=== PATIENT | female | born 1955 | race Caucasian/White ===

== ENCOUNTER → 2018-01-09 09:14 | Outpatient (CLI) | payer MEDICARE, MEDICAID, SELFPAY ==
[2018-01-09 11:30] LABS: Absolute Lymphocyte Count 2.36 X10^3/ul (0.83-4.51); Absolute Neutrophil Count 3.5 X10^3/uL (2.0-7.7); Hematocrit 40.5 % (37-47); Hemoglobin 13.3 g/dl (12.0-15.0); Lymphocyte # 2.36 X10^3/ul (4.0); Lymphocyte % 35.7 % (19-41); Mean Corp Hgb Conc 32.8 g/gl (32-36); Mean Corpuscular Hgb 27.5 pg (27.0-32.0); Mean Corpuscular Volume 83.9 fL (81-99); Mean Platelet Vol. 10.9 fl (6.2-12.0); Monocyte# 0.71 X10^3/uL; Monocyte% 10.7 % (0-10); Neutrophil # 3.53 X10^3/uL (2.7-7.7); Neutrophil % 53.4 % (47-70); Platelet Count 217 K/mm3 (150-450); RBC Distribution Width CV 12.9 % (11.6-14.6); RBC Distribution Width SD 39.5 fl (35.1-43.9); Red Blood Count 4.83 M/mm3 (4.2-5.4); White Blood Count 6.6 K/mm3 (4.4-11.0)
[2018-01-09 11:34] LABS: POSITIVE COUNT NO; POSITIVE DIFFERENTIAL NO; POSITIVE MORPHOLOGY NO
[2018-01-09 11:57] LABS: ALB/GLOB Ratio 1.3 RATIO (0.9-2.4); AST(SGOT) 23 U/L (15-37); Alanine Aminotransfer ALT/SGPT 24 U/L (13-56); Albumin, Serum 3.8 g/dL (3.2-5.0); Alkaline Phosphatase 89 U/L (45-117); Anion Gap 7 (5-15); BUN 13 mg/dL (7-18); BUN/Creat Ratio 14.9 RATIO (10-20); Calcium,Total 8.8 mg/dL (8.5-10.1); Chloride 105 mmol/L (98-107); Creatinine, Serum 0.87 mg/dL (0.55-1.02); EST Glomerular Filtration Rate 70 mL/min (>60); Est Glom Filt Rate - Afr Amer 85 mL/min (>60); Glucose 65 mg/dL (74-106); Potassium 3.8 mmol/L (3.5-5.1); Protein, Total 6.8 g/dL (6.4-8.2); Sodium Level 142 mmol/L (136-145); Thyroid Stim Hormone (TSH) 2.66 uIU/mL (0.358-3.74)
[2018-01-10 09:21] LABS: Hep C Antibodies <0.1 s/co ratio (0.0-0.9)
== END ==
PROVIDERS: Family Provider Family Medicine Geriatric Medicine; PCP Family Medicine Geriatric Medicine; Visit Provider Family Medicine Geriatric Medicine
DX: I10 Essential (primary) hypertension (principal); Z13.89 Encounter for screening for other disorder
CPT/HCPCS: 36415; 80053; 84443; 85025; 86803

== ENCOUNTER → 2018-02-09 12:26 | Outpatient (CLI) | payer MEDICARE, MEDICAID, SELFPAY ==
--- NOTE | 2018-02-09 12:29 | BI_ITS ---
MAMMOGRAPHY - BILATERAL SCREENING REASON FOR EXAM: Female, 63 years old. Routine annual screening examination. PERTINENT HISTORY: Non-contributory. TECHNIQUE: Digital bilateral breast katrina (3D mammographic acquisition) in the CC and MLO projections. 2-D mediolateral oblique (MLO) and craniocaudad (CC) views of both breasts were obtained. CAD: Full Field Digital Mammography with Computer Added Detection was performed. COMPARISON: Comparison is made with prior study dated January 10, 2017 and October 31, 2015. FINDINGS: Breast Composition: There are scattered areas of fibroglandular density. There are no dominant masses or suspicious calcifications. No other significant abnormalities are identified. There has been no significant change since the prior study. BI/SCREENING MAMM (CAD), BILAT IMPRESSION: Stable bilateral screening mammogram. Yearly follow-up mammogram recommended. (A) ASSESSMENT CATEGORY: BIRADS Category 1: Negative. A letter regarding these results will be sent to the patient by the facility within 30 days. Approximately 10% of breast cancers are not detected by mammography. A normal mammogram should not delay biopsy of a clinically suspicious abnormality. [id number] Electronically Signed: Roosevelt Sequeira MD at 13:07 EDT Tel [phone], Service support ,
== END ==
PROVIDERS: Family Provider Family Medicine Geriatric Medicine; PCP Family Medicine Geriatric Medicine; Visit Provider Family Medicine Geriatric Medicine
DX: Z12.31 Encounter for screening mammogram for malignant neoplasm of breast (principal)
CPT/HCPCS: 77063; 77067

== ENCOUNTER 2018-04-01 12:30 | Outpatient (RCR) | payer MEDICARE, MEDICAID, SELFPAY ==
--- NOTE | 2017-12-12 09:05 | HP.PTEVAL_ITS ---
Patient's Visit Information CRIS RUBIO is a 62 year old F referred to Physical Therapy by Rell ABEL with a diagnosis of S/P L total ankle replacement. Date of Evaluation: 12/12/17 Physical Therapist: Maykel Marshall, PT, - Visit Plan Frequency: 2-3x /Week Duration: 6 Weeks Plan: L ankle stretching and strengthening, balance and proprio, gait training, nustep, and HEP. Cont to press WBing and ween from crutches. No WBing without CAM boot. Try to transition out of boot 4-6 weeks - Subjective Subjective: DOS: 10/17/17. Pt reports she had extensive ankle pain for the past 2 years. Pt reports finally it became bad enough to need a L total ankle replacement. Pt reports her pain was severe right after surgery, but has gradually gotten better over time. Pt reports she is glad she had the surgery at this time. Pt reports she is able to perform sit to stand and walk transfers much better at this time. Pt reports she has T and N in her toes at this time. Pt reports sleep diff secondary to pain and being able to get comfortable at this time. Pt is not currently employed at this time. 2/10 at rest, 8/10 at worst - Pain L ankle Pain Intensity (Out of 10): 2 Pain Intensity Range: 8 - Objective Neuro: B LE sensation is WNL to light touch. Observation: Incisions healed. No obvious signs of infection. Moderate swelling in foot. Girth at malleolus: B ankles 24 cm. ROM: R ankle DF= 7, PF= 65 degrees; L ankle DF= -7, PF= 30. MMT : R ankle 5/5 throughout. L ankle 2-/5 - Goals Goal 1:: Decrease L ankle pain x 50% to aid with sleep Goal Time Frame: 4-6 Weeks Goal 2:: Increase L ankle DF ROM x 10 degrees to aid with restoring a more normalized gait pattern Goal Time Frame: 4-6 Weeks Goal 3:: Increase L ankle strength x 1 grade to aid with IADL's Goal Time Frame: 4-6 Weeks Goal 4:: I with HEP Goal Time Frame: 4-6 Weeks - Rehabilitation Potential Physical Therapy Diagnosis: L ankle pain, weakness, and limited ROM secondary to L total ankle replacement Rehabilitation Potential: Good - Anticipated Interventions Patient/Client Instruction: Educate patient on: Condition, Plan of Care For the Purpose of:: To improve self management Therapeutic Exercise to Include: Strength training, Endurance training, Balance training, Body mechanics, Flexibilty training, Gait and locomotor training, Passive ROM, Active ROM For the Purpose of:: To decrease pain, To increase ROM, To improve muscle performance and motor function Cryotherapy (ice pack, ice massage): Yes For the Purpose of:: To decrease pain Thank you for the opportunity to evaluate your patient. For Medicare and Medicare HMO plans, please review the plan of care and approve it. It will need to be FAXED BACK to us at [phone] for Medicare purposes. Please let me know if there are questions or concerns regarding this plan of care. Physician Signature: Date:
--- NOTE | 2018-03-06 09:07 | HP.PTREVAL_ITS ---
Rell Coffey, It has been my pleasure to treat CRIS RUBIO over the last 34 visits for S/P L total ankle replacement. Please see the progress note below for an update on the physical therapy plan of care! Subjective: Pt reports she is really stiff this date Objective/Function: L ankle DF ROM= 2 degrees. L ankle pain 4/10 and pt still has sleep diff secondary to pain. L ankle MMT: PF= 5/5, all other L ankle 4/5 throughout. Stairs: Pt is unable to negotiate stairs without handrails. Pt must go one stair at a time on the way down. Ambulation: Pt is able to ambulate greater than 1000 feet with no difficulty. Pt still lack HS Plan Plan: Cont to progress strength and ROM. Also focus on stair negotiation Goals Goal 1:: Decrease L ankle pain x 50% to aid with sleep Goal Time Frame: 4-6 Weeks Goal Progress: Progressing Goal 2:: Increase L ankle DF ROM x 10 degrees to aid with restoring a more normalized gait pattern Goal Time Frame: 4-6 Weeks Goal Progress: Goal Met Goal 3:: Increase L ankle strength x 1 grade to aid with IADL's Goal Time Frame: 4-6 Weeks Goal Progress: Progressing Goal 4:: I with HEP Goal Time Frame: 4-6 Weeks Goal Progress: Progressing Goal 5:: Increase DF ROM to 10 degrees to aid with restoring a more functional gait pattern Goal Time Frame: 2-4 Weeks Goal 6:: Pt will be able to descend stairs reciprocally and using only one handrail Goal Time Frame: 2-4 Weeks Anticipated Interventions Patient/Client Instruction: Educate patient on: Condition, Plan of Care For the Purpose of:: To improve self management Therapeutic Exercise to Include: Strength training, Endurance training, Balance training, Body mechanics, Flexibilty training, Gait and locomotor training, Passive ROM, Active ROM For the Purpose of:: To decrease pain, To increase ROM, To improve muscle performance and motor function Cryotherapy (ice pack, ice massage): Yes For the Purpose of:: To decrease pain Please do not hesitate to contact me at [phone] by phone or Fax: if you have questions or concerns regarding this new plan of care! Sincerely, Maykel Marshall, PT,
--- NOTE | 2018-04-01 13:02 | HP.PTDCSUM ---
HP - PT D/C Summary It has been my pleasure to treat CRIS RUBIO under orders from Rell Coffey, for the diagnosis of S/P L total ankle replacement for a total of 42 visit(s). Discharge Date: Please see the following information for a summary of their discharge status. 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 - Pain L ankle Pain Intensity (Out of 10): 4 - Overall Improvement % Improvement: 85 - Objective Objective/Function: L ankle pain currently 10 - Goals Goal 1:: Decrease L ankle pain x 50% to aid with sleep Goal Progress: Goal Met Goal 2:: Increase L ankle DF ROM x 10 degrees to aid with restoring a more normalized gait pattern Goal Progress: Goal Met Goal 3:: Increase L ankle strength x 1 grade to aid with IADL's Goal Progress: Goal Met Goal 4:: I with HEP Goal Progress: Goal Met Goal 5:: Increase DF ROM to 10 degrees to aid with restoring a more functional gait pattern Goal Progress: Goal Met Goal 6:: Pt will be able to descend stairs reciprocally and using only one handrail Goal Progress: Goal Met - Plan Plan: Cont as aureliano - D/C Information If there are questions or concerns regarding this patient's physical therapy, please feel free to call me at [phone]. Thank you for the referral of this patient. Sincerely, Maykel Marshall, PT,
== END 2018-04-01 13:40 | disposition home or self-care (01) ==
LOC: PT 12:30
PROVIDERS: Family Provider Family Medicine Geriatric Medicine; PCP Family Medicine Geriatric Medicine; Visit Provider Podiatrist
DX: Z96.662 Presence of left artificial ankle joint (principal); Z98.1 Arthrodesis status
CPT/HCPCS: 97110; 97140; 97161; 97530

== ENCOUNTER → 2018-05-27 10:01 | Outpatient (CLI) | payer MEDICARE, MEDICAID, SELFPAY ==
[2018-05-27 11:12] LABS: Amphetamine Urine VISTA NEGATIVE (<1000 ng/mL); Barbiturate Urine VISTA NEGATIVE (< 200 ng/mL); Benzodiazepine Urine VISTA NEGATIVE (< 200 ng/mL); Cocaine Urine VISTA NEGATIVE (< 300 ng/mL); Ecstacy Urine VISTA NEGATIVE (< 500 ng/mL); Methadone Urine VISTA NEGATIVE (< 300 ng/mL); PCP Urine VISTA NEGATIVE (< 25 ng/mL); THC Urine VISTA NEGATIVE (< 50 ng/mL); Vista UDS pH Range 6
== END ==
PROVIDERS: Family Provider Family Medicine Geriatric Medicine; PCP Family Medicine Geriatric Medicine; Visit Provider Anesthesiology Pain Medicine
DX: F11.20 Opioid dependence, uncomplicated (principal)
CPT/HCPCS: 80307

== ENCOUNTER → 2018-07-14 11:30 | Outpatient (CLI) | payer MEDICARE, MEDICAID, SELFPAY ==
[2018-07-14 12:39] LABS: Absolute Lymphocyte Count 1.53 X10^3/ul (0.83-4.51); Absolute Neutrophil Count 2.2 X10^3/uL (2.0-7.7); Eosinophil# 0.01 X10^3/uL; Eosinophils% 0.2 % (0-5); Hematocrit 38.4 % (37-47); Hemoglobin 12.8 g/dl (12.0-15.0); Lymphocyte # 1.53 X10^3/ul (4.0); Lymphocyte % 36.3 % (19-41); Mean Corp Hgb Conc 33.3 g/gl (32-36); Mean Corpuscular Hgb 28.1 pg (27.0-32.0); Mean Corpuscular Volume 84.2 fL (81-99); Mean Platelet Vol. 10.9 fl (6.2-12.0); Monocyte# 0.42 X10^3/uL; Neutrophil # 2.24 X10^3/uL (2.7-7.7); Neutrophil % 53.3 % (47-70); Platelet Count 157 K/mm3 (150-450); RBC Distribution Width CV 13.8 % (11.6-14.6); RBC Distribution Width SD 41.9 fl (35.1-43.9); Red Blood Count 4.56 M/mm3 (4.2-5.4); White Blood Count 4.2 K/mm3 (4.4-11.0)
[2018-07-14 12:43] LABS: POSITIVE COUNT NO; POSITIVE DIFFERENTIAL NO; POSITIVE MORPHOLOGY NO
[2018-07-14 13:06] LABS: ALB/GLOB Ratio 1.2 RATIO (0.9-2.4); AST(SGOT) 23 U/L (15-37); Alanine Aminotransfer ALT/SGPT 25 U/L (13-56); Albumin, Serum 3.7 g/dL (3.2-5.0); Alkaline Phosphatase 83 U/L (45-117); Anion Gap 6 (5-15); BUN 9 mg/dL (7-18); BUN/Creat Ratio 10.2 RATIO (10-20); Calcium,Total 9.1 mg/dL (8.5-10.1); Chloride 107 mmol/L (98-107); Creatinine, Serum 0.88 mg/dL (0.55-1.02); EST Glomerular Filtration Rate 69 mL/min (>60); Est Glom Filt Rate - Afr Amer 83 mL/min (>60); Glucose 81 mg/dL (74-106); Potassium 4.3 mmol/L (3.5-5.1); Protein, Total 6.7 g/dL (6.4-8.2); Sodium Level 144 mmol/L (136-145); Thyroid Stim Hormone (TSH) 0.94 uIU/mL (0.358-3.74)
== END ==
PROVIDERS: Family Provider Family Medicine Geriatric Medicine; PCP Family Medicine Geriatric Medicine; Visit Provider Family Medicine Geriatric Medicine
DX: I10 Essential (primary) hypertension (principal)
CPT/HCPCS: 36415; 80053; 84443; 85025

== ENCOUNTER → 2018-09-15 11:46 | Outpatient (CLI) | payer MEDICARE, SELFPAY ==
[2018-09-15 14:02] LABS: Absolute Lymphocyte Count 1.59 X10^3/ul (0.83-4.51); Absolute Neutrophil Count 3.2 X10^3/uL (2.0-7.7); Hematocrit 39.5 % (37-47); Hemoglobin 12.9 g/dl (12.0-15.0); Lymphocyte # 1.59 X10^3/ul (4.0); Lymphocyte % 30.5 % (19-41); Mean Corp Hgb Conc 32.7 g/gl (32-36); Mean Corpuscular Hgb 27.7 pg (27.0-32.0); Mean Corpuscular Volume 84.9 fL (81-99); Mean Platelet Vol. 10.7 fl (6.2-12.0); Monocyte# 0.38 X10^3/uL; Monocyte% 7.3 % (0-10); Neutrophil # 3.24 X10^3/uL (2.7-7.7); Neutrophil % 62.2 % (47-70); POSITIVE COUNT NO; POSITIVE DIFFERENTIAL NO; Platelet Count 176 K/mm3 (150-450); RBC Distribution Width CV 13.5 % (11.6-14.6); RBC Distribution Width SD 41.2 fl (35.1-43.9); Red Blood Count 4.65 M/mm3 (4.2-5.4); White Blood Count 5.2 K/mm3 (4.4-11.0)
[2018-09-15 14:03] LABS: POSITIVE MORPHOLOGY NO
[2018-09-15 14:26] LABS: ALB/GLOB Ratio 1.2 RATIO (0.9-2.4); AST(SGOT) 23 U/L (15-37); Alanine Aminotransfer ALT/SGPT 22 U/L (13-56); Albumin, Serum 3.8 g/dL (3.2-5.0); Alkaline Phosphatase 80 U/L (45-117); Anion Gap 9 (5-15); BUN 9 mg/dL (7-18); BUN/Creat Ratio 10.4 RATIO (10-20); Chloride 104 mmol/L (98-107); Creatinine, Serum 0.87 mg/dL (0.55-1.02); EST Glomerular Filtration Rate 70 mL/min (>60); Est Glom Filt Rate - Afr Amer 85 mL/min (>60); Globulin 3.1 g/dL (2.2-4.2); Glucose 70 mg/dL (74-106); Potassium 3.7 mmol/L (3.5-5.1); Protein, Total 6.9 g/dL (6.4-8.2); Sodium Level 144 mmol/L (136-145)
--- OUTSIDE RECORDS SUMMARY | 2018-11-01 13:13 | XMS RPT_ITS ---
:1955 Author Organization [facility] Care Team Providers Name Role Phone Rocky, Wesly Chi Attending Unavailable Rocky, Wesly Chi Primary Care Unavailable Rell Coffey Attending Unavailable Rocky, Wesly Chi Primary Care Unavailable Rell Coffey Referring Unavailable Rocky, Wesly Chi Attending Unavailable Rocky, Wesly Chi Primary Care Unavailable Rocky, Wesly Chi Attending Unavailable Rocky, Wesly Chi Primary Care Unavailable Basali, Ayman Attending Unavailable Basali, Ayman Referring Unavailable Rocky, Wesly Chi Primary Care Unavailable Rocky, Wesly Chi Attending Unavailable Rocky, Wesly Chi Primary Care Unavailable PROBLEMS PROBLEMS DATE TYPE CONDITION / CODE ATTENDING STATUS SOURCE 05/27/2018 Unknown F11.20 - Opioid Basaljose ramon, Ayman Active [place] dependence, Community uncomplicated / Hospital F11.20(ICD-10) Repository 04/01/2018 Unknown Z96.662 - Presence [place]unning, Active [facility] Z96.662(ICD-10) Repository 01/09/2018 Unknown I11.0 - Rocky, Wesly Chi Active [facility] Hypertensive heart Community disease with heart Hospital failure / Repository I11.0(ICD-10) 01/09/2018 Unknown Z13.89 - Encounter Wesly Hidalgo Chi Active [place] for screening for Community other disorder / Hospital Z13.89(ICD-10) Repository PROCEDURES PROCEDURES No Procedure Records FoundRESULTS RESULTS CBC W/DIFF, AUTOMATED Collected: 09/15/2018 Status: F Source: [facility] 11[facility] TYPE CODE TESTS RESULT OUT OF RANGE REFERENCE UNITS LAB L100.1000 4.4-11.0 K/mm3 Normal WBC 5.2 LAB L100.1200 4.2-5.4 M/mm3 Normal RBC 4.65 LAB L100.1300 12.0-15.0 g/dl Normal HGB 12.9 LAB L100.1400 37-47 % Normal HCT 39.5 LAB L100.1500 81-99 fL Normal MCV 84.9 LAB L100.1600 27.0-32.0 pg Normal MCH 27.7 LAB L100.1700 32-36 g/gl Normal MCHC 32.7 LAB L100.1810 11.6-14.6 % Normal RDW CV 13.5 LAB L100.1820 35.1-43.9 fl Normal RDW SD 41.2 LAB L100.1900 150-450 K/mm3 Normal PLT 176 LAB L100.2000 6.2-12.0 fl Normal MPV 10.7 LAB L100.2100 47-70 % Normal NEUT% 62.2 LAB L100.2200 19-41 % Normal LY% 30.5 LAB L100.2300 0-10 % Normal MONO% 7.3 LAB L100.2400 0-5 % Normal EO% 0.0 LAB L100.2500 0-1 % Normal BASO% 0.0 LAB L100.2550 0.0-0.9 % Normal IM GRAN % 0.000 Result Comment: IG% - Immature Granulocytes (promyelocytes, myelocytes and metamyelocytes) > 1% indicates that a LEFT SHIFT is Present. LAB L100.2620 2.0-7.7 X10 3/uL Normal Absolute Neut 3.2 LAB L100.2720 0.83-4.51 X10 3/ul Normal Absolute Lymph 1.59 Performed By: #### L100.0100 #### [facility] [address] [place], [address] COMPREHENSIVE METABOLIC Collected: 09/15/2018 Status: F Source: R[facility]IN TORRES 11:57 AM [facility] REPOSITORY TYPE CODE TESTS RESULT OUT OF RANGE REFERENCE UNITS LAB L501.0100 74-106 mg/dL Low GLU 70 Result Comment: Please note revised GLUCOSE reference range effective 2017. LAB L501.1000 7-18 mg/dL Normal BUN 9 LAB L501.1100 0.55-1.02 mg/dL Normal CREAT,SERUM 0.87 Result Comment: The validity of the calculated GFR AND GFRAA in patients over 70 years has not been determined. Clinical correlation is essential. LAB L501.1110 >60 mL/min Normal EST GFR 70 Result Comment: Non- GFR Calc LAB L501.1115 >60 mL/min Normal EST GFR - AA 85 Result Comment: GFR Calc LAB L501.1300 10-20 RATIO Normal BUN/CRE 10.4 LAB L501.1500 6.4-8.2 g/dL T Normal PROT 6.9 LAB L501.1800 3.2-5.0 g/dL Normal ALB 3.8 LAB L501.1950 2.2-4.2 g/dL Normal GLOB 3.1 LAB L501.2000 0.9-2.4 RATIO Normal A/G 1.2 LAB L501.2200 8.5-10.1 mg/dL CA Normal 9.0 LAB L501.4100 15-37 U/L Normal AST 23 LAB L501.4305 45-117 U/L Normal ALK P 80 LAB L501.4405 13-56 U/L Normal ALT 22 LAB L501.4600 0.20-1.00 mg/dL T Normal BILI 0.60 LAB L501.5300 136-145 mmol/L NA Normal 144 LAB L501.5600 3.5-5.1 mmol/L K Normal 3.7 LAB L501.5900 98-107 mmol/L CL Normal 104 LAB L501.6100 21.0-32.0 mmol/L Normal CO2 31.0 LAB L501.6200 5-15 Normal GAP 9 Performed By: #### L500.4050 #### [facility] [address] [place], [address] CBC W/DIFF, AUTOMATED Collected: 07/14/2018 Status: F Source: [place] 11:33 AM [facility] REPOSITORY TYPE CODE TESTS RESULT OUT OF RANGE REFERENCE UNITS LAB L100.1000 4.4-11.0 K/mm3 Low WBC 4.2 LAB L100.1200 4.2-5.4 M/mm3 Normal RBC 4.56 LAB L100.1300 12.0-15.0 g/dl Normal HGB 12.8 LAB L100.1400 37-47 % Normal HCT 38.4 LAB L100.1500 81-99 fL Normal MCV 84.2 LAB L100.1600 27.0-32.0 pg Normal MCH 28.1 LAB L100.1700 32-36 g/gl Normal MCHC 33.3 LAB L100.1810 11.6-14.6 % Normal RDW CV 13.8 LAB L100.1820 35.1-43.9 fl Normal RDW SD 41.9 LAB L100.1900 150-450 K/mm3 Normal PLT 157 LAB L100.2000 6.2-12.0 fl Normal MPV 10.9 LAB L100.2100 47-70 % Normal NEUT% 53.3 LAB L100.2200 19-41 % Normal LY% 36.3 LAB L100.2300 0-10 % Normal MONO% 10.0 LAB L100.2400 0-5 % Normal EO% 0.2 LAB L100.2500 0-1 % Normal BASO% 0.0 LAB L100.2550 0.0-0.9 % Normal IM GRAN % 0.200 Result Comment: IG% - Immature Granulocytes (promyelocytes, myelocytes and metamyelocytes) > 1% indicates that a LEFT SHIFT is Present. LAB L100.2620 2.0-7.7 X10 3/uL Normal Absolute Neut 2.2 LAB L100.2720 0.83-4.51 X10 3/ul Normal Absolute Lymph 1.53 Performed By: #### L100.0100 #### [facility] [address] [place], [place], [address] COMPREHENSIVE METABOLIC Collected: 07/14/2018 Status: F Source: RUBIN PROFIL 11:33 AM [facility] REPOSITORY TYPE CODE TESTS RESULT OUT OF RANGE REFERENCE UNITS LAB L501.0100 74-106 mg/dL Normal GLU 81 Result Comment: Please note revised GLUCOSE reference range effective 2017. LAB L501.1000 7-18 mg/dL Normal BUN 9 LAB L501.1100 0.55-1.02 mg/dL Normal CREAT,SERUM 0.88 Result Comment: The validity of the calculated GFR AND GFRAA in patients over 70 years has not been determined. Clinical correlation is essential. LAB L501.1110 >60 mL/min Normal EST GFR 69 Result Comment: Non- GFR Calc LAB L501.1115 >60 mL/min Normal EST GFR - AA 83 Result Comment: GFR Calc LAB L501.1300 10-20 RATIO Normal BUN/CRE 10.2 LAB L501.1500 6.4-8.2 g/dL T Normal PROT 6.7 LAB L501.1800 3.2-5.0 g/dL Normal ALB 3.7 LAB L501.1950 2.2-4.2 g/dL Normal GLOB 3.0 LAB L501.2000 0.9-2.4 RATIO Normal A/G 1.2 LAB L501.2200 8.5-10.1 mg/dL CA Normal 9.1 LAB L501.4100 15-37 U/L Normal AST 23 LAB L501.4305 45-117 U/L Normal ALK P 83 LAB L501.4405 13-56 U/L Normal ALT 25 LAB L501.4600 0.20-1.00 mg/dL T Normal BILI 0.50 LAB L501.5300 136-145 mmol/L NA Normal 144 LAB L501.5600 3.5-5.1 mmol/L K Normal 4.3 LAB L501.5900 98-107 mmol/L CL Normal 107 LAB L501.6100 21.0-32.0 mmol/L Normal CO2 31.0 LAB L501.6200 5-15 Normal GAP 6 Performed By: #### L500.4050, L501.9520 #### [facility] [address] [place], [address] THYROID STIM HORMONE Collected: 07/14/2018 Status: F Source: RUBIN (TSH) 11:33 AM [facility] REPOSITORY TYPE CODE TESTS RESULT OUT OF RANGE REFERENCE UNITS LAB L501.9520 0.358-3.74 uIU/mL Normal TSH 0.94 Performed By: #### L500.4050, L501.9520 #### [facility] [address] [place], [place], [id number] URINE DRUG SCREEN Collected: 05/27/2018 Status: F Source: RUBIN (VISTA) 10:08 AM [facility] REPOSITORY Order Comment: List of Drugs Taken or Suspected? UNK TYPE CODE TESTS RESULT OUT OF RANGE REFERENCE UNITS LAB L505.0075 TO BE Normal CONFIRMED Result Comment: CONFIRMATORY TESTING FOR ALL POSITIVE URINE DRUG SCREEN RESULTS WILL ONLY BE SENT OUT UPON PHYSICIAN ORDER. VISTA Urine Drug Screen methods provide only preliminary analytical test results. A more specific alternate chemical method must be used in order to obtain a confirmed analytical result. Gas chromatography/mass spectrometery (GC/MS) is the preferred confirmatory method. Clinical consideration and professional judgement should be applied to any drug of abuse test result, particularly when preliminary positive results are used. URINE TCA TESTING MUST BE ORDERED SEPARATELY. USE TEST MNEMONIC: [facility] LAB L505.5005 VISTA UDS PH 6 Normal LAB L505.5015 <1000 ng/mL AMPHETAMINES Normal NEGATIVE LAB L505.5025 < 200 ng/mL BARBITIURATES Normal NEGATIVE LAB L505.5035 < 200 ng/mL BENZODIAZIPINE Normal NEGATIVE LAB L505.5045 < 300 ng/mL COCAINE Normal NEGATIVE LAB L505.5055 < 500 ng/mL ECSTACY Normal NEGATIVE LAB L505.5065 < 300 ng/mL METHADONE Normal NEGATIVE LAB L505.5075 < 300 ng/mL OPIATES Normal NEGATIVE LAB L505.5085 < 25 ng/mL PCP Normal NEGATIVE LAB L505.5095 < 50 ng/mL THC Normal NEGATIVE Performed By: #### L505.5000 #### [facility] [address] [place], [place], [address] MISCELLANEOUS LAB Collected: 05/27/2018 Status: F Source: RUBIN PROCEDURE 10:08 AM [facility] REPOSITORY Order Comment: Test(s) Ordered: [id number] URINE RUN LOWEST TEST TYPE CODE TESTS RESULT OUT OF RANGE REFERENCE UNITS LAB L801.1541 Normal [facility] TEST Result Comment: [id number] 6+OXYCODONE-BUND (ng/mL) DRUG RESULT SCREEN CUTOFF ____ Amphetamines,Urine Negative ng/mL 1000 Amphetamine test includes Amphetamine and Methamphetamine. Barbiturates Negative ng/mL 200 Benzodiazepines Negative ng/mL 200 Cannabinoid Negative ng/mL 20 Cocaine (Metab) Negative ng/mL 300 Opiates Negative ng/mL 300 Opiates test includes Codeine, Morphine, Hydromorphone, Hydrocodone. Oxycodone/Oxymorphone,Urine Negative ng/mL 300 Test includes Oxydodone and Oxymorphone. TESTING PERFORMED AT [facility]. ORIGINAL REPORT ON FILE IN LAB CONTAINS ADDITIONAL TEST SITE INFORMATION. Performed By: #### L801.1541 #### [facility] [address] [place], [address] PT D/C SUMMARY (1) Observed: 04/01/2018 Status: F Source: [place] 1:02 PM [facility] REPOSITORY [facility] Physical Therapy [address] [place] [address] Fax REHABILITATION SERVICES DISCHARGE SUMMARY MR#: [id number] Acct: [id number] Name: CRIS RUBIO Rep #: [id number] : 1955 63 From: Maykel Marshall PT, ATC Referring DrKatt: Rell Coffey DPM Status: REG RCR Insurance: MEDICARE PART A B MEDICAID HP - PT D/C Summary It has been my pleasure to treat CRIS ARREDONDO under orders from Rell Coffey, for the diagnosis of S/P L total ankle replacement for a total of 42 visit(s). Discharge Date: Please see the following information for a summary of their discharge status. - Subjective Subjective: Pt reports her L ankle is more sore today from yumiko kaye all day - Pain L ankle Pain Intensity (Out of 10): 4 - Overall Improvement % Improvement: 85 - Objective Objective/Function: L ankle pain currently 01/13 - Goals Goal 1:: Decrease L ankle pain x 50% to aid with sleep Goal Progress: Goal Met Goal 2:: Increase L ankle DF ROM x 10 degrees to aid with restoring a more normalized gait pattern Goal Progress: Goal Met Goal 3:: Increase L ankle strength x 1 grade to aid with IADL's Goal Progress: Goal Met Goal 4:: I with HEP Goal Progress: Goal Met Goal 5:: Increase DF ROM to 10 degrees to aid with restoring a more functional gait pattern Goal Progress: Goal Met Goal 6:: Pt will be able to descend stairs reciprocally and using only one handrail Goal Progress: Goal Met - Plan Plan: Cont as aureliano - D/C Information If there are questions or concerns regarding this patient's physical therapy, please feel free to call me at [phone]. Thank you for the referral of this patient. Sincerely, Maykel Marshall PT, <Electronically signed by Maykel Marshall PT, ATC> 04/01/18 1302 CC: Rell Coffey DPM; Wesly Hidalgo MD [facility] Signed RE-EVALUATION - PT (1) Observed: 03/06/2018 Status: F Source: RUBIN 9:07 AM [facility] REPOSITORY [facility] [address] [place], [place] [address] Fax REEVALUATION / MEDICARE RECERTIFICATION PHYSICAL THERAPY MR#: [id number] Acct: [id number] Name: CRIS RUBIO Rep #: [id number] : 1955 63 From: Maykel Marshall PT, ATC Referring Dr.: Rell Coffey DPM Status: REG RCR Insurance: MEDICARE PART A B MEDICAID Rell Coffey, It has been my pleasure to treat CRIS RUBIO over the last 34 visits for S/P L total ankle replacement. Please see the progress note below for an update on the physical therapy plan of care! Subjective: Pt reports she is really stiff this date Objective/Function: L ankle DF ROM= 2 degrees. L ankle pain 4/10 and pt still has sleep diff secondary to pain. L ankle MMT: PF= 5/5, all other L ankle 4/5 throughout. Stairs: Pt is unable to negotiate stairs without handrails. Pt must go one stair at a time on the way down. Ambulation: Pt is able to ambulate greater than 1000 feet with no difficulty. Pt still lack HS Plan Plan: Cont to progress strength and ROM. Also focus on stair negotiation Goals Goal 1:: Decrease L ankle pain x 50% to aid with sleep Goal Time Frame: 4-6 Weeks Goal Progress: Progressing Goal 2:: Increase L ankle DF ROM x 10 degrees to aid with restoring a more normalized gait pattern Goal Time Frame: 4-6 Weeks Goal Progress: Goal Met Goal 3:: Increase L ankle strength x 1 grade to aid with IADL's Goal Time Frame: 4-6 Weeks Goal Progress: Progressing Goal 4:: I with HEP Goal Time Frame: 4-6 Weeks Goal Progress: Progressing Goal 5:: Increase DF ROM to 10 degrees to aid with restoring a more functional gait pattern Goal Time Frame: 2-4 Weeks Goal 6:: Pt will be able to descend stairs reciprocally and using only one handrail Goal Time Frame: 2-4 Weeks Anticipated Interventions Patient/Client Instruction: Educate patient on: Condition, Plan of Care For the Purpose of:: To improve self management Therapeutic Exercise to Include: Strength training, Endurance training, Balance training, Body mechanics, Flexibilty training, Gait and locomotor training, Passive ROM, Active ROM For the Purpose of:: To decrease pain, To increase ROM, To improve muscle performance and motor function Cryotherapy (ice pack, ice massage): Yes For the Purpose of:: To decrease pain Please do not hesitate to contact me at [phone] by phone or if you have questions or concerns regarding this new plan of care! Sincerely, Maykel Marshall, PT, <Electronically signed by Maykel Marshall PT, ATC> 03/06/18 0907 CC: Rell Coffey DPM; Wesly Hidalgo MD [facility] Signed For Medicare only, by signing this I certify the plan of care. Physicians Signature Date SCREENING MAMM (CAD), Observed: 02/09/2018 Status: F Source: RUBIN BILAT 12:29 PM [facility] REPOSITORY [facility] Imaging Services [address] [place] [address] SCREENING MAMM (CAD), BILAT MR#: [id number] Acct: [id number] Name: CRIS RUBIO Rep #: [id number] : 1955 F 63 From: Roosevelt Sequeira MD PCP: Wesly Hidalgo MD, Chi Status: REG CLI Study: SCREENING MAMM (CAD), BILAT Date of Exam: 02/09/18 Exam# [id number] Ordering Dr: Wesly Hidalgo MD MAMMOGRAPHY - BILATERAL SCREENING REASON FOR EXAM: Female, 63 years old. Routine annual screening examination. PERTINENT HISTORY: Non-contributory. TECHNIQUE: Digital bilateral breast katrina (3D mammographic acquisition) in the CC and MLO projections. 2-D mediolateral oblique (MLO) and craniocaudad (CC) views of both breasts were obtained. CAD: Full Field Digital Mammography with Computer Added Detection was performed. COMPARISON: Comparison is made with prior study dated January 10, 2017 and October 31, 2015. FINDINGS: Breast Composition: There are scattered areas of fibroglandular density. There are no dominant masses or suspicious calcifications. No other significant abnormalities are identified. There has been no significant change since the prior study. BI/SCREENING MAMM (CAD), BILAT IMPRESSION: Stable bilateral screening mammogram. Yearly follow-up mammogram recommended. (A) ASSESSMENT CATEGORY: BIRADS Category 1: Negative. A letter regarding these results will be sent to the patient by the facility within 30 days. Approximately 10% of breast cancers are not detected by mammography. A normal mammogram should not delay biopsy of a clinically suspicious abnormality. [id number] Electronically Signed: Roosevelt Sequeira MD at 13:07 EDT Tel [phone], Service support , CC: Wesly Hidalgo MD [facility] [place]: Signed CBC W/DIFF, AUTOMATED Collected: 01/09/2018 Status: F Source: [place] 10:26 AM [facility] REPOSITORY TYPE CODE TESTS RESULT OUT OF RANGE REFERENCE UNITS LAB L100.1000 4.4-11.0 K/mm3 Normal WBC 6.6 LAB L100.1200 4.2-5.4 M/mm3 Normal RBC 4.83 LAB L100.1300 12.0-15.0 g/dl Normal HGB 13.3 LAB L100.1400 37-47 % Normal HCT 40.5 LAB L100.1500 81-99 fL Normal MCV 83.9 LAB L100.1600 27.0-32.0 pg Normal MCH 27.5 LAB L100.1700 32-36 g/gl Normal MCHC 32.8 LAB L100.1810 11.6-14.6 % Normal RDW CV 12.9 LAB L100.1820 35.1-43.9 fl Normal RDW SD 39.5 LAB L100.1900 150-450 K/mm3 Normal PLT 217 LAB L100.2000 6.2-12.0 fl Normal MPV 10.9 LAB L100.2100 47-70 % Normal NEUT% 53.4 LAB L100.2200 19-41 % Normal LY% 35.7 LAB L100.2300 0-10 % High MONO% 10.7 LAB L100.2400 0-5 % Normal EO% 0.0 LAB L100.2500 0-1 % Normal BASO% 0.0 LAB L100.2550 0.0-0.9 % Normal IM GRAN % 0.200 Result Comment: IG% - Immature Granulocytes (promyelocytes, myelocytes and metamyelocytes) > 1% indicates that a LEFT SHIFT is Present. LAB L100.2620 2.0-7.7 X10 3/uL Normal Absolute Neut 3.5 LAB L100.2720 0.83-4.51 X10 3/ul Normal Absolute Lymph 2.36 Performed By: #### L100.0100 #### [facility] [address] [place], [address] COMPREHENSIVE METABOLIC Collected: 01/09/2018 Status: F Source: [facility] 10:26 AM [facility] REPOSITORY TYPE CODE TESTS RESULT OUT OF RANGE REFERENCE UNITS LAB L501.0100 74-106 mg/dL Low GLU 65 Result Comment: Please note revised GLUCOSE reference range effective 2017. LAB L501.1000 7-18 mg/dL Normal BUN 13 LAB L501.1100 0.55-1.02 mg/dL Normal CREAT,SERUM 0.87 Result Comment: The validity of the calculated GFR AND GFRAA in patients over 70 years has not been determined. Clinical correlation is essential. LAB L501.1110 >60 mL/min Normal EST GFR 70 Result Comment: Non- GFR Calc LAB L501.1115 >60 mL/min Normal EST GFR - AA 85 Result Comment: GFR Calc LAB L501.1300 10-20 RATIO Normal BUN/CRE 14.9 LAB L501.1500 6.4-8.2 g/dL T Normal PROT 6.8 LAB L501.1800 3.2-5.0 g/dL Normal ALB 3.8 LAB L501.1950 2.2-4.2 g/dL Normal GLOB 3.0 LAB L501.2000 0.9-2.4 RATIO Normal A/G 1.3 LAB L501.2200 8.5-10.1 mg/dL CA Normal 8.8 LAB L501.4100 15-37 U/L Normal AST 23 LAB L501.4305 45-117 U/L Normal ALK P 89 LAB L501.4405 13-56 U/L Normal ALT 24 Result Comment: Please note revised ALT reference range effective 2017. LAB L501.4600 0.20-1.00 mg/dL Normal T BILI 0.30 LAB L501.5300 136-145 mmol/L Normal NA 142 LAB L501.5600 3.5-5.1 mmol/L Normal K 3.8 LAB L501.5900 98-107 mmol/L Normal CL 105 LAB L501.6100 21.0-32.0 mmol/L Normal CO2 30.0 LAB L501.6200 5-15 Normal GAP 7 Performed By: #### L500.4050, L501.9520 #### [facility] [address] [facility] [place], [place], [address] THYROID STIM HORMONE Collected: 01/09/2018 Status: F Source: RUBIN (TSH) 10:26 AM [facility] REPOSITORY TYPE CODE TESTS RESULT OUT OF RANGE REFERENCE UNITS LAB L501.9520 0.358-3.74 uIU/mL Normal TSH 2.66 Performed By: #### L500.4050, L501.9520 #### [facility] [address] [facility] [facility] [place], [place], [address] HEPATITIS C ANTIBODIES Collected: 01/09/2018 Status: F Source: [place] 10:26 AM [facility] REPOSITORY TYPE CODE TESTS RESULT OUT OF RANGE REFERENCE UNITS LAB L3100.0650 0.0-0.9 s/co ratio Normal HEP C AB <0.1 Result Comment: Negative: < 0.8 Indeterminate: 0.8 - 0.9 Positive: > 0.9 The CDC recommends that a positive HCV antibody result be followed up with a HCV Nucleic Acid Amplification test ([id number]). Performed at: - [facility] [id number] Loft Rigger: Campos Winkler PhD, Phone: [phone] Performed By: #### L3100.0625 #### [facility] (refer to report for specific site) refer to report for address and phone number INITAL EVALUATION (1) Observed: 12/12/2017 Status: F Source: RUBIN - PT 9:05 AM [facility] REPOSITORY [facility] Physical Therapy [address] [place] [address] Fax REHABILITATION SERVICES INITIAL EVALUATION MR#: [id number] Acct: [id number] Name: CRIS RUBIO Rep #: [id number] : 1955 62 From: Maykel Marshall PT, ATC Referring Dr.: Rell Coffey DPM Status: REG RCR Insurance: MEDICARE PART A B MEDICAID Patient's Visit Information CRIS RUBIO is a 62 year old F referred to Physical Therapy by Rell Coffey DR.JWUNNI with a diagnosis of S/P L total ankle replacement. Date of Evaluation: 12/12/17 Physical Therapist: Mayekl Marshall, PT, - Visit Plan Frequency: 2-3x /Week Duration: 6 Weeks Plan: L ankle stretching and strengthening, balance and proprio, gait training, nustep, and HEP. Cont to press WBing and ween from crutches. No WBing without CAM boot. Try to transition out of boot 4-6 weeks - Subjective Subjective: DOS: 10/17/17. Pt reports she had extensive ankle pain for the past 2 years. Pt reports finally it became bad enough to need a L total ankle replacement. Pt reports her pain was severe right after surgery, but has gradually gotten better over time. Pt reports she is glad she had the surgery at this time. Pt reports she is able to perform sit to stand and walk transfers much better at this time. Pt reports she has T and N in her toes at this time. Pt reports sleep diff secondary to pain and being able to get comfortable at this time. Pt is not currently employed at this time. 2/10 at rest, 8/10 at worst - Pain L ankle Pain Intensity (Out of 10): 2 Pain Intensity Range: 8 - Objective Neuro: B LE sensation is WNL to light touch. Observation: Incisions healed. No obvious signs of infection. Moderate swelling in foot. Girth at malleolus: B ankles 24 cm. ROM: R ankle DF= 7, PF= 65 degrees; L ankle DF= -7, PF= 30. MMT: R ankle 5/5 throughout. L ankle 2-/5 - Goals Goal 1:: Decrease L ankle pain x 50% to aid with sleep Goal Time Frame: 4-6 Weeks Goal 2:: Increase L ankle DF ROM x 10 degrees to aid with restoring a more normalized gait pattern Goal Time Frame: 4-6 Weeks Goal 3:: Increase L ankle strength x 1 grade to aid with IADL's Goal Time Frame: 4-6 Weeks Goal 4:: I with HEP Goal Time Frame: 4-6 Weeks - Rehabilitation Potential Physical Therapy Diagnosis: L ankle pain, weakness, and limited ROM secondary to L total ankle replacement Rehabilitation Potential: Good - Anticipated Interventions Patient/Client Instruction: Educate patient on: Condition, Plan of Care For the Purpose of:: To improve self management Therapeutic Exercise to Include: Strength training, Endurance training, Balance training, Body mechanics, Flexibilty training, Gait and locomotor training, Passive ROM, Active ROM For the Purpose of:: To decrease pain, To increase ROM, To improve muscle performance and motor function Cryotherapy (ice pack, ice massage): Yes For the Purpose of:: To decrease pain Thank you for the opportunity to evaluate your patient. For Medicare and Medicare HMO plans, please review the plan of care and approve it. It will need to be FAXED BACK to us at [phone] for Medicare purposes. Please let me know if there are questions or concerns regarding this plan of care. Physician Signature: Date: <Electronically signed by Maykel Marshall PT, ATC> 12/12/17 0905 CC: Rell Coffey DPM; Wesly Hidalgo MD [facility] Signed For Medicare only, by signing this I certify the plan of care. Physicians Signature Date ALLERGIES ALLERGIES DATE TYPE / CODE NAME / CODE REACTION SEVERITY SOURCE 10/02/2017 Drug niacin/F0060 REDDNESS/ PASSED [place] [facility] Allergy/4160 64339(RXNORM [facility] 57841(SNOMED ) Repository CT) 10/02/2017 Drug ampicillin/F Rash [place] [facility]/4160 [id number](RX Hospital 05788(SNOMED NORM) Repository CT) 10/02/2017 Drug sulfamethoxa BLOTCHES/ HIVES [place] [facility]/4160 zole/[id number] Hospital 15717(SNOMED 827(RXNORM) Repository CT) 10/02/2017 Drug trimethoprim BLOTCHES/ HIVES [place] [facility]/4160 /[id number]( Hospital 60133(SNOMED RXNORM) Repository CT) 10/02/2017 Drug clarithromyc Upset Stomach [place] [facility]/4160 in/[id number] Hospital [facility](SNOMED 8(RXNORM) Repository CT) 10/02/2017 Drug amitriptylin EARS RING [place] [facility]/4160 e/[id number] Hospital [facility](SNOMED (RXNORM) Repository CT) ENCOUNTERS ENCOUNTERS ADMIT/DISCHARGE ACCOUNT ADMITTING ENCOUNTER LOCATION SOURCE NUMBER CLASS 09/15/2018 [id number] Ambulatory [place] 8 [facility] ing:POLAB3 Repository 07/14/2018 [id number] Ambulatory [place] 2 [facility] ing:POLAB3 Repository 05/27/2018 [id number] Ambulatory [place] 5 [facility] ing:LAB Repository 04/01/2018/ [id number] [place] [address] [place] [address] ing:PT Repository 02/09/2018 [id number] Ambulatory [place] 5 [facility] ing:OPBI Repository 01/09/2018 [id number] Ambulatory [place] 8 [facility] ing:POLAB3 Repository PAYERS PAYERS ENCOUNTER GUARANTOR PAYER SUBSCRIBER SOURCE 09/15/2018 CRIS [id number] Primary CRIS WILSON: [place] Insurance[id number] PART A [facility] [address]Hbj: [phone]) Number: Repository [phone] (HP) [id number] Date:2018-09-15 09/15/2018 Secondary NOT GIVENUNK [place] Insurance:SELF PAY [facility] Number: Effective Repository Date:2018-09-15 07/14/2018 CRIS E [id number] Primary CRIS E NEHERDOB: [place] Insurance:MEDICARE [id number] [place] [address]Goq: [phone]) Number: Repository [phone] () [id number] Date:2018-07-14 07/14/2018 Secondary CRIS E NEHERDOB: [place] Insurance:[place]ICAIDPol [id number]: Hospital [id number] Repository Date:2018-07-14 07/14/2018 Tertiary NOT GIVENUNK [place] Insurance:SELF PAY [facility] Number: Effective Repository Date:2018-07-14 05/27/2018 CRIS E [id number] Primary CRIS E NEHERDOB: [place] Insurance:MEDICARE [id number] [facility] [place] [address]Ify: [phone]) Number: Repository [phone] () [id number] Date:2018-05-27 05/27/2018 Secondary CRIS E NEHERDOB: [place] Insurance[place]Pol [id number] Hospital [id number] Repository Date:2018-05-27 05/27/2018 Tertiary NOT GIVENUNK [place] Insurance:SELF PAY [facility] Number: Effective Repository Date:2018-05-27 04/01/2018 CRIS E [id number] Primary CRIS E NEHERDOB: [place] Insurance:MEDICARE [id number] [facility] [place] [address]Kgy: ([phone]) Number: Repository [phone] () [id number] Date:2002-06-06 04/01/2018 Secondary CRIS E NEHERDOB: [place] Insurance:[place]ICA[place] [id number] Dix Hospitaly Number: Hospital [id number] Repository Date:2017-12-04 04/01/2018 Tertiary NOT GIVENUNK [place] Insurance:SELF PAY [facility] Number: Effective Repository Date:2017-12-11 02/09/2018 CRIS E [id number] Primary CRIS E NEHERDOB: [place] Insurance:MEDICARE [id number] [facility] [place] [address]Cle: [phone]) Number: Repository [phone] () [id number] Date:2018-01-15 02/09/2018 Secondary CRIS E NEHERDOB: [place] Insurance:[place] [id number] [facility] icy Number: Hospital [id number] Repository Date:2018-01-15 02/09/2018 Tertiary NOT GIVENUNK [place] Insurance:SELF PAY [facility] Number: Effective Repository Date:2018-01-15 01/09/2018 CRIS E [id number] Primary CRIS E NEHERDOB: [place] Insurance:MEDICARE [id number] [facility] [place] [address]Ypc: ([phone]) Number: Repository [phone] () [id number] Date:2018-01-09 01/09/2018 Secondary CRIS E NEHERDOB: [place] Insurance:MEDICAIDPol [id number] Community icy Number: Hospital [id number] Repository Date:2018-01-09 01/09/2018 Tertiary NOT GIVENUNK [place] Insurance:SELF PAY [facility] Number: Effective Repository Date:2018-01-09
== END ==
PROVIDERS: Family Provider Family Medicine Geriatric Medicine; PCP Family Medicine Geriatric Medicine; Visit Provider Family Medicine Geriatric Medicine
DX: Z01.818 Encounter for other preprocedural examination (principal)
CPT/HCPCS: 36415; 80053; 85025

== ENCOUNTER → 2018-11-27 12:55 | Outpatient (CLI) | payer MEDICARE, SELFPAY | PROVIDERS: Family Provider Family Medicine Geriatric Medicine; PCP Family Medicine Geriatric Medicine; Referring Provider Family Medicine Geriatric Medicine; Visit Provider Family Medicine Geriatric Medicine | DX: R68.83 Chills (without fever) (principal) | CPT/HCPCS: 87633 ==

== ENCOUNTER → 2019-03-03 09:30 | Outpatient (CLI) | payer MEDICARE, SELFPAY ==
[2019-03-03 10:47] LABS: Absolute Lymphocyte Count 1.31 X10^3/ul (0.83-4.51); Absolute Neutrophil Count 2.6 X10^3/uL (2.0-7.7); Eosinophil# 0.01 X10^3/uL; Eosinophils% 0.2 % (0-5); Hematocrit 39.5 % (37-47); Hemoglobin 13.3 g/dl (12.0-15.0); Lymphocyte # 1.31 X10^3/ul (4.0); Lymphocyte % 30.5 % (19-41); Mean Corp Hgb Conc 33.7 g/gl (32-36); Mean Corpuscular Hgb 29.2 pg (27.0-32.0); Mean Corpuscular Volume 86.6 fL (81-99); Monocyte# 0.34 X10^3/uL; Monocyte% 7.9 % (0-10); Neutrophil # 2.62 X10^3/uL (2.7-7.7); Neutrophil % 61.2 % (47-70); Platelet Count 147 K/mm3 (150-450); RBC Distribution Width CV 13.6 % (11.6-14.6); RBC Distribution Width SD 42.4 fl (35.1-43.9); Red Blood Count 4.56 M/mm3 (4.2-5.4); White Blood Count 4.3 K/mm3 (4.4-11.0)
[2019-03-03 10:48] LABS: POSITIVE COUNT NO; POSITIVE DIFFERENTIAL NO; POSITIVE MORPHOLOGY NO
[2019-03-03 11:05] LABS: ALB/GLOB Ratio 1.3 RATIO (0.9-2.4); AST(SGOT) 27 U/L (15-37); Alanine Aminotransfer ALT/SGPT 25 U/L (13-56); Albumin, Serum 3.9 g/dL (3.2-5.0); Alkaline Phosphatase 82 U/L (45-117); Anion Gap 4 (5-15); BUN 11 mg/dL (7-18); BUN/Creat Ratio 11.2 RATIO (10-20); Calcium,Total 9.1 mg/dL (8.5-10.1); Chloride 104 mmol/L (98-107); Creatinine, Serum 0.98 mg/dL (0.55-1.02); EST Glomerular Filtration Rate 61 mL/min (>60); Est Glom Filt Rate - Afr Amer 74 mL/min (>60); Globulin 3.1 g/dL (2.2-4.2); Glucose 79 mg/dL (74-106); Potassium 3.9 mmol/L (3.5-5.1); Sodium Level 141 mmol/L (136-145)
[2019-03-03 11:14] LABS: Vitamin D,25 Hydroxy 44.5 ng/mL (29.95-100.01)
== END ==
PROVIDERS: Family Provider Family Medicine Geriatric Medicine; PCP Family Medicine Geriatric Medicine; Visit Provider Family Medicine Geriatric Medicine
DX: I10 Essential (primary) hypertension (principal); E55.9 Vitamin D deficiency, unspecified
CPT/HCPCS: 36415; 80053; 82306; 84443; 85025

== ENCOUNTER → 2019-09-08 11:20 | Outpatient (CLI) | payer MEDICARE, SELFPAY ==
[2019-09-08 12:30] LABS: Absolute Lymphocyte Count 1.57 X10^3/uL (0.83-4.51); Absolute Neutrophil Count 3.3 X10^3/uL (2.0-7.7); Hematocrit 41.5 % (37-47); Hemoglobin 13.9 g/dL (12.0-15.0); Lymphocyte # 1.57 X10^3/ul (4.0); Mean Corp Hgb Conc 33.5 g/dL (32-36); Mean Corpuscular Hgb 29.6 pg (27.0-32.0); Mean Corpuscular Volume 88.5 fL (81-99); Mean Platelet Vol. 10.7 fl (6.2-12.0); Monocyte% 9.2 % (0-10); NRBC Flagged by Analyzer 0 % (0-5); Neutrophil # 3.34 X10^3/uL (2.7-7.7); Neutrophil % 61.6 % (47-70); Platelet Count 163 K/mm3 (150-450); RBC Distribution Width SD 41.7 fl (35.1-43.9); Red Blood Count 4.69 M/mm3 (4.2-5.4); White Blood Count 5.4 K/mm3 (4.4-11.0)
[2019-09-08 12:54] LABS: ALB/GLOB Ratio 1.4 RATIO (0.9-2.4); AST(SGOT) 19 U/L (15-37); Alanine Aminotransfer ALT/SGPT 19 U/L (13-56); Albumin, Serum 3.9 g/dL (3.2-5.0); Alkaline Phosphatase 75 U/L (45-117); Anion Gap 6 (5-15); BUN 11 mg/dL (7-18); Calcium,Total 8.8 mg/dL (8.5-10.1); Chloride 107 mmol/L (98-107); Creatinine, Serum 0.91 mg/dL (0.55-1.02); EST Glomerular Filtration Rate 66 mL/min (>60); Est Glom Filt Rate - Afr Amer 80 mL/min (>60); Globulin 2.8 g/dL (2.2-4.2); Glucose 66 mg/dL (74-106); Potassium 3.7 mmol/L (3.5-5.1); Protein, Total 6.7 g/dL (6.4-8.2); Sodium Level 141 mmol/L (136-145); Thyroid Stim Hormone (TSH) 1.65 uIU/mL (0.358-3.74)
[2019-09-08 13:08] LABS: Vitamin D,25 Hydroxy 45.2 ng/mL (29.95-100.01)
== END ==
PROVIDERS: Family Provider Family Medicine Geriatric Medicine; PCP Family Medicine Geriatric Medicine; Visit Provider Family Medicine Geriatric Medicine
DX: E55.9 Vitamin D deficiency, unspecified (principal); I10 Essential (primary) hypertension
CPT/HCPCS: 36415; 80053; 82306; 84443; 85025

== ENCOUNTER 2019-10-25 06:49 | Day surgery (SDC) | payer MEDICARE, MEDICAID, SELFPAY ==
[2019-10-11 10:17] VITALS: BMI 27.5
--- NOTE | 2019-10-13 02:02 | HP_ITS ---
Intake Vital Signs 10/11/19 BMI 27.5 10/11/19 Height 5 ft 1 in 10/11/19 Weight: 154 lb 10/11/19 BMI 29.0 10/11/19 BP 185/100 H 10/11/19 Blood Pressure Location Rt brachial 10/11/19 Position Sitting 10/11/19 Respiration 20 H 10/11/19 Pulse 68 10/11/19 Pulse Oximetry (%) 96 Intake Visit Reasons: C-Scope Fecal Impaction of colon Chief Complaint: constipation/ change in bowel habits Study Abroad Advisor Required: No Is patient in pain?: No Allergies ampicillin Allergy (Intermediate, Verified 10/02/17 13:53) Rash sulfamethoxazole [From Bactrim] Allergy (Intermediate, Verified 10/02/17 13:53) BLOTCHES/ HIVES trimethoprim [From Bactrim] Allergy (Intermediate, Verified 10/02/17 13:53) BLOTCHES/ HIVES niacin [From Niaspan Extended-Release] Adverse Reaction (Intermediate, Verified 10/02/17 13:53) REDDNESS/ PASSED OUT amitriptyline Adverse Reaction (Mild, Verified 10/02/17 13:53) EARS RING clarithromycin [From Biaxin] Adverse Reaction (Mild, Verified 10/02/17 13:53) Upset Stomach Medications Furosemide [Lasix] 20 mg PO DAILY PRN 11/02/13 [History Confirmed 10/11/19] Potassium Chloride [Klor-Con 10] 10 meq PO DAILY PRN PRN 11/02/13 [History Confirmed 10/11/19] Atenolol [Tenormin (beta wendy)] 50 mg PO DAILY 06/30/14 [History Confirmed 10/11/19] Emollient Combination No.77 [Dermend] 127 gm TP DAILY 10/02/17 [History Confirmed 10/11/19] Famotidine [Pepcid] 40 mg PO DAILY 10/02/17 [History Confirmed 10/11/19] Flaxseed Oil 1,000 mg PO DAILY 10/02/17 [History Confirmed 10/11/19] Loratadine 10 mg PO DAILY 10/02/17 [History Confirmed 10/11/19] Multivit-Min/Iron/Folic/Lutein [Centrum Silver Women Tablet] 1 ea PO DAILY 10/02/17 [History Confirmed 10/11/19] Tizanidine HCl [Zanaflex] 4 mg PO QHS PRN 10/02/17 [History Confirmed 10/11/19] Calcium Carbonate [Calcium] 600 mg PO BID #60 tab 10/21/17 [Rx Confirmed 10/11/19] Ergocalciferol [Vitamin D] 50,000 unit PO Q7D #12 cap 10/21/17 [Rx Confirmed 10/11/19] Is last menstrual period known: No Post menopausal: Yes Patient : No PFSH Medical History (Updated 10/11/19 @ 10:12 by Candi Shaw) Osteopenia (Chronic) Normochromic normocytic anemia (Acute) Thrombocytopenia (Acute) Postoperative pain of extremity (Acute) HTN (hypertension) (Chronic) Asthma (Acute) GERD (gastroesophageal reflux disease) (Acute) Hemorrhoid (Acute) Osteoarthritis (Acute) Rosacea (Acute) history of superficial venous thrombosis (Acute) Surgical History (Updated 10/11/19 @ 10:12 by Candi Shaw) History of total replacement of left ankle (Acute) History of colonoscopy (Acute ~2006) History of fasciotomy (Acute) History of right knee joint replacement (Acute) Status post laser ablation of incompetent vein (Acute) Family History (Updated 10/11/19 @ 10:14 by Candi Shaw) Brother Malignant hyperthermia due to anesthesia Brother Malignant hyperthermia due to anesthesia Brother Malignant hyperthermia due to anesthesia Diabetes Hypertension Cancer lung Asthma Mother Diabetes Hypertension Father Cancer lung Aunt Colon cancer Social History (Updated 10/13/19 @ 14:02 by Linda Chilel MD) Smoking Status: Former smoker HPI HPI HPI: CRIS RUBIO, is a 64 F who presents to the office today for HPI HPI Surgical H&P: Yes HPI: CRIS RUBIO, is a 64 F who presents to the office today for change of stool caliber, occasional constipation. Patient states that she is noticed more recently her stool has been almost flat on one side, and states her stools are soft denies any blood. Patient states that during a week she will have a bowel movement 4 to 5 days out of the week, patient states that if she does feel like she is constipated she will take 1 laxative and that will resolve her constipation. Patient previously been diagnosed with reflux because she lost her voice and did have a scope she thinks in 2005 since that time she has been on famotidine and not had any issues with recurrent voice loss or epigastric discomfort. Patient's mom sister was diagnosed with colon cancer in her 60s. ROS General General: Yes weight change and fatigue; no colon cancer, breast cancer or weakness HEENT HEENT: No difficulty swallowing, eye injury, eye surgery, swollen glands or hoarseness Endo Endocrine: No thyroid disease, diabetes mellitus, thyroid cancer, Hair loss, heat intolerance or cold intolerance Skin Skin: No rash or changing moles Musc Musculoskeletal: Yes back problems and arthritis; no rheumatoid arthritis, gout or joint pain Cardio Cardiovascular: Yes high blood pressure; no murmur, pacemaker, heart disease, atrial fibrillation, heart attack, heart stent, palpitations, shortness of breat with exertion or chest pain Psych Psychiatric: Yes depression; no anxiety or hearing voices Resp Respiratory: No shortness of breath, No sleep apnea, No cough, No COPD, Yes asthma, No emphysema, No wheezing Gastro Gastrointestinal: No abdominal pain, No nausea or vomiting, No diarrhea, No constipation, No blood in stool, Yes acid reflux, Yes hemorrhoids, No ulcers, No gallbladder problem, No black,tarry stools Naga Hematologic: No blood thinners, No blood disorders, No bleeding, No anemia, Yes blood clots Additional Details: superficial Neuro Neurologic: No weakness Exam Const General: cooperative, comfortable, no acute distress Resp Effort & Inspection: normal respiratory effort Cardio Rate: regular rate Heart Sounds: no murmurs GI Inspection: non-distended Palpation: soft, no guarding, nontender Neuro Cranial Nerves: CN's II-XI intact bilaterally Extrem General: no clubbing, cyanosis or edema Psych Affect: normal affect Assessment & Plan Problems 1. Change in stool caliber R19.5 2. Change in stool habits R19.4 Plan I have discussed the above with the patient. I have offered the patient colonoscopy for evaluation. I have explained the risks/benefits of the procedure and described the procedure. I have discussed the risks with the patient, including but not limited to: infection, bleeding, perforation of the GI tract requiring emergency surgery, inability to complete the procedure, injury to any internal organs, complications of anesthesia, etc. - the patient understands and agrees to proceed. I have answered all the patient's questions to the patient's satisfaction and the patient has no further questions. The patient has been given instructions for the colon cleansing preparation. One day of clears MiraLAX Dulcolax split prep. Linda Chilel M.D. Pager: [phone] [facility] [address] [place] [address], [facility], [address] [place] [address] Office: [phone] Orders Orders: Colonoscopy 10/11/19 Plan Detail Follow Up We will schedule colonoscopy Coding Level of Care Code Off vis,new,level 3 Diagnoses Change in stool caliber R19.5 Change in stool habits R19.4 10/13/19 1402 <Electronically signed by Linda Jacinto am, MD> Date _ Linda Chilel MD I have re-examined the patient. There are no clinical changes since date of exam.
[2019-10-25 07:04] VITALS: BP 168/78; PULSE 70; RESP 16; TEMP 36.6; O2SAT 100; BMI 28.6
[2019-10-25] MEDS: Lactated Ringers 1,000 ML 100 ML IV (07:13)
[2019-10-25 08:50] VITALS: BP 113/55; BP 168/78; PULSE 62; RESP 16; TEMP 36.2; O2SAT 95
[2019-10-25 08:55] VITALS: BP 109/62; BP 168/78; PULSE 63; RESP 16; O2SAT 98
[2019-10-25 09:00] VITALS: BP 106/64; BP 168/78; PULSE 59; RESP 16; TEMP 36; O2SAT 98
[2019-10-25 09:05] VITALS: BP 120/57; BP 168/78; PULSE 59; RESP 16; TEMP 36.2; O2SAT 100
[2019-10-25 09:32] VITALS: BP 168/78
--- NOTE | 2019-10-25 14:18 | OP.CCLET_ITS ---
10/25/2019 Wesly Hidalgo MD [address] [place] [address] Re : Colonoscopy procedure for Shannon Moses Dear Dr. Hidalgo This procedure was performed on Friday, October 25, 2019. My impressions and recommendations are as follows: Impressions : - The entire examined colon is normal on direct and retroflexion views. - No specimens collected. Recommendations : - Discharge patient to home. - Resume previous diet. - Continue present medications. - Repeat colonoscopy in 10 years for screening purposes. My findings are described in the full procedure note, which is enclosed. If I can be of further assistance, please feel free to contact me at Doctor phone number(s): , Work: . Sincerely, MD Linda Groves MD 10/25/2019 8:51:21 AM This report has been signed electronically.
--- NOTE | 2019-10-25 14:18 | OP.COLON_ITS ---
Patient Name: Shannon Moses Procedure Date: 10/25/2019 8:25 AM Date of : 1955 Age: 64 Procedure: Colonoscopy Indications: Change in stool caliber Providers: Linda Chilel MD Referring MD: Wesly Hidalgo MD Medicines: Monitored Anesthesia Care Patient Profile: This is a 64 year old female. Last Colonoscopy: more than 10 years ago. Complications: No immediate complications. Procedure: Pre-Anesthesia Assessment: - Prior to the procedure, a History and Physical was performed, and patient medications and allergies were reviewed. The patient's tolerance of previous anesthesia was also reviewed. The risks and benefits of the procedure and the sedation options and risks were discussed with the patient. All questions were answered, and informed consent was obtained. Prior Anticoagulants: The patient has taken no previous anticoagulant or antiplatelet agents. ASA Grade Assessment: II - A patient with mild systemic disease. After reviewing the risks and benefits, the patient was deemed in satisfactory condition to undergo the procedure. After I obtained informed consent, the scope was passed under direct vision. Throughout the procedure, the patient's blood pressure, pulse, and oxygen saturations were monitored continuously. The pediatric colonoscope was introduced through the anus and advanced to the cecum, identified by the appendiceal orifice, ileocecal valve and palpation. The colonoscopy was performed without difficulty. The patient tolerated the procedure well. The quality of the bowel preparation was good. Scope In: 8:33:15 AM Scope Withdrawal Time 0 hours 9 minutes 39 seconds Scope Out: 8:46:36 AM Total Procedure Duration Time 0 hours 13 minutes 21 seconds Findings: The perianal and digital rectal examinations were normal. The entire examined colon appeared normal on direct and retroflexion views. Impression: - The entire examined colon is normal on direct and retroflexion views. - No specimens collected. Recommendation: - Discharge patient to home. - Resume previous diet. - Continue present medications. - Repeat colonoscopy in 10 years for screening purposes. Procedure Code(s): --- Professional --- 00341, Colonoscopy, flexible; diagnostic, including collection of specimen(s) by brushing or washing, when performed (separate procedure) Diagnosis Code(s): --- Professional --- R19.5, Other fecal abnormalities CPT copyright 2017 [employer]. All rights reserved. The codes documented in this report are preliminary and upon sales contract administrator review may be revised to meet current compliance requirements. MD Linda Groves MD 10/25/2019 8:51:21 AM This report has been signed electronically. Number of Addenda: 0 Note Initiated On: 10/25/2019 8:25 AM
== END 2019-10-25 09:33 | disposition home or self-care (01) ==
LOC: EN 06:50 → AC 06:51
PROVIDERS: Family Provider Family Medicine Geriatric Medicine; PCP Family Medicine Geriatric Medicine; Referring Provider Family Medicine Geriatric Medicine; Visit Provider Surgery
PROC: 0DJD8ZZ Inspection of Lower Intestinal Tract, Via Natural or Artificial Opening Endoscopic (ICD-10-PCS; CPT 45378; principal; 2019-10-25 07:55)
DX: R19.5 Other fecal abnormalities (principal); R19.4 Change in bowel habit; I10 Essential (primary) hypertension; I44.0 Atrioventricular block, first degree; K21.9 Gastro-esophageal reflux disease without esophagitis; Z79.899 Other long term (current) drug therapy; Z87.891 Personal history of nicotine dependence; Z80.0 Family history of malignant neoplasm of digestive organs
CPT/HCPCS: 45378; J7120; J2405

== ENCOUNTER → 2019-12-29 11:32 | Outpatient (CLI) | payer MEDICARE, MEDICAID, SELFPAY ==
--- NOTE | 2019-12-29 11:39 | RAD_ITS ---
STUDY: X-RAY - THORACIC SPINE REASON FOR EXAM: Female, 64 years old. PATIENT FELL THIS PAST FRIDAY. EXTREME PAIN IN LOWER BACK AND INTO BUTTOCKS ON BOTH SIDES. HX OF FALLS AND INJURIES BEFORE. PAIN RADIATES INTO THORACIC WELL. TECHNIQUE: 3 view(s) of the thoracic spine were obtained. COMPARISON: None. FINDINGS: There is an increase in the normal thoracic kyphosis. There is no substantial scoliosis. There is demineralization of the thoracic spine with endplate spondylosis. There is multilevel disc space narrowing of the thoracic spine. The soft tissue structures are unremarkable. RAD/Thoracic Spine 3 Views IMPRESSION: Multilevel disc space narrowing and spondylosis. Increased kyphosis. Electronically Signed: Roosevelt Sequeira, at 13:15 EDT , Service support ,
--- NOTE | 2019-12-29 11:39 | RAD_ITS ---
STUDY: X-RAY - LUMBAR SPINE REASON FOR EXAM: Female, 64 years old. PATIENT FELL THIS PAST FRIDAY. EXTREME PAIN IN LOWER BACK AND INTO BUTTOCKS ON BOTH SIDES. HX OF FALLS AND INJURIES BEFORE. PAIN RADIATES INTO THORACIC WELL. TECHNIQUE: 3 view(s) of the lumbar spine were obtained. COMPARISON: None FINDINGS: Normal lumbar lordosis. There is no substantial scoliosis. Minimal anterior listhesis of L4 on L5. Normal vertebral bodies and endplates. There is multi-level degenerative disc disease with multi-level disc space narrowing. Facet joint arthritis. There is atherosclerotic calcification of the abdominal aorta without a demonstrated aneurysm. RAD/Lumbar Spine 2 or 3 Views IMPRESSION: Degenerative changes of the spine, as detailed above. Electronically Signed: Roosevelt Sequeira, at 13:28 EDT , Service support ,
== END ==
PROVIDERS: PCP Family Medicine Geriatric Medicine; Referring Provider Family Medicine Geriatric Medicine; Visit Provider Family Medicine Geriatric Medicine
DX: M54.5 Low back pain (principal)
CPT/HCPCS: 72072; 72100

== ENCOUNTER 2020-01-05 14:29 | Emergency (ER) | payer MEDICARE, SELFPAY ==
[2020-01-05 14:30] VITALS: BP 124/66; PULSE 72; RESP 17; TEMP 36.2; O2SAT 100; BMI 30.2
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
[2020-01-05] MEDS: Orphenadrine 60 MG/2 ML Ampul IM (15:57)
[2020-01-05] MEDS: Ketorolac 30 MG/ML Syringe IM (15:57)
--- NOTE | 2020-01-05 16:05 | RAD_ITS ---
STUDY: X-RAY - LUMBAR SPINE REASON FOR EXAM: Female, 65 years old. Fall. Pain. TECHNIQUE: 3 view(s) of the lumbar spine were obtained. COMPARISON: 12/29/2019 FINDINGS: There is a moderate compression deformity of the superior endplate of the T12 vertebral body which is stable when compared with 12/29/2019, but is new when compared with 02/24/2017. If there is concern for an acute fracture, consider further evaluation with MRI. There is no evidence of fracture or dislocation in the lumbar spine. The vertebral body heights are well-maintained. There are stable degenerative changes. RAD/Lumbar Spine 2 or 3 Views IMPRESSION: Moderate compression deformity of the superior endplate of the T12 vertebral body which is stable when compared with 12/29/2019, but is new when compared with 02/24/2017. If there is concern for an acute fracture, consider further evaluation with MRI. No fracture or dislocation in the lumbar spine. Stable degenerative change. Electronically Signed: Rui Baca, at 16:18 EDT Tel , Service support ,
== END 2020-01-05 17:36 | disposition home or self-care (01) ==
PROVIDERS: Emergency Provider Emergency Medicine; PCP Family Medicine Geriatric Medicine
DX: M54.5 Low back pain (principal); G89.29 Other chronic pain
CPT/HCPCS: 72100; 96372; 99281; 99282; A4216

== ENCOUNTER → 2020-03-16 15:45 | Outpatient (CLI) | payer MEDICARE, MEDICAID, SELFPAY ==
[2020-03-16 17:04] LABS: Amphetamine Urine VISTA NEGATIVE (<1000 ng/mL); Barbiturate Urine VISTA NEGATIVE (< 200 ng/mL); Benzodiazepine Urine VISTA NEGATIVE (< 200 ng/mL); Cocaine Urine VISTA NEGATIVE (< 300 ng/mL); Ecstacy Urine VISTA NEGATIVE (< 500 ng/mL); Methadone Urine VISTA NEGATIVE (< 300 ng/mL); PCP Urine VISTA NEGATIVE (< 25 ng/mL); THC Urine VISTA NEGATIVE (< 50 ng/mL); Vista UDS pH Range 5
== END ==
PROVIDERS: PCP Family Medicine Geriatric Medicine; Referring Provider Anesthesiology Pain Medicine; Visit Provider Anesthesiology Pain Medicine
DX: F11.20 Opioid dependence, uncomplicated (principal)
CPT/HCPCS: 80307

== ENCOUNTER 2020-07-02 09:47 | Emergency (ER) | payer MEDICARE, MEDICAID, SELFPAY ==
[2020-07-02 09:47] VITALS: BP 183/106; PULSE 64; RESP 18; TEMP 36.1; O2SAT 99; BMI 31.2
--- NOTE | 2020-07-02 10:10 | RAD_ITS ---
STUDY: X-RAY - THORACIC SPINE REASON FOR EXAM: Female, 65 years old. Fall. Pain. TECHNIQUE: 2 view(s) of the thoracic spine were obtained. COMPARISON: 12/29/19 FINDINGS: There is a stable chronic moderate compression fracture of the superior endplate of T12. The remainder of the thoracic vertebral bodies are intact. There are stable moderate degenerative changes. The visualized soft tissues are within normal limits. RAD/Thoracic Spine 3 Views IMPRESSION: Stable chronic moderate compression fracture of the superior endplate of T12. No acute fracture or dislocation in the thoracic spine. Signal moderate degenerative change. Electronically Signed: Rui Baca, at 10:46 EDT Tel , Service support ,
--- NOTE | 2020-07-02 10:10 | RAD_ITS ---
STUDY: X-RAY - LEFT ELBOW REASON FOR EXAM: Female, 65 years old. Fall. Pain. TECHNIQUE: 3 view(s) of the elbow. COMPARISON: None. FINDINGS: There is no evidence of fracture or dislocation. There are no significant degenerative changes. There are no radiodense foreign bodies. RAD/Elbow min 3 Views IMPRESSION: No fracture or dislocation. Electronically Signed: Rui Baca, at 10:45 EDT Tel , Service support ,
--- NOTE | 2020-07-02 10:10 | ED.DCSUM_ITS ---
- ER Visit Summary Date of Service: 07/02/20 Chief Complaint: Fall History of Present Illness: The patient is a 65 F who presents after a fall that occurred today. Patient states she slipped in the bathtub and fell backwards. Patient denies any head injury or loss of consciousness. Patient states she hit her upper thoracic area on the faucet or faucet handles. Patient also hit her left elbow. Patient states her pain is worse with movement. Patient describes her pain is aching and constant. Patient states nothing makes it better. Patient denies any paresthesias or weakness. Patient has a history of recent T12 fracture 6 months ago. Patient also admits to a history of degenerative disc disease. Patient does see Dr. Becerra for epidural injections. Physical Examination: Vital signs are stable. Patient is afebrile. Patient is in no acute distress. Oral mucosa is pink and moist. Neck is supple. Trachea is midline. There is no JVD. Heart was regular rate and rhythm. Lungs are clear and equal bilaterally. Musculoskeletal exam reveals tenderness over the upper thoracic spine and paraspinal muscles. There is some mild erythema where she hit the faucet. There is no bony crepitance or step-off. Range of motion was limited in all motion secondary to pain. There is also some mild tenderness over the left elbow. There is some mild ecchymosis over this area. There is no obvious deformity noted. There is good range of motion. Radial pulses are equal bilaterally. Sensation was intact to light touch in the radial, median, and ulnar areas. Strength is 5/5 in the radial, median, and ulnar areas. Test Results: X-rays of the left elbow and thoracic spine were obtained. There is no acute fracture. There is a stable compression fracture of T12. These were interpreted by the radiologist and reviewed by myself. Emergency Department Course and Treatment: Patient was given ice pack here. Patient was instructed to ice and elevate the left elbow. Patient was instructed to use ice to the thoracic spine area. Patient was instructed to continue her pain medications as previously prescribed. Patient understood and was agreeable with the plan. All questions were answered. Disposition: Discharge home Impression: 1. Acute thoracic contusion 2. Left elbow contusion This note was generated with [employer] dictation software. It may contain incorrect words, spelling, and punctuation that were not noted in review of the chart prior to signing ED Disposition - Plan for ED Patient: Disposition: Home or Assisted Living Diagnosis: Contusion of back wall of thorax, Left elbow contusion Instructions: ED ELBOW CONTUSION, ED SOFT TISSUE CONTUSION Referrals: Wesly Hidalgo Chi, MD [Primary Care Provider] - 5-7 Days
[2020-07-02 11:35] VITALS: BP 142/79; PULSE 84; RESP 22; O2SAT 97
--- NOTE | 2020-07-02 11:36 | ED.RN ---
THIS NURSE REVIEWED D/C INSTRUCTIONS WITH PT. PT VERBALIZED UNDERSTANDING OF INSTRUCTIONS. PT DENIES FURTHER NEEDS OR QUESTIONS AT THIS TIME. PT AMBULATES FROM ROOM ON OWN WITHOUT ASSISTANCE FROM STAFF
== END 2020-07-02 11:37 | disposition home or self-care (01) ==
PROVIDERS: Emergency Provider Emergency Medicine; PCP Family Medicine Geriatric Medicine
DX: S20.229A Contusion of unspecified back wall of thorax, initial encounter (principal); S50.02XA Contusion of left elbow, initial encounter; W18.2XXA Fall in (into) shower or empty bathtub, initial encounter; Y93.9 Activity, unspecified; Y92.9 Unspecified place or not applicable; M51.34 Other intervertebral disc degeneration, thoracic region
CPT/HCPCS: 72072; 73080; 99282

== ENCOUNTER → 2020-09-18 | Outpatient (CLI) | payer MEDICARE, SELFPAY | END | disposition home or self-care (01) | PROVIDERS: PCP Family Medicine Geriatric Medicine; Referring Provider Family Medicine Geriatric Medicine; Visit Provider Family Medicine Geriatric Medicine | DX: R06.89 Other abnormalities of breathing (principal) | CPT/HCPCS: 87633; 87635; C9803; U0003 ==

== ENCOUNTER 2020-09-20 19:35 | Emergency (ER) | payer MEDICARE, SELFPAY ==
[2020-09-20 19:36] VITALS: BP 155/102; PULSE 62; RESP 22; TEMP 35.7; O2SAT 98; BMI 30.2
[2020-09-20 19:56] VITALS: O2SAT 95; O2SAT 97
[2020-09-20 20:19] LABS: Absolute Neutrophil Count 3.7 X10^3/uL (2.0-7.7); Hematocrit 41.2 % (37-47); Hemoglobin 13.6 g/dL (12.0-15.0); Lymphocyte % 23.5 % (19-41); Mean Corpuscular Hgb 28.3 pg (27.0-32.0); Mean Corpuscular Volume 85.8 fL (81-99); Mean Platelet Vol. 9.8 fl (6.2-12.0); Monocyte# 0.52 X10^3/uL; Monocyte% 9.4 % (0-10); NRBC Flagged by Analyzer 0 % (0-5); Neutrophil # 3.69 X10^3/uL (2.7-7.7); Neutrophil % 66.7 % (47-70); Platelet Count 143 K/mm3 (150-450); RBC Distribution Width CV 12.8 % (11.6-14.6); RBC Distribution Width SD 39.6 fl (35.1-43.9); White Blood Count 5.5 K/mm3 (4.4-11.0)
[2020-09-20] MEDS: Ipratropium/Albuterol Sulfate 3 ML AMPUL.NEB INHALATION (20:23)
[2020-09-20 20:24] VITALS: PULSE 102; RESP 14
[2020-09-20 20:41] LABS: ALB/GLOB Ratio 1.4 RATIO (0.9-2.4); AST(SGOT) 16 U/L (15-37); Alanine Aminotransfer ALT/SGPT 21 U/L (13-56); Albumin, Serum 3.8 g/dL (3.2-5.0); Alkaline Phosphatase 82 U/L (45-117); Anion Gap 7 (5-15); BUN 9 mg/dL (7-18); BUN/Creat Ratio 9.6 RATIO (10-20); Calcium,Total 8.9 mg/dL (8.5-10.1); Chloride 108 mmol/L (98-107); Creatinine, Serum 0.94 mg/dL (0.55-1.02); EST Glomerular Filtration Rate 64 mL/min (>60); Est Glom Filt Rate - Afr Amer 77 mL/min (>60); Estimated Creatinine Clearance 45.02 ml/min; Globulin 2.8 g/dL (2.2-4.2); Glucose 137 mg/dL (74-106); Lactic Acid 1.7 mmol/L (0.4-1.9); Potassium 3.7 mmol/L (3.5-5.1); Protein, Total 6.6 g/dL (6.4-8.2); Sodium Level 141 mmol/L (136-145)
[2020-09-20] MEDS: dexAMETHasone 10 MG/ML Vial 6 MG IV (20:41)
[2020-09-20 20:43] VITALS: BP 172/93; PULSE 109; RESP 18; TEMP 36.8; O2SAT 94
--- NOTE | 2020-09-20 20:48 | ED.VISSUMM ---
- ER Visit Summary Date of Service: 09/20/20 Chief Complaint: Cough and shortness of breath History of Present Illness: The patient is a [address] Hidalgo. She reports that she has a cough began 4 days ago. Is nonproductive. She reports that she has moderate shortness of breath that is worse with ambulation or coughing. She denies fever, chills, or sore throat. Patient did have contact with a Covid positive patient and was not wearing a mask at that time. She reports that she drove her neighbor to the emergency department and she had Covid. States that she has had similar symptoms with her asthma in the past. She does have a nebulizer at home, but no albuterol. She is not on steroids. Physical Examination: Vitals: Stable. Afebrile. General: Well-nourished and well-developed. Head: Normocephalic atraumatic. Neck: Supple, no lymphadenopathy. No JVD. Nontender. Cardiovascular: Regular rate and rhythm. No murmurs. Respiratory: No respiratory distress. Clear to auscultation bilaterally. Abdominal: Soft, nontender, nondistended, normal bowel sounds. No guarding, rebound, or peritoneal signs. Back: Nontender. Extremities: Nontender, no edema. Skin: Normal color, no rash. Neurologic: Alert and oriented ?3. Cranial nerves II through XII are intact. Normal strength and sensation. Psych: Normal affect. Test Results: Patient had a respiratory panel 2 days ago that was negative. She had a chest x-ray that shows no acute disease. CBC shows platelets 143. Chem-7 shows a chloride of 108 and glucose 137. LFTs are normal. Lactic acid is normal. D-dimer is elevated at 0.82. Clinical Impression(s) from Imaging Studies Chest X-Ray 09/20/20 20:50 IMPRESSION: No acute cardiopulmonary process identified. Prominence of the right hilum may be artifactual. Consider a repeat AP and lateral chest radiograph for further evaluation. Electronically Signed: Alexis Portillo, at 21:13 EST Tel , Service support , Chest CTA 09/20/20 21:01 IMPRESSION: No demonstrated pulmonary embolism or arterial dissection. Electronically Signed: Alexis Portillo, at 22:11 EST Tel , Service support , Emergency Department Course and Treatment: Ambulatory pulse ox is 95%. Patient was given albuterol and Atrovent aerosols. She was given dexamethasone IV. She is resting more comfortably. Treatment Plan: Patient will be discharged with albuterol for her nebulizer. She is given a prescription for dexamethasone for the next week I think this will help with her asthma and on the possibility that she had a false negative COVID-19 test. Instructed to follow-up with her primary care physician 1 to 2 days if not improving. Return to the emergency department for any worsening symptoms. Disposition: To home in improved and stable condition. Impression: 1. URI. 2. History of cough equivalent asthma. This note was generated with [employer] dictation software. It may contain incorrect words, spelling, and punctuation that were not noted in review of the chart prior to signing ED Disposition - Plan for ED Patient: Instructions: ED Bronchitis, No Antibiotic (Adult) Prescriptions: Dexamethasone 6 mg PO DAILY #7 tab Albuterol Aerosols [Ventolin Aerosols] 2.5 mg INHALATION Q4H PRN #25 vial Referrals: Wesly Hidalgo Chi, MD [Primary Care Provider] - 1-2 Days if not improving
--- NOTE | 2020-09-20 20:50 | RAD_ITS ---
STUDY: X-RAY CHEST REASON FOR EXAM: Female, 65 years old. COUGH AND SOB SINCE FRIDAY. TECHNIQUE: Single frontal view of the chest. COMPARISON: 07/02/2020. FINDINGS: Cardiac silhouette unremarkable. Pulmonary vascularity unremarkable. Aorta unremarkable. No focal airspace opacities. No pleural effusions. Prominence of the right hilum may be artifactual. Upper abdomen unremarkable. Osseous structures intact. No pneumothorax. RAD/Chest 1 View (Portable) IMPRESSION: No acute cardiopulmonary process identified. Prominence of the right hilum may be artifactual. Consider a repeat AP and lateral chest radiograph for further evaluation. Electronically Signed: Alexis Portillo, at 21:13 EST Tel , Service support ,
[2020-09-20 20:59] LABS: D-Dimer Quantitative (DVT/PE) 0.82 FEU/ug/m (0.27-0.49)
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
[2020-09-20 21:40] VITALS: BP 138/89; PULSE 94; RESP 18; TEMP 36.2; O2SAT 95
[2020-09-20 22:20] VITALS: PULSE 82; RESP 16; O2SAT 96
== END 2020-09-20 22:29 | disposition home or self-care (01) ==
LOC: ED 20:32
PROVIDERS: Emergency Provider Emergency Medicine; PCP Family Medicine Geriatric Medicine
DX: J06.9 Acute upper respiratory infection, unspecified (principal); J45.998 Other asthma; I10 Essential (primary) hypertension; Z79.899 Other long term (current) drug therapy; Z20.828 Contact with and (suspected) exposure to other viral communicable diseases
CPT/HCPCS: 71045; 71275; 80053; 83605; 85025; 85379; 87426; 94640; 96374; 99284; Q9967; A4216

== ENCOUNTER → 2020-11-01 14:24 | Outpatient (CLI) | payer MEDICARE, MEDICAID, SELFPAY ==
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
== END ==
PROVIDERS: PCP Family Medicine Geriatric Medicine; Referring Provider Anesthesiology Pain Medicine; Visit Provider Anesthesiology Pain Medicine
DX: M54.9 Dorsalgia, unspecified (principal); M79.606 Pain in leg, unspecified
CPT/HCPCS: 72100

== ENCOUNTER → 2020-11-13 11:07 | Outpatient (CLI) | payer MEDICARE, MEDICAID, SELFPAY ==
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
== END ==
PROVIDERS: PCP Family Medicine Geriatric Medicine; Referring Provider Anesthesiology Pain Medicine; Visit Provider Anesthesiology Pain Medicine
DX: M48.061 Spinal stenosis, lumbar region without neurogenic claudication (principal)
CPT/HCPCS: 72148

== ENCOUNTER → 2020-11-15 09:40 | Outpatient (CLI) | payer MEDICARE, MEDICAID, SELFPAY ==
[2020-11-15 12:11] LABS: Absolute Lymphocyte Count 2.17 X10^3/uL (0.83-4.51); Hematocrit 42.4 % (37-47); Hemoglobin 13.6 g/dL (12.0-15.0); Lymphocyte # 2.17 X10^3/ul (4.0); Lymphocyte % 38.1 % (19-41); Mean Corp Hgb Conc 32.1 g/dL (32-36); Mean Corpuscular Hgb 28.4 pg (27.0-32.0); Mean Corpuscular Volume 88.5 fL (81-99); Mean Platelet Vol. 10.7 fl (6.2-12.0); Monocyte# 0.55 X10^3/uL; Monocyte% 9.6 % (0-10); NRBC Flagged by Analyzer 0 % (0-5); Neutrophil # 2.95 X10^3/uL (2.7-7.7); Neutrophil % 51.8 % (47-70); Platelet Count 215 K/mm3 (150-450); RBC Distribution Width CV 13.4 % (11.6-14.6); RBC Distribution Width SD 43.8 fl (35.1-43.9); Red Blood Count 4.79 M/mm3 (4.2-5.4); White Blood Count 5.7 K/mm3 (4.4-11.0)
[2020-11-15 12:30] LABS: Vitamin D,25 Hydroxy 42.5 ng/mL
[2020-11-15 12:38] LABS: ALB/GLOB Ratio 1.2 RATIO (0.9-2.4); AST(SGOT) 25 U/L (15-37); Alanine Aminotransfer ALT/SGPT 23 U/L (13-56); Albumin, Serum 3.7 g/dL (3.2-5.0); Alkaline Phosphatase 92 U/L (45-117); Anion Gap 3 (5-15); BUN 12 mg/dL (7-18); BUN/Creat Ratio 13.5 RATIO (10-20); Calcium,Total 9.2 mg/dL (8.5-10.1); Chloride 103 mmol/L (98-107); Creatinine, Serum 0.89 mg/dL (0.55-1.02); EST Glomerular Filtration Rate 68 mL/min (>60); Est Glom Filt Rate - Afr Amer 82 mL/min (>60); Globulin 3.2 g/dL (2.2-4.2); Glucose 82 mg/dL (74-106); Potassium 3.7 mmol/L (3.5-5.1); Protein, Total 6.9 g/dL (6.4-8.2); Sodium Level 140 mmol/L (136-145)
== END ==
PROVIDERS: PCP Family Medicine Geriatric Medicine; Visit Provider Family Medicine Geriatric Medicine
DX: I10 Essential (primary) hypertension (principal); E55.9 Vitamin D deficiency, unspecified
CPT/HCPCS: 36415; 80053; 82306; 84443; 85025

== ENCOUNTER → 2020-11-30 10:52 | Outpatient (CLI) | payer MEDICARE, SELFPAY ==
[2020-11-22 10:16] VITALS: BMI 32.1
--- NOTE | 2020-11-30 10:55 | BI_ITS ---
MAMMOGRAPHY - BILATERAL SCREENING REASON FOR EXAM: Female, 65 years old. Routine annual screening examination. PERTINENT HISTORY: Non-contributory. TECHNIQUE: Digital bilateral breast lashonda (3D mammographic acquisition) in the CC and MLO projections. 2-D mediolateral oblique (MLO) and craniocaudad (CC) views of both breasts were obtained. CAD: Full Field Digital Mammography with Computer Added Detection was performed. COMPARISON: Comparison is made with prior study dated 02/09/2018 and 01/10/2017. FINDINGS: Breast Composition: There are scattered areas of fibroglandular density. There are no dominant masses or suspicious calcifications. Stable small benign appearing bilateral axillary No other significant abnormalities are identified. There has been no significant change since the prior study. BI/SCRN MAMM (CAD)W/LASHONDA BILAT IMPRESSION: Stable bilateral screening mammogram. Yearly follow-up mammogram recommended. (A) ASSESSMENT CATEGORY: BIRADS Category 2: Benign. A letter regarding these results will be sent to the patient by the facility within 30 days. Approximately 10% of breast cancers are not detected by mammography. A normal mammogram should not delay biopsy of a clinically suspicious abnormality. [id number] Electronically Signed: Roosevelt Sequeira MD at 12:40 EST , Service support ,
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
== END ==
PROVIDERS: PCP Family Medicine Geriatric Medicine; Referring Provider Family Medicine Geriatric Medicine; Visit Provider Family Medicine Geriatric Medicine
DX: Z78.0 Asymptomatic menopausal state (principal); Z12.31 Encounter for screening mammogram for malignant neoplasm of breast
CPT/HCPCS: 77063; 77067; 77080

== ENCOUNTER 2021-01-04 11:50 | Observation (INO) | payer MEDICARE, MEDICAID, SELFPAY ==
[2020-11-22 10:16] VITALS: BMI 32.1
--- NOTE | 2020-12-20 10:33 | EKG12_ITS ---
Test Reason : PRE OP Blood Pressure : / mmHG Vent. Rate : 067 BPM Atrial Rate : 067 BPM P-R Int : 118 ms QRS Dur : 088 ms QT Int : 396 ms P-R-T Axes : 000 020 041 degrees QTc Int : 418 ms Normal sinus rhythm Normal ECG Confirmed by GABRIELA AMEZCUA, ROSI ([id number]), technical editor PHOEBE VILLARREAL ([id number]) on 12/21/2020 12:41:40 PM Referred By: Efraín Christianson Confirmed By:ROSI OCHOA MD
[2020-12-20 12:31] LABS: Prothrombin Time (Protime)PT. 12.9 SECONDS (11.7-14.9)
[2020-12-20 12:32] LABS: Partial Thromboplast Time 31.7 Seconds (24.1-36.2)
[2020-12-20 13:08] LABS: Anion Gap 4 (5-15); BUN 17 mg/dL (7-18); BUN/Creat Ratio 19.6 RATIO (10-20); Calcium,Total 9.2 mg/dL (8.5-10.1); Chloride 107 mmol/L (98-107); Creatinine, Serum 0.87 mg/dL (0.55-1.02); EST Glomerular Filtration Rate 69 mL/min (>60); Est Glom Filt Rate - Afr Amer 84 mL/min (>60); Glucose 89 mg/dL (74-106); Potassium 4.2 mmol/L (3.5-5.1); Sodium Level 142 mmol/L (136-145)
[2020-12-20 13:15] LABS: AST(SGOT) 24 U/L (15-37); Alanine Aminotransfer ALT/SGPT 26 U/L (13-56); Albumin, Serum 3.8 g/dL (3.2-5.0); Alkaline Phosphatase 96 U/L (45-117); Bilirubin, Direct 0.12 mg/dL (0.00-0.30); Globulin 2.6 g/dL (2.2-4.2); Magnesium 2.1 mg/dL (1.6-2.6); Protein, Total 6.4 g/dL (6.4-8.2)
[2020-12-20 13:38] LABS: HIV - WCH Non-Reactive (Nonreactive)
[2020-12-22 12:08] LABS: HEPATITIS B SURFACE AG Negative (Negative); Hepatitis A AB, Total Positive (Negative); Hepatitis A IgM Antibody Negative (Negative); Hepatitis B Core AB IgM Negative (Negative); Hepatitis B Core Ab Total Negative (Negative); Hepatitis C Ab <0.1 s/co ratio (0.0-0.9)
[2020-12-22 12:57] LABS: Hep B Surface Antibodies Non Reactive (.)
[2021-01-03 11:52] LABS: Absolute Lymphocyte Count 1.95 X10^3/uL (0.83-4.51); Absolute Neutrophil Count 2.7 X10^3/uL (2.0-7.7); Lymphocyte # 1.95 X10^3/ul (4.0); Lymphocyte % 37.8 % (19-41); Mean Corp Hgb Conc 31.7 g/dL (32-36); Mean Corpuscular Hgb 28.2 pg (27.0-32.0); Mean Corpuscular Volume 88.9 fL (81-99); Mean Platelet Vol. 10.2 fl (6.2-12.0); Monocyte# 0.52 X10^3/uL; Monocyte% 10.1 % (0-10); NRBC Flagged by Analyzer 0 % (0-5); Neutrophil # 2.68 X10^3/uL (2.7-7.7); Neutrophil % 51.9 % (47-70); Platelet Count 190 K/mm3 (150-450); RBC Distribution Width CV 13.1 % (11.6-14.6); RBC Distribution Width SD 42.5 fl (35.1-43.9); Red Blood Count 4.61 M/mm3 (4.2-5.4); White Blood Count 5.2 K/mm3 (4.4-11.0)
[2021-01-04] VITALS (17 sets, daily range): BP systolic 146–182; BP diastolic 70–117; PULSE 67–103; RESP 14–20; TEMP 36.1–37.2; O2SAT 84–100; BMI 33.6
--- NOTE | 2021-01-04 06:00 | HP_ITS ---
Intake Intake Visit Reasons: lumbar spine Accompanied by: Self Is patient in pain?: Yes Pain scale (1-10): 9 Allergies ampicillin Allergy (Intermediate, Verified 12/20/20 09:39) Rash sulfamethoxazole [From Bactrim] Allergy (Intermediate, Verified 12/20/20 09:39) BLOTCHES/ HIVES trimethoprim [From Bactrim] Allergy (Intermediate, Verified 12/20/20 09:39) BLOTCHES/ HIVES niacin [From Niaspan Extended-Release] Adverse Reaction (Intermediate, Verified 12/20/20 09:39) REDDNESS/ PASSED OUT amitriptyline Adverse Reaction (Mild, Verified 12/20/20 09:39) EARS RING clarithromycin [From Biaxin] Adverse Reaction (Mild, Verified 12/20/20 09:39) Upset Stomach Medications Furosemide [Lasix] 20 mg PO DAILY PRN 11/02/13 [History Confirmed 12/20/20] Potassium Chloride [Klor-Con 10] 10 meq PO DAILY PRN PRN 11/02/13 [History Confirmed 12/20/20] Atenolol [Tenormin (beta wendy)] 50 mg PO DAILY 06/30/14 [History Confirmed 12/20/20] Tizanidine HCl [Zanaflex] 4 mg PO QHS PRN 10/02/17 [History Confirmed 12/20/20] Vitamin E 400 unit PO DAILY 10/20/19 [History Confirmed 12/20/20] Hydrocodone Bitart/Apap 5-325 [Costa 5MG-325MG] 1 tab PO BID 07/02/20 [History Confirmed 12/20/20] Albuterol Aerosols [Ventolin Aerosols] 2.5 mg INHALATION Q4H PRN #25 vial 09/20/20 [Rx Confirmed 12/20/20] duloxetine 30 mg capsule,delayed release 30 mg PO DAILY cap 11/22/20 [History Confirmed 12/20/20] Ascorbic Acid [Vitamin C] 1,000 mg PO DAILY 12/15/20 [History Confirmed 12/20/20] Buprenorphine [Butrans] 1 ea TD QWEEK 12/15/20 [History Confirmed 12/20/20] Famotidine [Pepcid] 40 mg PO DAILY 12/15/20 [History Confirmed 12/20/20] Multivit-Min/Iron/Folic/Lutein [Centrum Silver Women Tablet] 1 ea PO DAILY 12/15/20 [History Confirmed 12/20/20] Zinc 50 mg PO DAILY 12/15/20 [History Confirmed 12/20/20] calcium carbonate-vitamin D3 250 mg-125 unit tablet 1 tab PO DAILY 12/20/20 [History Confirmed 12/20/20] [facility] Medical History Osteopenia (Chronic) Normochromic normocytic anemia (Acute) Thrombocytopenia (Acute) Postoperative pain of extremity (Acute) HTN (hypertension) (Chronic) Asthma (Acute) GERD (gastroesophageal reflux disease) (Acute) Hemorrhoid (Acute) Malignant hyperthermia (Acute) Osteoarthritis (Acute) Rosacea (Acute) history of superficial venous thrombosis (Acute) Surgical History (Updated 11/22/20 @ 10:29 by Mary Felix) History of total replacement of left ankle (Acute) H/O kyphoplasty (Acute) History of colonoscopy (Acute ~2006) History of fasciotomy (Acute) History of right knee joint replacement (Acute) Status post laser ablation of incompetent vein (Acute) Family History Brother Malignant hyperthermia due to anesthesia Brother Malignant hyperthermia due to anesthesia Brother Malignant hyperthermia due to anesthesia Diabetes Hypertension Cancer lung Asthma Mother Diabetes Hypertension Father Cancer lung Aunt Colon cancer Social History (Updated 12/20/20 @ 10:[address] Efraín Christianson DO) Smoking Status: Former smoker HPI lumbar spine: Surgical H&P: Yes Details: Parts of this documentation were recorded by a scribe, this documentation accurately reflects the service provided and the decisions made by me, Dr. Efraín Christianson DO 12/20/20 [id number]. CRIS RUBIO is a 65 year old F here today for her pre-op, DOS: 12/28/2020. Patient denies any medical changes since her last office visit. Patient voiced she is 9/10 from the pain scale today. And is here for her preoperative visit 8 days before her surgery is scheduled. She is scheduled for an L4/5 decompression for her severe spinal stenosis at that level. Her neurogenic claudication continues as it has been now for quite a while. The epidural steroid injections of late have been of no help. She is looking forward to getting some relief. We discussed the surgery how it would be done the fact that it would take a couple of hours perhaps to do and possible risks and complications. Among those the possibility of , paralysis infection meningitis failure to relieve the symptoms dural leak blood clot in the legs blood clot lungs , myocardial infarction among others. I answered all her questions I will see her at surgery 8 days from now. Assessment & Plan Problems 1. Spinal stenosis of lumbar region with neurogenic claudication M48.062 Coding Level of Care Code Off vis,est,level 2 Diagnoses Spinal stenosis of lumbar region with neurogenic claudication M48.062 Time Spent (min) 20
[2021-01-04 06:17] LABS: Absolute Lymphocyte Count 1.81 X10^3/uL (0.83-4.51); Absolute Neutrophil Count 2.6 X10^3/uL (2.0-7.7); Hematocrit 39.3 % (37-47); Hemoglobin 13.2 g/dL (12.0-15.0); Lymphocyte # 1.81 X10^3/ul (4.0); Lymphocyte % 36.5 % (19-41); Mean Corp Hgb Conc 33.6 g/dL (32-36); Mean Corpuscular Hgb 29.2 pg (27.0-32.0); Mean Corpuscular Volume 86.9 fL (81-99); Mean Platelet Vol. 10.1 fl (6.2-12.0); Monocyte# 0.58 X10^3/uL; Monocyte% 11.7 % (0-10); NRBC Flagged by Analyzer 0 % (0-5); Neutrophil # 2.56 X10^3/uL (2.7-7.7); Neutrophil % 51.6 % (47-70); Platelet Count 181 K/mm3 (150-450); RBC Distribution Width CV 12.9 % (11.6-14.6); RBC Distribution Width SD 40.4 fl (35.1-43.9); Red Blood Count 4.52 M/mm3 (4.2-5.4)
[2021-01-04] MEDS: Lactated Ringers 1,000 ML 100 ML IV ×3 (06:28→13:00)
[2021-01-04] MEDS: Acetaminophen 500 MG Tablet 1000 MG PO (06:29)
[2021-01-04 06:50] LABS: Bedside Glucose 102 mg/dL (70-110)
--- NOTE | 2021-01-04 07:30 | RAD_ITS ---
STUDY: X-RAY - LUMBAR SPINE REASON FOR EXAM: Female, 66 years old. LUMBAR DECOMPRESSION L4-5 TECHNIQUE: 1 view(s) of the lumbar spine were obtained. COMPARISON: None FINDINGS: The localization instrument is seen overlying the posterior L4-L5 disc level. RAD/Spine 1 View Any Level IMPRESSION: The localization instrument is seen overlying the posterior L4-L5 disc level. Electronically Signed: Roosevelt Sequeira MD at 15:40 EDT , Service support ,
[2021-01-04] MEDS: Thrombin 5,000 IU Kit (PSA) 5,000 IU Vial 5000 IU TOPICAL (08:51)
--- NOTE | 2021-01-04 10:34 | OP.PCM_ITS ---
Report of Operation Date of Procedure: 01/04/21 Description of Surgical Findings:: Preoperative diagnosis: Spinal stenosis L4-5 Postoperative diagnoses: The same Procedure: Decompression laminectomy bilaterally at L4-5 Surgeon: Dr. Sammy Lopez assist: OR personnel Anesthesia: General endotracheal anesthesia administered by [facility] Estimated blood loss: 30 cc Drains: Medium Hemovac Complications: None Procedure: Patient was taken to the OR where she was placed under general endotracheal anesthesia while still on the gurney catheter that his urinary catheter was inserted and neuro monitoring placed all their leads and the patient she was then moved onto the operating table on the prone position on the [place] frame. Once she was properly positioned with care to protect her bony prominences her breasts her ulnar nerves of both elbows the brachial plexus bilaterally her cervical spine and facial features the back was prepped and draped in standard fashion. I then made a longitudinal incision centered over L4 5 subcutaneous tissues were incised the length of the skin incision. I then elevated the paravertebral muscles off the lamina of L4 and L5 first on the left side. I then took an intraoperative x-ray with a marker in place to assure that we were indeed at L4-5 which we were. Then open to the opposite side that is the right side elevating the paravertebral muscles off the lamina for and the lamina of L5 on the right side thorough irrigation was carried out every 10 to 1 5 minutes in the course of the case to prevent infection. We then put the super slide retractors in place giving us good access to the spinous process of L4 and the lamina of L4 and the lamina of L5. Using double-action rongeurs I then removed the spinous process of L4. Then thinned down the lamina with double- action rongeurs. Bleeding of the bone was controlled with bone wax. I then released the ligamentum flavum off the underside of the lamina of L4 on both sides. I then began the removal of the lamina with 45 degree [place] rongeurs. I used both 3 mm and 4 mm rongeurs to accomplish this. The ligamentum flavum was left in place for now to protect the dura from the instruments. I was able then to open pretty much most of the lateral recess on the right side working from the left side of the table. Exploited the ligamentum flavum in the midline and also released it from the top of the L5 lamina using sharp curettes I then began removal of the ligamentum flavum first on the right side with a 45 degree [place] rongeurs and opened it out all the way to the lateral gutters. It was checked with a [place] retractor and was found to be quite open including the foramina. I then moved to the opposite side of the table that is the right and began removing the ligamentum flavum off the left side. Then with a 45 degree [place] rongeurs. This was done all the way out to open the lateral gutters. Note that some of the ligamentum flavum was attached to the dura that is adhered and I was able to release it with the [place] and then remove the ligamentum flavum. We also checked the foramina on the left side and it was open also this completely decompressed the L45 level. Bleeders were controlled with bipolar cautery and thrombin-soaked Gelfoam. Finally 1 last irrigation was performed once this was done I then placed my amnionic graft directly over the open dura I this is to prevent adhesions in the future. I would place Gelfoam over the top of that. We then entered with a medium Hemovac drain. And closure was begun I closed the lumbar fascia using [id number] suture with #1 Vicryl followed by closure of the subcutaneous tissues with 2-0 Vicryl and 0 Vicryl in interrupted fashion in layers and the skin was approximated using skin clips sterile dressings were then applied. The patient was then recovered in the OR she was moved to her hospital bed and taken to recovery in satisfactory condition. The end of operative summary on Shannon Moses. This is Dr. Christianson dictating.
[2021-01-04] MEDS: Morphine 2 MG/ML Syringe IV (13:01)
[2021-01-04] MEDS: 0.9% NaCl Peripheral Flush Adult/Peds IV ×2 (13:01→15:17)
--- NOTE | 2021-01-04 14:34 | CON.PCM_ITS ---
Problem List (1) Status post L4-L5 laminectomy Status: Acute (2) Depression Status: Chronic (3) Asthma Status: Chronic (4) HTN (hypertension) Status: Chronic Reason for Consult Date of Consultation: 01/04/21 Reason for Consultation: Postoperative medical management. History of Present Illness: The patient is a 66 year old F with past medical history as mentioned above underwent elective L4-L5 decompression laminectomy bilaterally and I am seeing this patient in consultation for postoperative medical management. At this time, patient complains of back pain, 6 out of 10 in severity, aggravated by any type of movement and she has not been able to get a comfortable position. No other complaints. She had a history of hypertension and according to her, her blood pressure has been high lately because of back pain and she has been on atenolol and small dose of Lasix. She will history of asthma and she has been on albuterol inhaler as needed only. She will history of depression and she has been on duloxetine. Preoperative routine blood work that was done on December 20 and January 03 was unremarkable. LFT was unremarkable as well. CBC from today was unremarkable as well. Preoperative EKG done on December 20, 2020 and was unremarkable, normal, no acute ischemic changes. Currently, she is on IV clindamycin for perioperative prophylaxis, IV morphine and OxyIR as needed for pain. Past Medical History Past Medical History (Chronic Problems): Chronic Problems (Last Reviewed 11/22/20 @ 10:20 by Mary Felix) Depression (Chronic) Asthma (Chronic) Osteopenia (Chronic) History of total replacement of left ankle (Chronic) HTN (hypertension) (Chronic) Medical History: Medical History (Last Reviewed 11/22/20 @ 10:20 by Mary Felix) Osteopenia (Chronic) M85.80 HTN (hypertension) (Chronic) I10 Asthma J45.909 GERD (gastroesophageal reflux disease) K21.9 Hemorrhoid K64.9 Malignant hyperthermia T88.3XXA Osteoarthritis M19.90 Rosacea L71.9 history of superficial venous thrombosis Allergies ampicillin Allergy (Intermediate, Verified 01/04/21 06:00) Rash sulfamethoxazole [From Bactrim] Allergy (Intermediate, Verified 01/04/21 06:00) BLOTCHES/ HIVES trimethoprim [From Bactrim] Allergy (Intermediate, Verified 01/04/21 06:00) BLOTCHES/ HIVES niacin [From Niaspan Extended-Release] Adverse Reaction (Intermediate, Verified 01/04/21 06:00) REDDNESS/ PASSED OUT amitriptyline Adverse Reaction (Mild, Verified 01/04/21 06:00) EARS RING clarithromycin [From Biaxin] Adverse Reaction (Mild, Verified 01/04/21 06:00) Upset Stomach Home Medications: Ambulatory Orders Medication Instructions Recorded Furosemide [Lasix] 20 mg PO DAILY PRN 11/02/13 Potassium Chloride [Klor-Con 10] 10 meq PO DAILY PRN PRN 11/02/13 Atenolol [Tenormin (beta wendy)] 50 mg PO DAILY 06/30/14 Tizanidine HCl [Zanaflex] 4 mg PO QHS PRN 10/02/17 Vitamin E 400 unit PO DAILY 10/20/19 Hydrocodone Bitart/Apap 5-325 1 tab PO BID 07/02/20 [[place] 5MG-325MG] Albuterol Aerosols [Ventolin 2.5 mg INHALATION Q4H PRN #25 vial 09/20/20 Aerosols] duloxetine 30 mg capsule,delayed 30 mg PO DAILY cap 11/22/20 release Ascorbic Acid [Vitamin C] 1,000 mg PO DAILY 12/15/20 Buprenorphine [Butrans] 1 ea TD QWEEK 12/15/20 Famotidine [Pepcid] 40 mg PO DAILY 12/15/20 Multivit-Min/Iron/Folic/Lutein 1 ea PO DAILY 12/15/20 [Centrum Silver Women Tablet] Zinc 50 mg PO DAILY 12/15/20 calcium carbonate-vitamin D3 250 600 mg PO DAILY 12/20/20 mg-125 unit tablet Surgical History: Surgical History (Last Updated 11/22/20 @ 10:29 by Mary Felix) History of total replacement of left ankle (Chronic) Z96.662 H/O kyphoplasty Z98.890 History of colonoscopy Onset Date: ~2006 Z98.890 History of fasciotomy Z98.890 History of right knee joint replacement Z96.651 Status post laser ablation of incompetent vein Z98.890 Surgical History: - - Left ankle surgery. 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 Lives: Spouse/ Significant Other Smoking Status: Former smoker Tobacco Use: Non-smoker Alcohol: None Drugs: None - *Family History Maternal Family History: Family History (Last Reviewed 11/22/20 @ 10:29 by Mary Felix) Brother Malignant hyperthermia due to anesthesia Brother Malignant hyperthermia due to anesthesia Brother Malignant hyperthermia due to anesthesia Diabetes Hypertension Cancer Asthma Mother Diabetes Hypertension Father Cancer Aunt Colon cancer Review of Systems Constitutional: Denies: Anorexia, Chills, Fever, Weakness Eyes: Denies: Blurred vision, Double vision, Drainage, Redness HEENT: Denies: Difficulty Hearing, Ear Pain, Eye Pain, Nasal Congestion, Sore Throat Cardiovascular: Denies: Chest Pain, Chest Pressure, Edema, Light Headedness, Palpitations, Syncope Respiratory: Reports: Cough. Denies: Pleuritic Pain, Shortness of Breath, Sputum production, Wheezing Gastrointestinal: Denies: Abdominal Pain, Constipation, Diarrhea, Nausea, Vomiting Genitourinary: Denies: Dysuria, Frequency, Hematuria Musculoskeletal: Reports: Back Pain. Denies: Arm Pain, Foot Pain Skin: Denies: Dryness, Rash Neurological: Denies: Balance problems, Blurred vision, Double vision, Change in Speech, Slurred speech, Confusion, Incoordination, Numbness Psychiatric: Reports: Depression. Denies: Anxiety Endocrine: Denies: Change in Body Habitus, Polydipsia, Polyuria - Physical Exam Vitals/I&O's: Vital Signs Temp Pulse Resp BP Pulse Ox 97.9 F 68 18 155/81 H 96 01/04/21 12:44 01/04/21 12:44 01/04/21 12:44 01/04/21 12:44 01/04/21 12:44 Oxygen Flow Rate (L/min) 6 Oxygen Delivery Method Room Air Weight: 172 lb 6.424 oz Body Mass Index (BMI) 33.6 Intake and Output for Last 24 Hours 01/02/21 01/03/21 01/04/21 23:59 23:59 23:59 Intake Total 1610.5 / 1610.5 Output Total 150 / 150 Balance 1460.5 / 1460.5 General: Alert, Oriented x3, Cooperative, - - She is in mild to moderate pain. HEENT: Atraumatic, PERRLA, EOMI, Normocephalic Oral: Moist Mucosa, No Gingival or Mucosal Lesions/ Ulcerations Neck: Supple, No JVD, Negative Carotid Bruits Lungs: Clear to auscultation, Normal air movement, No rhonchi, No wheeze, No rales Cardiovascular: Regular rate, Regular Rhythm, Normal S1, Normal S2, PMI Normal Abdomen: Bowel Sounds Present, Soft, Non Tender, Non-Distended, No Hepato- splenomegaly Extremities: No clubbing, No cyanosis, No edema Skin: No rashes, No breakdown Lymphatic: No Cervical, Supraclavicular, or Inguinal Adenopathy Neurological: Cranial nerves II-XII grossly intact, Motor Exam 5/5 strength throughout Psych/Mental Status: Normal Affect, Appropriate, Alert and oriented to time, place, person, mood and affect Microbiology Past 72 Hours 01/03/21 10:10 Interface Orders SARS-CoV-2 Antigen (Rapid) - Final Laboratory Results 01/04/21 06:10: WBC 5.0, RBC 4.52, Hgb 13.2, Hct 39.3, MCV 86.9, MCH 29.2, MCHC 33.6 D, RDW Std Deviation 40.4, RDW Coeff of Maira 12.9, Plt Count 181, MPV 10.1, Immature Gran % (Auto) 0.200, Neut % (Auto) 51.6, Lymph % (Auto) 36.5, [place] % (Auto) 11.7 H, Eos % (Auto) 0.0, Baso % (Auto) 0.0, Absolute Neuts (auto) 2.6, Absolute Lymphs (auto) 1.81, Nucleated RBC % 0 01/04/21 06:41: POC Glucose 102 Current Medications Atenolol (Atenolol 25 Mg Tablet) 50 mg PO DAILY RONALD Diazepam (Diazepam 5 Mg Tablet) 5 mg PO Q6H PRN PRN PRN Reason: Muscle Spasms Duloxetine HCl (Duloxetine Hcl 30 Mg Capsule) 30 mg PO DAILY [facility] Enteral Nutritional Formula (Ensure Surgery 237 Ml Liquid) 237 ml PO TIDCM [facility] Famotidine (Famotidine 20 Mg Tablet) 20 mg PO BID RONALD Furosemide (Furosemide 20 Mg Tablet) 20 mg PO DAILY PRN PRN Reason: Swelling Lactated Ringer's () 1,000 mls @ 75 mls/hr IV .[id number] [facility] Stop: 01/04/21 19:49 Last Admin: 01/04/21 13:00 Dose: 100 mls/hr Documented by: Clindamycin Phosphate 900 mg/ (Dextrose) 106 mls @ 150 mls/hr IV Q8H RONALD Stop: 01/05/21 00:13 Insulin Human Lispro (Insulin Lispro 100 Unit/Ml Insuln.Pen) 1 - 6 unit SC Q4H PRN PRN; Protocol PRN Reason: BG>/= 180, SEE PROTOCOL Stop: 01/04/21 18:00 Morphine Sulfate (Morphine 4 Mg/Ml Syringe) 2 - 4 mg IV Q2H PRN PRN PRN Reason: Pain Score 6-10 Morphine Sulfate (Morphine 2 Mg/Ml Syringe) 2 - 4 mg IV Q2H PRN PRN PRN Reason: Pain Score 6-10 Last Admin: 01/04/21 13:01 Dose: 2 mg Documented by: Ondansetron HCl (Ondansetron 4 Mg/2 Ml Vial) 4 mg IV Q8H PRN PRN PRN Reason: NAUSEA Oxycodone HCl (Oxycodone 5 Mg Tablet) 2.5 - 5 mg PO Q4H PRN PRN PRN Reason: Pain Score 6-10 Senna/Docusate Sodium (Senna/Docusate Sodium 1 Tablet) 2 tablet PO BID RONALD Sodium Chloride (0.9% Nacl Peripheral Flush Adult/Peds) 5 - 15 ml IV UD PRN PRN Reason: SALINE FLUSH Last Admin: 01/04/21 13:01 Dose: 10 ml Documented by: Sodium Chloride (0.9% Saline Lock 10 Ml Syringe) 10 - 40 ml IV UD PRN PRN Reason: SALINE FLUSH Tizanidine HCl (Tizanidine Hcl 2 Mg Tablet) 4 mg PO QHS PRN PRN Reason: PAIN 1-10 Zolpidem Tartrate (Zolpidem Tartrate 5 Mg Tablet) 5 mg PO QHS PRN PRN PRN Reason: INSOMNIA Assessment/Plan All Active Problems (Last Reviewed 11/22/20 @ 10:20 by Mary Felix) Status post L4-L5 laminectomy (Acute) This is a 66 years old female patient underwent elective L4-L5 laminectomy for L4-L5 spinal stenosis and I am seeing this patient in consultation for postoperative medical management. #1 status post bilateral L4-L5 decompression laminectomy: This was done for L4- L5 spinal stenosis, postoperative day 0. Currently, patient is complaining of back pain. She is on IV morphine and OxyIR as needed for pain. She is on IV clindamycin for perioperative prophylaxis. Preoperative routine blood work and EKG reviewed and were unremarkable. Dr. Christianson is managing. #2 hypertension: Patient stated that her blood pressure lately has been elevated because of the back pain. Currently, blood pressure has been in the 150-170 systolic. Plan to continue atenolol and Lasix, start IV Thorazine as needed. #3 bronchial asthma: Stable, on room air. Plan for albuterol nebulizer as needed. #4 depression: Stable, continue duloxetine. #5 DVT prophylaxis: SCDs. This note was generated with Dwe[employer] dictation software. It may contain incorrect words, spelling, and punctuation that were not noted in checking the note before signing. Inpatient E&M: 66887 Init Hosp L2
[2021-01-04] MEDS: Morphine 4 MG/ML Syringe IV ×2 (15:04→21:15)
[2021-01-04] MEDS: diazePAM 5 MG Tablet PO ×2 (15:04→21:15)
[2021-01-04] MEDS: hydrALAZINE 20 MG/ML Vial 10 MG IV (15:18)
[2021-01-04] MEDS: Ensure Surgery 237 ML LIQUID PO ×2 (15:26→17:35)
[2021-01-04] MEDS: oxyCODONE 5 MG Tablet PO (17:35)
[2021-01-04] MEDS: Ondansetron 4 MG/2 ML Vial IV (21:15)
[2021-01-04] MEDS: Senna/Docusate Sodium 1 Tablet 2 TABLET PO (21:32)
[2021-01-04] MEDS: Famotidine 20 MG Tablet PO (21:32)
[2021-01-05] VITALS (8 sets, daily range): BP systolic 103–160; BP diastolic 55–74; PULSE 72–102; RESP 16–18; TEMP 36.9–37.5; O2SAT 94–98
[2021-01-05] MEDS: oxyCODONE 5 MG Tablet PO ×3 (03:54→17:17)
[2021-01-05] MEDS: Morphine 4 MG/ML Syringe IV (07:16)
[2021-01-05] MEDS: 0.9% NaCl Peripheral Flush Adult/Peds IV (07:40)
[2021-01-05] MEDS: Famotidine 20 MG Tablet PO (09:43)
[2021-01-05] MEDS: DULoxetine Hcl 30 MG Capsule PO (09:43)
[2021-01-05] MEDS: Senna/Docusate Sodium 1 Tablet 2 TABLET PO (09:44)
[2021-01-05] MEDS: Atenolol 25 MG Tablet 50 MG PO (09:44)
[2021-01-05] MEDS: Ensure Surgery 237 ML LIQUID PO (09:47)
--- NOTE | 2021-01-05 11:55 | CASEMGMT ---
Addendum entered by Clary Manzo 01/05/21 16:03: TC to [facility] and referral received and walker will be delivered to pt room . Addendum entered by Clary Manzo 01/05/21 15:25: Per , pt does not need PT, just a walking program. Script received for [facility], pt reports her walker is too wide. Pt provided with list of local in network DME providers. Pt preference is [facility]. Ref[place] fax[place] [facility] [place]. Original Note: JULIO MCALLISTER Assessment: Face to Face with pt for initial transition planning/care coordination assessment. JULIO MCALLISTER introduced self and role at [facility], pt voices understanding and consents to assessment. Pt is A/O x4 and answers all questions appropriately at this time. Pt lying in bed in no distress. Care providers, pharmacy, and demographics verified/updated. Admitting Dx: lumbar decompression L4-5 PCP: Rocky Specialists: Mariam, wilian cavanaugh, Sammy Preferred Pharmacy: [facility] Insurance: [facility] Dual Complete Prescription Benefit: yes LNOK: Romero Moses Living Arrangements: Pt lives with in a mobile home with 5 steps to enter with 2 rails. Pt reports needing assistance with lower body dressing from her but is otherwise I in ADL's. Denies concerns at home. Transportation: Pt states she can drive self but usually her does. Denies issues with transportation. DME/HHC/SNF: Pt reports having a cane and walker at home. Denies previous HHC or SNF stays. Pt states no concerns with going home at time of dc. Aware that PT is recommending further therapy, but will defer to Dr. Christianson. Pt states if she needs PT, she would like to go to [facility] and denies need for a list of providers. Pt states no further concerns/needs. CM to follow. Advised pt to ask CM if any further question/concerns/needs arise, voices understanding. Pt Goal: Home Plan: Home with family support, will follow to see if would like PT outpatient. JULIO MCALLISTER in to discuss SOW form with patient. JULIO MCALLISTER explained SOW form, patient voiced understanding. Pt signed form and filed in chart. Pt provided with a copy of signed SOW form. Patient had no further questions or concerns at this time. 1200p
[2021-01-05] MEDS: Acetaminophen 325 MG Tablet 650 MG PO (12:24)
--- NOTE | 2021-01-05 14:28 | DCINST_ITS ---
Discharge Activity: May Shower May shower in (days): 4 May resume sexual activity in: 4-6 weeks Weight Bearing Status: Full weight bearing Call your doctor if your incision/area has: Increased Pain/ Swelling Call your doctor if you observe: Fever of 101 or Higher, Shortness of breath, Calf discomfort, Uncontrolled pain Remove Dressing in (days):: 3 Cleanse incision/area with: Soap & Water Allergies/Adverse Reactions: Allergies ampicillin Allergy (Intermediate, Verified 01/04/21 06:00) Rash sulfamethoxazole [From Bactrim] Allergy (Intermediate, Verified 01/04/21 06:00) BLOTCHES/ HIVES trimethoprim [From Bactrim] Allergy (Intermediate, Verified 01/04/21 06:00) BLOTCHES/ HIVES niacin [From Niaspan Extended-Release] Adverse Reaction (Intermediate, Verified 01/04/21 06:00) REDDNESS/ PASSED OUT amitriptyline Adverse Reaction (Mild, Verified 01/04/21 06:00) EARS RING clarithromycin [From Biaxin] Adverse Reaction (Mild, Verified 01/04/21 06:00) Upset Stomach Medications to take at Discharge Furosemide [Lasix] 20 mg PO DAILY PRN 11/02/13 Potassium Chloride [Klor-Con 10] 10 meq PO DAILY PRN PRN 11/02/13 Atenolol [Tenormin (beta wendy)] 50 mg PO DAILY 06/30/14 Tizanidine HCl [Zanaflex] 4 mg PO QHS PRN 10/02/17 Vitamin E 400 unit PO DAILY 10/20/19 Albuterol Aerosols [Ventolin Aerosols] 2.5 mg INHALATION Q4H PRN #25 vial 09/20/20 duloxetine 30 mg capsule,delayed release 30 mg PO DAILY cap 11/22/20 Ascorbic Acid [Vitamin C] 1,000 mg PO DAILY 12/15/20 Buprenorphine [Butrans] 1 ea TD QWEEK 12/15/20 Famotidine [Pepcid] 40 mg PO DAILY 12/15/20 Multivit-Min/Iron/Folic/Lutein [Centrum Silver Women Tablet] 1 ea PO DAILY 12/15/20 Zinc 50 mg PO DAILY 12/15/20 calcium carbonate-vitamin D3 250 mg-125 unit tablet 600 mg PO DAILY 12/20/20 Primary Care Physician: Wesly Hidalgo Chi, MD [Primary Care Provider] - Test Results: Test results from this visit will be discussed in further detail at your follow- up appointment, if applicable. Please Follow Up With: vera When: has appointment
--- NOTE | 2021-01-05 14:33 | DS.PCM_ITS ---
Discharge Date and Diagnosis - Problem List Patient Problems: Active and Suspected Problems (Last Updated 01/04/21 @ 14:[address] Lea Abbott MD) Status post L4-L5 laminectomy (Acute) Date of Admission: 01/04/21 Date of Discharge: 01/05/21 - Primary Discharge Diagnosis Acute Problems: Active Problems (Last Updated 01/04/21 @ 14:[address] Lea Abbott MD) Status post L4-L5 laminectomy (Acute) - Secondary Discharge Diagnosis Chronic Problems: Chronic Problems (Last Updated 01/04/21 @ 14:[address] Lea Abbott MD) Depression (Chronic) Asthma (Chronic) Osteopenia (Chronic) History of total replacement of left ankle (Chronic) HTN (hypertension) (Chronic) Hospital Course and Treatment Operations: - - Left total ankle replacement with subtalar arthrodesis Summary of Care Provided: This patient was admitted on 01/04/2021 has been discharged on . Admitting diagnosis was severe spinal stenosis L4-5. Discharge diagnoses were the same. Procedures while in the hospital: The patient underwent decompression laminectomy at L4-5. She tolerated the procedure well. On rounds she states that all her leg pain was gone when she ambulated earlier. Dressing was changed and the drain was removed. Vision was healing well. Given instructions for her care at home. She was told that she could eat a regular diet. Already has an appointment at my office. She have any questions or something should not seem right she is to call my office immediately. Given hydrocodone for pain at home. Still that she could remove the dressing in 3 days and take shower in [address] for now not until I see her in the office. Patient Problems: Active and Suspected Problems (Last Updated 01/04/21 @ 14:[address] Lea Abbott MD) Status post L4-L5 laminectomy (Acute) - Physical Exam Vitals/I&O's: Vital Signs Temp Pulse Resp BP Pulse Ox 98.5 F 87 16 114/55 L 95 01/05/21 13:31 01/05/21 13:31 01/05/21 13:31 01/05/21 13:31 01/05/21 13:31 Oxygen Flow Rate (L/min) 6 Oxygen Delivery Method Room Air Weight: 172 lb 6.424 oz Body Mass Index (BMI) 33.6 Intake and Output for Last 24 Hours 01/03/21 01/04/21 01/05/21 23:59 23:59 23:59 Intake Total 2527.5 / 2527.5 1437.25 / 1437.25 Output Total 2200 / 2200 2275 / 2275 Balance 327.5 / 327.5 -837.75 / -837.75 Microbiology Past 72 Hours 01/03/21 10:10 Interface Orders SARS-CoV-2 Antigen (Rapid) - Final Current Medications Acetaminophen (Acetaminophen 325 Mg Tablet) 650 mg PO Q6H PRN PRN PRN Reason: Pain Score 1-10 Last Admin: 01/05/21 12:24 Dose: 650 mg Documented by: Albuterol Sulfate (Albuterol 2.5 Mg/3 Ml Vial.Neb.) 2.5 mg INHALATION Q6H PRN PRN PRN Reason: Shortness of breath, wheezing Atenolol (Atenolol 25 Mg Tablet) 50 mg PO DAILY [facility] Last Admin: 01/05/21 09:44 Dose: 50 mg Documented by: Diazepam (Diazepam 5 Mg Tablet) 5 mg PO Q6H PRN PRN PRN Reason: Muscle Spasms Last Admin: 01/04/21 21:15 Dose: 5 mg Documented by: Duloxetine HCl (Duloxetine Hcl 30 Mg Capsule) 30 mg PO DAILY [facility] Last Admin: 01/05/21 09:43 Dose: 30 mg Documented by: Enteral Nutritional Formula (Ensure Surgery 237 Ml Liquid) 237 ml PO TIDCM [facility] Last Admin: 01/05/21 12:23 Dose: Not Given Documented by: Famotidine (Famotidine 20 Mg Tablet) 20 mg PO BID [facility] Last Admin: 01/05/21 09:43 Dose: 20 mg Documented by: Furosemide (Furosemide 20 Mg Tablet) 20 mg PO DAILY PRN PRN Reason: Swelling Hydralazine HCl (Hydralazine 20 Mg/Ml Vial) 10 mg IV Q6H PRN PRN PRN Reason: for SBP>160 Last Admin: 01/04/21 15:18 Dose: 10 mg Documented by: Morphine Sulfate (Morphine 4 Mg/Ml Syringe) 2 - 4 mg IV Q2H PRN PRN PRN Reason: Pain Score 6-10 Last Admin: 01/05/21 07:16 Dose: 4 mg Documented by: Morphine Sulfate (Morphine 2 Mg/Ml Syringe) 2 - 4 mg IV Q2H PRN PRN PRN Reason: Pain Score 6-10 Last Admin: 01/04/21 13:01 Dose: 2 mg Documented by: Ondansetron HCl (Ondansetron 4 Mg/2 Ml Vial) 4 mg IV Q8H PRN PRN PRN Reason: NAUSEA Last Admin: 01/04/21 21:15 Dose: 4 mg Documented by: Oxycodone HCl (Oxycodone 5 Mg Tablet) 2.5 - 5 mg PO Q4H PRN PRN PRN Reason: Pain Score 6-10 Last Admin: 01/05/21 12:26 Dose: 5 mg Documented by: Senna/Docusate Sodium (Senna/Docusate Sodium 1 Tablet) 2 tablet PO BID [facility] Last Admin: 01/05/21 09:44 Dose: 2 tablet Documented by: Sodium Chloride (0.9% Nacl Peripheral Flush Adult/Peds) 5 - 15 ml IV UD PRN PRN Reason: SALINE FLUSH Last Admin: 01/05/21 07:40 Dose: 10 ml Documented by: Sodium Chloride (0.9% Saline Lock 10 Ml Syringe) 10 - 40 ml IV UD PRN PRN Reason: SALINE FLUSH Tizanidine HCl (Tizanidine Hcl 2 Mg Tablet) 4 mg PO QHS PRN PRN Reason: PAIN 1-10 Zolpidem Tartrate (Zolpidem Tartrate 5 Mg Tablet) 5 mg PO QHS PRN PRN PRN Reason: INSOMNIA Discharge Activity: May Shower May shower in (days): 4 May resume sexual activity in: 4-6 weeks Weight Bearing Status: Full weight bearing Call your doctor if your incision/area has: Increased Pain/ Swelling Call your doctor if you observe: Fever of 101 or Higher, Shortness of breath, Calf discomfort, Uncontrolled pain Remove Dressing in (days):: 3 Cleanse incision/area with: Soap & Water Home Medications: Medications to take at Discharge Furosemide [Lasix] 20 mg PO DAILY PRN 11/02/13 Potassium Chloride [Klor-Con 10] 10 meq PO DAILY PRN PRN 11/02/13 Atenolol [Tenormin (beta wendy)] 50 mg PO DAILY 06/30/14 Tizanidine HCl [Zanaflex] 4 mg PO QHS PRN 10/02/17 Vitamin E 400 unit PO DAILY 10/20/19 Albuterol Aerosols [Ventolin Aerosols] 2.5 mg INHALATION Q4H PRN #25 vial 09/20/20 duloxetine 30 mg capsule,delayed release 30 mg PO DAILY cap 11/22/20 Ascorbic Acid [Vitamin C] 1,000 mg PO DAILY 12/15/20 Buprenorphine [Butrans] 1 ea TD QWEEK 12/15/20 Famotidine [Pepcid] 40 mg PO DAILY 12/15/20 Multivit-Min/Iron/Folic/Lutein [Centrum Silver Women Tablet] 1 ea PO DAILY 12/15/20 Zinc 50 mg PO DAILY 12/15/20 calcium carbonate-vitamin D3 250 mg-125 unit tablet 600 mg PO DAILY 12/20/20 Primary Care Physician: Wesly Hidalgo Chi, MD [Primary Care Provider] - Please Follow Up With: vera When: has appointment Medical Necessity - Tobacco Use Smoking Status: Former smoker Tobacco Use: Non-smoker Meaningful Use Info Meaningful Use Diagnoses (Choose all that apply): None applicable
--- NOTE | 2021-01-05 14:47 | PCM.PN.HOSP ---
<Juan Miguel Olivas - Last Filed: 01/05/21 14:47> Patient Problems: Active and Suspected Problems (Last Updated 01/04/21 @ 14:[address] Lea Abbott MD) Status post L4-L5 laminectomy (Acute) Subjective: Patient is a 66-year-old female resting in bed after surgery, alert and oriented x3. Patient complains of 4 out of 10 pain that is aggravated by any type of movement and inability to find a comfortable position. Patient denies any radicular symptoms down the leg however does report feeling very weak throughout her body. Objective: Clinical Impression(s) from Imaging Studies Spine X-Ray 01/04/21 07:30 IMPRESSION: The localization instrument is seen overlying the posterior L4-L5 disc level. Electronically Signed: Roosevelt Sequeira MD at 15:40 EDT , Service support , Vitals/I&O's: Vital Signs Temp Pulse Resp BP Pulse Ox 98.5 F 87 16 114/55 L 95 01/05/21 13:31 01/05/21 13:31 01/05/21 13:31 01/05/21 13:31 01/05/21 13:31 Oxygen Flow Rate (L/min) 6 Oxygen Delivery Method Room Air Weight: 172 lb 6.424 oz Body Mass Index (BMI) 33.6 Intake and Output for Last 24 Hours 01/03/21 01/04/21 01/05/21 23:59 23:59 23:59 Intake Total 2527.5 / 2527.5 1437.25 / 1437.25 Output Total 2200 / 2200 2275 / 2275 Balance 327.5 / 327.5 -837.75 / -837.75 General: Alert, Oriented x3, Cooperative HEENT: Atraumatic, PERRLA, EOMI, Normocephalic Neck: Supple, No JVD, Negative Carotid Bruits Lungs: Clear to auscultation, Normal air movement Cardiovascular: Regular rate, No murmurs Abdomen: Bowel Sounds Present, Soft, Non Tender Extremities: No edema, Capillary Refill Less than 3 Seconds Skin: No rashes, No breakdown Musculoskeletal: No Tenderness to Palpation of Joints or Extremities Neurological: Cranial nerves II-XII grossly intact Psych/Mental Status: Normal Affect, Appropriate Microbiology Past 72 Hours 01/03/21 10:10 Interface Orders SARS-CoV-2 Antigen (Rapid) - Final Current Medications Acetaminophen (Acetaminophen 325 Mg Tablet) 650 mg PO Q6H PRN PRN PRN Reason: Pain Score 1-10 Last Admin: 01/05/21 12:24 Dose: 650 mg Documented by: Albuterol Sulfate (Albuterol 2.5 Mg/3 Ml Vial.Neb.) 2.5 mg INHALATION Q6H PRN PRN PRN Reason: Shortness of breath, wheezing Atenolol (Atenolol 25 Mg Tablet) 50 mg PO DAILY [facility] Last Admin: 01/05/21 09:44 Dose: 50 mg Documented by: Diazepam (Diazepam 5 Mg Tablet) 5 mg PO Q6H PRN PRN PRN Reason: Muscle Spasms Last Admin: 01/04/21 21:15 Dose: 5 mg Documented by: Duloxetine HCl (Duloxetine Hcl 30 Mg Capsule) 30 mg PO DAILY [facility] Last Admin: 01/05/21 09:43 Dose: 30 mg Documented by: Enteral Nutritional Formula (Ensure Surgery 237 Ml Liquid) 237 ml PO TIDCM [facility] Last Admin: 01/05/21 12:23 Dose: Not Given Documented by: Famotidine (Famotidine 20 Mg Tablet) 20 mg PO BID [facility] Last Admin: 01/05/21 09:43 Dose: 20 mg Documented by: Furosemide (Furosemide 20 Mg Tablet) 20 mg PO DAILY PRN PRN Reason: Swelling Hydralazine HCl (Hydralazine 20 Mg/Ml Vial) 10 mg IV Q6H PRN PRN PRN Reason: for SBP>160 Last Admin: 01/04/21 15:18 Dose: 10 mg Documented by: Morphine Sulfate (Morphine 4 Mg/Ml Syringe) 2 - 4 mg IV Q2H PRN PRN PRN Reason: Pain Score 6-10 Last Admin: 01/05/21 07:16 Dose: 4 mg Documented by: Morphine Sulfate (Morphine 2 Mg/Ml Syringe) 2 - 4 mg IV Q2H PRN PRN PRN Reason: Pain Score 6-10 Last Admin: 01/04/21 13:01 Dose: 2 mg Documented by: Ondansetron HCl (Ondansetron 4 Mg/2 Ml Vial) 4 mg IV Q8H PRN PRN PRN Reason: NAUSEA Last Admin: 01/04/21 21:15 Dose: 4 mg Documented by: Oxycodone HCl (Oxycodone 5 Mg Tablet) 2.5 - 5 mg PO Q4H PRN PRN PRN Reason: Pain Score 6-10 Last Admin: 01/05/21 12:26 Dose: 5 mg Documented by: Senna/Docusate Sodium (Senna/Docusate Sodium 1 Tablet) 2 tablet PO BID [facility] Last Admin: 01/05/21 09:44 Dose: 2 tablet Documented by: Sodium Chloride (0.9% Nacl Peripheral Flush Adult/Peds) 5 - 15 ml IV UD PRN PRN Reason: SALINE FLUSH Last Admin: 01/05/21 07:40 Dose: 10 ml Documented by: Sodium Chloride (0.9% Saline Lock 10 Ml Syringe) 10 - 40 ml IV UD PRN PRN Reason: SALINE FLUSH Tizanidine HCl (Tizanidine Hcl 2 Mg Tablet) 4 mg PO QHS PRN PRN Reason: PAIN 1-10 Zolpidem Tartrate (Zolpidem Tartrate 5 Mg Tablet) 5 mg PO QHS PRN PRN PRN Reason: INSOMNIA STROKE Vital Signs/Narrative: Vital Signs Temp Pulse Resp BP Pulse Ox 01/05/21 13:31 98.5 F 87 16 114/55 L 95 Medical Necessity - Tobacco Use Smoking Status: Former smoker Tobacco Use: Non-smoker Assessment/Plan All Active Problems (Last Updated 01/04/21 @ 14:[address] Lea Abbott MD) Status post L4-L5 laminectomy (Acute) This patient is a 66-year-old female who underwent elective L4-L5 laminectomy for L4-L5 spinal stenosis, seeing this patient for postoperative medical consultation. Patient states that her radicular symptoms prior to surgery have abated, although still endorses 4 out of 10 back pain on my physical examination. Patient appears stable and ready for discharge. 1) S/P bilateral L4-L5 decompression laminectomy Assessment - Radicular leg pain has abated post surgery - Still endorses 4 out of 10 back pain - CBC, coags, chemistries unremarkable - EKG unremarkable Plan - Discharged with hydrocodone for pain at home per Dr. Christianson - Follow-up with Dr. Christianson at already scheduled appointment -Driving restriction in place per Dr. Christianson 2) Hypertension Assessment - 114/55, stable Plan -Continue atenolol and Lasix at home 3) Bronchial Asthma Assessment - Stable on room air Plan - Continue home albuterol as needed 4) Depression Assessment -Stable Plan -Continue duloxetine on discharge Patient seen by Juan Miguel Olivas PA-C, under the supervision of Dr. Bernstein. <Chai Bernstein F - Last Filed: 01/05/21 15:35> Vitals/I&O's: Vital Signs Temp Pulse Resp BP Pulse Ox 98.5 F 87 16 114/55 L 95 01/05/21 13:31 01/05/21 13:31 01/05/21 13:31 01/05/21 13:31 01/05/21 13:31 Oxygen Flow Rate (L/min) 6 Oxygen Delivery Method Room Air Weight: 172 lb 6.424 oz Body Mass Index (BMI) 33.6 Intake and Output for Last 24 Hours 01/03/21 01/04/21 01/05/21 23:59 23:59 23:59 Intake Total 2527.5 / 2527.5 1437.25 / 1437.25 Output Total 2200 / 2200 2275 / 2275 Balance 327.5 / 327.5 -837.75 / -837.75 Microbiology Past 72 Hours 01/03/21 10:10 Interface Orders SARS-CoV-2 Antigen (Rapid) - Final Current Medications Acetaminophen (Acetaminophen 325 Mg Tablet) 650 mg PO Q6H PRN PRN PRN Reason: Pain Score 1-10 Last Admin: 01/05/21 12:24 Dose: 650 mg Documented by: Albuterol Sulfate (Albuterol 2.5 Mg/3 Ml Vial.Neb.) 2.5 mg INHALATION Q6H PRN PRN PRN Reason: Shortness of breath, wheezing Atenolol (Atenolol 25 Mg Tablet) 50 mg PO DAILY [facility] Last Admin: 01/05/21 09:44 Dose: 50 mg Documented by: Diazepam (Diazepam 5 Mg Tablet) 5 mg PO Q6H PRN PRN PRN Reason: Muscle Spasms Last Admin: 01/04/21 21:15 Dose: 5 mg Documented by: Duloxetine HCl (Duloxetine Hcl 30 Mg Capsule) 30 mg PO DAILY [facility] Last Admin: 01/05/21 09:43 Dose: 30 mg Documented by: Enteral Nutritional Formula (Ensure Surgery 237 Ml Liquid) 237 ml PO TIDCM [facility] Last Admin: 01/05/21 12:23 Dose: Not Given Documented by: Famotidine (Famotidine 20 Mg Tablet) 20 mg PO BID [facility] Last Admin: 01/05/21 09:43 Dose: 20 mg Documented by: Furosemide (Furosemide 20 Mg Tablet) 20 mg PO DAILY PRN PRN Reason: Swelling Hydralazine HCl (Hydralazine 20 Mg/Ml Vial) 10 mg IV Q6H PRN PRN PRN Reason: for SBP>160 Last Admin: 01/04/21 15:18 Dose: 10 mg Documented by: Morphine Sulfate (Morphine 4 Mg/Ml Syringe) 2 - 4 mg IV Q2H PRN PRN PRN Reason: Pain Score 6-10 Last Admin: 01/05/21 07:16 Dose: 4 mg Documented by: Morphine Sulfate (Morphine 2 Mg/Ml Syringe) 2 - 4 mg IV Q2H PRN PRN PRN Reason: Pain Score 6-10 Last Admin: 01/04/21 13:01 Dose: 2 mg Documented by: Ondansetron HCl (Ondansetron 4 Mg/2 Ml Vial) 4 mg IV Q8H PRN PRN PRN Reason: NAUSEA Last Admin: 01/04/21 21:15 Dose: 4 mg Documented by: Oxycodone HCl (Oxycodone 5 Mg Tablet) 2.5 - 5 mg PO Q4H PRN PRN PRN Reason: Pain Score 6-10 Last Admin: 01/05/21 12:26 Dose: 5 mg Documented by: Senna/Docusate Sodium (Senna/Docusate Sodium 1 Tablet) 2 tablet PO BID [facility] Last Admin: 01/05/21 09:44 Dose: 2 tablet Documented by: Sodium Chloride (0.9% Nacl Peripheral Flush Adult/Peds) 5 - 15 ml IV UD PRN PRN Reason: SALINE FLUSH Last Admin: 01/05/21 07:40 Dose: 10 ml Documented by: Sodium Chloride (0.9% Saline Lock 10 Ml Syringe) 10 - 40 ml IV UD PRN PRN Reason: SALINE FLUSH Tizanidine HCl (Tizanidine Hcl 2 Mg Tablet) 4 mg PO QHS PRN PRN Reason: PAIN 1-10 Zolpidem Tartrate (Zolpidem Tartrate 5 Mg Tablet) 5 mg PO QHS PRN PRN PRN Reason: INSOMNIA STROKE Vital Signs/Narrative: Vital Signs Temp Pulse Resp BP Pulse Ox 01/05/21 13:31 98.5 F 87 16 114/55 L 95 Addendum: Dr. Bernstein I personally examined the patient and reviewed the chart. I agree with the above. 66-year-old female presents to the hospital for elective L4-L5 laminectomy for spinal stenosis. Medicine was consulted for postoperative management. She does have a history of asthma which has been stable and her albuterol was continued while here. Also she has a history of hypertension and she is on atenolol and Lasix. She had been having elevated blood pressures prior to surgery secondary to pain she states, currently she is systolics in the 114. No plans to make any adjustments to her blood pressure medications at this time. From a medical standpoint she is stable for discharge. She can follow-up with her PCP in 3 to 5 days. OBSV E&M: 53709 Subsequent observation care L2
== END 2021-01-05 17:35 | disposition home or self-care (01) ==
LOC: SDC 13:03 → MS3 01-05 06:37
PROVIDERS: Anesthesiology; Admitting Provider Orthopaedic Surgery; PCP Family Medicine Geriatric Medicine; Referring Provider Orthopaedic Surgery; Visit Provider Family Medicine
PROC: (CPT 63030; principal; 2021-01-04 07:00)
DX: M48.062 Spinal stenosis, lumbar region with neurogenic claudication (principal); I10 Essential (primary) hypertension; K21.9 Gastro-esophageal reflux disease without esophagitis; M19.90 Unspecified osteoarthritis, unspecified site; J45.909 Unspecified asthma, uncomplicated; F32.9 Major depressive disorder, single episode, unspecified; Z79.899 Other long term (current) drug therapy; Z86.718 Personal history of other venous thrombosis and embolism; Z87.891 Personal history of nicotine dependence; L71.9 Rosacea, unspecified; Z86.2 Personal history of diseases of the blood and blood-forming organs and certain disorders involving the immune mechanism; Z88.0 Allergy status to penicillin; Z88.2 Allergy status to sulfonamides; M85.80 Other specified disorders of bone density and structure, unspecified site; Z87.19 Personal history of other diseases of the digestive system; Z96.651 Presence of right artificial knee joint; Z98.890 Other specified postprocedural states; R53.1 Weakness
CPT/HCPCS: 00670; 63047; 36415; 72020; 80048; 80076; 82962; 83735; 85025; 85610; 85730; 86703; 86704; 86705; 86706; 86708; 86709; 86803; 87081; 87340; 87426; 93005; 94762; 96361; 96365; 96366; 96375; 96376; 97116; 97162; 97530; 99218; C9803; J7120; A4216; G0378; G0379; J2405

== ENCOUNTER → 2021-03-19 12:32 | Outpatient (CLI) | payer MEDICARE, MEDICAID, SELFPAY ==
[2021-02-14 10:02] VITALS: BMI 32.1
[2021-03-19 16:05] LABS: Amphetamine Urine VISTA NEGATIVE (<1000 ng/mL); Barbiturate Urine VISTA NEGATIVE (< 200 ng/mL); Benzodiazepine Urine VISTA NEGATIVE (< 200 ng/mL); Cocaine Urine VISTA NEGATIVE (< 300 ng/mL); Ecstacy Urine VISTA NEGATIVE (< 500 ng/mL); Methadone Urine VISTA NEGATIVE (< 300 ng/mL); PCP Urine VISTA NEGATIVE (< 25 ng/mL); THC Urine VISTA NEGATIVE (< 50 ng/mL); Vista UDS pH Range 6
== END ==
PROVIDERS: PCP Family Medicine Geriatric Medicine; Referring Provider Anesthesiology Pain Medicine; Visit Provider Anesthesiology Pain Medicine
DX: F11.20 Opioid dependence, uncomplicated (principal)
CPT/HCPCS: 80307

== ENCOUNTER → 2021-05-16 09:41 | Outpatient (CLI) | payer MEDICARE, MEDICAID, SELFPAY ==
[2021-02-14 10:02] VITALS: BMI 32.1
[2021-05-16 12:40] LABS: Absolute Lymphocyte Count 2.05 X10^3/uL (0.83-4.51); Absolute Neutrophil Count 5.2 X10^3/uL (2.0-7.7); Basophil# 0.01 X10^3/uL; Basophil% 0.1 % (0-1); Hematocrit 42.6 % (37-47); Hemoglobin 13.6 g/dL (12.0-15.0); Lymphocyte # 2.05 X10^3/ul (0.83-4.51); Lymphocyte % 26.1 % (19-41); Mean Corp Hgb Conc 31.9 g/dL (32-36); Mean Corpuscular Hgb 27.7 pg (27.0-32.0); Mean Corpuscular Volume 86.8 fL (81-99); Mean Platelet Vol. 10.3 fl (6.2-12.0); Monocyte# 0.57 X10^3/uL; Monocyte% 7.3 % (0-10); NRBC Flagged by Analyzer 0 % (0-5); Neutrophil # 5.19 X10^3/uL (2.7-7.7); Neutrophil % 66.1 % (47-70); Platelet Count 211 K/mm3 (150-450); RBC Distribution Width CV 14.8 % (11.6-14.6); RBC Distribution Width SD 47.3 fl (35.1-43.9); Red Blood Count 4.91 M/mm3 (4.2-5.4); White Blood Count 7.9 K/mm3 (4.4-11.0)
[2021-05-16 13:20] LABS: Vitamin D,25 Hydroxy 52.1 ng/mL
[2021-05-16 13:21] LABS: ALB/GLOB Ratio 1.2 RATIO (0.9-2.4); AST(SGOT) 21 U/L (15-37); Alanine Aminotransfer ALT/SGPT 27 U/L (13-56); Albumin, Serum 3.6 g/dL (3.2-5.0); Alkaline Phosphatase 100 U/L (45-117); Anion Gap 5 (5-15); BUN 14 mg/dL (7-18); BUN/Creat Ratio 16.4 RATIO (10-20); Calcium,Total 8.7 mg/dL (8.5-10.1); Chloride 106 mmol/L (98-107); Creatinine, Serum 0.86 mg/dL (0.55-1.02); EST Glomerular Filtration Rate 71 mL/min (>60); Est Glom Filt Rate - Afr Amer 85 mL/min (>60); Globulin 3.1 g/dL (2.2-4.2); Glucose 77 mg/dL (74-106); Protein, Total 6.7 g/dL (6.4-8.2); Sodium Level 140 mmol/L (136-145); Thyroid Stim Hormone (TSH) 2.17 uIU/mL (0.358-3.74)
== END ==
PROVIDERS: PCP Family Medicine Geriatric Medicine; Visit Provider Family Medicine Geriatric Medicine
DX: I10 Essential (primary) hypertension (principal); E55.9 Vitamin D deficiency, unspecified
CPT/HCPCS: 36415; 80053; 82306; 84443; 85025

== ENCOUNTER → 2021-05-30 11:08 | Outpatient (CLI) | payer MEDICARE, MEDICAID, SELFPAY ==
[2021-05-30 12:59] LABS: Anion Gap 3 (5-15); BUN 24 mg/dL (7-18); BUN/Creat Ratio 24.7 RATIO (10-20); Calcium,Total 9.2 mg/dL (8.5-10.1); Chloride 105 mmol/L (98-107); Creatinine, Serum 0.97 mg/dL (0.55-1.02); EST Glomerular Filtration Rate 61 mL/min (>60); Est Glom Filt Rate - Afr Amer 74 mL/min (>60); Glucose 52 mg/dL (74-106); Potassium 3.6 mmol/L (3.5-5.1); Sodium Level 139 mmol/L (136-145)
== END ==
PROVIDERS: PCP Family Medicine Geriatric Medicine; Visit Provider Family Medicine Geriatric Medicine
DX: I10 Essential (primary) hypertension (principal)
CPT/HCPCS: 36415; 80048

== ENCOUNTER → 2021-07-18 12:23 | Outpatient (CLI) | payer MEDICARE, MEDICAID, SELFPAY | PROVIDERS: PCP Family Medicine Geriatric Medicine; Referring Provider Family Medicine Geriatric Medicine; Visit Provider Family Medicine Geriatric Medicine | DX: R68.83 Chills (without fever) (principal) | CPT/HCPCS: 87635; 87804; 87807; C9803; U0005; U0003 ==

== ENCOUNTER 2021-10-30 11:30 | Outpatient (CLI) | payer MEDICARE, MEDICAID, SELFPAY ==
[2021-10-30 12:34] LABS: Amphetamine Urine VISTA NEGATIVE (<1000 ng/mL); Barbiturate Urine VISTA NEGATIVE (< 200 ng/mL); Benzodiazepine Urine VISTA NEGATIVE (< 200 ng/mL); Cocaine Urine VISTA NEGATIVE (< 300 ng/mL); Ecstacy Urine VISTA NEGATIVE (< 500 ng/mL); Methadone Urine VISTA NEGATIVE (< 300 ng/mL); PCP Urine VISTA NEGATIVE (< 25 ng/mL); THC Urine VISTA NEGATIVE (< 50 ng/mL); Vista UDS pH Range 5
[2021-10-30 12:45] LABS: BUP Internal Control LINE = VALID (VALID); Buprenorphine Drug Screen Negative (<10 ng/mL)
== END 2021-10-30 23:59 | disposition short-term general hospital (02) ==
LOC: LAB 11:36
PROVIDERS: PCP Family Medicine Geriatric Medicine; Visit Provider Anesthesiology Pain Medicine
DX: F11.20 Opioid dependence, uncomplicated (principal)
CPT/HCPCS: 80307

== ENCOUNTER 2021-11-19 09:57 | Outpatient (CLI) | payer MEDICARE, MEDICAID, SELFPAY ==
[2021-11-19 12:09] LABS: Absolute Lymphocyte Count 2.12 X10^3/uL (0.83-4.51); Absolute Neutrophil Count 3.9 X10^3/uL (2.0-7.7); Hematocrit 41.4 % (37-47); Hemoglobin 13.9 g/dL (12.0-15.0); Lymphocyte # 2.12 X10^3/ul (0.83-4.51); Lymphocyte % 31.8 % (19-41); Mean Corp Hgb Conc 33.6 g/dL (32-36); Mean Corpuscular Hgb 31.2 pg (27.0-32.0); Mean Corpuscular Volume 92.8 fL (81-99); Mean Platelet Vol. 9.9 fl (6.2-12.0); Monocyte# 0.66 X10^3/uL; Monocyte% 9.9 % (0-10); NRBC Flagged by Analyzer 0 % (0-5); Neutrophil # 3.85 X10^3/uL (2.7-7.7); Neutrophil % 57.8 % (47-70); Platelet Count 226 K/mm3 (150-450); RBC Distribution Width CV 13.2 % (11.6-14.6); RBC Distribution Width SD 44.5 fl (35.1-43.9); Red Blood Count 4.46 M/mm3 (4.2-5.4); White Blood Count 6.7 K/mm3 (4.4-11.0)
[2021-11-19 12:29] LABS: Vitamin D,25 Hydroxy 48.4 ng/mL
[2021-11-19 12:34] LABS: ALB/GLOB Ratio 1.1 RATIO (0.9-2.4); AST(SGOT) 21 U/L (15-37); Alanine Aminotransfer ALT/SGPT 24 U/L (13-56); Albumin, Serum 3.5 g/dL (3.2-5.0); Alkaline Phosphatase 71 U/L (45-117); Anion Gap 4 (5-15); BUN 12 mg/dL (7-18); BUN/Creat Ratio 10.9 RATIO (10-20); Chloride 102 mmol/L (98-107); EST Glomerular Filtration Rate 53 mL/min (>60); Est Glom Filt Rate - Afr Amer 64 mL/min (>60); Globulin 3.2 g/dL (2.2-4.2); Glucose 73 mg/dL (74-106); Potassium 3.5 mmol/L (3.5-5.1); Protein, Total 6.7 g/dL (6.4-8.2); Sodium Level 137 mmol/L (136-145); Thyroid Stim Hormone (TSH) 2.44 uIU/mL (0.358-3.74)
== END 2021-11-19 23:59 | disposition home or self-care (01) ==
LOC: POLAB3 10:07
PROVIDERS: PCP Family Medicine Geriatric Medicine; Visit Provider Family Medicine Geriatric Medicine
DX: I10 Essential (primary) hypertension (principal); E55.9 Vitamin D deficiency, unspecified
CPT/HCPCS: 36415; 80053; 82306; 84443; 85025

== ENCOUNTER 2021-12-03 12:31 | Outpatient (CLI) | payer MEDICARE, SELFPAY ==
--- NOTE | 2021-12-03 12:34 | BI_ITS ---
MAMMOGRAPHY - BILATERAL SCREENING REASON FOR EXAM: Female, 66 years old. Routine annual screening examination. PERTINENT HISTORY: Non-contributory. TECHNIQUE: Digital bilateral breast lashonda (3D mammographic acquisition) in the CC and MLO projections. 2-D mediolateral oblique (MLO) and craniocaudad (CC) views of both breasts were obtained. CAD: Full Field Digital Mammography with Computer Added Detection was performed. COMPARISON: Comparison is made with prior study dated 07/30/2021 and 02/09/2018. FINDINGS: Breast Composition: The breasts are almost entirely fatty. There are no dominant masses or suspicious calcifications. Stable small benign-appearing bilateral axillary No other significant abnormalities are identified. There has been no significant change since the prior study. BI/SCRN MAMM (CAD)W/LASHONDA BILAT IMPRESSION: Stable bilateral screening mammogram. Yearly follow-up mammogram recommended. (A) ASSESSMENT CATEGORY: BIRADS Category 2: Benign. A letter regarding these results will be sent to the patient by the facility within 30 days. Approximately 10% of breast cancers are not detected by mammography. A normal mammogram should not delay biopsy of a clinically suspicious abnormality. [id number] Electronically Signed: Roosevelt Sequeira MD at 13:32 EST ,
== END 2021-12-03 23:59 | disposition home or self-care (01) ==
LOC: OPBI 12:32
PROVIDERS: PCP Family Medicine Geriatric Medicine; Visit Provider Family Medicine Geriatric Medicine
DX: Z12.31 Encounter for screening mammogram for malignant neoplasm of breast (principal)
CPT/HCPCS: 77063; 77067

== ENCOUNTER → 2022-01-22 | Outpatient (CLI) | payer MEDICARE, MEDICAID, SELFPAY ==
--- NOTE | 2022-01-22 14:41 | RAD_ITS ---
STUDY: X-RAY - THORACIC SPINE REASON FOR EXAM: Female, 67 years old. Age-related osteoporosis with current pathologic fracture. TECHNIQUE: 3 view(s) of the thoracic spine were obtained. COMPARISON: July 02, 2020. December 29, 2019. MRI of the lumbar spine November 13, 2020. FINDINGS: Normal kyphosis of the thoracic spine. There is no substantial scoliosis. Mild compression fractures T7 and T8. Small marginal osteophytes at several levels. Normal disc space heights. Bones are osteopenic. Severe old compression fracture T12 with kyphoplasty changes. The soft tissue structures are unremarkable. RAD/Thoracic Spine 3 Views IMPRESSION: Mild old compression fractures T7 and T8 not significantly changed since June 2020. Old severe compression fracture T12. Osteopenia. Electronically Signed: Filippo Yung MD at 4:39 EDT Reading Location ID and State: [id number] / , Service support ,
== END | disposition home or self-care (01) ==
LOC: RAD 14:39
PROVIDERS: PCP Family Medicine Geriatric Medicine; Visit Provider Anesthesiology Pain Medicine
DX: M80.08XA Age-related osteoporosis with current pathological fracture, vertebra(e), initial encounter for fracture (principal)
CPT/HCPCS: 72072

== ENCOUNTER → 2022-05-28 | Outpatient (CLI) | payer MEDICARE, MEDICAID, SELFPAY | END | disposition home or self-care (01) | LOC: PSN 08:46 | PROVIDERS: PCP Family Medicine Geriatric Medicine; Referring Provider Family Medicine Geriatric Medicine; Visit Provider Family Medicine Geriatric Medicine | DX: R68.83 Chills (without fever) (principal) | CPT/HCPCS: 87635; 87804; 87807; C9803; U0003; U0005 ==

== ENCOUNTER → 2022-06-03 | Outpatient (CLI) | payer MEDICARE, MEDICAID, SELFPAY ==
[2022-06-03 12:33] LABS: Vitamin D,25 Hydroxy 41.2 ng/mL
[2022-06-03 12:38] LABS: Absolute Lymphocyte Count 2.57 X10^3/uL (0.83-4.51); Basophil# 0.02 X10^3/uL; Basophil% 0.2 % (0-1); Eosinophil# 0.01 X10^3/uL; Eosinophils% 0.1 % (0-5); Hematocrit 40.3 % (37-47); Hemoglobin 13.2 g/dL (12.0-15.0); Lymphocyte # 2.57 X10^3/ul (0.83-4.51); Lymphocyte % 30.1 % (19-41); Mean Corp Hgb Conc 32.8 g/dL (32-36); Mean Corpuscular Hgb 30.6 pg (27.0-32.0); Mean Corpuscular Volume 93.3 fL (81-99); Mean Platelet Vol. 10.2 fl (6.2-12.0); Monocyte# 0.76 X10^3/uL; Monocyte% 8.9 % (0-10); NRBC Flagged by Analyzer 0 % (0-5); Neutrophil # 5.03 X10^3/uL (2.7-7.7); Neutrophil % 58.9 % (47-70); Platelet Count 224 K/mm3 (150-450); RBC Distribution Width SD 47.8 fl (35.1-43.9); Red Blood Count 4.32 M/mm3 (4.2-5.4); White Blood Count 8.5 K/mm3 (4.4-11.0)
[2022-06-03 12:41] LABS: ALB/GLOB Ratio 1.1 RATIO (0.9-2.4); AST(SGOT) 19 U/L (15-37); Alanine Aminotransfer ALT/SGPT 30 U/L (13-56); Albumin, Serum 3.3 g/dL (3.2-5.0); Alkaline Phosphatase 74 U/L (45-117); Anion Gap 6 (5-15); BUN 22 mg/dL (7-18); BUN/Creat Ratio 20.2 RATIO (10-20); Calcium,Total 8.9 mg/dL (8.5-10.1); Chloride 106 mmol/L (98-107); Creatinine, Serum 1.09 mg/dL (0.55-1.02); EST Glomerular Filtration Rate 53 mL/min (>60); Est Glom Filt Rate - Afr Amer 64 mL/min (>60); Globulin 2.9 g/dL (2.2-4.2); Glucose 93 mg/dL (74-106); Potassium 3.9 mmol/L (3.5-5.1); Protein, Total 6.2 g/dL (6.4-8.2); Sodium Level 141 mmol/L (136-145); Thyroid Stim Hormone (TSH) 1.58 uIU/mL (0.358-3.74)
== END | disposition home or self-care (01) ==
LOC: POLAB3 09:05
PROVIDERS: PCP Family Medicine Geriatric Medicine; Visit Provider Family Medicine Geriatric Medicine
DX: E55.9 Vitamin D deficiency, unspecified (principal); I10 Essential (primary) hypertension
CPT/HCPCS: 36415; 80053; 82306; 84443; 85025

== ENCOUNTER 2022-07-07 13:05 | Emergency (ER) | payer MEDICARE, MEDICAID, SELFPAY ==
[2022-07-07 13:08] VITALS: BP 115/68; PULSE 72; RESP 18; TEMP 36.7; O2SAT 99; BMI 36.3
--- NOTE | 2022-07-07 13:42 | RAD_ITS ---
STUDY: X-RAY - LUMBAR SPINE REASON FOR EXAM: Female, 67 years old. pain hx of back pain, kyphoplasty TECHNIQUE: 2 view(s) of the lumbar spine were obtained. COMPARISON: X-ray the lumbar spine dated November 01, 2020 FINDINGS: Normal lumbar lordosis. There is no substantial scoliosis. Chronic compression deformity of the T12 vertebral body (with vertebral plana deformity and greater than 60% loss of height) with kyphoplasty material within the bone and surrounding this spaces. No acute fracture or additional compression deformities are seen. Mild multilevel disc space narrowing and endplate spurring is present. The soft tissue structures are unremarkable. RAD/Lumbar Spine 2 or 3 Views IMPRESSION: Degenerative changes of the spine, as detailed above. Electronically Signed: Quirino Pool MD at 14:54 EDT ,
--- NOTE | 2022-07-07 13:43 | ED.VIS.BACK ---
HPI History of Present Illness Chief Complaint: Back Informant: patient Onset/Context/Timing Onset: Yesterday Context: Gradual Onset Timing: Continuous Quality: Aching Location: Lumbar (w/o radiation) Current Severity: Moderate Maximum Severity: Severe Worsened by: improves with Movement (andra getting up out of chair) Relieved by: Remaining Still Associated Symptoms Associated Symptoms: Negative for Numbness, Tingling, Radiation to Right Leg, Radiation to Left Leg, Unable to Ambulate, Unable to Transfer, Urinary Retention, Urinary Incontinence, Constipation or Fecal Incontinence Narrative Narrative: Patient has history of chronic back pain, she sees pain management Dr. Becerra and has frequent epidural lumbar and cervical spine injections. She does not have any sciatica or urinary/bowel dysfunction, she states yesterday she was mowing the grass with her self-propelled push mower and while she was doing that, there was a swarm of yellow jackets that came out of the ground unexpectedly so she had to dodge them. She did not have any fall or acute pain, but she noticed gradually she was hurting a lot more than usual later last night after all of that. Hoping it would get better this morning, she went to bed and it is not better this morning it is worse but the same otherwise. Hurts right in the midline lumbar spine/back. No saddle anesthesia or paresthesias in her leg. Prior similar symptoms: Yes and With Prior Back Pain [facility] Medical History (Updated 07/07/22 @ 15:[address] Manish Brice MD) Asthma GERD (gastroesophageal reflux disease) Hemorrhoid history of superficial venous thrombosis HTN (hypertension) Malignant hyperthermia Osteoarthritis Osteopenia Rosacea Home Medications furosemide 20 mg tablet 20 mg PO DAILY PRN Swelling 11/02/13 [History Last Taken 10/10/17 1] potassium chloride 10 mEq tablet,extended release 10 meq PO DAILY PRN PRN Leg Cramps 11/02/13 [History Last Taken 10/10/17 takes with lasix] atenolol 25 mg tablet 50 mg PO DAILY 06/30/14 [History Last Taken 01/04/21 03:30 50 MG] tizanidine 4 mg tablet 4 mg PO QHS PRN Pain 10/02/17 [History Last Taken 10/16/17 22:00 1] vitamin E 268 mg (400 unit) capsule 400 unit PO DAILY 10/20/19 [History Last Taken Unknown] albuterol sulfate 2.5 mg/3 mL (0.083 %) solution for nebulization 2.5 mg (3 mL) inhalation Q4H PRN #25 vials 09/20/20 [Rx Last Taken Unknown] duloxetine 30 mg capsule,delayed release 30 mg PO DAILY 11/22/20 [History Last Taken Unknown] ascorbic acid (vitamin C) 1,000 mg tablet 1,000 mg PO DAILY 12/15/20 [History Last Taken Unknown] buprenorphine 10 mcg/hour weekly transdermal patch 1 ea transdermal QWEEK 12/15/20 [History Last Taken Unknown] famotidine 40 mg tablet 40 mg PO DAILY 12/15/20 [History Last Taken 01/04/21 03:30 40 MG] multivit with ytxqaokp-zviw-KQ-lutein 8 mg iron-400 mcg-300 mcg tablet 1 ea PO DAILY 12/15/20 [History Last Taken Unknown] zinc 50 mg tablet 50 mg PO DAILY 12/15/20 [History Last Taken Unknown] calcium carbonate 250 mg-vitamin D3 3.125 mcg (125 unit) tablet 600 mg PO DAILY 12/20/20 [History Last Taken Unknown] hydrocodone-acetaminophen 5-325mg 5mg-325mg 1 - 2 tab PO BID 07/07/22 [History Last Taken Unknown] Allergy/AdvReac Type Severity Reaction Status Date / Time ampicillin Allergy Intermediate Rash Verified 07/07/22 13:07 sulfamethoxazole Allergy Intermediate BLOTCHES/ Verified 07/07/22 13:07 [From Bactrim] HIVES trimethoprim [From Bactrim] Allergy Intermediate BLOTCHES/ Verified 07/07/22 13:07 HIVES niacin AdvReac Intermediate REDDNESS/ Verified 07/07/22 13:07 [From Niaspan PASSED OUT Extended-Release] amitriptyline AdvReac Mild EARS RING Verified 07/07/22 13:07 clarithromycin [From Biaxin] AdvReac Mild Upset Verified 07/07/22 13:07 Stomach Family History Brother Malignant hyperthermia due to anesthesia Brother Malignant hyperthermia due to anesthesia Brother Malignant hyperthermia due to anesthesia Diabetes Hypertension Cancer lung Asthma Mother Diabetes Hypertension Father Cancer lung Aunt Colon cancer Surgical History (Updated 01/04/21 @ 14:[address] Lea Abbott MD) H/O kyphoplasty History of colonoscopy (~2006) History of fasciotomy History of right knee joint replacement History of total replacement of left ankle Status post laser ablation of incompetent vein Social History (Updated 01/17/21 @ 15:[address] Efraín Christianson, DO) Smoking Status: Former smoker ROS ROS ED Constitutional Constitutional ED: Denies chills or fever(s) Gastrointestinal Gastrointestinal: Denies abdominal pain, constipation, fecal incontinence, nausea or vomiting Genitourinary Genitourinary ED: Reports other Details: no urinary retention ; Denies abdominal discomfort or urinary incontinence Musculoskeletal Musculoskeletal: Reports as per HPI and back pain; Denies extremity pain or neck pain Integumentary Denies rash or wounds Neurologic Neurologic: Denies headache(s), paresthesias or weakness EXAM Physical Exam Const Vital Signs: 07/07/22 13:08 Temperature 98.1 F Temperature Source Temporal Pulse Rate 72 Respiratory Rate 18 Blood Pressure 115/68 Blood Pressure Mean 83 Pulse Ox 99 Oxygen Delivery Method Room Air Positive well nourished and well developed General Appearance ED: well developed and NAD HEENT Negative for trauma or tenderness Eyes PERRL and EOMs intact bilaterally Neck full ROM and supple GI normal to inspection, nondistended, normoactive bowel sounds, soft to palpation and non-tender Back/Spine normal to inspection Lumbar Spine / Lower Back: ROM limited, lumbar spinal tenderness L3 and L4 and straight leg raise negative bilaterally Extremity normal to inspection, full ROM and no pedal edema Neuro oriented x3 and no sensory deficits noted Sensorium / Orientation: alert Motor Exam: strength 5/5 throughout and clonus absent Deep Tendon Reflexes: Rt Patellar (L4): 2+ and Lt Patellar (L4): 2+ Deep Tendon Reflexes Back: Rt Patellar (L4): 2+ and Lt Patellar (L4): 2+ Plantar Reflex: Downgoing: bilateral Psych mental status grossly normal and thought process normal Skin no rashes or lesions noted and no wounds MDM MDM MDM Narrative Medical decision making narrative: Given her history of a compression fracture in the past, need for kyphoplasty, and pain/tenderness in the midline, I obtained lumbar films, 3 view x-ray series on my interpretation shows previous kyphoplasty but no acute compressions. Radiology in agreement. Patient was treated here, given Toradol, morphine, Norflex. She did have some improvement of her pain, she has [place] and [place] patches at home for pain so I do not think she needs any other prescriptions for narcotics especially since she is in pain management she is in agreement with this and going home following up as needed. I suspect she probably strained her low back with the activities she was doing earlier in the day of the onset she is in agreement. Radiography Diagnostic Testing: Clinical Impression(s) from Imaging Studies Lumbar Spine X-Ray 07/07/22 13:42 IMPRESSION: Degenerative changes of the spine, as detailed above. Electronically Signed: Quirino Pool MD at 14:54 EDT , Discharge Plan Triage Chief Complaint: Back ED Provider: Manish Brice Dx/Rx/DC Orders Clinical Impression: Acute lumbosacral myofascial strain, Acute exacerbation of chronic low back pain Instructions: ED Back Sprain/Strain Prescriptions: No Action duloxetine 30 mg capsule,delayed release(DR/EC) 30 mg PO DAILY calcium carbonate-vitamin D3 250-125 mg-unit tablet 600 mg PO DAILY potassium chloride 10 MEQ tablet extended release 10 meq PO DAILY PRN PRN (Reason: Leg Cramps) Label Comments: TAKE WITH LASIX furosemide 20 MG tablet 20 mg PO DAILY PRN (Reason: Swelling) Label Comments: water pill, heart atenolol 25 MG tablet 50 mg PO DAILY Label Comments: blood pressure, heart tizanidine 4 MG tablet 4 mg PO QHS PRN (Reason: Pain) vitamin E 400 UNIT capsule 400 unit PO DAILY albuterol sulfate 2.5 MG/3 ML solution for nebulization 2.5 mg INHALATION Q4H PRN Qty: 25 0RF Rx Instructions: Use q4 hours and PRN for wheezing ascorbic acid (vitamin C) 1,000 MG tablet 1,000 mg PO DAILY famotidine 40 MG tablet 40 mg PO DAILY zinc 50 MG tablet 50 mg PO DAILY buprenorphine 1 EACH patch weekly 1 ea TD QWEEK Label Comments: 7.5 MCG CHANGES ON SUNDAYS ftmdesfa-fzo-lzye-FA-lutein 1 EACH tablet 1 ea PO DAILY hydrocodone-acetaminophen 5-325 mg tablet 1 - 2 tab PO BID Primary Care Provider: Wesly Hidalgo Chi Referrals: Fay Becerra MD [Med Staff - Active Staff] - 3-5 Days if not improving Wesly Hidalgo Chi, MD [Primary Care Provider] - Disposition Disposition: Home, Self Care
[2022-07-07] MEDS: Ketorolac 30 MG/ML Syringe IM (14:05)
[2022-07-07] MEDS: Morphine 4 MG/ML Syringe IM (14:06)
[2022-07-07] MEDS: Orphenadrine 60 MG/2 ML Ampul IM (14:06)
[2022-07-07 15:47] VITALS: PULSE 80; RESP 12; O2SAT 98
== END 2022-07-07 15:48 | disposition home or self-care (01) ==
PROVIDERS: Emergency Provider Emergency Medicine; PCP Family Medicine Geriatric Medicine; Visit Provider Emergency Medicine
DX: S39.012A Strain of muscle, fascia and tendon of lower back, initial encounter (principal); X58.XXXA Exposure to other specified factors, initial encounter; Y93.H9 Activity, other involving exterior property and land maintenance, building and construction; G89.29 Other chronic pain; I10 Essential (primary) hypertension; Z79.899 Other long term (current) drug therapy; Z87.891 Personal history of nicotine dependence
CPT/HCPCS: 72100; 96372; 99282

== ENCOUNTER 2022-08-30 09:42 | Inpatient (IN) | payer MEDICARE, MEDICAID, SELFPAY ==
[2022-08-30] VITALS (19 sets, daily range): BP systolic 107–150; BP diastolic 49–96; PULSE 85–164; RESP 14–22; TEMP 36.8–38.5; O2SAT 88–98; BMI 33.0; BMI 35.5
--- NOTE | 2022-08-30 10:22 | EKG12_ITS ---
Test Reason : COUGH Blood Pressure : / mmHG Vent. Rate : 103 BPM Atrial Rate : 103 BPM P-R Int : 162 ms QRS Dur : 082 ms QT Int : 344 ms P-R-T Axes : 052 008 015 degrees QTc Int : 450 ms Sinus tachycardia Nonspecific T wave abnormality Abnormal ECG Confirmed by GABRIELA AMEZCUA, ROSI ([id number]), business editor PHOBEE VILLARREAL ([id number]) on 09/02/2022 10:30:43 AM Referred By: FRANSICO Confirmed By:ROSI OCHOA MD
--- NOTE | 2022-08-30 10:23 | EX.ED.VIS.FL ---
HPI History of Present Illness Chief Complaint: Dizziness Detail of Chief Complaint: Cough, fever, wheezing and dyspnea on exertion Informant: patient and spouse/S.O. Onset/Context/Timing Onset: Yesterday Context: Sudden Onset Timing: Continuous Quality: Positive for Dyspnea on exertion and Wheezing; Negative for Orthopnea or PND Current Severity: Mild Maximum Severity: Severe Worsened by: Exertion and Coughing Relieved by: Nothing Associated Symptoms Associated Symptoms: Positive for Cough, Rhinorrhea, Post-nasal drainage, Sore throat, Fever and Chills; Negative for Bloody Sputum, Green sputum, Yellow sputum, Ear pain, Subjective or Sweats Chest Pain: Positive for None Narrative Narrative: Patient is a 67-year-old woman with history of hypertension who has been in been immunized for influenza but not COVID. She has been in contact with her grandchild who is 6 sick. Her illness started yesterday. She had a document temperature of 203 ?F. She does complain of mild headache, rhinorrhea, congestion, postnasal drainage. She has a cough which essentially nonproductive. She does report dyspnea, dyspnea on exertion, wheezing. She denies history of asthma as an adult or child. She is a non-smoker. She denies history of VTE. Denies leg pain, swelling discoloration. Panflu higher risk groups: >65 Y.O [facility] Medical History Asthma GERD (gastroesophageal reflux disease) Hemorrhoid history of superficial venous thrombosis HTN (hypertension) Malignant hyperthermia Osteoarthritis Osteopenia Rosacea Status post L4-L5 laminectomy Home Medications furosemide 20 mg tablet 20 mg PO DAILY PRN Swelling 11/02/13 [History Last Taken 08/25/22] potassium chloride 10 mEq tablet,extended release 10 meq PO DAILY PRN LEG CRAMPS 11/02/13 [History Last Taken 08/25/22] atenolol 25 mg tablet 50 mg PO DAILY BLOOD PRESSURE 06/30/14 [History Last Taken 08/29/22] tizanidine 4 mg tablet 4 mg PO QHS SPASMS 10/02/17 [History Last Taken 08/29/22] vitamin E 268 mg (400 unit) capsule 400 unit PO DAILY SUPPLEMENT 10/20/19 [History Last Taken 08/29/22] duloxetine 30 mg capsule,delayed release 30 mg PO DAILY ANIETY/DEPRESSION 11/22/20 [History Last Taken 08/29/22] ascorbic acid (vitamin C) 1,000 mg tablet 1,000 mg PO DAILY SUPPLEMENT 12/15/20 [History Last Taken 08/29/22] buprenorphine 10 mcg/hour weekly transdermal patch 5 mcg transdermal SA PAIN 12/15/20 [History Last Taken 08/24/22] famotidine 40 mg tablet 80 mg PO DAILY ACID REFLUX 12/15/20 [History Last Taken 08/29/22] multivit with aztzywqf-zxer-DZ-lutein 8 mg iron-400 mcg-300 mcg tablet (Centrum Silver Women) 1 ea PO DAILY HEALTH MAINTENANCE 12/15/20 [History Last Taken 08/29/22] zinc 50 mg tablet 50 mg PO DAILY SUPPLEMENT 12/15/20 [History Last Taken 08/29/22] calcium carbonate 250 mg-vitamin D3 3.125 mcg (125 unit) tablet 600 mg PO BID SUPPLEMENT 12/20/20 [History Last Taken 08/29/22] hydrocodone-acetaminophen 5-325mg 5mg-325mg 1 tab PO BID PRN Pain 07/07/22 [History Last Taken 08/29/22] albuterol sulfate 2.5 mg/3 mL (0.083 %) solution for nebulization 2.5 mg INHALATION Q4H PRN Shortness Of Breath 08/30/22 [History Last Taken Unknown] albuterol sulfate 90 mcg/actuation aerosol inhaler 2 inh inhalation UD PRN Shortness Of Breath 08/30/22 [History Last Taken 08/29/22] magnesium oxide 400 mg PO QHS SUPPLEMENT 08/30/22 [History Last Taken 08/29/22] valsartan 320 mg-hydrochlorothiazide 12.5 mg tablet 1 tab PO DAILY BLOOD PRESSURE 08/30/22 [History Last Taken 08/29/22] Allergy/AdvReac Type Severity Reaction Status Date / Time ampicillin Allergy Intermediate Rash Verified 07/07/22 13:07 sulfamethoxazole Allergy Intermediate BLOTCHES/ Verified 07/07/22 13:07 [From Bactrim] HIVES trimethoprim [From Bactrim] Allergy Intermediate BLOTCHES/ Verified 07/07/22 13:07 HIVES niacin AdvReac Intermediate REDDNESS/ Verified 07/07/22 13:07 [From Niaspan PASSED OUT Extended-Release] amitriptyline AdvReac Mild EARS RING Verified 07/07/22 13:07 clarithromycin [From Biaxin] AdvReac Mild Upset Verified 07/07/22 13:07 Stomach Family History Brother Malignant hyperthermia due to anesthesia Brother Malignant hyperthermia due to anesthesia Brother Malignant hyperthermia due to anesthesia Diabetes Hypertension Cancer lung Asthma Mother Diabetes Hypertension Father Cancer lung Aunt Colon cancer Surgical History H/O kyphoplasty History of colonoscopy (~2006) History of fasciotomy History of right knee joint replacement History of total replacement of left ankle Status post laser ablation of incompetent vein Social History Smoking Status: Former smoker ROS ROS ED Constitutional Constitutional ED: Reports chills and fever(s); Denies sweats or weight loss Eyes Eyes: Denies blurry vision, change in vision or diplopia ENT ENT ED: Reports rhinorrhea and sore throat; Denies ear pain Cardiovascular Cardiovascular: Denies chest pain, orthopnea, palpitations, paroxysmal nocturnal dyspnea or racing heartbeat Respiratory/Chest Respiratory/Chest: Reports cough, dyspnea and dyspnea on exertion; Denies orthopnea or paroxysmal nocturnal dyspnea Gastrointestinal Gastrointestinal: Denies abdominal pain, diarrhea, melena, nausea or vomiting Genitourinary Genitourinary ED: Denies dysuria, hematuria or urinary frequency Musculoskeletal Musculoskeletal: Reports arthralgias and myalgias; Denies back pain or neck pain Integumentary Denies abscess, Abrasions or rash Neurologic Neurologic: Reports headache(s); Denies paresthesias Psychiatric Psychiatric: Denies anxiety or depression Hematologic/Lymphatic Hematologic/Lymphatic: Denies easy bleeding or easy bruising EXAM Physical Exam Const Vital Signs: 08/30/22 09:43 08/30/22 10:01 08/30/22 10:37 Temperature 101.3 F H Temperature Source Temporal Pulse Rate 111 H 105 H Respiratory Rate 16 16 Respiratory Pattern Normal Blood Pressure 140/71 H Blood Pressure Mean 94 Pulse Ox 92 Oxygen Delivery Method Room Air Oxygen Flow Rate (L/min) 08/30/22 10:41 08/30/22 11:20 08/30/22 11:30 Temperature Temperature Source Pulse Rate 108 H 120 H Respiratory Rate 18 14 Respiratory Pattern Blood Pressure 122/54 H 150/96 H Blood Pressure Mean 76 114 Pulse Ox 93 98 88 Oxygen Delivery Method Room Air Room Air Room Air Oxygen Flow Rate (L/min) 08/30/22 11:41 08/30/22 11:45 Temperature Temperature Source Pulse Rate 123 H Respiratory Rate 22 H Respiratory Pattern Blood Pressure 128/55 H Blood Pressure Mean 79 Pulse Ox 93 94 Oxygen Delivery Method Nasal Cannula Nasal Cannula Oxygen Flow Rate (L/min) 1 1 Positive well nourished, well developed and obese Constitutional Narrative: Patient appears ill. She is tachycardic, tachypneic with minimal use of accessory muscles. General Appearance ED: well developed; Negative for NAD or pallor Nutritional Appearance: obese HEENT Reports TM's clear and dry mucous membranes HEENT Narrative: Uvula midline there is no dysphonia. No erythema exudate the posterior normocephalic and atraumatic Face and Sinus: Negative for sinuses nontender Tympanic Membrane ED: Yes TM's clear Mouth ED: Yes dry mucous membranes Mouth: dry mucous membranes Eyes PERRL and EOMs intact bilaterally Eyes Narrative: Conjunctive is injected bilaterally. There is no drainage. Sclera slightly injected. Neck no lymphadenopathy, supple, no meningeal signs and no JVD Neck Narrative: Trachea is midline. Inspiratory extra stridor. Chest Wall inspection of chest normal and palpation of chest normal Resp No normal respiratory effort and no retractions Effort and Inspection: respiratory distress; Negative for pain with movement Auscultation: rales right lower (There is egophony with out increased vocal fremitus.) and wheezes expiratory wheezes and throughout; Negative for clear to auscultation bilaterally Cardio regular rhythm, S1 normal heart sound, S2 normal heart sound and no murmurs Rate: tachycardic GI non-tender, non-distended and no masses Auscultation: normoactive bowel sounds Palpation: soft Bladder / Kidney Exam: No CVA tenderness Back/Spine Back/Spine Narrative: Back appears normal. Extremity normal to inspection and full ROM Extremity Narrative: There is no asymmetry, swelling, discoloration, leg vein distention, palpable cords or tenderness along the distribution of the deep venous system. Neuro oriented x3, CN's II-XII intact bilaterally, moves all extremities, no focal motor deficits and no sensory deficits noted Sensorium / Orientation: alert Psych mental status grossly normal Skin General Skin Exam: Negative for jaundice or pallor Lesions: no lesions Rashes: no rashes MDM MDM MDM Narrative Medical decision making narrative: Patient clinically has pneumonia on the right. This may represent influenza or COVID. Will test for both. Since she was on steroids in the last 3 to 6 months will administer 125 mg of methylprednisolone. She also received albuterol treatments x3. Chest x-ray to evaluate/confirm clinical diagnosis pneumonia right lower lobe. Appropriate blood work to assess whether patient is a candidate for inpatient versus outpatient therapy. Lab Data Attestation: I reviewed the patient's lab results. Lab results narrative: Patient is neutropenic consistent with viral infection. Influenza is positive or [place]. Since there is concern for right middle lobe infiltrate by radiologist and clinically she has consolidation on the right we will treat with Tamiflu. When I reassessed her at 1134 she was hypoxic with a good waveform. Nurse was asked to place her on oxygen. Her saturation varied between 88 and 89%. She is still wheezing. Labs: Laboratory Results - last 24 hr 08/30/22 08/30/22 08/30/22 10:10 10:10 10:10 WBC 4.3 L RBC 4.00 L Hgb 12.3 Hct 36.7 L MCV 91.8 MCH 30.8 MCHC 33.5 RDW Std Deviation 47.2 H RDW Coeff of Maira 14.0 Plt Count 152 MPV 10.0 Immature Gran % (Auto) 0.200 Neut % (Auto) 71.3 H Lymph % (Auto) 16.0 L [place] % (Auto) 12.5 H Eos % (Auto) 0.0 Baso % (Auto) 0.0 Absolute Neuts (auto) 3.1 Absolute Lymphs (auto) 0.69 L Nucleated RBC % 0 Sodium 139 Potassium 3.3 L Chloride 103 Carbon Dioxide 30.0 Anion Gap 6 BUN 17 Creatinine 1.17 H Estim Creat Clear Calc 36.90 Est GFR (MDRD) Af Amer 59 L Est GFR (MDRD) Non-Af 49 L BUN/Creatinine Ratio 14.5 Glucose 106 Lactic Acid 0.8 Calcium 8.4 L Magnesium B-Natriuretic Peptide 08/30/22 08/30/22 10:10 10:10 WBC RBC Hgb Hct MCV MCH MCHC RDW Std Deviation RDW Coeff of Maira Plt Count MPV Immature Gran % (Auto) Neut % (Auto) Lymph % (Auto) [place] % (Auto) Eos % (Auto) Baso % (Auto) Absolute Neuts (auto) Absolute Lymphs (auto) Nucleated RBC % Sodium Potassium Chloride Carbon Dioxide Anion Gap BUN Creatinine Estim Creat Clear Calc Est GFR (MDRD) Af Amer Est GFR (MDRD) Non-Af BUN/Creatinine Ratio Glucose Lactic Acid Calcium Magnesium 2.0 B-Natriuretic Peptide 118.9 H Radiography Chest X-Ray - ED: 2 View and Read by ED Physician (Independently reviewed and interpreted by me at 10/06/2002 as negative for pneumonia. There is bilateral discoid atelectasis right and left lower lobe. Cardiac silhouette size unremarkable. Osseous structures are unremarkable. Perihilar regions unremarkable.) Diagnostic Testing: Clinical Impression(s) from Imaging Studies Chest X-Ray 08/30/22 10:55 IMPRESSION: New right basilar opacities, likely mild pneumonia or atelectasis. Electronically Signed: Aracelis Bright MD at 11:16 [facility] , EKG Initial EKG: Attestation: I personally reviewed and interpreted this EKG as follows: Interpretation: Sinus Tachycardia (Irene Cristel 103. There is an ossific ST-T wave changes which is actually artifact. MT interval is 160 ms. QS duration 82 ms. QT duration 2044 ms. Mason is normal.) Discharge Plan Dx/Rx/DC Orders Clinical Impression: Influenza with pneumonia, HTN (hypertension), Hypoxia, Sinus tachycardia, Bronchospasm, acute Disposition Disposition: Acute Care Hospital [facility] Discharge Date/Time: 08/30/22 13:04
[2022-08-30 10:31] LABS: Absolute Lymphocyte Count 0.69 X10^3/uL (0.83-4.51); Absolute Neutrophil Count 3.1 X10^3/uL (2.0-7.7); Hematocrit 36.7 % (37-47); Hemoglobin 12.3 g/dL (12.0-15.0); Lymphocyte # 0.69 X10^3/ul (0.83-4.51); Mean Corp Hgb Conc 33.5 g/dL (32-36); Mean Corpuscular Hgb 30.8 pg (27.0-32.0); Mean Corpuscular Volume 91.8 fL (81-99); Monocyte# 0.54 X10^3/uL; Monocyte% 12.5 % (0-10); NRBC Flagged by Analyzer 0 % (0-5); Neutrophil # 3.07 X10^3/uL (2.7-7.7); Neutrophil % 71.3 % (47-70); Platelet Count 152 K/mm3 (150-450); RBC Distribution Width SD 47.2 fl (35.1-43.9); White Blood Count 4.3 K/mm3 (4.4-11.0)
[2022-08-30] MEDS: Albuterol 2.5 MG/3 ML VIAL.NEB. INHALATION ×3 (10:35)
[2022-08-30 10:40] LABS: Anion Gap 6 (5-15); BUN 17 mg/dL (7-18); BUN/Creat Ratio 14.5 RATIO (10-20); Calcium,Total 8.4 mg/dL (8.5-10.1); Chloride 103 mmol/L (98-107); Creatinine, Serum 1.17 mg/dL (0.55-1.02); EST Glomerular Filtration Rate 49 mL/min (>60); Est Glom Filt Rate - Afr Amer 59 mL/min (>60); Glucose 106 mg/dL (74-106); Potassium 3.3 mmol/L (3.5-5.1); Sodium Level 139 mmol/L (136-145)
[2022-08-30 10:44] LABS: Lactic Acid 0.8 mmol/L (0.4-1.9)
[2022-08-30] MEDS: MethylPREDNISolone 125 MG/2 ML Vial IV (10:46)
--- NOTE | 2022-08-30 10:55 | RAD_ITS ---
HISTORY: Fever, cough, wheezing, KABA. TECHNIQUE: XR Chest 2 Views. COMPARISON: 09/20/2020. FINDINGS: CARDIOMEDIASTINAL BORDERS: Cardiac silhouette within normal limits in size. Mediastinal contour unremarkable. LUNGS: New linear and patchy opacities in the right lung base. Chronic scarring in the left lung base. PLEURA: No pleural effusion or pneumothorax seen. OSSEOUS STRUCTURES: Mild scoliosis and degenerative change. Chronic T12 compression fracture with vertebroplasty and retained catheter segment or hardware again seen. RAD/Chest PA and Lateral IMPRESSION: New right basilar opacities, likely mild pneumonia or atelectasis. Electronically Signed: Aracelis Bright MD at 11:16 EST ,
[2022-08-30] MEDS: Oseltamivir Phosphate 75 MG Capsule PO (11:44)
[2022-08-30] MEDS: Acetaminophen 500 MG Tablet PO (11:44)
[2022-08-30] MEDS: 0.9% Normal Saline 1,000 ML 125 ML IV (13:54)
[2022-08-30] MEDS: Ceftriaxone 1 GM/50 ML BAG IV (14:21)
--- NOTE | 2022-08-30 14:27 | EKG12_ITS ---
Test Reason : Blood Pressure : / mmHG Vent. Rate : 091 BPM Atrial Rate : 091 BPM P-R Int : 184 ms QRS Dur : 098 ms QT Int : 422 ms P-R-T Axes : 057 016 021 degrees QTc Int : 519 ms Normal sinus rhythm Marked ST abnormality, possible anterior subendocardial injury Prolonged QT Abnormal ECG When compared with ECG of 30-AUG-2022 14:40, MANUAL COMPARISON REQUIRED, DATA IS UNCONFIRMED Confirmed by GABRIELA AMEZCUA, ROSI ([id number]), greeting card editor PHOEBE VILLARREAL ([id number]) on 09/03/2022 9:08:04 AM Referred By: SISSY Confirmed By:ROSI OCHOA MD
[2022-08-30] MEDS: Atenolol 50 MG Tablet PO (14:48)
[2022-08-30] MEDS: Acetaminophen 325 MG Tablet 650 MG PO ×2 (14:52→19:34)
[2022-08-30] MEDS: Ondansetron 4 MG/2 ML Vial IV (14:53)
[2022-08-30] MEDS: Potassium Chloride Oral Tablet 20 MEQ 40 MEQ PO (14:53)
[2022-08-30] MEDS: Ipratropium 0.5 MG/2.5 ML SOLUTION INHALATION ×2 (15:07→19:45)
[2022-08-30] MEDS: Metoprolol Tartrate 5 MG/5 ML Vial IV (15:07)
[2022-08-30 15:37] LABS: BNP,B-Type NATRIURETIC PEPTIDE 118.9 pg/mL (0-100)
--- NOTE | 2022-08-30 16:02 | PCM.HP.STD ---
HPI - General General Date of Admission: 08/30/22 Date of Service: 08/30/22 Chief Complaint: SOB - ongoing HPI Narrative CRIS RUBIO, is a 67 F who presents with SOB for couple of days. Patient had past medical history of hypertension, asthma who stated one of his grand nephews had an upper respiratory infection recently. She subsequently has had upper respiratory symptoms of rhinorrhea, sore throat, cough, shortness of breath that has been persistent. She also reports fever of about 103.1F. She denied any chest pain or palpitations or leg swelling. She complains of cough, productive of sputum. Patient's vitals in the ED showed temperature 101.3 F, blood pressure 140/71, heart rate 111, respiratory rate 16, SPO2 is 92% on room air. This was sent to 88% on room air, improved to 93-96% on 2 L of oxygen. Patient WBC count 4.3, Hb 12.3, platelet count is 152. Sodium 139, potassium 3.3, chloride 103, bicarbonate 30, BUN 17, creatinine 1.17, previous Cr 1.09. Magnesium is 2.3, lactic acid 0.8. Respiratory panel was negative for acute COVID-19 rapid antigen test. It was positive for influenza A antigen. Chest x-ray shows new right basilar opacities, likely mild pneumonia/atelectasis. [facility] Medical History Asthma GERD (gastroesophageal reflux disease) Hemorrhoid history of superficial venous thrombosis HTN (hypertension) Malignant hyperthermia Osteoarthritis Osteopenia Rosacea Status post L4-L5 laminectomy Home Medications furosemide 20 mg tablet 20 mg PO DAILY PRN Swelling 11/02/13 [History Last Taken 08/25/22] potassium chloride 10 mEq tablet,extended release 10 meq PO DAILY PRN LEG CRAMPS 11/02/13 [History Last Taken 08/25/22] atenolol 25 mg tablet 50 mg PO DAILY BLOOD PRESSURE 06/30/14 [History Last Taken 08/29/22] tizanidine 4 mg tablet 4 mg PO QHS SPASMS 10/02/17 [History Last Taken 08/29/22] vitamin E 268 mg (400 unit) capsule 400 unit PO DAILY SUPPLEMENT 10/20/19 [History Last Taken 08/29/22] duloxetine 30 mg capsule,delayed release 30 mg PO DAILY ANIETY/DEPRESSION 11/22/20 [History Last Taken 08/29/22] ascorbic acid (vitamin C) 1,000 mg tablet 1,000 mg PO DAILY SUPPLEMENT 12/15/20 [History Last Taken 08/29/22] buprenorphine 10 mcg/hour weekly transdermal patch 5 mcg transdermal SA PAIN 12/15/20 [History Last Taken 08/24/22] famotidine 40 mg tablet 80 mg PO DAILY ACID REFLUX 12/15/20 [History Last Taken 08/29/22] multivit with [id number] 8 mg iron-400 mcg-300 mcg tablet (Centrum Silver Women) 1 ea PO DAILY HEALTH MAINTENANCE 12/15/20 [History Last Taken 08/29/22] zinc 50 mg tablet 50 mg PO DAILY SUPPLEMENT 12/15/20 [History Last Taken 08/29/22] calcium carbonate 250 mg-vitamin D3 3.125 mcg (125 unit) tablet 600 mg PO BID SUPPLEMENT 12/20/20 [History Last Taken 08/29/22] hydrocodone-acetaminophen 5-325mg 5mg-325mg 1 tab PO BID PRN Pain 07/07/22 [History Last Taken 08/29/22] albuterol sulfate 2.5 mg/3 mL (0.083 %) solution for nebulization 2.5 mg INHALATION Q4H PRN Shortness Of Breath 08/30/22 [History Last Taken Unknown] albuterol sulfate 90 mcg/actuation aerosol inhaler 2 inh inhalation UD PRN Shortness Of Breath 08/30/22 [History Last Taken 08/29/22] magnesium oxide 400 mg PO QHS SUPPLEMENT 08/30/22 [History Last Taken 08/29/22] valsartan 320 mg-hydrochlorothiazide 12.5 mg tablet 1 tab PO DAILY BLOOD PRESSURE 08/30/22 [History Last Taken 08/29/22] Allergy/AdvReac Type Severity Reaction Status Date / Time ampicillin Allergy Intermediate Rash Verified 07/07/22 13:07 sulfamethoxazole Allergy Intermediate BLOTCHES/ Verified 07/07/22 13:07 [From Bactrim] HIVES trimethoprim [From Bactrim] Allergy Intermediate BLOTCHES/ Verified 07/07/22 13:07 HIVES niacin AdvReac Intermediate REDDNESS/ Verified 07/07/22 13:07 [From Niaspan PASSED OUT Extended-Release] amitriptyline AdvReac Mild EARS RING Verified 07/07/22 13:07 clarithromycin [From Biaxin] AdvReac Mild Upset Verified 07/07/22 13:07 Stomach Family History Brother Malignant hyperthermia due to anesthesia Brother Malignant hyperthermia due to anesthesia Brother Malignant hyperthermia due to anesthesia Diabetes Hypertension Cancer lung Asthma Mother Diabetes Hypertension Father Cancer lung Aunt Colon cancer Surgical History H/O kyphoplasty History of colonoscopy (~2006) History of fasciotomy History of right knee joint replacement History of total replacement of left ankle Status post laser ablation of incompetent vein Social History Smoking Status: Former smoker ROS ROS Narrative Constitutional: Reports: Malaise, Weakness, Fatigue, fever, chills, nausea. Denies: Night Sweats, Weight Change Eyes: Denies: Blurred vision, Cataracts, Conjunctivae Inflammation, Pain, Redness, Vision Change HEENT: Denies: Difficulty Hearing, Difficulty Swallowing, Head Aches, Hearing Changes, Sinus Congestion, Sinus Drainage Cardiovascular: Denies: Chest Pain, Orthopnea, Palpitations Respiratory: See HPI Gastrointestinal: Denies: Abdominal Pain, Nausea, Vomiting Genitourinary: Denies: Dysuria Musculoskeletal: Denies: Joint Pain, Joint stiffness, Joint swelling, Joint Tenderness Skin: Denies: Rash, Wounds Neurological: Denies: Numbness, Tingling, Focal weakness Vital Signs Vital Signs Vital Signs: 08/30/22 09:43 08/30/22 10:01 08/30/22 10:37 Temperature 101.3 F H Temperature Source Temporal Pulse Rate 111 H 105 H Respiratory Rate 16 16 Respiratory Effort Respiratory Depth Respiratory Pattern Normal Blood Pressure 140/71 H Blood Pressure Mean 94 Blood Pressure Source Blood Pressure Position Blood Pressure Location Pulse Ox 92 Oxygen Delivery Method Room Air Oxygen Flow Rate (L/min) 08/30/22 10:41 08/30/22 11:20 08/30/22 11:30 Temperature Temperature Source Pulse Rate 108 H 120 H Respiratory Rate 18 14 Respiratory Effort Respiratory Depth Respiratory Pattern Blood Pressure 122/54 H 150/96 H Blood Pressure Mean 76 114 Blood Pressure Source Blood Pressure Position Blood Pressure Location Pulse Ox 93 98 88 Oxygen Delivery Method Room Air Room Air Room Air Oxygen Flow Rate (L/min) 08/30/22 11:41 08/30/22 11:45 08/30/22 12:07 Temperature 98.4 F Temperature Source Oral Pulse Rate 123 H 123 H Respiratory Rate 22 H 22 H Respiratory Effort Respiratory Depth Respiratory Pattern Blood Pressure 128/55 H 128/55 H Blood Pressure Mean 79 79 Blood Pressure Source Blood Pressure Position Blood Pressure Location Pulse Ox 93 94 94 Oxygen Delivery Method Nasal Cannula Nasal Cannula Nasal Cannula Oxygen Flow Rate (L/min) 1 1 1 08/30/22 13:59 08/30/22 14:02 08/30/22 14:06 Temperature 98.5 F 98.5 F Temperature Source Oral Oral Pulse Rate 95 95 Respiratory Rate 18 18 Respiratory Effort Normal Non-Labored Respiratory Depth Normal Respiratory Pattern Normal Blood Pressure 130/81 H 131/80 H Blood Pressure Mean 97 97 Blood Pressure Source Monitor Blood Pressure Position Semi-Fowlers Blood Pressure Location Left Arm Pulse Ox 96 96 Oxygen Delivery Method Nasal Cannula Nasal Cannula Nasal Cannula Oxygen Flow Rate (L/min) 2 2 2 08/30/22 15:07 08/30/22 15:10 08/30/22 15:07 Temperature Temperature Source Pulse Rate 164 H 162 H 132 H Respiratory Rate 20 H Respiratory Effort Respiratory Depth Respiratory Pattern Normal Blood Pressure Blood Pressure Mean Blood Pressure Source Blood Pressure Position Blood Pressure Location Pulse Ox Oxygen Delivery Method Oxygen Flow Rate (L/min) 08/30/22 15:07 Temperature Temperature Source Pulse Rate Respiratory Rate Respiratory Effort Respiratory Depth Respiratory Pattern Blood Pressure Blood Pressure Mean Blood Pressure Source Blood Pressure Position Blood Pressure Location Pulse Ox 94 Oxygen Delivery Method Nasal Cannula Oxygen Flow Rate (L/min) 2 Weight Weight: 82.5 kg Body Mass Index (BMI) 35.5 Physical Exam Narrative Physical exam: General: Alert, Oriented x3, Cooperative, in mild respiratory distress with use of accessory muscles of respiration, on 2 L of oxygen HEENT: Atraumatic Oral: Moist Mucosa Neck: Supple Lungs: Diminished to auscultation, occasional scattered wheezes Cardiovascular: HS I+II, irregular, tachycardic, no murmurs Abdomen: Bowel Sounds Present, Soft, Non Tender Extremities: No edema Skin: No rashes, No breakdown Neurological: Grossly intact Psych/Mental Status: Appropriate Results Lab / Micro Data Result Diagrams: 08/30/22 10:10 08/30/22 10:10 Labs: Laboratory Results - last 24 hr 08/30/22 10:10: WBC 4.3 L, RBC 4.00 L, Hgb 12.3, Hct 36.7 L, MCV 91.8, MCH 30.8, MCHC 33.5, RDW Std Deviation 47.2 H, RDW Coeff of Maira 14.0, Plt Count 152, MPV 10.0, Immature Gran % (Auto) 0.200, Neut % (Auto) 71.3 H, Lymph % (Auto) 16.0 L, [place] % (Auto) 12.5 H, Eos % (Auto) 0.0, Baso % (Auto) 0.0, Absolute Neuts (auto) 3.1, Absolute Lymphs (auto) 0.69 L, Nucleated RBC % 0 08/30/22 10:10: Sodium 139, Potassium 3.3 L, Chloride 103, Carbon Dioxide 30.0, Anion Gap 6, BUN 17, Creatinine 1.17 H, Estim Creat Clear Calc 36.90, Est GFR (MDRD) Af Amer 59 L, Est GFR (MDRD) Non-Af 49 L, BUN/Creatinine Ratio 14.5, Glucose 106, Calcium 8.4 L 08/30/22 10:10: Lactic Acid 0.8 08/30/22 10:10: B-Natriuretic Peptide 118.9 H 08/30/22 10:10: Magnesium 2.0 Micro: Microbiology 08/30/22 10:40 Interface Orders Influenza Types A,B Direct FA (ALANIS) - Final Influenzae A 08/30/22 10:40 Nasal Secretion SARS-CoV-2 Antigen (Rapid) - Final Radiology Impression Chest X-Ray 08/30/22 10:55 IMPRESSION: New right basilar opacities, likely mild pneumonia or atelectasis. Electronically Signed: Aracelis Bright MD at 11:16 EST , Assessment & Plan Assessment/Plan (1) Influenza with pneumonia: (2) Hypoxia: (3) Sinus tachycardia: PLAN: Plan 1. Acute hypoxia secondary to acute influenza A bronchitis/community-acquired pneumonia Patient was saturating 88% in the emergency room This improved to 93 to 96% on 2 L of oxygen Chest x-ray showed right new bibasilar opacity likely pneumonia or atelectasis, BNP is 118.9 Continue to encourage use of incentive spirometry, wean off as per is more than 94% 2. Acute influenza A bronchitis, started on Tamiflu, will continue same Solu-Medrol IV 40 mg Q8h, breathing treatments -ipratropium only as patient is tachycardic 3. Acute community-acquired pneumonia, chest x-ray suggestive of right basilar pneumonia We will start on IV ceftriaxone and azithromycin Check urine Legionella and strep will continue 4. A. fib with RVR, newly diagnosed, likely secondary to dehydration patient denies any history [id number] score more than 2 We will continue patient's atenolol -increased 100 mg p.o. daily We will start on therapeutic Lovenox, 2D-ECHO 5. Chronic back pain, continue buprenorphine patch, Cymbalta, Vicodin, tizanidine 6. Hypertension, controlled, continue losartan, hydrochlorothiazide, atenolol 7. Hypokalemia, potassium 3.3, magnesium is 2.0, replaced, recheck in a.m. 8. DVT PPx-on therapeutic Lovenox Charges/Coding Visit Charges Inpatient E&M: 17440 Init Hosp L3
--- NOTE | 2022-08-30 16:22 | ECHOD_ITS ---
Reason For Study: A. fib Procedure This was a 2D Doppler, Color Flow transthoracic echocardiogram. Exam performed portable in patient room. Left Ventricle Normal LV size. Left ventricular systolic function is normal. The estimated ejection fraction is 65 %. No regional wall motion abnormalities noted. Right Ventricle Normal RV size. Normal systolic function. Atria Normal left atrium. Normal right atrium. Mitral Valve Normal mitral valve. Trivial eccentric mitral valve insufficiency. Tricuspid Valve Normal tricuspid valve. Mild tricuspid valve insufficiency. Pulmonary artery systolic pressure is 33 mmHg. Aortic Valve Trisinus/trileaflet aortic valve. Pulmonic Valve Normal pulmonic valve. Great Vessels Normal aortic root. The pulmonary artery is normal size. Normal inferior vena cava. Pericardium/Pleural No pericardial effusion. MMode/2D Measurements & Calculations LVIDd: 3.8 cm IVSd: 1.2 cm Ao root diam: 3.3 cm LVIDs: 2.2 cm LVPWd: 0.98 cm RVDd: 2.9 cm FS: 42.7 % LAV(MOD-bp): 54.8 ml LVAd ap4: 20.6 cm2 LVAd ap2: 20.2 cm2 LAV(MOD-bp) Indexed: 30.6 ml/m2 LVLd ap4: 7.2 cm LVLd ap2: 7.1 cm LAV(MOD-sp2): 59.7 ml EDV(MOD-sp4): 48.0 ml EDV(MOD-sp2): 49.7 ml LAV(MOD-sp4): 48.8 ml EDV(sp4-el): 49.8 ml EDV(sp2-el): 49.2 ml LVAs ap4: 9.9 cm2 LVAs ap2: 10.9 cm2 LVLs ap4: 5.8 cm LVLs ap2: 5.8 cm ESV(MOD-sp4): 15.2 ml ESV(MOD-sp2): 17.9 ml ESV(sp4-el): 14.5 ml ESV(sp2-el): 17.3 ml EF(MOD-sp4): 68.4 % EF(MOD-sp2): 64.0 % EF(sp4-el): 70.9 % SV(MOD-sp4): 32.8 ml SV(MOD-sp2): 31.8 ml SV(sp4-el): 35.4 ml LA dimension(2D): 4.6 cm LA A4 area: 18.5 cm2 RA A4 area: 10.4 cm2 Time Measurements MV dec time: 0.18 sec Doppler Measurements & Calculations MV E max chuck: 80.0 cm/sec Lat Peak E' Chuck: 11.8 cm/sec Med Peak E' Chuck: 11.2 cm/sec MV A max chuck: 65.6 cm/sec E/E' lat: 6.8 E/E' med: 7.2 MV E/A: 1.2 MV dec slope: 449.7 cm/sec2 Ao V2 max: 159.8 cm/sec AI max chuck: 390.2 cm/sec Ao max P.2 mmHg AI max P.9 mmHg AI dec slope: 256.7 cm/sec2 AI P1/2t: 445.2 msec LV V1 max: 116.5 cm/sec PA V2 max: 80.3 cm/sec TR max chuck: 269.2 cm/sec LV V1 max P.4 mmHg TR max P.0 mmHg ECHO/Echo Complete Interpretation Summary Normal LV size. Left ventricular systolic function is normal. The estimated ejection fraction is 65 %. Trivial eccentric mitral valve insufficiency. Pulmonary artery systolic pressure is 33 mmHg. Ordering Physician: Radha Charlton Referring Physician: Wesly Hidalgo Chi Performed By: Berna Miller RDCS
--- NOTE | 2022-08-30 16:34 | EKG12_ITS ---
Test Reason : Blood Pressure : / mmHG Vent. Rate : 148 BPM Atrial Rate : 000 BPM P-R Int : 000 ms QRS Dur : 090 ms QT Int : 344 ms P-R-T Axes : 000 018 247 degrees QTc Int : 540 ms Atrial fibrillation with rapid ventricular response with premature ventricular or aberrantly conducte d complexes Marked ST abnormality, possible inferior subendocardial injury Abnormal ECG When compared with ECG of 30-AUG-2022 10:32, MANUAL COMPARISON REQUIRED, DATA IS UNCONFIRMED Confirmed by GABRIELA AMEZCUA, ROSI ([id number]), city editor PHOEBE VILLARREAL ([id number]) on 09/03/2022 9:08:13 AM Referred By: SISSY Confirmed By:ROSI OCHOA MD
[2022-08-30] MEDS: Enoxaparin 80 MG/0.8 ML Syringe SC (17:14)
[2022-08-30] MEDS: Calcium Carb/Vitamin D 1 TABLET Tablet PO (18:43)
[2022-08-30] MEDS: Oseltamivir Phosphate 30 MG Capsule PO (21:59)
[2022-08-30] MEDS: tiZANidine HCl 2 MG Tablet 4 MG PO (21:59)
[2022-08-30] MEDS: 0.9% Normal Saline 1,000 ML 100 ML IV (22:00)
[2022-08-30] MEDS: Magnesium Chloride 64 MG Delay Rel.Tablet 128 MG PO (22:00)
[2022-08-31] VITALS (8 sets, daily range): BP systolic 107–118; BP diastolic 55–58; PULSE 74–88; RESP 16–18; TEMP 36.6–36.8; O2SAT 95–98
[2022-08-31] MEDS: Ipratropium 0.5 MG/2.5 ML SOLUTION INHALATION ×3 (00:19→11:40)
[2022-08-31] MEDS: Enoxaparin 80 MG/0.8 ML Syringe SC (05:24)
[2022-08-31] MEDS: Acetaminophen 325 MG Tablet 650 MG PO (05:30)
[2022-08-31 08:01] LABS: Absolute Lymphocyte Count 0.54 X10^3/uL (0.83-4.51); Absolute Neutrophil Count 4.1 X10^3/uL (2.0-7.7); Basophil# 0.01 X10^3/uL; Basophil% 0.2 % (0-1); Hemoglobin 10.6 g/dL (12.0-15.0); Lymphocyte # 0.54 X10^3/ul (0.83-4.51); Mean Corp Hgb Conc 32.1 g/dL (32-36); Mean Corpuscular Hgb 29.5 pg (27.0-32.0); Mean Corpuscular Volume 91.9 fL (81-99); Monocyte# 0.22 X10^3/uL; Monocyte% 4.5 % (0-10); NRBC Flagged by Analyzer 0 % (0-5); Neutrophil # 4.14 X10^3/uL (2.7-7.7); Neutrophil % 83.9 % (47-70); POSITIVE DIFFERENTIAL YES; Platelet Count 142 K/mm3 (150-450); RBC Distribution Width CV 13.9 % (11.6-14.6); RBC Distribution Width SD 46.4 fl (35.1-43.9); Red Blood Count 3.59 M/mm3 (4.2-5.4); White Blood Count 4.9 K/mm3 (4.4-11.0)
[2022-08-31] MEDS: Calcium Carb/Vitamin D 1 TABLET Tablet PO (08:09)
[2022-08-31] MEDS: Atenolol 100 MG Tablet PO (08:10)
[2022-08-31 08:12] LABS: Differential Indicated SCAN CRITERIA MET
[2022-08-31] MEDS: Losartan Potassium 100 MG Tablet PO (08:12)
[2022-08-31] MEDS: Ascorbic Acid 500 MG Tablet 1000 MG PO (08:12)
[2022-08-31] MEDS: DULoxetine Hcl 30 MG Capsule PO (08:12)
[2022-08-31] MEDS: hydroCHLOROthiazide 12.5mg 12.5 MG PO (08:12)
[2022-08-31] MEDS: Ceftriaxone 1 GM/50 ML BAG IV (08:13)
[2022-08-31] MEDS: 0.9% Normal Saline 1,000 ML 100 ML IV (08:13)
[2022-08-31 08:21] LABS: ALB/GLOB Ratio 0.9 RATIO (0.9-2.4); AST(SGOT) 20 U/L (15-37); Alanine Aminotransfer ALT/SGPT 23 U/L (13-56); Albumin, Serum 2.7 g/dL (3.2-5.0); Alkaline Phosphatase 54 U/L (45-117); Anion Gap 4 (5-15); BUN 15 mg/dL (7-18); BUN/Creat Ratio 16.5 RATIO (10-20); Calcium,Total 8.2 mg/dL (8.5-10.1); Chloride 105 mmol/L (98-107); Creatinine, Serum 0.91 mg/dL (0.55-1.02); EST Glomerular Filtration Rate 66 mL/min (>60); Est Glom Filt Rate - Afr Amer 79 mL/min (>60); Estimated Creatinine Clearance 43.09 ml/min; Globulin 2.9 g/dL (2.2-4.2); Glucose 137 mg/dL (74-106); Potassium 3.7 mmol/L (3.5-5.1); Protein, Total 5.6 g/dL (6.4-8.2); Sodium Level 138 mmol/L (136-145)
[2022-08-31] MEDS: Oseltamivir Phosphate 30 MG Capsule PO (08:25)
--- NOTE | 2022-08-31 08:26 | NURSING ---
Patients previous buprenorphine transdermal patch 5mcg/hr wasted. Witnessed by Raffi Chowdhury RN
[2022-08-31 09:07] LABS: Differential Comment SCANNED
--- NOTE | 2022-08-31 10:50 | CASEMGMT ---
RN ARY Face to Face with patient for initial transition planning/care coordination assessment. RN CM introduced self and role at [facility]. Patient lying in bed, alert and oriented. Patient willing to participate in assessment and is able to answer all questions appropriately. Care providers, pharmacy, and demographics verified. Patient wishes to discharge home, denies need for home health at this time. Patient states she has no further needs or concerns at this time. CM to follow for discharge planning needs that may arise. 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 Dual Prescription Benefit: yes, Eliquis savings card provided to patient Living Will/HPOA: none, patient requesting to complete, SW updated LNOK: Living Arrangements: Patient lives with in a mobile home with 4 steps and railing to enter. Patient states she is independent at home. Transportation: self, DME/HHC: Patient states she has cane, shower chair, grab bars, walker, nebulizer, and pulse ox at home. Patient states she has had [facility] in the past. Disposition Plan: Patient to discharge home with family support and follow-up plans in place. Carmen SNOW, RN, CM
--- NOTE | 2022-08-31 10:51 | DCINST_ITS ---
Discharge Instructions Diet Discharge Diet: Low fat / Low cholesterol and 2000 mg Sodium Diet Activity Discharge Activity: Return to Normal Activity Follow Up Care Test Results: Test results from this visit will be discussed in further detail at your follow- up appointment, if applicable. Discharge Plan Admission Admit Date/Time: 08/30/22 11:56 Primary Reason for Your Visit: Acute influenza/bronchitis Attending Provider: Radha Charlton Primary Care Provider: Wesly Hidalgo Chi Instructions Additional Instructions / Restrictions: Take note of your medications Complete your Tamiflu and short burst of prednisone Continue to use incentive spirometer Follow-up with your PCP within 1 week. Discharge Orders/Prescriptions Prescriptions: New atenolol 100 mg Tablet 100 mg PO DAILY 30 Days Qty: 30 0RF oseltamivir [Tamiflu] 75 mg capsule 75 mg PO BID 4 Days Qty: 8 0RF prednisone 20 mg tablet 40 mg PO DAILY 5 Days Qty: 10 0RF Eliquis 5 mg tablet 5 mg PO BID 30 Days Qty: 60 0RF Continued duloxetine 30 mg capsule,delayed release(DR/EC) 30 mg PO DAILY calcium carbonate-vitamin D3 250-125 mg-unit tablet 600 mg PO BID potassium chloride 10 MEQ tablet extended release 10 meq PO DAILY PRN (Reason: LEG CRAMPS) tizanidine 4 MG tablet 4 mg PO QHS vitamin E 400 UNIT capsule 400 unit PO DAILY ascorbic acid (vitamin C) 1,000 MG tablet 1,000 mg PO DAILY famotidine 40 MG tablet 80 mg PO DAILY zinc 50 MG tablet 50 mg PO DAILY buprenorphine 1 EACH patch weekly 5 mcg transdermal SA Centrum Silver Women 1 EACH tablet 1 ea PO DAILY hydrocodone-acetaminophen 5-325 mg tablet 1 tab PO BID PRN (Reason: Pain) albuterol sulfate 90 mcg/actuation HFA aerosol inhaler 2 inh INHALATION UD PRN (Reason: Shortness Of Breath) valsartan-hydrochlorothiazide 320-12.5 mg tablet 1 tab PO DAILY magnesium oxide 400 mg magnesium Tablet 400 mg PO QHS albuterol sulfate 2.5 MG/3 ML solution for nebulization 2.5 mg INHALATION Q4H PRN (Reason: Shortness Of Breath) Discontinued furosemide 20 MG tablet 20 mg PO DAILY PRN (Reason: Swelling) Label Comments: water pill, heart atenolol 25 MG tablet 50 mg PO DAILY Label Comments: blood pressure, heart Referrals / Follow Up: Wesly Hidalgo Chi, MD [Primary Care Provider] - In 1 Week Disposition Disposition (needs filled in before D/C Order can be placed): Home, Self Care
--- NOTE | 2022-08-31 11:43 | CASEMGMT ---
JULIO MCALLISTER called [facility] to verify pricing of Eliquis. Per TJ, cost is $0 copay. JULIO MCALLISTER updated hospitalist and patient.
--- NOTE | 2022-08-31 13:08 | DS.PCM_ITS ---
Providers Date of Admission: 08/30/22 Date of Discharge: 08/31/22 Primary Care Physician: Dr. Wesly Hidalgo MD Reason For Visit: SEPSIS/PNEUMONIA Diagnosis Discharge Diagnosis (1) Influenza with pneumonia: Status: Acute Code(s): J11.00 - Influenza due to unidentified influenza virus with unspecified type of pneumonia (2) Hypoxia: Status: Acute Code(s): R09.02 - Hypoxemia (3) Sinus tachycardia: Status: Acute Code(s): R00.0 - Tachycardia, unspecified Plan 1. Acute hypoxia secondary to acute influenza A bronchitis 2. Acute influenza A bronchitis 3. Acute community-acquired pneumonia, ruled out 4. A. fib with RVR 5. Chronic back pain 6. Hypertension 7. Hypokalemia Medications at Discharge Home Medications potassium chloride 10 mEq tablet,extended release 10 meq PO DAILY PRN LEG CRAMPS 11/02/13 tizanidine 4 mg tablet 4 mg PO QHS SPASMS 10/02/17 vitamin E 268 mg (400 unit) capsule 400 unit PO DAILY SUPPLEMENT 10/20/19 duloxetine 30 mg capsule,delayed release 30 mg PO DAILY ANIETY/DEPRESSION 11/22/20 ascorbic acid (vitamin C) 1,000 mg tablet 1,000 mg PO DAILY SUPPLEMENT 12/15/20 buprenorphine 10 mcg/hour weekly transdermal patch 5 mcg transdermal SA PAIN 12/15/20 famotidine 40 mg tablet 80 mg PO DAILY ACID REFLUX 12/15/20 multivit with thcczlhz-emje-JY-lutein 8 mg iron-400 mcg-300 mcg tablet (Centrum Silver Women) 1 ea PO DAILY HEALTH MAINTENANCE 12/15/20 zinc 50 mg tablet 50 mg PO DAILY SUPPLEMENT 12/15/20 calcium carbonate 250 mg-vitamin D3 3.125 mcg (125 unit) tablet 600 mg PO BID SUPPLEMENT 12/20/20 hydrocodone-acetaminophen 5-325mg 5mg-325mg 1 tab PO BID PRN Pain 07/07/22 albuterol sulfate 2.5 mg/3 mL (0.083 %) solution for nebulization 2.5 mg INHALATION Q4H PRN Shortness Of Breath 08/30/22 albuterol sulfate 90 mcg/actuation aerosol inhaler 2 inh inhalation UD PRN Shortness Of Breath 08/30/22 magnesium oxide 400 mg PO QHS SUPPLEMENT 08/30/22 valsartan 320 mg-hydrochlorothiazide 12.5 mg tablet 1 tab PO DAILY BLOOD PRESSURE 08/30/22 apixaban 5 mg tablet (Eliquis) 5 mg PO BID 30 days #60 tabs 08/31/22 atenolol 100 mg tablet 100 mg PO DAILY 30 days #30 tabs 08/31/22 oseltamivir 75 mg capsule (Tamiflu) 75 mg PO BID 4 days #8 caps 08/31/22 prednisone 20 mg tablet 40 mg PO DAILY 5 days #10 tabs 08/31/22 Hospital Course Operations None Procedures 2-D Echocardiogram Summary of Care Provided Minutes Spent on Discharge: 35 Hospital Course: 67-year-old female with past medical history of hypertension, asthma, who comes in complaining of upper respiratory symptoms as well as fever and cough productive of sputum. Patient had a sick contact with one of her grand nephews. Her vitals in the ED showed temp 101.3F, heart rate was 111, blood pressure was 140/71, respiratory rate was 16, SPO2 was 92% on room air at that worsened to 88% on room air, improved with 2 L of oxygen. Her white cell count was 4.3. Potassium was 3.3. Creatinine 1.17 which is close to her baseline. Lactic acid was 0.8. Respiratory panel was negative for acute COVID-19. It was positive for influenza A. Admitting chest x-ray showed new right basilar opacities likely secondary to pneumonia/atelectasis. Patient was admitted to the progressive care unit, started on Tamiflu, breathing treatments, IV solumedrol. Patient was persistently tachycardic and EKG done on the floor showed A. fib with RVR. Patient has no history of A. fib. Her home atenolol was given early. Patient also did require IV metoprolol 5 mg x 1. She converted to normal sinus rhythm within a few hours. She was maintained on therapeutic Lovenox. She was monitored overnight with no acute events. She remained in normal sinus rhythm. 2D echo showed EF of 55%, no valvular abnormality. Patient did appear to have remarkably improved overnight. She was saturating well on room air. Her wheezes were much improved. She was ambulated and did not require oxygen. She improved faster than anticipated for her condition. She was discharged home on a short burst of prednisone 40 mg daily x5, Tamiflu to complete 5 days, Eliquis. Her atenolol was also increased to 100 mg daily. Patient needs to follow-up with her primary care doctor within 1 week. Physical Exam Narrative Physical exam: General: Alert, Oriented x3, Cooperative HEENT: Atraumatic Oral: Moist Mucosa Neck: Supple Lungs: Diminished to auscultation Cardiovascular: HS I+II, regular, no murmurs Abdomen: Bowel Sounds Present, Soft, Non Tender Extremities: No edema Skin: No rashes, No breakdown Neurological: Grossly intact Psych/Mental Status: Appropriate Weight / BMI Weight Weight: 82.5 kg Body Mass Index (BMI) 35.5 ABG / Lab / Microbiology Data Result Diagrams: 08/31/22 07:30 08/31/22 07:30 Laboratory: Laboratory Results - last 24 hr 08/30/22 10:10: B-Natriuretic Peptide 118.9 H 08/30/22 10:10: Magnesium 2.0 08/31/22 07:30: WBC 4.9, RBC 3.59 L, Hgb 10.6 L, Hct 33.0 L, MCV 91.9, MCH 29.5, MCHC 32.1, RDW Std Deviation 46.4 H, RDW Coeff of Maira 13.9, Plt Count 142 L, MPV 10.0, Immature Gran % (Auto) 0.400, Neut % (Auto) 83.9 H, Lymph % (Auto) 11.0 L, [place] % (Auto) 4.5, Eos % (Auto) 0.0, Baso % (Auto) 0.2, Absolute Neuts (auto) 4.1, Absolute Lymphs (auto) 0.54 L, Nucleated RBC % 0, Differential Comment SCANNED 08/31/22 07:30: Sodium 138, Potassium 3.7, Chloride 105, Carbon Dioxide 29.0, Anion Gap 4 L, BUN 15, Creatinine 0.91, Estim Creat Clear Calc 43.09, Est GFR (MDRD) Af Amer 79, Est GFR (MDRD) Non-Af 66, BUN/Creatinine Ratio 16.5, Glucose 137 H, Calcium 8.2 L, Total Bilirubin 0.20, AST 20, ALT 23, Alkaline Phosphatase 54, Total Protein 5.6 L, Albumin 2.7 L, Globulin 2.9, Albumin/Globulin Ratio 0.9 Microbiology: Microbiology 08/30/22 20:20 Urine, Clean Catch Streptococcus pneumoniae Antigen (M - Final 11/25/22 20:20 Urine, Clean Catch Legionella Antigen - Final 08/30/22 14:45 Mucosa - Nasopharyngeal Respiratory Panel (PCR) - Final Influenza A (Subtype H3) 08/30/22 10:40 Interface Orders Influenza Types A,B Direct FA (ALANIS) - Final Influenzae A 08/30/22 10:40 Nasal Secretion SARS-CoV-2 Antigen (Rapid) - Final Radiography Diagnostic Testing: Radiology Impression Echocardiogram 08/30/22 16:22 Interpretation Summary Normal LV size. Left ventricular systolic function is normal. The estimated ejection fraction is 65 %. Trivial eccentric mitral valve insufficiency. Pulmonary artery systolic pressure is 33 mmHg. Ordering Physician: Radha Charlton Referring Physician: Wesly Hidalgo Chi Performed By: Berna Miller RDCS D/C Instructions Discharge Diet: Low fat / Low cholesterol and 2000 mg Sodium Diet Meaningful Use Info Meaningful Use Diagnoses (Choose all that apply): None applicable Discharge Plan Admission Admit Date/Time: 08/30/22 11:56 Primary Reason for Your Visit: Acute influenza/bronchitis Attending Provider: Radha Charlton Primary Care Provider: Wesly Hidalgo Chi Instructions Additional Instructions / Restrictions: Take note of your medications Complete your Tamiflu and short burst of prednisone Continue to use incentive spirometer Follow-up with your PCP within 1 week. Discharge Orders/Prescriptions Prescriptions: New atenolol 100 mg Tablet 100 mg PO DAILY 30 Days Qty: 30 0RF oseltamivir [Tamiflu] 75 mg capsule 75 mg PO BID 4 Days Qty: 8 0RF prednisone 20 mg tablet 40 mg PO DAILY 5 Days Qty: 10 0RF Eliquis 5 mg tablet 5 mg PO BID 30 Days Qty: 60 0RF Continued duloxetine 30 mg capsule,delayed release(DR/EC) 30 mg PO DAILY calcium carbonate-vitamin D3 250-125 mg-unit tablet 600 mg PO BID potassium chloride 10 MEQ tablet extended release 10 meq PO DAILY PRN (Reason: LEG CRAMPS) tizanidine 4 MG tablet 4 mg PO QHS vitamin E 400 UNIT capsule 400 unit PO DAILY ascorbic acid (vitamin C) 1,000 MG tablet 1,000 mg PO DAILY famotidine 40 MG tablet 80 mg PO DAILY zinc 50 MG tablet 50 mg PO DAILY buprenorphine 1 EACH patch weekly 5 mcg transdermal SA Centrum Silver Women 1 EACH tablet 1 ea PO DAILY hydrocodone-acetaminophen 5-325 mg tablet 1 tab PO BID PRN (Reason: Pain) albuterol sulfate 90 mcg/actuation HFA aerosol inhaler 2 inh INHALATION UD PRN (Reason: Shortness Of Breath) valsartan-hydrochlorothiazide 320-12.5 mg tablet 1 tab PO DAILY magnesium oxide 400 mg magnesium Tablet 400 mg PO QHS albuterol sulfate 2.5 MG/3 ML solution for nebulization 2.5 mg INHALATION Q4H PRN (Reason: Shortness Of Breath) Discontinued furosemide 20 MG tablet 20 mg PO DAILY PRN (Reason: Swelling) Label Comments: water pill, heart atenolol 25 MG tablet 50 mg PO DAILY Label Comments: blood pressure, heart Referrals / Follow Up: Wesly Hidalgo Chi, MD [Primary Care Provider] - In 1 Week Disposition Disposition (needs filled in before D/C Order can be placed): Home, Self Care Charges/Coding Visit Charges Inpatient E&M: 17893 Disch Hosp
--- NOTE | 2022-08-31 13:28 | CASEMGMT ---
SW Note DEBRA and DEBRA Kern met with patient to complete the HCPOA. Patient completed the HCPOA and indicated understanding of the documentation. SW provided original to patient along with copy and a copy was placed in patient's chart. No further SW needs at this time. Plan: DEBRA assisted with completion of HCPOA Marii ORTEZ
== END 2022-08-31 13:59 | disposition home or self-care (01) | DRG 195 ==
LOC: ED 12:05 → PCU 12:23
PROVIDERS: Admitting Provider Internal Medicine; Emergency Provider Emergency Medicine; PCP Family Medicine Geriatric Medicine; Visit Provider Internal Medicine
DX: J10.1 Influenza due to other identified influenza virus with other respiratory manifestations (principal); E87.6 Hypokalemia; I48.91 Unspecified atrial fibrillation; J20.9 Acute bronchitis, unspecified; M54.9 Dorsalgia, unspecified; I10 Essential (primary) hypertension; R09.02 Hypoxemia; Z87.891 Personal history of nicotine dependence; Z82.5 Family history of asthma and other chronic lower respiratory diseases; G89.29 Other chronic pain
CPT/HCPCS: 36415; 71046; 80048; 80053; 83605; 83735; 83880; 85025; 87426; 87449; 87633; 87804; 93005; 93306; 94640; 99285; J7030; J7040; A4216; J2405

== ENCOUNTER → 2022-09-04 | Outpatient (CLI) | payer MEDICARE, MEDICAID, SELFPAY ==
[2022-09-04 13:55] LABS: Anion Gap 7 (5-15); BUN 17 mg/dL (7-18); BUN/Creat Ratio 19.5 RATIO (10-20); Calcium,Total 8.6 mg/dL (8.5-10.1); Chloride 105 mmol/L (98-107); Creatinine, Serum 0.87 mg/dL (0.55-1.02); EST Glomerular Filtration Rate 69 mL/min (>60); Est Glom Filt Rate - Afr Amer 83 mL/min (>60); Glucose 113 mg/dL (74-106); Sodium Level 140 mmol/L (136-145)
== END | disposition home or self-care (01) ==
LOC: POLAB3 12:25
PROVIDERS: PCP Family Medicine Geriatric Medicine; Visit Provider Family Medicine Geriatric Medicine
DX: E87.6 Hypokalemia (principal)
CPT/HCPCS: 36415; 80048

== ENCOUNTER → 2022-11-07 | Outpatient (CLI) | payer MEDICARE, MEDICAID, SELFPAY ==
[2022-11-07 12:49] LABS: Amphetamine Urine VISTA NEGATIVE (<1000 ng/mL); Barbiturate Urine VISTA NEGATIVE (< 200 ng/mL); Benzodiazepine Urine VISTA NEGATIVE (< 200 ng/mL); Cocaine Urine VISTA NEGATIVE (< 300 ng/mL); Ecstacy Urine VISTA NEGATIVE (< 500 ng/mL); Methadone Urine VISTA NEGATIVE (< 300 ng/mL); PCP Urine VISTA NEGATIVE (< 25 ng/mL); THC Urine VISTA NEGATIVE (< 50 ng/mL); Vista UDS pH Range 6
== END | disposition home or self-care (01) ==
LOC: LAB 11:09
PROVIDERS: PCP Family Medicine Geriatric Medicine; Visit Provider Anesthesiology Pain Medicine
DX: F11.20 Opioid dependence, uncomplicated (principal)
CPT/HCPCS: 80307

== ENCOUNTER → 2022-12-03 | Outpatient (CLI) | payer MEDICARE, MEDICAID, SELFPAY ==
[2022-12-03 13:21] LABS: Absolute Lymphocyte Count 2.31 X10^3/uL (0.83-4.51); Absolute Neutrophil Count 4.4 X10^3/uL (2.0-7.7); Basophil# 0.01 X10^3/uL; Basophil% 0.1 % (0-1); Hematocrit 42.9 % (37-47); Hemoglobin 14.2 g/dL (12.0-15.0); Lymphocyte # 2.31 X10^3/ul (0.83-4.51); Lymphocyte % 31.6 % (19-41); Mean Corp Hgb Conc 33.1 g/dL (32-36); Mean Corpuscular Hgb 29.7 pg (27.0-32.0); Mean Corpuscular Volume 89.7 fL (81-99); Mean Platelet Vol. 10.4 fl (6.2-12.0); Monocyte% 8.2 % (0-10); NRBC Flagged by Analyzer 0 % (0-5); Neutrophil # 4.35 X10^3/uL (2.7-7.7); Neutrophil % 59.7 % (47-70); Platelet Count 237 K/mm3 (150-450); RBC Distribution Width CV 13.2 % (11.6-14.6); RBC Distribution Width SD 43.1 fl (35.1-43.9); Red Blood Count 4.78 M/mm3 (4.2-5.4); White Blood Count 7.3 K/mm3 (4.4-11.0)
[2022-12-03 13:40] LABS: ALB/GLOB Ratio 1.2 RATIO (0.9-2.4); AST(SGOT) 23 U/L (15-37); Alanine Aminotransfer ALT/SGPT 25 U/L (13-56); Albumin, Serum 3.7 g/dL (3.2-5.0); Alkaline Phosphatase 72 U/L (45-117); Anion Gap 4 (5-15); BUN 20 mg/dL (7-18); BUN/Creat Ratio 16.4 RATIO (10-20); Calcium,Total 9.3 mg/dL (8.5-10.1); Chloride 103 mmol/L (98-107); Creatinine, Serum 1.22 mg/dL (0.55-1.02); EST Glomerular Filtration Rate 47 mL/min (>60); Est Glom Filt Rate - Afr Amer 56 mL/min (>60); Globulin 3.2 g/dL (2.2-4.2); Glucose 99 mg/dL (74-106); Potassium 3.8 mmol/L (3.5-5.1); Protein, Total 6.9 g/dL (6.4-8.2); Sodium Level 141 mmol/L (136-145); Thyroid Stim Hormone (TSH) 2.17 uIU/mL (0.358-3.74)
[2022-12-03 13:45] LABS: Vitamin D,25 Hydroxy 43.2 ng/mL
== END | disposition home or self-care (01) ==
LOC: POLAB3 11:38
PROVIDERS: PCP Family Medicine Geriatric Medicine; Visit Provider Family Medicine Geriatric Medicine
DX: I10 Essential (primary) hypertension (principal)
CPT/HCPCS: 36415; 80053; 82306; 84443; 85025

== ENCOUNTER → 2022-12-24 | Outpatient (CLI) | payer MEDICARE, MEDICAID, SELFPAY ==
--- NOTE | 2022-12-24 12:55 | BI_ITS ---
MAMMOGRAPHY - BILATERAL SCREENING REASON FOR EXAM: Female, 67 years old. Routine annual screening examination. PERTINENT HISTORY: Non-contributory. TECHNIQUE: Digital bilateral breast lashonda (3D mammographic acquisition) in the CC and MLO projections. 2-D mediolateral oblique (MLO) and craniocaudad (CC) views of both breasts were obtained. CAD: Full Field Digital Mammography with Computer Added Detection was performed. COMPARISON: Comparison is made with prior study dated November 25, 2021 and November 30, 2020. FINDINGS: Breast Composition: The breasts are almost entirely fatty. There are no dominant masses or suspicious calcifications. Stable benign-appearing bilateral axillary lymph nodes. No other significant abnormalities are identified. There has been no significant change since the prior study. ASSESSMENT CATEGORY: BIRADS Category 2: Benign. A letter regarding these results will be sent to the patient by the facility within 30 days. Approximately 10% of breast cancers are not detected by mammography. A normal mammogram should not delay biopsy of a clinically suspicious abnormality. BI/SCRN MAMM (CAD)W/LASHONDA BILAT IMPRESSION: Stable bilateral screening mammogram. Yearly follow-up mammogram recommended. (A) ASSESSMENT CATEGORY: BIRADS Category 2: Benign. A letter regarding these results will be sent to the patient by the facility within 30 days. Approximately 10% of breast cancers are not detected by mammography. A normal mammogram should not delay biopsy of a clinically suspicious abnormality. [id number] Electronically Signed: Roosevelt Sequeira MD at 14:13 EDT ,
== END | disposition home or self-care (01) ==
LOC: OPBI 12:52
PROVIDERS: PCP Family Medicine Geriatric Medicine; Referring Provider Family Medicine Geriatric Medicine; Visit Provider Family Medicine Geriatric Medicine
DX: Z12.31 Encounter for screening mammogram for malignant neoplasm of breast (principal)
CPT/HCPCS: 77063; 77067

== ENCOUNTER 2023-02-07 18:35 | Emergency (ER) | payer MEDICARE, MEDICAID, SELFPAY ==
[2023-02-07 18:36] VITALS: BP 131/71; PULSE 93; RESP 16; TEMP 35.8; O2SAT 97; BMI 34.2
--- NOTE | 2023-02-07 19:11 | RAD_ITS ---
INDICATION: Trauma, injury EXAMINATION/TECHNIQUE: X-RAY - LEFT XR Hand Min 3 Views 3 VIEWS COMPARISON: None. FINDINGS: SOFT TISSUES: No soft tissue swelling or gas. No radiopaque foreign body. BONES/JOINTS: No acute fracture. Joint spaces anatomically aligned with mild degenerative changes. No sclerotic or destructive changes observed. RAD/Hand Min 3 Views IMPRESSION: No acute bony injury. Electronically Signed: Filippo Bal MD at 19:25 EDT ,
--- NOTE | 2023-02-07 19:45 | EDS_ITS ---
HPI <SIM Bernard - Last Filed: 02/07/23 19:50> History of Present Illness Chief Complaint: Wound Narrative Narrative: Patient is a 68-year-old Fe with history of atrial fibrillation on Eliquis, hypertension presents the emergency department after sustaining a puncture wound from a shrub while she was doing yard work. Patient states a branch flipped back, striking her in her left hand. Patient did have a splinter in her left hand that she did take out. She also got a puncture wound to her left wrist. Patient was concerned because the pain was continuing, the patient also was concerned because there was redness surrounding the area. She did wash it out thoroughly with water as well as peroxide. Patient's tetanus vaccination is not up-to-date. [facility] <SIM Bernard - Last Filed: 02/07/23 19:50> [facility] Medical History Asthma Atrial fibrillation with rapid ventricular response (08/30/22) Bronchospasm, acute Depression Essential hypertension GERD (gastroesophageal reflux disease) Hemorrhoid history of superficial venous thrombosis Hyperlipidemia Hypoxia Influenza with pneumonia Malignant hyperthermia Osteoarthritis Osteopenia Rosacea Spinal stenosis Status post L4-L5 laminectomy Home Medications potassium chloride 10 mEq tablet,extended release 10 meq PO DAILY PRN LEG CRAMPS 11/02/13 [History Last Taken 08/25/22] tizanidine 4 mg tablet 4 mg PO QHS SPASMS 10/02/17 [History Last Taken 08/29/22] vitamin E 268 mg (400 unit) capsule 400 unit PO DAILY SUPPLEMENT 10/20/19 [History Last Taken 08/29/22] duloxetine 30 mg capsule,delayed release 30 mg PO DAILY ANIETY/DEPRESSION 11/22/20 [History Last Taken 08/29/22] ascorbic acid (vitamin C) 1,000 mg tablet 1,000 mg PO DAILY SUPPLEMENT 12/15/20 [History Last Taken 08/29/22] multivit with bfsrnxsm-wxha-QV-lutein 8 mg iron-400 mcg-300 mcg tablet (Centrum Silver Women) 1 ea PO DAILY HEALTH MAINTENANCE 12/15/20 [History Last Taken 08/29/22] zinc 50 mg tablet 50 mg PO DAILY SUPPLEMENT 12/15/20 [History Last Taken 08/29/22] hydrocodone-acetaminophen 5-325mg 5mg-325mg 1 tab PO BID PRN Pain 07/07/22 [History Last Taken 08/29/22] albuterol sulfate 2.5 mg/3 mL (0.083 %) solution for nebulization 2.5 mg inhalation Q4H PRN Shortness Of Breath 08/30/22 [History Last Taken Unknown] albuterol sulfate 90 mcg/actuation aerosol inhaler 2 inh inhalation UD PRN Shortness Of Breath 08/30/22 [History Last Taken 08/29/22] magnesium oxide 400 mg PO QHS SUPPLEMENT 08/30/22 [History Last Taken 08/29/22] atenolol 50 mg tablet 50 mg PO DAILY 30 days #90 tabs 09/05/22 [Rx Last Taken Unknown] buprenorphine 5 mcg/hour weekly transdermal patch 1 patch transdermal QWEEK 09/05/22 [History Last Taken Unknown] calcium carbonate 600 mg calcium (1,500 mg) tablet 600 mg PO BID 09/05/22 [History Last Taken Unknown] cholecalciferol (vitamin D3) 25 mcg (1,000 unit) tablet 25 mcg PO DAILY 09/05/22 [History Last Taken Unknown] famotidine 20 mg tablet 40 mg PO DAILY 09/05/22 [History Last Taken Unknown] valsartan 320 mg-hydrochlorothiazide 12.5 mg tablet 1 tab PO DAILY BLOOD PRESSURE #90 tabs 09/05/22 [Rx Last Taken Unknown] apixaban 5 mg tablet (Eliquis) 5 mg PO BID #60 tabs 11/14/22 [Rx Last Taken Unknown] furosemide 20 mg tablet 20 mg PO DAILY PRN 12/05/22 [History Last Taken Unknown] clindamycin HCl 300 mg capsule (Cleocin HCl) 300 mg PO Q6H #28 CAPSULES 02/07/23 [Rx Last Taken Unknown] Allergy/AdvReac Type Severity Reaction Status Date / Time ampicillin Allergy Intermediate Rash Verified 02/07/23 18:36 sulfamethoxazole Allergy Intermediate BLOTCHES/ Verified 02/07/23 18:36 [From Bactrim] HIVES trimethoprim [From Bactrim] Allergy Intermediate BLOTCHES/ Verified 02/07/23 18:36 HIVES niacin AdvReac Intermediate REDDNESS/ Verified 02/07/23 18:36 [From Niaspan PASSED OUT Extended-Release] amitriptyline AdvReac Mild EARS RING Verified 02/07/23 18:36 clarithromycin [From Biaxin] AdvReac Mild Upset Verified 02/07/23 18:36 Stomach Family History Brother Malignant hyperthermia due to anesthesia Brother Malignant hyperthermia due to anesthesia Brother Malignant hyperthermia due to anesthesia Diabetes Hypertension Cancer lung Asthma Mother Diabetes Hypertension Father Cancer lung Aunt Colon cancer Surgical History H/O kyphoplasty History of colonoscopy (~2006) History of fasciotomy History of right knee joint replacement History of total replacement of left ankle Status post laser ablation of incompetent vein Social History Smoking Status: Former smoker how long ago did patient quit smokin alcohol intake: never substance use type: does not use caffeine: Yes Type: carbonated beverages Number of servings: 1 ROS <SIM Bernard - Last Filed: 02/07/23 19:50> ROS ED ROS Narrative Constitutional: Negative for fever, chills, weight loss, weakness Eyes: Negative for vision loss, vision change, double vision ENT: Negative for any sore throat, ear pain, congestion Cardiovascular: Negative for any chest pain, tightness, palpitations Respiratory: Negative for any cough, sputum production, hemoptysis, dyspnea, dyspnea on exertion, orthopnea Gastrointestinal: Negative for any abdominal pain, nausea, vomiting, diarrhea, constipation, blood in stool, blood in vomit : Negative for any urinary frequency, dysuria, retention, blood in urine Muscle skeletal: Negative for any muscle joint pain, stiffness, myalgias, arthralgias, neck pain, back pain Neurological: Negative for any headache, syncope, numbness or tingling, dizziness Skin: Negative for any rashes, lumps, itching, abrasions, lacerations. Puncture wound to the left hand, left wrist Psychiatric: Negative for any depression, anxiety, stress, suicidal ideation, homicidal ideation Hematologic: Negative for any easy bruising, excessive bruising, easy bleeding Allergies: Negative for any eczema, hives, rash EXAM <SIM Bernard - Last Filed: 02/07/23 19:50> Physical Exam Narrative Exam Narrative: Vital signs reviewed. Extremities: No peripheral edema, no signs of gross trauma or deformity. Active full range of motion of all extremities. Patient has 2 puncture wounds, patient first 1 on the dorsal aspect of the hand to the radial aspect, no foreign body noted. This area is clean, there is some ecchymosis around the area secondary to patient being on Eliquis. The puncture wound to the wrist is superficial and not causing the patient any pain. There is no neurological focal deficit. Patient does have pain on palpation. No neurological focal deficit Neuro: Cranial nerves II through XII intact, no focal neurological deficits. Skin: Clean dry and intact with no rash, purpura, petechiae, vesicles or pustules. Backs/flank: No CVA tenderness, no midline spinal tenderness, no deformity. Psych: Normal mood and affect. No SI, HI or acute psychosis. Const Vital Signs: 02/07/23 18:36 Temperature 96.4 F L Temperature Source Temporal Pulse Rate 93 Respiratory Rate 16 Blood Pressure 131/71 H Blood Pressure Mean 91 Pulse Ox 97 Oxygen Delivery Method Room Air <Dr. Reilly Mcdonald MD - Last Filed: 02/07/23 20:18> Physical Exam Const Vital Signs: 02/07/23 18:36 Temperature 96.4 F L Temperature Source Temporal Pulse Rate 93 Respiratory Rate 16 Blood Pressure 131/71 H Blood Pressure Mean 91 Pulse Ox 97 Oxygen Delivery Method Room Air MDM <SIM Bernard - Last Filed: 02/07/23 19:50> MDM Radiography Diagnostic Testing: Clinical Impression(s) from Imaging Studies Hand X-Ray 02/07/23 19:11 IMPRESSION: No acute bony injury. Electronically Signed: Filippo Bal MD at 19:25 EDT , Treatment and Re-Evaluation :: All radiologic examinations were read, reviewed by the emergency department attending. From these reads, a plan of care will be put in place. Patient appears well, patient appears nontoxic, vital signs are stable. Patient presents to the emergency department after sustaining a puncture wound to the left hand, left wrist. Secondary to the shrub/splinter inserting the skin, patient did receive a tetanus vaccination which will be updated today. She did receive an x-ray of the left hand, this was negative for any acute bony abnormality. Physical examination showed no foreign body. Secondary to the patient having some erythema around the area although I do believe that this is secondary to the trauma, the patient was placed on clindamycin. She will be given a clindamycin here. She will take clindamycin 3 times a day for 7 days. Tetanus vaccination is updated, she will follow-up closely outpatient. All questions answered, return precautions given. Patient is happy with plan of care. <Dr. Reilly Mcdonald MD - Last Filed: 02/07/23 20:18> MDM MDM Narrative Medical decision making narrative: I have personally performed a face to face assessment of the patient and have reviewed the LURDES Note. I performed a substantive portion of the visit including all aspects of the following. My bennett findings include: History: Patient got a thorn or the tip of a branch from a low-lying evergreen shrubbery poked in the dorsum of her left hand. She is on Eliquis. She had bleeding at first but now has stopped. She was able to pull out about a three- quarter inch to 1 inch long spike. This happened shortly before arrival. No other injuries or complaints. Exam: There is some mild swelling around the area. Mild redness but I think this is early bruising and bleeding. No streaking up the arm. Medical Decision Making: No indication that this is a ed beck or hay. But I think we should treat with antibiotics. Tetanus will be updated. My independent interpretation of three-view x-ray of her left hand shows no foreign body visible. We do understand that wooden foreign bodies may not show up and she was told this. But it is not appropriate to incise her hand looking for what is thought not to be there. Final reading of radiology is no acute bony injury. Reasons to return were discussed Radiography Diagnostic Testing: Clinical Impression(s) from Imaging Studies Hand X-Ray 02/07/23 19:11 IMPRESSION: No acute bony injury. Electronically Signed: Filippo Bal MD at 19:25 EDT Reading Location ID and State: [facility] / [place] Tel , Service support , Discharge Plan Triage Chief Complaint: Wound Other Complaint: Laceration ED Midlevel Provider: Lawrence Cali ED Provider: Reilly Mcdonald Dx/Rx/DC Orders Clinical Impression: Puncture wound, Hematoma Instructions: ED Hematoma, ED Puncture Wound (General) Prescriptions: New clindamycin HCl [Cleocin HCl] 300 mg capsule 300 mg PO Q6H Qty: 28 0RF No Action duloxetine 30 mg capsule,delayed release(DR/EC) 30 mg PO DAILY famotidine 20 mg tablet 40 mg PO DAILY cholecalciferol (vitamin D3) 25 mcg (1,000 unit) tablet 25 mcg PO DAILY buprenorphine 5 mcg/hour patch weekly 1 patch transdermal QWEEK calcium carbonate 600 mg calcium (1,500 mg) tablet 600 mg PO BID atenolol 50 mg tablet 50 mg PO DAILY 30 Days Qty: 90 3RF valsartan-hydrochlorothiazide 320-12.5 mg tablet 1 tab PO DAILY Qty: 90 3RF furosemide 20 mg tablet 20 mg PO DAILY PRN potassium chloride 10 MEQ tablet extended release 10 meq PO DAILY PRN (Reason: LEG CRAMPS) tizanidine 4 MG tablet 4 mg PO QHS vitamin E 400 UNIT capsule 400 unit PO DAILY ascorbic acid (vitamin C) 1,000 MG tablet 1,000 mg PO DAILY zinc 50 MG tablet 50 mg PO DAILY Centrum Silver Women 1 EACH tablet 1 ea PO DAILY hydrocodone-acetaminophen 5-325 mg tablet 1 tab PO BID PRN (Reason: Pain) albuterol sulfate 90 mcg/actuation HFA aerosol inhaler 2 inh INHALATION UD PRN (Reason: Shortness Of Breath) magnesium oxide 400 mg magnesium Tablet 400 mg PO QHS albuterol sulfate 2.5 MG/3 ML solution for nebulization 2.5 mg inhalation Q4H PRN (Reason: Shortness Of Breath) Eliquis 5 mg tablet 5 mg PO BID Qty: 60 11RF Primary Care Provider: Wesly Hidalgo Chi Referrals: Wesly Hidalgo Chi, MD [Primary Care Provider] - Activity Restrictions/Additional Instructions: Please keep the area clean and dry. Return for any signs of infection. Take antibiotics until finished. Disposition Disposition: Home, Self Care Discharge Date/Time: 02/07/23 20:16
[2023-02-07] MEDS: Diphth,Pertuss(Acell),Tet Vac 0.5 ML Vial IM (19:49)
[2023-02-07] MEDS: Clindamycin HCl 150 MG Capsule 300 MG PO (19:50)
[2023-02-07] MEDS: HYDROcodone Bitartrate/Apap 5/325 Tablet PO (20:13)
== END 2023-02-07 20:16 | disposition home or self-care (01) ==
PROVIDERS: Emergency Provider Emergency Medicine; PCP Family Medicine Geriatric Medicine; Visit Provider Emergency Medicine
DX: S61.532A Puncture wound without foreign body of left wrist, initial encounter (principal); I48.91 Unspecified atrial fibrillation; S60.222A Contusion of left hand, initial encounter; Z23 Encounter for immunization; Z79.01 Long term (current) use of anticoagulants; Z87.891 Personal history of nicotine dependence; W60.XXXA Contact with nonvenomous plant thorns and spines and sharp leaves, initial encounter
CPT/HCPCS: 73130; 90471; 90715; 99283

== ENCOUNTER → 2023-04-29 | Outpatient (CLI) | payer MEDICARE, MEDICAID, SELFPAY ==
--- NOTE | 2023-04-29 14:30 | RAD_ITS ---
EXAM: XR THORACIC SPINE, 2 VIEWS CLINICAL INDICATION: THORACIC PAIN TECHNIQUE: Frontal and lateral views of the thoracic spine. COMPARISON: XR Thoracic Spine dated 01/22/2022 FINDINGS: VERTEBRAE: Stable thoracic kyphosis. Slight increase in the S-shaped scoliosis of the thoracolumbar spine. Cortez angle of 8 degrees of the thoracic dextroscoliosis and Cortez angle of 11 degrees for the thoracolumbar levoscoliosis. The kyphoplasty changes at T12 are stable. DISC SPACES: Disc space narrowing and vertebral body hypertrophy most prominent at the midthoracic level not significantly changed from prior study. RAD/Thoracic Spine 2 Views IMPRESSION: Mild interval increase in the S-shaped scoliosis of the thoracolumbar spine. No other interval change. Electronically Signed: Dimitry Alexander MD at 7:51 EDT ,
== END | disposition home or self-care (01) ==
PROVIDERS: PCP Family Medicine Geriatric Medicine; Referring Provider Anesthesiology Pain Medicine; Visit Provider Anesthesiology Pain Medicine
DX: M54.6 Pain in thoracic spine (principal)
CPT/HCPCS: 72070

== ENCOUNTER → 2023-06-03 | Outpatient (CLI) | payer MEDICARE, MEDICAID, SELFPAY ==
[2023-06-03 15:58] LABS: Absolute Neutrophil Count 2.9 X10^3/uL (2.0-7.7); Hematocrit 40.4 % (37-47); Hemoglobin 12.7 g/dL (12.0-15.0); Lymphocyte % 38.3 % (19-41); Mean Corp Hgb Conc 31.4 g/dL (32-36); Mean Corpuscular Hgb 29.1 pg (27.0-32.0); Mean Corpuscular Volume 92.7 fL (81-99); Mean Platelet Vol. 10.7 fl (6.2-12.0); Monocyte# 0.49 X10^3/uL; Monocyte% 8.9 % (0-10); NRBC Flagged by Analyzer 0 % (0-5); Neutrophil # 2.87 X10^3/uL (2.7-7.7); Neutrophil % 52.3 % (47-70); Platelet Count 208 K/mm3 (150-450); RBC Distribution Width CV 13.3 % (11.6-14.6); RBC Distribution Width SD 44.8 fl (35.1-43.9); Red Blood Count 4.36 M/mm3 (4.2-5.4); White Blood Count 5.5 K/mm3 (4.4-11.0)
[2023-06-03 16:22] LABS: ALB/GLOB Ratio 1.1 RATIO (0.9-2.4); AST(SGOT) 22 U/L (15-37); Alanine Aminotransfer ALT/SGPT 24 U/L (13-56); Albumin, Serum 3.5 g/dL (3.2-5.0); Alkaline Phosphatase 81 U/L (45-117); Anion Gap 3 (5-15); BUN 17 mg/dL (7-18); BUN/Creat Ratio 13.8 RATIO (10-20); Chloride 103 mmol/L (98-107); Cholesterol 172 mg/dL (200); Creatinine, Serum 1.23 mg/dL (0.55-1.02); EST Glomerular Filtration Rate 46 mL/min (>60); Est Glom Filt Rate - Afr Amer 56 mL/min (>60); Globulin 3.1 g/dL (2.2-4.2); Glucose 98 mg/dL (74-106); High Density Lipoprotein 33 mg/dL; Potassium 4.2 mmol/L (3.5-5.1); Protein, Total 6.6 g/dL (6.4-8.2); Sodium Level 138 mmol/L (136-145); Thyroid Stim Hormone (TSH) 2.03 uIU/mL (0.358-3.74); Triglycerides 194 mg/dL; Very Low Density Lipoprotein 39 mg/dL (5-40)
[2023-06-03 16:25] LABS: Vitamin D,25 Hydroxy 47.3 ng/mL
== END | disposition home or self-care (01) ==
LOC: POLAB3 14:32
PROVIDERS: PCP Family Medicine Geriatric Medicine; Visit Provider Family Medicine Geriatric Medicine
DX: I10 Essential (primary) hypertension (principal); E55.9 Vitamin D deficiency, unspecified; E78.5 Hyperlipidemia, unspecified
CPT/HCPCS: 36415; 80053; 80061; 82306; 84443; 85025

== ENCOUNTER 2023-06-09 09:53 | Emergency (ER) | payer MEDICARE, MEDICAID, SELFPAY ==
[2023-06-09 09:54] VITALS: BP 154/73; PULSE 73; RESP 14; TEMP 36.4; O2SAT 97; BMI 33.5
--- NOTE | 2023-06-09 10:44 | ED.VIS.LOWEX ---
HPI History of Present Illness Chief Complaint: Lower Extremity Injury Narrative Narrative: 68-year-old female presenting with pain over the medial aspect of the proximal first metatarsal. Its been there for couple of days. She describes as worsening and aching pain. Patient is in pain management and does not take hydrocodone for pain. She states he has a history of gout but is concerned that the cat she has was scratching her feet the other day and she is feels like this may be an infection from a scratch. She has not had any systemic signs or symptoms. No history of trauma. [facility] Medical History Asthma Atrial fibrillation with rapid ventricular response (08/30/22) Bronchospasm, acute Depression Essential hypertension GERD (gastroesophageal reflux disease) Hemorrhoid history of superficial venous thrombosis Hyperlipidemia Hypoxia Influenza with pneumonia Malignant hyperthermia Osteoarthritis Osteopenia Rosacea Spinal stenosis Status post L4-L5 laminectomy Home Medications potassium chloride 10 mEq tablet,extended release 10 meq PO DAILY PRN LEG CRAMPS 11/02/13 [History Last Taken 08/25/22] tizanidine 4 mg tablet 4 mg PO QHS SPASMS 10/02/17 [History Last Taken 08/29/22] vitamin E 268 mg (400 unit) capsule 400 unit PO DAILY SUPPLEMENT 10/20/19 [History Last Taken 08/29/22] duloxetine 30 mg capsule,delayed release 30 mg PO DAILY ANIETY/DEPRESSION 11/22/20 [History Last Taken 08/29/22] ascorbic acid (vitamin C) 1,000 mg tablet 1,000 mg PO DAILY SUPPLEMENT 12/15/20 [History Last Taken 08/29/22] buccawrt-prhr-tknh 8 mg-folic 400 mcg-K 50 mcg-lutein 300 mcg tablet (Centrum Silver Women) 1 ea PO DAILY HEALTH MAINTENANCE 12/15/20 [History Last Taken 08/29/22] zinc 50 mg tablet 50 mg PO DAILY SUPPLEMENT 12/15/20 [History Last Taken 08/29/22] hydrocodone-acetaminophen 5-325mg 5mg-325mg 1 tab PO BID PRN Pain 07/07/22 [History Last Taken 08/29/22] albuterol sulfate 2.5 mg/3 mL (0.083 %) solution for nebulization 2.5 mg inhalation Q4H PRN Shortness Of Breath 08/30/22 [History Last Taken Unknown] albuterol sulfate 90 mcg/actuation aerosol inhaler 2 inh inhalation UD PRN Shortness Of Breath 08/30/22 [History Last Taken 08/29/22] magnesium oxide 400 mg PO QHS SUPPLEMENT 08/30/22 [History Last Taken 08/29/22] atenolol 50 mg tablet 50 mg PO DAILY 30 days #90 tabs 09/05/22 [Rx Last Taken Unknown] buprenorphine 5 mcg/hour weekly transdermal patch 1 patch transdermal QWEEK 09/05/22 [History Last Taken Unknown] calcium carbonate 600 mg calcium (1,500 mg) tablet 600 mg PO BID 09/05/22 [History Last Taken Unknown] cholecalciferol (vitamin D3) 25 mcg (1,000 unit) tablet 25 mcg PO DAILY 09/05/22 [History Last Taken Unknown] famotidine 20 mg tablet 40 mg PO DAILY 09/05/22 [History Last Taken Unknown] valsartan 320 mg-hydrochlorothiazide 12.5 mg tablet 1 tab PO DAILY BLOOD PRESSURE #90 tabs 09/05/22 [Rx Last Taken Unknown] apixaban 5 mg tablet (Eliquis) 5 mg PO BID #60 tabs 11/14/22 [Rx Last Taken Unknown] furosemide 20 mg tablet 20 mg PO DAILY PRN 12/05/22 [History Last Taken Unknown] clindamycin HCl 300 mg capsule (Cleocin HCl) 300 mg PO Q6H #28 CAPSULES 02/07/23 [Rx Last Taken Unknown] clindamycin HCl 150 mg capsule 450 mg (3 x 150 mg) PO TID 7 days #63 caps 06/09/23 [Rx Last Taken Unknown] colchicine (gout) 0.6 mg capsule 0.6 mg PO DAILY #1 cap 06/09/23 [Rx Last Taken Unknown] Allergy/AdvReac Type Severity Reaction Status Date / Time ampicillin Allergy Intermediate Rash Verified 06/09/23 09:55 sulfamethoxazole Allergy Intermediate BLOTCHES/ Verified 06/09/23 09:55 [From Bactrim] HIVES trimethoprim [From Bactrim] Allergy Intermediate BLOTCHES/ Verified 06/09/23 09:55 HIVES niacin AdvReac Intermediate REDDNESS/ Verified 06/09/23 09:55 [From Niaspan PASSED OUT Extended-Release] amitriptyline AdvReac Mild EARS RING Verified 06/09/23 09:55 clarithromycin [From Biaxin] AdvReac Mild Upset Verified 06/09/23 09:55 Stomach Family History Brother Malignant hyperthermia due to anesthesia Brother Malignant hyperthermia due to anesthesia Brother Malignant hyperthermia due to anesthesia Diabetes Hypertension Cancer lung Asthma Mother Diabetes Hypertension Father Cancer lung Aunt Colon cancer Surgical History H/O kyphoplasty History of colonoscopy (~2006) History of fasciotomy History of right knee joint replacement History of total replacement of left ankle Status post laser ablation of incompetent vein Social History Smoking Status: Former smoker how long ago did patient quit smokin alcohol intake: never substance use type: does not use caffeine: Yes Type: carbonated beverages Number of servings: 1 ROS ROS ED Constitutional Constitutional ED: Denies chills, fever(s) or sweats Eyes Eyes: Denies blurry vision or change in vision ENT ENT ED: Denies ear pain or sore throat Cardiovascular Cardiovascular: Denies chest pain, palpitations or racing heartbeat Respiratory/Chest Respiratory/Chest: Denies cough, dyspnea or sputum Gastrointestinal Gastrointestinal: Denies abdominal pain, constipation, diarrhea, nausea or vomiting Genitourinary Genitourinary ED: Denies dysuria, hematuria or urinary frequency Musculoskeletal Musculoskeletal: Denies arthralgias, myalgias or neck pain Integumentary Reports rash; Denies abscess or Abrasions Neurologic Neurologic: Denies headache(s), paresthesias or weakness Psychiatric Psychiatric: Denies anxiety, depression, suicidal ideation or suicidal thoughts Endocrine Endocrinology: Denies polydipsia or polyuria EXAM Physical Exam Const Vital Signs: 06/09/23 09:54 Temperature 97.5 F L Temperature Source Temporal Pulse Rate 73 Respiratory Rate 14 Blood Pressure 154/73 H Blood Pressure Mean 100 Pulse Ox 97 Oxygen Delivery Method Room Air Positive well nourished HEENT Reports moist mucous membranes Resp normal respiratory effort Cardio regular rate and regular rhythm Extremity Extremity Narrative: Tenderness to palpation over the first metatarsal medially. There is an area of erythema overlying this. There is no crepitus, deformity. Neurovascular intact brisk cap refill to all 5 toes. Neuro oriented x3 and CN's II-XII intact bilaterally Sensorium / Orientation: alert Motor Exam: strength 5/5 throughout Psych mental status grossly normal MDM MDM MDM Narrative Medical decision making narrative: Patient presenting redness over the first metatarsal on the right foot. It is possible this could be gout however the patient is concerned that the cat at her house scratched it there was no bite. She has multiple allergies but she states has been on clindamycin before which we will provide for her today to make sure this is an infection. She was also given Colchicine first dose in the ER and a similar dose to take at home. Return precautions were discussed. Impression: 1. Cat scratch 2. Gout Lab Data Attestation: I reviewed the patient's lab results. Discharge Plan Triage Chief Complaint: Lower Extremity Injury ED Provider: Maik Harris Dx/Rx/DC Orders Instructions: ED Cellulitis, ED Gout Prescriptions: New clindamycin HCl 150 mg capsule 450 mg PO TID 7 Days Qty: 63 0RF colchicine (gout) 0.6 mg capsule 0.6 mg PO DAILY Qty: 1 0RF No Action duloxetine 30 mg capsule,delayed release(DR/EC) 30 mg PO DAILY famotidine 20 mg tablet 40 mg PO DAILY cholecalciferol (vitamin D3) 25 mcg (1,000 unit) tablet 25 mcg PO DAILY buprenorphine 5 mcg/hour patch weekly 1 patch transdermal QWEEK calcium carbonate 600 mg calcium (1,500 mg) tablet 600 mg PO BID atenolol 50 mg tablet 50 mg PO DAILY 30 Days Qty: 90 3RF valsartan-hydrochlorothiazide 320-12.5 mg tablet 1 tab PO DAILY Qty: 90 3RF furosemide 20 mg tablet 20 mg PO DAILY PRN potassium chloride 10 MEQ tablet extended release 10 meq PO DAILY PRN (Reason: LEG CRAMPS) tizanidine 4 MG tablet 4 mg PO QHS vitamin E 400 UNIT capsule 400 unit PO DAILY ascorbic acid (vitamin C) 1,000 MG tablet 1,000 mg PO DAILY zinc 50 MG tablet 50 mg PO DAILY Centrum Silver Women 1 EACH tablet 1 ea PO DAILY hydrocodone-acetaminophen 5-325 mg tablet 1 tab PO BID PRN (Reason: Pain) albuterol sulfate 90 mcg/actuation HFA aerosol inhaler 2 inh INHALATION UD PRN (Reason: Shortness Of Breath) magnesium oxide 400 mg magnesium Tablet 400 mg PO QHS albuterol sulfate 2.5 MG/3 ML solution for nebulization 2.5 mg inhalation Q4H PRN (Reason: Shortness Of Breath) clindamycin HCl [Cleocin HCl] 300 mg capsule 300 mg PO Q6H Qty: 28 0RF Eliquis 5 mg tablet 5 mg PO BID Qty: 60 11RF Primary Care Provider: Wesly Hidalgo Chi Referrals: Wesly Hidalgo Chi, MD [Primary Care Provider] - Disposition Disposition: Home, Self Care
[2023-06-09] MEDS: Clindamycin HCl 150 MG Capsule 450 MG PO (11:00)
[2023-06-09] MEDS: Colchicine 0.6 MG TABLET 1.2 MG PO (11:03)
== END 2023-06-09 11:14 | disposition home or self-care (01) ==
LOC: ED 10:27
PROVIDERS: Emergency Provider Student in an Organized Health Care Education/Training Program; PCP Family Medicine Geriatric Medicine; Visit Provider Student in an Organized Health Care Education/Training Program
DX: S99.921A Unspecified injury of right foot, initial encounter (principal); M10.9 Gout, unspecified; Z87.891 Personal history of nicotine dependence; W55.03XA Scratched by cat, initial encounter
CPT/HCPCS: 99283

== ENCOUNTER → 2023-06-26 | Outpatient (CLI) | payer MEDICARE, MEDICAID, SELFPAY ==
--- NOTE | 2023-06-26 14:14 | RAD_ITS ---
STUDY: X-RAY RIGHT FOOT, FIRST TOE REASON FOR EXAM: Female, 68 years old. PAIN TECHNIQUE: 3 view(s) of the toe were obtained. COMPARISON: None. FINDINGS: Normal visualized metatarsus. Normal metatarsophalangeal (M.T.P) joint. Normal interphalangeal joints. Normal phalanges and interphalangeal joints. The soft tissue structures are unremarkable. RAD/Toe(s) Min 2 Views IMPRESSION: Normal x-ray of the toe. Electronically Signed: Roosevelt Sequeira MD at 15:19 EDT ,
[2023-06-26 15:43] LABS: Absolute Lymphocyte Count 2.23 X10^3/uL (0.83-4.51); Absolute Neutrophil Count 4.8 X10^3/uL (2.0-7.7); Hematocrit 40.2 % (37-47); Hemoglobin 13.4 g/dL (12.0-15.0); Lymphocyte # 2.23 X10^3/ul (0.83-4.51); Lymphocyte % 29.1 % (19-41); Mean Corp Hgb Conc 33.3 g/dL (32-36); Mean Corpuscular Hgb 30.4 pg (27.0-32.0); Mean Corpuscular Volume 91.2 fL (81-99); Mean Platelet Vol. 10.6 fl (6.2-12.0); Monocyte# 0.67 X10^3/uL; Monocyte% 8.7 % (0-10); NRBC Flagged by Analyzer 0 % (0-5); Neutrophil # 4.76 X10^3/uL (2.7-7.7); Neutrophil % 62.1 % (47-70); Platelet Count 211 K/mm3 (150-450); RBC Distribution Width CV 13.1 % (11.6-14.6); RBC Distribution Width SD 43.3 fl (35.1-43.9); Red Blood Count 4.41 M/mm3 (4.2-5.4); White Blood Count 7.7 K/mm3 (4.4-11.0)
[2023-06-26 16:04] LABS: Erythrocyte Sedimentation Rate 15 mm/hr (0-30)
[2023-06-26 16:12] LABS: Anion Gap 5 (5-15); BUN 16 mg/dL (7-18); BUN/Creat Ratio 12.9 RATIO (10-20); Calcium,Total 9.2 mg/dL (8.5-10.1); Chloride 105 mmol/L (98-107); Creatinine, Serum 1.24 mg/dL (0.55-1.02); EST Glomerular Filtration Rate 46 mL/min (>60); Est Glom Filt Rate - Afr Amer 55 mL/min (>60); Glucose 100 mg/dL (74-106); Potassium 3.9 mmol/L (3.5-5.1); Sodium Level 140 mmol/L (136-145); Uric Acid 9.5 mg/dL (2.6-6.0)
== END | disposition home or self-care (01) ==
PROVIDERS: PCP Family Medicine Geriatric Medicine; Referring Provider Family Medicine Geriatric Medicine; Visit Provider Family Medicine Geriatric Medicine
DX: I10 Essential (primary) hypertension (principal); M10.9 Gout, unspecified
CPT/HCPCS: 36415; 73660; 80048; 84550; 85025; 85652; 86141; 87635; 87804; 87807; C9803

== ENCOUNTER → 2023-12-08 | Outpatient (CLI) | payer MEDICARE, MEDICAID, SELFPAY ==
[2023-12-08 10:34] LABS: Absolute Lymphocyte Count 2.68 X10^3/uL (0.83-4.51); Absolute Neutrophil Count 5.7 X10^3/uL (2.0-7.7); Basophil# 0.01 X10^3/uL; Basophil% 0.1 % (0-1); Hematocrit 41.1 % (37-47); Hemoglobin 13.5 g/dL (12.0-15.0); Lymphocyte # 2.68 X10^3/ul (0.83-4.51); Lymphocyte % 28.5 % (19-41); Mean Corp Hgb Conc 32.8 g/dL (32-36); Mean Corpuscular Hgb 29.4 pg (27.0-32.0); Mean Corpuscular Volume 89.5 fL (81-99); Mean Platelet Vol. 10.6 fl (6.2-12.0); Monocyte# 0.93 X10^3/uL; Monocyte% 9.9 % (0-10); NRBC Flagged by Analyzer 0 % (0-5); Neutrophil # 5.67 X10^3/uL (2.7-7.7); Neutrophil % 60.4 % (47-70); Platelet Count 222 K/mm3 (150-450); RBC Distribution Width CV 13.9 % (11.6-14.6); RBC Distribution Width SD 45.3 fl (35.1-43.9); Red Blood Count 4.59 M/mm3 (4.2-5.4); White Blood Count 9.4 K/mm3 (4.4-11.0)
[2023-12-08 10:51] LABS: Vitamin D,25 Hydroxy 42.2 ng/mL
[2023-12-08 11:10] LABS: ALB/GLOB Ratio 1.1 RATIO (0.9-2.4); AST(SGOT) 20 U/L (15-37); Alanine Aminotransfer ALT/SGPT 36 U/L (13-56); Albumin, Serum 3.4 g/dL (3.2-5.0); Alkaline Phosphatase 82 U/L (45-117); Anion Gap 3 (5-15); BUN 24 mg/dL (7-18); BUN/Creat Ratio 18.5 RATIO (10-20); Chloride 108 mmol/L (98-107); Cholesterol 151 mg/dL (200); EST Glomerular Filtration Rate 43 mL/min (>60); Est Glom Filt Rate - Afr Amer 52 mL/min (>60); Glucose 108 mg/dL (74-106); High Density Lipoprotein 30 mg/dL; Potassium 3.6 mmol/L (3.5-5.1); Protein, Total 6.4 g/dL (6.4-8.2); Sodium Level 140 mmol/L (136-145); Thyroid Stim Hormone (TSH) 2.16 uIU/mL (0.358-3.74); Triglycerides 339 mg/dL; Very Low Density Lipoprotein 68 mg/dL (5-40)
== END | disposition home or self-care (01) ==
LOC: POLAB3 09:06
PROVIDERS: PCP Family Medicine Geriatric Medicine; Visit Provider Family Medicine Geriatric Medicine
DX: I10 Essential (primary) hypertension (principal); E55.9 Vitamin D deficiency, unspecified; E78.5 Hyperlipidemia, unspecified; M10.9 Gout, unspecified
CPT/HCPCS: 36415; 80053; 80061; 82306; 84443; 84550; 85025

== ENCOUNTER → 2023-12-26 | Outpatient (CLI) | payer MEDICARE, MEDICAID, SELFPAY ==
--- NOTE | 2023-12-26 12:14 | BI_ITS ---
MAMMOGRAPHY - BILATERAL SCREENING REASON FOR EXAM: Female, 68 years old. Routine annual screening examination. PERTINENT HISTORY: Non-contributory. TECHNIQUE: Digital bilateral breast lashonda (3D mammographic acquisition) in the CC and MLO projections. 2-D mediolateral oblique (MLO) and craniocaudad (CC) views of both breasts were obtained. CAD: Full Field Digital Mammography with Computer Added Detection was performed. COMPARISON: Comparison is made with prior study dated December 24, 2022 and December 03, 2021. FINDINGS: Breast Composition: The breasts are almost entirely fatty. There are no dominant masses or suspicious calcifications. Stable benign-appearing bilateral axillary lymph nodes. No other significant abnormalities are identified. There has been no significant change since the prior study. BI/SCRN MAMM (CAD)W/LASHONDA BILAT IMPRESSION: Stable bilateral screening mammogram. Yearly follow-up mammogram recommended. (A) ASSESSMENT CATEGORY: BIRADS Category 2: Benign. A letter regarding these results will be sent to the patient by the facility within 30 days. Approximately 10% of breast cancers are not detected by mammography. A normal mammogram should not delay biopsy of a clinically suspicious abnormality. [id number] Electronically Signed: Roosevelt Sequeira MD at 13:29 EDT ,
== END | disposition home or self-care (01) ==
LOC: OPBI 12:12
PROVIDERS: PCP Family Medicine Geriatric Medicine; Referring Provider Family Medicine Geriatric Medicine; Visit Provider Family Medicine Geriatric Medicine
DX: Z12.31 Encounter for screening mammogram for malignant neoplasm of breast (principal)
CPT/HCPCS: 77063; 77067

== ENCOUNTER → 2024-04-20 | Outpatient (CLI) | payer MEDICARE, MEDICAID, SELFPAY ==
--- NOTE | 2024-04-20 13:39 | ECHOD_ITS ---
Reason For Study: AFIB/FLUTTER Procedure This was a 2D Doppler, Color Flow transthoracic echocardiogram. Exam performed in department. Left Ventricle Normal LV size. Left ventricular systolic function is normal. The left ventricular ejection fraction is 60 %. No regional wall motion abnormalities noted. Right Ventricle Normal RV size. Normal systolic function. Atria Normal left atrium. Normal right atrium. Mitral Valve Normal mitral valve. Tricuspid Valve Normal tricuspid valve. Mild (1+) tricuspid valve insufficiency. Pulmonary artery systolic pressure is 38 mmHg. Aortic Valve Trisinus/trileaflet aortic valve. Pulmonic Valve Normal pulmonic valve. Great Vessels Normal aortic root. The pulmonary artery is normal size. Normal inferior vena cava. Inferior vena cava collapse with respiration. Pericardium/Pleural No pericardial effusion. MMode/2D Measurements & Calculations LVIDd: 4.5 cm IVSd: 0.99 cm Ao root diam: 3.2 cm LVIDs: 3.2 cm LVPWd: 1.00 cm RVDd: 2.7 cm FS: 28.8 % LAV(MOD-bp): 64.8 ml LVAd ap4: 21.0 cm2 LVAd ap2: 18.9 cm2 LAV(MOD-bp) Indexed: 36.5 ml/m2 LVLd ap4: 6.7 cm LVLd ap2: 6.9 cm LAV(MOD-sp2): 68.8 ml EDV(MOD-sp4): 55.2 ml EDV(MOD-sp2): 46.2 ml LAV(MOD-sp4): 58.3 ml EDV(sp4-el): 55.8 ml EDV(sp2-el): 44.2 ml LVAs ap4: 9.8 cm2 LVAs ap2: 9.4 cm2 LVLs ap4: 5.4 cm LVLs ap2: 5.2 cm ESV(MOD-sp4): 15.0 ml ESV(MOD-sp2): 15.5 ml ESV(sp4-el): 14.9 ml ESV(sp2-el): 14.3 ml EF(MOD-sp4): 72.7 % EF(MOD-sp2): 66.4 % EF(sp4-el): 73.3 % SV(MOD-sp4): 40.1 ml SV(MOD-sp2): 30.7 ml SV(sp4-el): 40.9 ml LA dimension(2D): 4.3 cm LA A4 area: 20.9 cm2 RA A4 area: 15.7 cm2 TAPSE: 2.4 cm Time Measurements MV dec time: 0.21 sec Doppler Measurements & Calculations MV E max chuck: 74.5 cm/sec Lat Peak E' Chuck: 13.1 cm/sec Med Peak E' Chuck: 9.3 cm/sec MV A max chuck: 61.5 cm/sec E/E' lat: 5.7 E/E' med: 8.0 MV E/A: 1.2 MV V2 max: 70.6 cm/sec MV P1/2t max chuck: 61.4 cm/sec Ao V2 max: 142.6 cm/sec MV max P.0 mmHg MV P1/2t: 56.5 msec Ao max P.1 mmHg MV V2 mean: 48.2 cm/sec MV dec slope: 318.3 cm/sec2 Ao V2 mean: 90.8 cm/sec MV mean P.0 mmHg Ao mean P.8 mmHg MV V2 VTI: 18.0 cm MVA(P1/2t): 3.9 cm2 Ao V2 VTI: 31.3 cm AV (velocity ratio): 0.76 AI max chuck: 435.2 cm/sec LV V1 max: 98.7 cm/sec PA V2 max: 103.1 cm/sec AI max P.8 mmHg LV V1 max P.9 mmHg PA V2 mean: 66.3 cm/sec AI dec slope: 318.4 cm/sec2 LV V1 mean P.6 mmHg AI P1/2t: 400.3 msec LV V1 mean: 77.0 cm/sec LV V1 VTI: 23.7 cm TR max chuck: 293.9 cm/sec TR max P.5 mmHg ECHO/Echo Complete Interpretation Summary Normal LV size. Left ventricular systolic function is normal. The left ventricular ejection fraction is 60 %. Pulmonary artery systolic pressure is 38 mmHg. Ordering Physician: Danyell Ware Referring Physician: Wesly Hidalgo Chi Performed By: Ashlyn Sanders, HEIDI, RVT
== END | disposition home or self-care (01) ==
LOC: CVS 13:38
PROVIDERS: PCP Family Medicine Geriatric Medicine; Referring Provider Physician Assistant Medical; Visit Provider Physician Assistant Medical
DX: I48.0 Paroxysmal atrial fibrillation (principal)
CPT/HCPCS: 93306

== ENCOUNTER → 2024-09-27 | Outpatient (CLI) | payer MEDICARE, MEDICAID, SELFPAY | END | disposition home or self-care (01) | PROVIDERS: PCP Family Medicine Geriatric Medicine; Referring Provider Family Medicine Geriatric Medicine; Visit Provider Family Medicine Geriatric Medicine | DX: R68.83 Chills (without fever) (principal) | CPT/HCPCS: 87631 ==

== ENCOUNTER → 2024-10-18 | Outpatient (CLI) | payer MEDICARE, MEDICAID, SELFPAY ==
[2024-10-18 11:43] LABS: Uric Acid 7.3 mg/dL (2.6-6.0)
== END | disposition home or self-care (01) ==
PROVIDERS: PCP Family Medicine Geriatric Medicine; Visit Provider Family Medicine Geriatric Medicine
DX: M10.9 Gout, unspecified (principal)
CPT/HCPCS: 36415; 84550

== ENCOUNTER → 2024-10-22 | Outpatient (CLI) | payer MEDICARE, MEDICAID, SELFPAY ==
--- NOTE | 2024-10-22 13:20 | STRESSREP ---
Stress Test Report Pharmacologic myocardial perfusion stress test. 69-year-old lady with a history of paroxysmal atrial fibrillation Resting EKG demonstrates sinus rhythm with a rate of 71 bpm. Resting blood pressure is 162/82 mmHg. 0.4 mg of regadenoson was infused per usual protocol followed by rapid intravenous saline flush injection. Continuous EKG monitoring was performed. The maximum heart rate was 96 bpm which was 63% of max impacted heart rate the maximum workload was 1 metabolic equivalent. At rest there were no ST or T wave changes noted to suggest ischemia and at peak infusion nonspecific ST changes were noted which did not meet the criteria for ischemia. No clinical angina is noted. The final blood pressure was 148/88 mmHg. Myocardial perfusion protocol. 11.9 mCi of technetium 99m sestamibi was injected at rest. 0.4 mg of regadenoson was infused per usual protocol. At peak infusion 33.6 mCi of technetium 99m sestamibi was injected stress images were obtained stress and rest images were reconstructed and compared in the short axis vertical long and horizontal long axis. Gated images were also obtained. Perfusion SPECT analysis: Review of the stress images demonstrate normal uptake of tracer noted in all areas of the myocardium. The resting images similar demonstrated normal uptake of tracer noted in all areas of the myocardium. No areas of reversibility are noted to suggest ischemia and no previous infarct is noted. Gated SPECT analysis: The gated ejection fraction is 79%. Conclusion: Normal pharmacologic myocardial perfusion stress test. Preserved ejection fraction.
== END | disposition home or self-care (01) ==
PROVIDERS: PCP Family Medicine Geriatric Medicine; Referring Provider Nurse Practitioner Family; Visit Provider Nurse Practitioner Family
DX: R94.31 Abnormal electrocardiogram [ECG] [EKG] (principal); I48.0 Paroxysmal atrial fibrillation; I10 Essential (primary) hypertension; Z51.81 Encounter for therapeutic drug level monitoring; Z79.899 Other long term (current) drug therapy

== ENCOUNTER → 2024-10-27 | Outpatient (CLI) | payer MEDICARE, MEDICAID, SELFPAY ==
--- NOTE | 2024-10-27 11:54 | RAD_ITS ---
EXAM: XR RIGHT FOOT COMPLETE, 3 OR MORE VIEWS CLINICAL INDICATION: RIGHT FOOT PAIN TECHNIQUE: Frontal, lateral and oblique views of the right foot. COMPARISON: Right toes, 06/26/2023 FINDINGS: BONES/JOINTS: First metatarsophalangeal joint arthrosis. Likely chronic stress reactive changes of the fourth metatarsal. Calcaneal spurs. No acute fracture. No subluxation. Normal alignment. No sclerotic or destructive changes observed. SOFT TISSUES: Soft tissue swelling. No radiopaque foreign body. RAD/Foot min 3 Views IMPRESSION: Degenerative changes. Likely chronic stress reactive changes of the fourth metatarsal. No acute findings. Electronically Signed: Franc Bryson DO at 21:38 EST ,
[2024-10-27 12:34] LABS: Absolute Lymphocyte Count 2.84 X10^3/uL (0.83-4.51); Absolute Neutrophil Count 5.9 X10^3/uL (2.0-7.7); Basophil# 0.01 X10^3/uL; Basophil% 0.1 % (0-1); Hematocrit 44.7 % (37-47); Hemoglobin 14.6 g/dL (12.0-15.0); Lymphocyte # 2.84 X10^3/ul (0.83-4.51); Lymphocyte % 29.1 % (19-41); Mean Corp Hgb Conc 32.7 g/dL (32-36); Mean Corpuscular Hgb 29.7 pg (27.0-32.0); Mean Platelet Vol. 10.2 fl (6.2-12.0); Monocyte# 0.89 X10^3/uL; Monocyte% 9.1 % (0-10); NRBC Flagged by Analyzer 0 % (0-5); Neutrophil # 5.94 X10^3/uL (2.7-7.7); Neutrophil % 60.9 % (47-70); Platelet Count 248 K/mm3 (150-450); RBC Distribution Width SD 42.8 fl (35.1-43.9); Red Blood Count 4.91 M/mm3 (4.2-5.4); White Blood Count 9.8 K/mm3 (4.4-11.0)
[2024-10-27 12:38] LABS: Erythrocyte Sedimentation Rate 4 mm/hr (0-30)
[2024-10-27 13:54] LABS: ALB/GLOB Ratio 1.2 RATIO (0.9-2.4); AST(SGOT) 17 U/L (15-37); Alanine Aminotransfer ALT/SGPT 26 U/L (13-56); Albumin, Serum 3.9 g/dL (3.2-5.0); Alkaline Phosphatase 72 U/L (45-117); Anion Gap 6 (5-15); BUN 15 mg/dL (7-18); BUN/Creat Ratio 12.1 RATIO (10-20); Calcium,Total 10.1 mg/dL (8.5-10.1); Chloride 99 mmol/L (98-107); Creatinine, Serum 1.24 mg/dL (0.55-1.02); EST Glomerular Filtration Rate 46 mL/min (>60); Est Glom Filt Rate - Afr Amer 55 mL/min (>60); Globulin 3.3 g/dL (2.2-4.2); Glucose 99 mg/dL (74-106); Potassium 3.6 mmol/L (3.5-5.1); Protein, Total 7.2 g/dL (6.4-8.2); Sodium Level 136 mmol/L (136-145); Uric Acid 4.9 mg/dL (2.6-6.0)
== END | disposition home or self-care (01) ==
PROVIDERS: PCP Family Medicine Geriatric Medicine; Referring Provider Family Medicine Geriatric Medicine; Visit Provider Family Medicine Geriatric Medicine
DX: M79.671 Pain in right foot (principal); M10.9 Gout, unspecified; I10 Essential (primary) hypertension
CPT/HCPCS: 36415; 73630; 80053; 84550; 85025; 85652; 86140

== ENCOUNTER → 2024-12-08 | Outpatient (CLI) | payer MEDICAID, OTHER, SELFPAY ==
[2024-12-08 10:35] LABS: Absolute Lymphocyte Count 3.33 X10^3/uL (0.83-4.51); Absolute Neutrophil Count 5.3 X10^3/uL (2.0-7.7); Hematocrit 44.5 % (37-47); Hemoglobin 15.2 g/dL (12.0-15.0); Lymphocyte # 3.33 X10^3/ul (0.83-4.51); Lymphocyte % 34.2 % (19-41); Mean Corp Hgb Conc 34.2 g/dL (32-36); Mean Corpuscular Hgb 30.8 pg (27.0-32.0); Mean Corpuscular Volume 90.3 fL (81-99); Mean Platelet Vol. 10.7 fl (6.2-12.0); Monocyte# 1.02 X10^3/uL; Monocyte% 10.5 % (0-10); NRBC Flagged by Analyzer 0 % (0-5); Neutrophil # 5.34 X10^3/uL (2.7-7.7); Neutrophil % 54.8 % (47-70); Platelet Count 226 K/mm3 (150-450); RBC Distribution Width CV 13.8 % (11.6-14.6); RBC Distribution Width SD 44.9 fl (35.1-43.9); Red Blood Count 4.93 M/mm3 (4.2-5.4); White Blood Count 9.7 K/mm3 (4.4-11.0)
[2024-12-08 11:52] LABS: ALB/GLOB Ratio 1.8 RATIO (0.9-2.4); AST(SGOT) 20 U/L (<=31); Alanine Aminotransfer ALT/SGPT 17 U/L (<=34); Albumin, Serum 4.4 g/dL (3.4-4.8); Alkaline Phosphatase 67 U/L (35-104); Anion Gap 12 (5-15); BUN 24 mg/dL (4-19); BUN/Creat Ratio 19.4 RATIO (10-20); Calcium,Total 9.8 mg/dL (7.6-11.0); Carbon Dioxide 27.2 mmol/L (21.0-32.0); Chloride 100 mmol/L (98-108); Cholesterol 195 mg/dL (<=200); Creatinine, Serum 1.23 mg/dL (0.70-1.20); EST Glomerular Filtration Rate 48 (>60); Globulin 2.4 g/dL (2.2-4.2); Glucose 68 mg/dL (70-99); High Density Lipoprotein 42 mg/dL; Low Density Lipoprotein Calc. 116 mg/dL; Potassium 3.9 mmol/L (3.3-5.1); Protein, Total 6.8 g/dL (5.9-8.4); Sodium Level 139 mmol/L (133-145); Total Bilirubin 0.42 mg/dL (0.00-1.30); Triglycerides 182 mg/dL; Uric Acid 9.3 mg/dL (2.6-6.0); Very Low Density Lipoprotein 36 mg/dL (5-40); Vitamin D,25 Hydroxy 61.2 ng/mL (30-100); cholesterol:hdl ratio screen 4.61
== END | disposition home or self-care (01) ==
LOC: POLAB3 10:14
PROVIDERS: PCP Family Medicine Geriatric Medicine; Visit Provider Family Medicine Geriatric Medicine
DX: I10 Essential (primary) hypertension (principal); E78.5 Hyperlipidemia, unspecified; E55.9 Vitamin D deficiency, unspecified; M10.9 Gout, unspecified
CPT/HCPCS: 36415; 80053; 80061; 82306; 84443; 84550; 85025

== ENCOUNTER → 2024-12-15 | Outpatient (CLI) | payer MEDICARE, MEDICAID, SELFPAY ==
--- NOTE | 2024-12-15 14:48 | NEURO ---
NCS and/or EMG Patient Report Ordering Doctor: Wesly Hidalgo Chi DATE OF SERVICE: 12/15/24 Xiomy presents for electrodiagnostic testing of the upper limbs. She reports numbness and tingling in both hands. Electrodiagnostic findings: Median motor nerve demonstrates normal distal latency, amplitude and conduction velocity bilaterally. Normal ulnar motor response bilaterally, including conduction across the elbow. Normal median and ulnar F?waves. Prolonged median sensory latency at the wrist bilaterally. Normal ulnar and radial sensory responses. Needle EMG testing was performed in the upper limbs. 1+ fibrillations noted in the left pronator teres. All other muscles tested, including cervical paraspinals, showed no evidence of denervation with normal motor unit action potentials. Electrodiagnostic impression: This is an abnormal study in the upper limbs next 1. Electrodiagnostic findings suggestive of bilateral median mononeuropathy. This consistent with a mild bilateral carpal tunnel syndrome. 2. No electrodiagnostic evidence is noted for cervical radiculopathy. Multi Select Codes Neurology Neurology Interp Codes: 19447-82 Musc test done w/n test comp (interp) (2) and 30339-12 Nrv cndj test 13/> studies (interp)
== END | disposition home or self-care (01) ==
PROVIDERS: PCP Family Medicine Geriatric Medicine; Referring Provider Family Medicine Geriatric Medicine; Visit Provider Family Medicine Geriatric Medicine
DX: R29.898 Other symptoms and signs involving the musculoskeletal system (principal)
CPT/HCPCS: 95886; 95913

== ENCOUNTER → 2024-12-20 | Outpatient (CLI) | payer MEDICARE, MEDICAID, SELFPAY | END | disposition home or self-care (01) | LOC: POLAB3 16:23 | PROVIDERS: PCP Family Medicine Geriatric Medicine; Visit Provider Family Medicine Geriatric Medicine | DX: R68.83 Chills (without fever) (principal) | CPT/HCPCS: 87631 ==

== ENCOUNTER → 2024-12-27 | Outpatient (CLI) | payer MEDICARE, MEDICAID, SELFPAY ==
--- NOTE | 2024-12-27 08:05 | BI_ITS ---
EXAM: SCRN MAMM (CAD)W/LASHONDA BILAT 12/27/2024 CLINICAL HISTORY: F, Age 69 y/o , SCREENING TECHNIQUE: Bilateral Diagnostic digital breast tomosynthesis with 2D and 3D images. Computer aided detection. COMPARISON: Prior exam(s) dated 12/26/2023. FINDINGS: TISSUE DENSITY: The breast tissue is almost entirely fatty. Bilateral Breast Mammographic Findings: There are no suspicious masses, suspicious clustered microcalcifications, architectural distortion or secondary signs of malignancy identified in either breast. Stable nodular densities are seen in both breasts. Benign-appearing round microcalcifications are seen in both breasts. BI/SCRN MAMM (CAD)W/LASHONDA BILAT IMPRESSION: Right Breast: BIRADS 2 BENIGN FINDING. Left Breast: BIRADS 2 BENIGN FINDING. OVERALL FINAL ASSESSMENT: BIRADS 2 BENIGN FINDING. RECOMMENDATION: Routine annual follow-up in 1 Year A letter with findings and recommendations will be mailed to the patient. Reading Location: [id number]
== END | disposition home or self-care (01) ==
LOC: OPBI 08:03
PROVIDERS: PCP Family Medicine Geriatric Medicine; Referring Provider Family Medicine Geriatric Medicine; Visit Provider Family Medicine Geriatric Medicine
DX: Z12.31 Encounter for screening mammogram for malignant neoplasm of breast (principal)
CPT/HCPCS: 77063; 77067

== ENCOUNTER 2025-02-24 14:10 | Emergency (ER) | payer MEDICARE, MEDICAID, SELFPAY ==
[2025-02-24 14:11] VITALS: BP 161/86; PULSE 68; RESP 15; TEMP 36; O2SAT 100; BMI 48.4
--- NOTE | 2025-02-24 14:22 | CT_ITS ---
EXAM: CT Thoracic Spine Without Intravenous Contrast CLINICAL INDICATION: BACK INJURY TECHNIQUE: Axial computed tomography images of the thoracic spine without intravenous contrast. This CT exam was performed using one or more of the following dose reduction techniques: automated exposure control, adjustment of the mA and/or kV according to patient size, and/or use of iterative reconstruction technique. COMPARISON: No relevant prior studies available. FINDINGS: VERTEBRAE: Severe compression deformity of T12 vertebral body status post vertebroplasty. Degenerative disc disease and facet arthropathy throughout the thoracic spine. No acute fracture. DISCS/SPINAL CANAL/NEURAL FORAMINA: See above. SOFT TISSUES: Unremarkable. CT/Spine Thoracic without Contras IMPRESSION: 1. No acute fracture. 2. Severe compression deformity of T12 vertebral body status post vertebroplas ty. 3. Degenerative changes thoracic spine as described. Reading Location: [id number]
--- NOTE | 2025-02-24 14:22 | CT_ITS ---
EXAM: CT Lumbar Spine Without Intravenous Contrast CLINICAL INDICATION: BACK INJURY TECHNIQUE: Axial computed tomography images of the lumbar spine without intravenous contrast. This CT exam was performed using one or more of the following dose reduction techniques: automated exposure control, adjustment of the mA and/or kV according to patient size, and/or use of iterative reconstruction technique. COMPARISON: No relevant prior studies available. FINDINGS: VERTEBRAE: Severe compression deformity of T12 vertebral body status post vertebroplasty. Grade 1 anterior spondylolisthesis L4 over L5. No acute fracture. DISCS/SPINAL CANAL/NEURAL FORAMINA: No acute findings. No significant spinal canal stenosis. SOFT TISSUES: Unremarkable. CT/Spine Lumbar without Contrast IMPRESSION: 1. No acute fracture. 2. Severe compression deformity of T12 vertebral body status post vertebroplas ty. Reading Location: [id number]
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
[2025-02-24] MEDS: Morphine 4 MG/ML Syringe IM (14:30)
[2025-02-24] MEDS: Ondansetron ODT 4 MG Tablet PO (14:30)
[2025-02-24 16:02] VITALS: BP 143/58; PULSE 78; RESP 18; TEMP 36.6; O2SAT 100
== END 2025-02-24 16:03 | disposition home or self-care (01) ==
PROVIDERS: Emergency Provider Emergency Medicine; PCP Family Medicine Geriatric Medicine; Referring Provider Emergency Medicine; Visit Provider Emergency Medicine
DX: S39.012A Strain of muscle, fascia and tendon of lower back, initial encounter (principal); X58.XXXA Exposure to other specified factors, initial encounter; Z87.891 Personal history of nicotine dependence
CPT/HCPCS: 72128; 72131; 96372; 99282

== ENCOUNTER → 2025-06-22 | Outpatient (CLI) | payer MEDICARE, MEDICAID, SELFPAY ==
[2025-06-22 10:30] LABS: Hematocrit 42.9 % (37-47); Hemoglobin 14.2 g/dL (12.0-15.0); Immature Granulocytes Count 0.070 X10^3/uL (0.0-0.0); Mean Corp Hgb Conc 33.1 g/dL (32-36); Mean Corpuscular Volume 89.4 fL (81-99); Mean Platelet Vol. 9.9 fl (6.2-12.0); NRBC Flagged by Analyzer 0 % (0-5); Platelet Count 231 K/mm3 (150-450); RBC Distribution Width CV 13.2 % (11.6-14.6); RBC Distribution Width SD 43.6 fl (35.1-43.9); Red Blood Count 4.80 M/mm3 (4.2-5.4); White Blood Count 9.9 K/mm3 (4.4-11.0)
[2025-06-22 11:13] LABS: AST(SGOT) 19 U/L (<=31); Alanine Aminotransfer ALT/SGPT 15 U/L (<=34); Albumin, Serum 4.5 g/dL (3.4-4.8); Alkaline Phosphatase 65 U/L (35-104); Anion Gap 12 (5-15); BUN 21 mg/dL (4-19); BUN/Creat Ratio 17.0 RATIO (10-20); Calcium,Total 10.4 mg/dL (7.6-11.0); Carbon Dioxide 28.5 mmol/L (21.0-32.0); Chloride 100 mmol/L (98-108); Cholesterol 188 mg/dL (<=200); Globulin 2.3 g/dL (2.2-4.2); Glucose 72 mg/dL (70-99); Low Density Lipoprotein Calc. 120 mg/dL; Potassium 3.6 mmol/L (3.3-5.1); Triglycerides 141 mg/dL; Very Low Density Lipoprotein 28 mg/dL (5-40); Vitamin D,25 Hydroxy 65.7 ng/mL (30-100); cholesterol:hdl ratio screen 4.69
[2025-06-22 11:24] LABS: Uric Acid 4.7 mg/dL (2.6-6.0)
[2025-06-22 18:00] LABS: Xtra Tube Kwok EXTRA TUBE
== END | disposition home or self-care (01) ==
LOC: POLAB3 09:59
PROVIDERS: PCP Family Medicine Geriatric Medicine; Visit Provider Family Medicine Geriatric Medicine
DX: I10 Essential (primary) hypertension (principal); E03.9 Hypothyroidism, unspecified; E55.9 Vitamin D deficiency, unspecified; E78.5 Hyperlipidemia, unspecified; M10.9 Gout, unspecified
CPT/HCPCS: 36415; 80053; 80061; 82306; 84443; 84550; 85025

== ENCOUNTER → 2025-07-30 | Outpatient (CLI) | payer MEDICARE, MEDICAID, SELFPAY | END | disposition home or self-care (01) | LOC: MRI 07:45 | PROVIDERS: PCP Family Medicine Geriatric Medicine; Referring Provider Family Medicine Geriatric Medicine; Visit Provider Family Medicine Geriatric Medicine | DX: R20.2 Paresthesia of skin (principal); I48.91 Unspecified atrial fibrillation; M54.2 Cervicalgia | CPT/HCPCS: 70551 ==

== ENCOUNTER → 2025-08-31 | Outpatient (CLI) | payer MEDICARE, MEDICAID, SELFPAY ==
--- NOTE | 2025-08-31 08:57 | BD_ITS ---
PROCEDURE: DEXA BONE DENSITY STUDY 08/31/2025 REASON FOR EXAM: F, age 70 y/o . Patient is postmenopausal. TECHNIQUE: Procedure Code: BDDBD Modality: DX Procedure: DEXA BONE DENSITY STUDY COMPARISON: None FINDINGS: BMD and T-SCORES Lumbar spine: 0.901 g/cm2, T-score -1.6 Levels: L1 through L4 Left femoral neck: 0.657 g/cm2, T-score -1.7 Left total hip: 0.740 g/cm2, T-score -1.7 Right femoral neck: 0.598 g/cm2, T-score -2.3 Right total hip: 0.741 g/cm2, T-score -1.6 The World Health Organization has defined the following categories based on bone density: Normal bone density: T-score equal to or greater than -1.0 Osteopenia: T-score between -1.0 and -2.5 Osteoporosis: T-score equal to or less than -2.5 FRAX (or Comparable) Fracture Risk Assessment: 10 Year Probability of Fracture: Major Osteoporotic Fracture: 19% Hip Fracture: 4% (Note: FRAX is not to be reported in setting of normal range bone density, osteoporosis on DEXA, known history of osteoporosis, prior osteoporotic hip or vertebral fracture, or for any patient undergoing pharmacological treatment for bone loss.) The National Osteoporosis Foundation (NOF) recommends pharmacological treatment for patients with a FRAX 10-year risk of 3% or higher for a hip fracture, or 20% or higher for a major osteoporotic fracture, to prevent osteoporosis and reduce fracture risk. The patient does meet the pharmacological treatment recommendations for prevention of osteoporosis. BD/Dexa Bone Density Study IMPRESSION: OSTEOPENIA. Recommend follow-up as clinically warranted. Reading Location: [id number]
--- OUTSIDE RECORDS SUMMARY | 2025-08-31 09:23 | XMS RPT_ITS | CCD ---
Author Organization [facility] Care Team Providers [employer] Transactions Attorney Name Role Phone Dr. Wesly Hidalgo Chi Primary Care Provider Dr. Alexander Harman Emergency Provider Dr. Radha Charlton Admit Provider Dr. Radha Charlton Attending Provider Dr. Radha Charlton Other Provider Dr. Quinton Barton Attending Provider Dr. Wesly Hidalgo Chi Referring Provider Rocky, Dr. Wesly Ledbetter Primary Care Provider Dr. Quinton Barton Attending Provider Dr. Radha Charlton Referring Provider NATALIE Flores Attending Provider Rocky, Dr. Wesly Ledbetter Primary Care Provider Rocky, Dr. Wesly Ledbetter Referring Provider Dr. Quinton Barton Attending Provider NATALIE Flores Attending Provider Dr. Wesly Hidalgo Chi Primary Care Provider Rocky, Dr. Wesly Ledbetter Referring Provider Rocky, Wesly Ledbetter Primary Care Provider GroupRubin Heart Unavailable Danyell Webb PA-C Unavailable Quinton Barton MD Unavailable Danyell Ware PA-C Unavailable Puja AMEZCUA, Nicole Damian Unavailable Rocky AMEZCUA, Dr. Wesly Ledbetter Primary Care Provider Rocky AMEZCUA, Dr. Wesly Ledbetter Attending Provider Rocky AMEZCUA, Dr. Wesly Ledbetter Referring Provider Roof IT SECURITY ARCHITECT-C, Juan Miguel H Attending Provider Roof IT SECURITY ARCHITECT-C, Juan Miguel H Referring Provider Roof IT SECURITY ARCHITECT-C, Juan Miguel H Other Provider Oralia AMEZCUA, Dr. Alcantara Attending Provider Rocky AMEZCUA, Dr. Wesly Ledbetter Other Provider Berto AMEZCUA, Dr. Darby Attending Provider [phone] Aria AMEZCUA, Dr. Osman Attending Provider Rocky AMEZCUA, Dr. Wesly Ledbetter Primary Care Physician Rocky AMEZCUA, Dr. Wesly Ledbetter Attending Physician Rocky AMEZCUA, Dr. Wesly Ledbetter Referring Provider Oralia AMEZCUA, Dr. Alcantara Attending Physician Ran Dennison MD Attending Physician [phone] [place] IT SECURITY ARCHITECT-CSondra Attending Physician Rocky, Wesly Chi Primary Care Unavailable Rocky, Wesly Chi Referring Unavailable Quinton Barton Attending Unavailable Rocky, Wesly Chi Primary Care Unavailable Rocky, Wesly Chi Referring Unavailable Ran Dennison Attending Unavailable Rocky, Wesly Chi Primary Care Unavailable Roof IT SECURITY ARCHITECT, Juan Miguel North Referring Unavailable Roof IT SECURITY ARCHITECT, Juan Miguel Nroth Attending Unavailable Rocky, Wesly Chi Primary Care Unavailable Rocky, Wesly Chi Referring Unavailable Sondra Mei Attending Unavailable Rocky, Wesly Chi Primary Care Unavailable Rocky, Wesly Chi Referring Unavailable Roof IT SECURITY ARCHITECT, Juan Miguel North Attending Unavailable Rocky, Wesly Chi Primary Care Unavailable Rocky, Wesly Chi Referring Unavailable Nicole Knapp Attending Unavailable Rocky, Wesly Chi Consulting Unavailable Rocky, Wesly Chi Primary Care Unavailable Rocky, Wesly Chi Referring Unavailable Mehnaz Thomson Attending Unavailable Rocky, Wesly Chi Primary Care Unavailable Rocky, Wesly Chi Referring Unavailable Rocky, Wesly Chi Attending Unavailable Rocky, Wesly Chi Primary Care Unavailable Rocky, Wesly Chi Attending Unavailable Ungur, Remus Referring Unavailable Ungur, Remus Attending Unavailable Rocky, Wesly Chi Primary Care Unavailable Rocky, Wesly Chi Primary Care Unavailable Rocky, Wesly Chi Referring Unavailable Rocky, Wesly Chi Attending Unavailable Rocky, Wesly Chi Primary Care Unavailable Rocky, Wesly Chi Attending Unavailable Rocky, Wesly Chi Primary Care Unavailable Rocky, Wesly Chi Attending Unavailable Rocky, Wesly Chi Referring Unavailable Rocky, Wesly Chi Primary Care Unavailable Rocky, Wesly Chi Attending Unavailable Rocky, Wesly Chi Primary Care Unavailable Rocky, Wesly Chi Referring Unavailable Rocky, Wesly Chi Attending Unavailable Rocky, Wesly Chi Primary Care Unavailable Rocky, Wesly Chi Attending Unavailable Rocky, Wesly Chi Primary Care Unavailable Rocky, Wesly Chi Referring Unavailable Rocky, Wesly Chi Attending Unavailable Roof IT SECURITY ARCHITECT, Juan Miguel H Consulting Unavailable Rocky, Wesly Chi Primary Care Unavailable Roof IT SECURITY ARCHITECT, Juan Miguel H Referring Unavailable Oralia, Union Attending Unavailable SCHWEIKERT, NICOLE A Referring Unavailable ROCKY, WESLY CHI Primary Care Unavailable SCHWEIKERT, NICOLE A Attending Unavailable ORALIA, QUINTON S Referring Unavailable ROCKY, WESLY CHI Primary Care Unavailable SCHWEIKERT, NICOLE A Admitting Unavailable SCHWEIKERT, NICOLE A Attending Unavailable SCHWEIKERT, NICOLE A Referring Unavailable ROCKY, WESLY CHI Primary Care Unavailable ROCKY, WESLY CHI Primary Care Unavailable Allergies Allergy Classification Reported Allergen(s) Allergy Type Date of Onset Reaction(s) Facility (20 sources) Amitriptyline; Translations: [AMITRIPTYLINE] Drug Allergy 01-02-20 12 Intolerance [facility] (20 sources) Ampicillin; Translations: [AMPICILLIN] Drug Allergy 10-15-19 11 [facility] (20 sources) Clarithromycin; Translations: [CLARITHROMYCIN] Drug Allergy 10-15-19 11 GI Upset [facility] (20 sources) Niacin; Translations: [NIACIN] Drug Allergy 10-15-19 11 Mental Status Change [facility] (20 sources) Sulfamethoxazole; Translations: [SULFAMETHOXAZOLE] Drug Allergy 10-15-19 11 [facility] (20 sources) Trimethoprim Drug Allergy 01-05-20 21 BLOTCHES/ HIVES [facility] (10 sources) Ritonavir Drug Allergy 11-20-19 24 tachycardia [facility] (11 sources) nirmatrelvir; Translations: [nirmatrelvir] Propensity to adverse reactions 11-20-19 24 tachycardia [facility] (6 sources) Inhaled Anesthetics (Halogen Based); Translations: [INHALED ANESTHETICS (HALOGEN BASED)] Propensity to adverse reactions to drug 04-05-20 Other: See Comments [facility] (2 sources) Nirmatrelvir-Ritona vir; Translations: [NIRMATRELVIR-RITON AVIR] Drug Intolerance 05-16-20 Shortness of Breath, Other: See Comments [facility] (1 source) Amitriptyline Drug Allergy 07-09-20 [facility] (1 source) Ampicillin Drug Allergy 07-09-20 [facility] (1 source) Clarithromycin Drug Allergy 07-09-20 [facility] (1 source) Niacin Drug Allergy 07-09-20 [facility] (1 source) Ritonavir Drug Allergy 07-09-20 [facility] (1 source) Sulfamethoxazole Drug Allergy 07-09-20 [facility] (1 source) Trimethoprim Drug Allergy 07-09-20 [facility] Medications Current Medications Medication Drug Class(es) Dates Sig (Normalized) Sig (Original) ascorbic acid 1000 mg oral tablet (20 sources) Vitamin C Start: 12-15-2020 take 1 tablet by mouth once daily Ascorbic Acid (Vitamin C) 1,000 MG tablet Active 1000 mg PO DAILY December 15, 2020 1:00am SUPPLEMENT Complies with drug therapy atenolol 50 mg oral tablet (20 sources) beta-Adrenergic Wenyd Start: 09-05-2022 take 1 tablet by mouth once daily Atenolol 50 mg tablet Active 50 mg PO DAILY 90 30 3 September 05, 2022 12:52pm Complies with drug therapy Start: 08-31-2022 End: 09-05-2022 take 1 tablet by mouth once daily Atenolol 100 mg Tablet Discontinued 100 mg PO DAILY 30 30 0 August 31, 2022 1:00am September 05, 2022 12:52pm Start: 06-30-2014 End: 08-31-2022 take 2 tablets by mouth once daily Atenolol 25 MG tablet Discontinued 50 mg PO DAILY June 30, 2014 12:00am August 31, 2022 11:52am BLOOD PRESSURE Start: 06-30-2014 End: 08-31-2022 take 50 mg by mouth once daily Atenolol Discontinued 5 0 MG PO DAILY June 30, 2014 12:00am August 31, 2022 11:52am Start: 11-02-2013 End: 06-30-2014 take 1 tablet by mouth twice daily Atenolol 25 MG tablet Discontinued 25 mg PO TWICE A DAY November 02, 2013 1:00am June 30, 2014 2:13pm Start: 01-30-2012 take 1 tablet by og twice daily atenolol 50 mg ORAL tablet Take 1 tablet by mouth twice daily. 0 01/30/2012 Active biotin 5 mg sublingual tablet (4 sources) Start: 06-23-2025 take 1 tablet under the tongue once daily Biotin 5,000 mcg tablet, sublingual Active 5000 ug SL daily June 23, 2025 12:00am Complies with drug therapy calcium carbonate 1500 mg oral tablet (17 sources) Start: 09-05-2022 take 1 tablet by mouth twice daily Calcium Carbonate 600 mg calcium (1,500 mg) tablet Active 600 mg PO TWICE A DAY September 05, 2022 1:00am Complies with drug therapy cholecalciferol 0.025 mg oral tablet (20 sources) Vitamin D Start: 05-17-2025 take 1 tablet by mouth once daily cholecalciferol (VITAMIN D3) 1,000 unit tab tablet Take 1 tablet by mouth once daily. 05/17/2025 Active Start: 09-05-2022 take 1 tablet by og once daily Cholecalciferol (Vitamin D3) 25 mcg (1,000 unit) tablet Active 25 ug PO DAILY September 05, 2022 1:00am Complies with drug therapy Start: 10-20-2019 End: 12-20-2020 take 1 tablet by mouth once daily Cholecalciferol (Vitamin D3) 1,000 UNIT tablet Discontinued 1000 U PO DAILY October 20, 2019 1:00am December 20, 2020 9:41am Start: 01-30-2012 take 1 tablet by og twice daily Cholecalciferol, Vitamin D3, 1,000 unit ORAL Tab Take 1 tablet by mouth twice daily. 0 01/30/2012 Active febuxostat 40 mg oral tablet (5 sources) Xanthine Oxidase Inhibitor Start: 06-23-2025 take 1 tablet by mouth once daily Febuxostat 40 mg tablet Active 40 mg PO DAILY June 23, 2025 12:00am Gout prevention Complies with drug therapy Start: 04-27-2025 take 1 tablet by og th once daily febuxostat (ULORIC) 40 mg tab Take 40 mg by mouth once daily. 04/27/2025 Active furosemide 40 mg oral tablet (20 sources) Loop Diuretic Start: 03-01-2025 take 1 tablet by mouth once daily as needed for edema furosemide (LASIX) 40 mg tablet Take 1 tablet by mouth once daily as needed (leg edema). 03/01/2025 Active Start: 12-05-2022 take 1 tablet by og th once daily as needed Furosemide 20 mg tablet Active 20 mg PO DAILY as needed December 05, 2022 1:00am Complies with drug therapy Start: 12-13-2011 End: 08-31-2022 take 1 tablet by mouth once daily as needed Furosemide 20 MG tablet Discontinued 20 mg PO DAILY as needed for Swelling November 02, 2013 1:00am August 31, 2022 11:56am hydroCHLOROthiazide 12.5 mg / valsartan 320 mg oral tablet (20 sources) Thiazide Diuretic, Angiotensin 2 Receptor Wendy Start: 03-15-2024 Valsartan-hydroCHLOROthiazid e 320-12.5 mg per tablet 03/15/2024 Active Start: 08-30-2022 End: 09-05-2022 Valsartan-Hydrochlorothiazid e 320-12.5 mg tablet Active 1 {tbl} PO DAILY 90 September 05, 2022 12:52pm BLOOD PRESSURE Complies with drug therapy Start: 08-30-2022 End: 09-05-2022 take 1 tablet by mouth once daily Valsartan-Hydrochlorothiazide Active 1 T ABLET PO DAILY September 05, 2022 12:52pm magnesium oxide 400 mg oral tablet (19 sources) Start: 08-30-2022 take 1 tablet by mouth at bedtime Magnesium Oxide 400 mg magnesium Tablet Active 400 mg PO AT BEDTIME August 30, 2022 1:00am SUPPLEMENT Complies with drug therapy melatonin 10 mg oral capsule (7 sources) Start: 06-23-2025 take 1 capsule by mouth at bedtime as needed Melatonin 10 mg capsule Active 10 mg PO BEDTIME as needed June 23, 2025 12:00am Complies with drug therapy take 1 tablet by og th every twenty-four hours as needed melatonin 10 mg tab Take 10 mg by mouth at bedtime as needed for insomnia. Active Cynyzjmg-Nsk-Qfja-Fa-Lutein (14 sources) Start: 12-15-2020 Wokirrnp-Xwr-I ggn-Uo-Hxbjyp Active 1 EA PO DAILY December 15, 2020 4:05pm Start: 12-15-2020 Oddwkont-Lbd-D qxl-Vr-Sptztc Active 1 EA PO DAILY December 15, 2020 1:00am Start: 10-02-2017 End: 11-22-2020 Lsuxypbz-Ndi-Xakx-Fa-Lutein Discontinued 1 EACH PO DAILY October 02, 2017 2:53pm November 22, 2020 11:19am Start: 10-02-2017 End: 11-22-2020 Ugzezsij-Gti-Oaxw-Fa-Lutein Discontinued 1 EACH PO DAILY October 02, 2017 12:00am November 22, 2020 10:19am Start: 10-02-2017 End: 11-22-2020 Jqkwxlgh-Gtk-Qkqd-Fa-Lutein Discontinued 1 EACH PO DAILY October 02, 2017 1:00am November 22, 2020 11:19am Ixwnfxyu-Yjp-Imse-Fa-Lutein (Centrum Silver Women) 1 EACH tablet (6 sources) Start: 12-15-2020 take 1 tablet by mouth once daily Wstuacug-Gfl-Jbyr-Fa-Lutein (Centrum Silver Women) 1 EACH tablet Active 1 EACH PO DAILY December 15, 2020 1:00am Start: 12-15-2020 take 1 tablet by og th once daily Bkvkozxd-Maq-Esqb-Fa-Lutein (Centrum Rachel mary ellen Women) 1 EACH tablet Active 1 EACH PO DAILY December 15, 2020 12:00am Start: 12-15-2020 take 1 tablet by og th once daily Nphbwvcw-Psh-Lvly-Fa-Lutein (Centrum Rachel mary ellen Women) 1 EACH tablet Active 1 EA PO DAILY December 15, 2020 12:00am OTC NUTRITIONAL SUPPLEMENT (20 sources) take 400 mg by mouth once daily at bedtime OTC NUTRITIONAL SUPPLEMENT Take 400 mg by mouth daily at bedtime. Active OTC NUTRITIONAL SUPPLEMENT Vitamin C Active OTC NUTRITIONAL SUPPLEMENT Zinc Active OTC NUTRITIONAL SUPPLEMENT Vitamin E Active take 400 mg by mouth once daily at bedtime OTC NUTRITIONAL SUPPLEMENT Take 400 mg b y mouth daily at bedtime. 0 Active OTC NUTRITIONAL SUPPLEMENT Vitamin C 0 Active OTC NUTRITIONAL SUPPLEMENT Zinc 0 Active OTC NUTRITIONAL SUPPLEMENT Vitamin E 0 Active microencapsulated potassium chloride 20 meq extended release oral tablet (20 sources) Start: 03-01-2025 take 1 tablet by mouth once daily as needed potassium chloride ER (KLOR-CON) 20 mEq tablet Take 1 tablet by mouth once daily as needed (when taking furosemide). 03/01/2025 Active Start: 12-13-2011 take 1 tablet by og th once daily as needed Potassium Chloride 10 MEQ tablet extended release Active 10 meq PO DAILY as needed for LEG CRAMPS November 02, 2013 1:00am Complies with drug therapy vitamin e 180 mg oral capsule (20 sources) Start: 10-20-2019 take 1 capsule by mouth once daily Vitamin E 400 UNIT capsule Active 400 U PO DAILY October 20, 2019 1:00am SUPPLEMENT Complies with drug therapy Zinc (20 sources) Start: 12-15-2020 take 50 mg by mouth once daily Zinc Active 50 MG PO DAILY December 15, 2020 4:05pm Start: 12-15-2020 take 1 tablet by og th once daily Zinc 50 MG tablet Active 50 mg PO DAILY December 15, 2020 1:00am SUPPLEMENT Complies with drug therapy Start: 12-15-2020 take 1 tablet by og th once daily Zinc 50 MG tablet Active 50 mg PO DAILY December 15, 2020 1:00am Start: 12-15-2020 take 50 mg by mouth once daily Zinc Active 50 MG PO DAILY December 15, 2020 12:00am Start: 12-15-2020 take 50 mg by mouth once daily Zinc Active 50 MG PO DAILY December 15, 2020 1:00am Completed/Discontinued Medications Medication Drug Class(es) Dates Sig (Normalized) Sig (Original) acetaminophen 325 mg / HYDROcodone bitartrate 5 mg oral tablet (20 sources) Opioid Agonist Start: 02-24-2025 End: 06-23-2025 Hydrocodone-Acetami nophen 5-325 mg tablet Discontinued 1 {tbl} PO EVERY 4 HOURS NEEDED as needed for Pain 14 2 0 February 24, 2025 June 23, 2025 3:52pm Back strain Strain of muscle, fascia and tendon of lower back, initial encounter Start: 07-07-2022 End: 04-02-2024 Hydrocodone-Acetaminophen 5- 325 mg tablet Discontinued 1 {tbl} PO TWICE A DAY as needed for Pain July 07, 2022 12:00am April 02, 2024 10:02am Start: 07-07-2022 take 1 tablet by og th twice daily Hydrocodone-Acetaminophen Active 1 TABLE T PO TWICE A DAY July 07, 2022 12:00am Start: 07-02-2020 End: 01-05-2021 Hydrocodone-Acetaminophen 1 TABLET tablet Discontinued 1 NMA PO TWICE A DAY July 02, 2020 12:00am January 05, 2021 2:26pm Start: 07-02-2020 End: 01-05-2021 take 1 tablet by mouth twice daily Hydrocodone-Acetaminophen Discontinued 1 TAB PO TWICE A DAY July 02, 2020 12:00am January 05, 2021 2:26pm Start: 01-30-2012 End: 04-05-2024 take 1 tablet by mouth every eight hours as needed acetaminophen-hydrocodone 5-500 mg ORAL tablet Take 1 tablet by mouth three times daily as needed. 0 01/30/2012 04/05/2024 Discontinued (Other) acetaminophen 325 mg / oxyCODONE hydrochloride 5 mg oral tablet (20 sources) Opioid Agonist Start: 11-09-2013 End: 10-11-2019 take 1-2 tablets by mouth every six hours as needed for pain Oxycodone-Acetaminophen 1 TABLET tablet Discontinued 1 - 2 {tbl} PO EVERY 6 HOURS NEEDED as needed for Pain 42 0 October 21, 2017 2:31pm October 11, 2019 11:16am Postoperative pain Other acute postprocedural pain 1-2 tabs every 6 hours as needed for pain Start: 11-09-2013 End: 10-11-2019 take 1-2 tablets by mouth every six hours as needed for pain Oxycodone-Acetaminophen Discontinued 1 - 2 TABLET PO EVERY 6 HOURS NEEDED October 21, 2017 2:31pm October 11, 2019 11:16am 1-2 tabs every 6 hours as needed for pain albuterol 0.83 mg/ml inhalation solution (20 sources) beta2-Adrenergic Agonist Start: 08-30-2022 Albut justine Sulfate 90 mcg/actuation HFA aerosol inhaler Active 2 NMA INHALATION DIRECTED as needed for Shortness Of Breath August 30, 2022 1:00am Complies with drug therapy Start: 08-30-2022 Albuterol Sulf ate Active 2 INH INHALATION DIRECTED August 30, 2022 1:00am Start: 09-20-2020 End: 06-23-2025 take 2.5 mg by inhalation every four hours as needed Albuterol Sulfate 2.5 MG/3 ML solution for nebulization Discontinued 2.5 mg INHALATION Q4H as needed for Shortness Of Breath August 30, 2022 12:55pm June 23, 2025 3:50pm Start: 01-30-2012 take 2.5 mg by inhal ation every six hours as needed albuterol 2.5 mg/0.5 mL INHALATION nebulizer solution Use 0.5 mL via nebulizer every 6 hours as needed. 0 01/30/2012 Active take 2 puff(s) by in halation every four hours albuterol (VENTOLIN) 90 mcg/Actuation INHALATION Aero 2 puffs every 4 hours Active End: 04-05-2024 take 3-4 puff(s) by inhalation once daily Albuterol, Refill, 90 mcg/Actuation INHALATION Aero 3-4 puffs daily as necessary 0 04/05/2024 Discontinued (Other) apixaban 5 mg oral tablet (20 sources) Factor Xa Inhibitor Start: 08-31-2022 End: 09-20-2024 take 1 tablet by mouth twice daily Apixaban (Eliquis) 5 mg tablet Discontinued 5 mg PO TWICE A DAY 60 October 21, 2023 5:00pm September 20, 2024 3:38pm Budesonide / formoterol (1 source) Corticosteroid, beta2-Adrenergi c Agonist Start: 01-30-2012 End: 04-05-2024 take 2 puff(s) by inhalation twice daily budesonide-formote rol (SYMBICORT) 160-4.5 mcg/actuation INHALATION inhaler Inhale 2 Puffs as instructed twice daily. 0 01/30/2012 04/05/2024 Discontinued (Other) 168 hr buprenorphine 0.005 mg/hr transdermal system (20 sources) Partial Opioid Agonist Start: 09-05-2022 End: 04-02-2024 apply 5 ug transdermal route every week Buprenorphine 5 mcg/hour patch weekly Discontinued 1 NMA TD EVERY WEEK September 05, 2022 1:00am April 02, 2024 10:02am Start: 12-15-2020 End: 09-05-2022 Buprenorphine 1 EACH patch w meenu Discontinued 5 ug TD SA December 15, 2020 1:00am September 05, 2022 12:05pm PAIN calcium carbonate 625 mg / cholecalciferol 125 unt oral tablet (20 sources) Vitamin D Start: 12-20-2020 End: 09-05-2022 take 1 tablet by mouth twice daily Calcium Carbonate-Vitamin D3 250-125 mg-unit tablet Discontinued 600 mg PO TWICE A DAY December 20, 2020 12:00am September 05, 2022 12:08pm SUPPLEMENT Start: 12-20-2020 take 600 mg by mouth once daily Calcium Carbonate-Vitamin D3 Active 600 MG PO DAILY December 20, 2020 12:00am Start: 01-30-2012 Calcium-Cholec alciferol, D3, (CALCIUM 600 WITH VITAMIN D3) 600 mg(1,500mg) -400 unit ORAL Cap Take by mouth three times daily. Pt take twice daily 0 01/30/2012 Active citalopram 20 mg oral tablet (20 sources) Serotonin Reuptake Inhibitor Start: 10-20-2019 End: 11-22-2020 take 1 tablet by mouth once daily Citalopram 20 MG tablet Discontinued 20 mg PO DAILY October 20, 2019 1:00am November 22, 2020 11:17am clindamycin 150 mg oral capsule (20 sources) Lincosamide Antibacterial Start: 06-09-2023 End: 04-02-2024 take 3 capsules by mouth three times daily Clindamycin Hcl 150 mg capsule Discontinued 450 mg PO THREE TIMES A DAY 63 7 0 June 09, 2023 12:00am April 02, 2024 10:03am Start: 06-09-2023 take 450 mg by mouth three times daily Clindamycin Hcl Active 450 MG PO THREE TIMES A DAY 63 7 June 09, 2023 12:00am Start: 02-07-2023 End: 04-02-2024 take 1 capsule by mouth every six hours Clindamycin Hcl (Cleocin Hcl) 300 mg capsule Discontinued 300 mg PO EVERY 6 HOURS 28 0 February 07, 2023 12:00am April 02, 2024 10:03am clotrimazole 10 mg oral lozenge (1 source) Azole Antifungal Start: 01-30-2012 End: 04-05-2024 clotrimazole 10 mg MUCOUS MEM kirby Use 1 Kirby as instructed five times daily. 0 01/30/2012 04/05/2024 Discontinued (Other) colchicine 0.6 mg oral capsule (14 sources) Start: 06-09-2023 End: 04-02-2024 take 1 capsule by mouth once daily Colchicine 0.6 mg capsule Discontinued 0.6 mg PO DAILY 1 0 June 09, 2023 12:00am April 02, 2024 10:03am take 1 tablet by mouth once wilma y colchicine 0.6 mg tablet Take 0.6 mg by mouth once daily. Active cyclobenzaprine hydrochloride 10 mg oral tablet (1 source) Muscle Relaxant End: 04-05-2024 take 1 tablet by mouth three times daily as needed cyclobenzaprine (FLEXERIL) 10 mg ORAL tablet Indications: Degenerative disc disease, lumbar Take 10 mg by mouth three times daily as needed. 0 04/05/2024 Discontinued (Other) dexamethasone 6 mg oral tablet (20 sources) Corticosteroid Start: 09-20-2020 End: 11-22-2020 take 1 tablet by mouth once daily Dexamethasone 6 MG tablet Discontinued 6 mg PO DAILY 7 0 September 20, 2020 1:00am November 22, 2020 11:18am doxycycline hyclate 100 mg oral tablet (18 sources) Tetracycline-class Drug Start: 09-05-2022 End: 12-05-2022 take 1 tablet by mouth twice daily Doxycycline Hyclate 100 mg tablet Discontinued 100 mg PO TWICE A DAY September 05, 2022 1:00am December 05, 2022 11:35am End: 04-05-2024 take 1 capsule by mouth once daily doxycycline 100 mg ORAL capsule Indications: Rosacea Take 100 mg by mouth once daily. 0 04/05/2024 Discontinued (Other) DULoxetine 30 mg delayed release oral capsule (20 sources) Serotonin and Norepinephrine Reuptake Inhibitor Start: 11-22-2020 End: 04-02-2024 take 1 capsule by mouth once daily Duloxetine 30 mg capsule,delayed release(DR/EC) Discontinued 30 mg PO DAILY November 22, 2020 1:00am April 02, 2024 10:02am ANIETY/DEPRESSION 0.4 ml enoxaparin sodium 100 mg/ml prefilled syringe (20 sources) Low Molecular Weight Heparin Start: 10-21-2017 End: 10-11-2019 Enoxaparin 40 MG/0.4 ML syringe Discontinued 40 mg SC DAILY@0600 30 0 October 21, 2017 1:00am October 11, 2019 11:16am estradiol 0.1 mg/ml vaginal cream (1 source) Estrogen Start: 01-02-2012 End: 04-05-2024 estradiol (ESTRACE) 0.01 % (0.1 mg/g) VAGINAL vaginal cream Indications: Atrophic vaginitis Use 2 g vaginally. At bedtime daily for 2weeks, then may decrease to 1-3 times weekly as needed. 42.5 g 3 01/02/2012 04/05/2024 Discontinued (Other) famotidine 20 mg oral tablet (20 sources) Histamine-2 Receptor Antagonist Start: 09-05-2022 End: 04-02-2024 take 2 tablets by mouth once daily Famotidine 20 mg tablet Discontinued 40 mg PO DAILY September 05, 2022 1:00am April 02, 2024 10:02am Start: 09-05-2022 take 40 mg by mouth once daily Famotidine Active 40 MG PO DAILY September 05, 2022 1:00am Start: 12-15-2020 End: 09-05-2022 take 2 tablets by mouth once daily Famotidine 40 MG tablet Discontinued 80 mg PO DAILY December 15, 2020 1:00am September 05, 2022 12:03pm ACID REFLUX Start: 12-15-2020 End: 09-05-2022 take 80 mg by mouth once daily Famotidine Discontinued 80 MG PO DAILY December 15, 2020 1:00am September 05, 2022 12:03pm Start: 12-15-2020 take 40 mg by mouth once daily Famotidine Active 40 MG PO DAILY December 15, 2020 1:00am Start: 10-02-2017 End: 11-22-2020 take 1 tablet by mouth once daily Famotidine 40 MG tablet Discontinued 40 mg PO DAILY October 02, 2017 1:00am November 22, 2020 11:18am Flaxseed Oil-[place] 3,6,9 (15 sources) Start: 11-02-2013 End: 06-30-2014 Flaxseed Oil-[place] 3,6,9 Dis continued 1 EACH PO TWICE A DAY November 02, 2013 5:03pm June 30, 2014 2:57pm Start: 11-02-2013 End: 06-30-2014 Flaxseed Oil-[place] 3,6,9 Dis continued 1 EACH PO TWICE A DAY November 02, 2013 12:00am June 30, 2014 1:57pm Start: 11-02-2013 End: 06-30-2014 Flaxseed Oil-[place] 3,6,9 Dis continued 1 EACH PO TWICE A DAY November 02, 2013 1:00am June 30, 2014 2:57pm Flaxseed Oil-[place] 3,6,9 1 EACH capsule (8 sources) Start: 11-02-2013 End: 06-30-2014 Flaxseed Oil-[place] 3,6,9 1 EACH capsule Discontinued 1 NMA PO TWICE A DAY November 02, 2013 1:00am June 30, 2014 2:57pm gabapentin 300 mg oral capsule (1 source) Anti-epileptic Agent End: 04-05-2024 take 1 capsule by mouth twice daily gabapentin (NEURONTIN) 300 mg ORAL capsule Indications: Degenerative disc disease, cervical , Degenerative disc disease, lumbar Take 300 mg by mouth twice daily. 0 04/05/2024 Discontinued (Other) metroNIDAZOLE 7.5 mg/ml topical lotion (1 source) Nitroimidazole Antimicrobial End: 04-05-2024 Metronidazole 0.75 % TOPICAL Lotn Indications: Rosacea Apply to affected area. 0 04/05/2024 Discontinued (Other) Nyxxfbgv-Pjt-Byyg-F a-Vit K-Lut (5 sources) Start: 10-02-2017 End: 11-22-2020 Ywctijtq-Esj-Jccp- Fa-Vit K-Lut Discontinued 1 EACH PO DAILY October 02, 2017 12:00am November 22, 2020 10:19am Start: 10-02-2017 End: 11-22-2020 Tvwsqhsz-Rjl-Sham-Fa-Vit K-L ut Discontinued 1 EACH PO DAILY October 02, 2017 1:00am November 22, 2020 11:19am Cyatwvyn-Ypn-Jsqs-Fa-Vit K-Lut (Centrum Silver Women) 1 EACH tablet (13 sources) Start: 12-15-2020 End: 06-23-2025 take 1 tablet by mouth once daily Fjzfyyaf-Wxl-Hjqe-Fa-Vit K-Lut (Centrum Silver Women) 1 EACH tablet Discontinued 1 NMA PO DAILY December 15, 2020 1:00am June 23, 2025 3:52pm HEALTH MAINTENANCE Start: 12-15-2020 take 1 tablet by og th once daily Klyjoyec-Olm-Psvf-Fa-Vit K-Lut (Centrum Silver Women) 1 EACH tablet Active 1 NMA PO DAILY December 15, 2020 1:00am Start: 12-15-2020 take 1 tablet by og th once daily Eejrswnk-Mhk-Erla-Fa-Vit K-Lut (Centrum Silver Women) 1 EACH tablet Active 1 EACH PO DAILY December 15, 2020 12:00am Start: 12-15-2020 take 1 tablet by og th once daily Anbufcdp-Yhe-Qxzj-Fa-Vit K-Lut (Centrum Silver Women) 1 EACH tablet Active 1 EACH PO DAILY December 15, 2020 1:00am Hcyheola-Bqc-Ecgf-Fa-Vit K-Lut 1 EACH tablet (8 sources) Start: 10-02-2017 End: 11-22-2020 take 1 tablet by mouth once daily Bjanynbv-Uqy-Mhto-Fa-Vit K-Lut 1 EACH tablet Discontinued 1 NMA PO DAILY October 02, 2017 1:00am November 22, 2020 11:19am omeprazole 20 mg delayed release oral capsule (1 source) Proton Pump Inhibitor Start: 01-02-2012 End: 04-05-2024 take 1 capsule by mouth once daily omeprazole (PRILOSEC) 20 mg ORAL capsule Take 1 capsule by mouth once daily. 0 01/02/2012 04/05/2024 Discontinued (Other) oseltamivir 75 mg oral capsule (18 sources) Neuraminidase Inhibitor Start: 08-31-2022 End: 12-05-2022 take 1 capsule by mouth twice daily Oseltamivir (Tamiflu) 75 mg capsule Discontinued 75 mg PO TWICE A DAY 8 4 0 August 31, 2022 1:00am December 05, 2022 11:36am predniSONE 10 mg oral tablet (20 sources) Start: 09-05-2022 End: 12-05-2022 Prednisone 10 mg tablet Discontinued 0 PO .COMPLEX September 05, 2022 1:00am December 05, 2022 11:35am orally; TAKE 3 TABLETS BY MOUTH DAILY FOR 2 DAYS, THEN 2 TABLETS DAILY FOR 2 DAYS, THEN 1 TABLET DAILY FOR 2 DAYS, THEN STOP. Start: 08-31-2022 End: 09-05-2022 take 2 tablets by mouth once daily Prednisone 20 mg tablet Discontinued 40 mg PO DAILY 10 August 31, 2022 1:00am September 05, 2022 12:11pm Start: 08-31-2022 End: 09-05-2022 take 40 mg by mouth once daily Prednisone Discontinued 40 MG PO DAILY 10 August 31, 2022 1:00am September 05, 2022 12:11pm SODIUM CHLORIDE/SOD BICARB (NEILMED PEDIAT SINUS RINSE REF NASAL) (1 source) End: 04-05-2024 SODIUM CHLORIDE/SOD BICARB (NEILMED PEDIAT SINUS RINSE REF NASAL) 1-2 x daily 0 04/05/2024 Discontinued (Other) tiZANidine 4 mg oral tablet (20 sources) Central alpha-2 Adrenergic Agonist Start: 10-02-2017 End: 11-18-2024 take 1 tablet by mouth at bedtime Tizanidine 4 MG tablet Discontinued 4 mg PO AT BEDTIME October 02, 2017 1:00am April 02, 2024 10:01am SPASMS Problems Active Problems Problem Classification Problem Date Documented Date Episodic/Chronic Asthma (20 sources) Asthma; Translations: [Unspecified asthma, uncomplicated] Onset: 12-13-2011 09-04-2022 Chronic Cardiac dysrhythmias (20 sources) Atrial fibrillation with rapid ventricular response; Translations: [Unspecified atrial fibrillation] Onset: 08-30-2022 Chronic Cardiac dysrhythmias (20 sources) Sinus tachycardia; Translations: [Tachycardia, unspecified] Episodic Complications of surgical procedures or medical care (17 sources) Malignant hyperthermia; Translations: [Malignant hyperthermia due to anesthesia, initial encounter] 09-05-2022 Episodic Disorders of lipid metabolism (17 sources) Hyperlipidemia; Translations: [Hyperlipidemia, unspecified] 09-05-2022 Chronic Esophageal disorders (5 sources) Gastroesophageal reflux disease; Translations: [Gastro-esophageal reflux disease without esophagitis] Onset: 12-13-2011 12-13-2011 Chronic Essential hypertension (20 sources) Hypertensive disorder; Translations: [Essential (primary) hypertension] Onset: 04-04-2024 Chronic Gout and other crystal arthropathies (1 source) Gout, unspecified; Translations: [Gout, unspecified] Onset: 11-08-2024 Chronic Influenza (20 sources) Pneumonia and influenza; Translations: [Influenza due to unidentified influenza virus with unspecified type of pneumonia] Episodic Menopausal disorders (5 sources) Atrophic vaginitis; Translations: [Postmenopausal atrophic vaginitis] Onset: 01-02-2012 01-02-2012 Chronic Mood disorders (20 sources) Depressive disorder; Translations: [Depression] 09-04-2022 Chronic Osteoarthritis (10 sources) Arthritis of right knee; Translations: [Unilateral primary osteoarthritis, right knee] Onset: 12-13-2011 12-13-2011 Chronic Other aftercare (8 sources) Long-term current use of drug therapy; Translations: [Encounter for therapeutic drug level monitoring] 10-11-2024 Episodic Other bone disease and musculoskeletal deformities (20 sources) Osteopenia; Translations: [Other specified disorders of bone density and structure, unspecified site] 09-04-2022 Episodic Other connective tissue disease (20 sources) History of left ankle arthroplasty; Translations: [Presence of left artificial ankle joint] 09-04-2022 Chronic Other inflammatory condition of skin (5 sources) Rosacea; Translations: [Rosacea, unspecified] Onset: 12-13-2011 12-13-2011 Chronic Other injuries and conditions due to external causes (14 sources) Hematoma; Translations: [Other injury of unspecified body region, initial encounter] 02-07-2023 Episodic Other injuries and conditions due to external causes (14 sources) Puncture wound - injury; Translations: [Other injury of unspecified body region, initial encounter] 02-07-2023 Episodic Other lower respiratory disease (19 sources) Hypoxia; Translations: [Hypoxemia] 09-04-2022 Episodic Other lower respiratory disease (2 sources) Hypoxemia; Translations: [Hypoxemia] Episodic Other lower respiratory disease (2 sources) Dyspnea; Translations: [Dyspnea, unspecified] 05-20-2025 Episodic Other lower respiratory disease (1 source) Dyspnea, unspecified; Translations: [Dyspnea, unspecified type] Onset: 08-16-2025 Episodic Other nervous system disorders (8 sources) Bilateral carpal tunnel syndrome; Translations: [Carpal tunnel syndrome, bilateral upper limbs] 07-01-2025 Chronic Other nervous system disorders (1 source) Carpal tunnel syndrome, bilateral upper limbs; Translations: [Carpal tunnel syndrome, bilateral upper limbs] Onset: 07-01-2025 Chronic Other nervous system disorders (1 source) Paresthesia of skin; Translations: [Paresthesia of skin] Onset: 08-08-2025 Episodic Other nutritional; endocrine; and metabolic disorders (5 sources) Cholesterol level - finding; Translations: [Lipoprotein deficiency] Onset: 12-13-2011 12-13-2011 Chronic Other skin disorders (5 sources) Lesion of skin of face; Translations: [Disorder of the skin and subcutaneous tissue, unspecified] 12-31-2024 Episodic Other skin disorders (6 sources) Seborrheic keratosis; Translations: [Other seborrheic keratosis] 12-31-2024 Episodic Other upper respiratory disease (19 sources) Acute bronchospasm; Translations: [Acute bronchospasm] 09-04-2022 Episodic Other upper respiratory disease (2 sources) Acute bronchospasm; Translations: [Acute bronchospasm] Episodic Residual codes; unclassified (4 sources) FH: Malignant hyperpyrexia; Translations: [Family history of other specified conditions] 11-19-2024 Episodic Residual codes; unclassified (1 source) H/O cardiac surgery; Translations: [Other specified postprocedural states] 05-17-2025 Episodic Spondylosis; intervertebral disc disorders; other back problems (10 sources) Degeneration of cervical intervertebral disc; Translations: [Other cervical disc degeneration, unspecified cervical region] Onset: 12-13-2011 12-13-2011 Chronic Spondylosis; intervertebral disc disorders; other back problems (20 sources) Chronic low back pain; Translations: [Acute exacerbation of chronic low back pain] Onset: 12-13-2011 01-06-2020 Episodic Sprains and strains (20 sources) Lower back injury; Translations: [Strain of muscle, fascia and tendon of lower back, initial encounter] 07-15-2022 Episodic Superficial injury; contusion (20 sources) Contusion of chest; Translations: [Contusion of unspecified back wall of thorax, initial encounter] 07-03-2020 Episodic Unclassified (2 sources) Lesion of skin of cheek; Translations: [L98.9 - Disorder of the skin and subcutaneous tissue, unspecified] Unclassified (2 sources) Other persistent atrial fibrillation; Translations: [Persistent atrial fibrillation (HCC)] Onset: 08-16-2025 Past or Other Problems Problem Classification Problem Date Documented Date Episodic/Chronic Other aftercare (7 sources) Long-term current use of anticoagulant; Translations: [skilled nursing (current) use of anticoagulants] Onset: 04-04-2024 04-04-2024 Episodic Other aftercare (2 sources) Encounter for therapeutic drug level monitoring; Translations: [Encounter for therapeutic drug level monitoring] Onset: 11-02-2024 Episodic Other aftercare (2 sources) Other terminal makeup operator (current) drug therapy; Translations: [Other terminal makeup operator (current) drug therapy] Onset: 11-02-2024 Episodic Other aftercare (1 source) skilled nursing (current) use of anticoagulants; Translations: [Anticoagulant long-term use] Onset: 04-04-2024 Episodic Other connective tissue disease (2 sources) Other symptoms and signs involving the musculoskeletal system; Translations: [Other symptoms and signs involving the musculoskeletal system] Onset: 01-18-2025 Episodic Other connective tissue disease (1 source) Pain in right foot; Translations: [Pain in right foot] Onset: 11-15-2024 Episodic Other injuries and conditions due to external causes (1 source) Unspecified injury of lower back, initial encounter; Translations: [Unspecified injury of lower back, initial encounter] Onset: 03-02-2025 Episodic Other screening for suspected conditions (not mental disorders or infectious disease) (11 sources) Electrocardiogram abnormal; Translations: [Abnormal electrocardiogram [ECG] [EKG]] Onset: 11-10-2024 10-11-2024 Episodic Residual codes; unclassified (8 sources) Other specified personal risk factors, not elsewhere classified; Translations: [Other specified personal history presenting hazards to health] Onset: 04-04-2024 04-04-2024 Episodic Residual codes; unclassified (1 source) Chills (without fever); Translations: [Chills (without fever)] Onset: 12-30-2024 Episodic Residual codes; unclassified (1 source) Family history of other specified conditions; Translations: [Family history of malignant hyperthermia] Onset: 11-19-2024 Episodic Unclassified (20 sources) Status post L4-L5 laminectomy 07-17-2022 Unclassified (20 sources) history of superficial venous thrombosis 09-05-2022 Comment on above: X2 right leg Results Test Name Value Interpretation Reference Range Facility [facility] 08-16-2025 Echocardiography Echocardiography Rep ort: Transthoracic Echo [facility] Date of service: 08/16/2025 10:35:51 AM [facility] Ordering physician: NICOLE ALLEN Exam indication: Sustained atrial fibrillation Technologist: Chelly Eastman [facility] Interpreting physician: Yovany Hernandez MD PATIENT: Name: CRIS RUBIO : 1955 Age: 70 years Gender: F History of hypertension and arrhythmia. Primary rhythm: sinus. Height: 152.40 cm BSA: 1.84 m Weight: 80.29 kg BMI: 34.6 kg/m Heart rate 65 bpm Blood pressure 137/77 mmHg Color Doppler was utilized to interrogate the cardiac valves assessed and spectral Doppler was utilized to determine the flow velocities and pressure gradients reported in this exam. MEASUREMENTS: Value Indexed Normal Max aortic dimension 3.2 cm Ao < 3.8 Left atrial volume 59 ml (Beth's) 33 ml/m Zhane <= 34 LV ID (diastole) 4.4 cm (2D) 2.39 cm/m LV ID (systole) 2.9 cm (2D) 1.57 cm/m IVS, leaflet tips 1.3 cm (2D) Posterior wall thickness 1.2 cm (2D) Left ventricular mass 207 g (2D) 112 g/m LV stroke volume 38 ml (2D biplane) LV end diastolic volume 67 ml (2D biplane) 36.1 ml/m 29<=EDVi<62 LV end systolic volume 29 ml (2D biplane) 15.5 ml/m Ejection Fraction 57 % (2D biplane) EF > 54 FINDINGS: LEFT VENTRICLE The left ventricle is normal in size. There is mild left ventricular hypertrophy. Left ventricular systolic function is normal. Normal left ventricular diastolic function. Mitral annular lateral E/e': 8.1. Mitral annular septal E/e': 12.5. Wall Motion: All scored segments are normal. RIGHT VENTRICLE The right ventricle is normal in size. Right ventricular systolic function is normal. RV systolic tissue Doppler velocity is 11.7 cm/s. Tricuspid annular displacement is 2.0 cm. Estimated right ventricular systolic pressure is 33 mmHg consistent with normal pulmonary artery pressures. Estimated right atrial pressure is 8 mmHg based on IVC assessment. LEFT ATRIUM The left atrial cavity is normal in size. RIGHT ATRIUM The right atrial cavity is normal in size. Inferior Vena Cava: The inferior vena cava appears dilated measuring 2.2 cm. The vessel decreases greater than 50 percent with inspiration. MITRAL VALVE There is mild (1+) mitral valve regurgitation. There is mild thickening. The pressure half time is 44 msec. The peak mitral E/A ratio is 2.21. The average mitral E/e' ratio is 10.3. The mitral flow deceleration time is 151 msec. TRICUSPID VALVE The tricuspid valve leaflets are structurally normal. There is trace (trace - 1+) tricuspid valve regurgitation. AORTIC VALVE There is no aortic valve stenosis. There is trace (trace - 1+) aortic valve regurgitation. Tricuspid aortic valve. There is mild thickening. PULMONIC VALVE The pulmonic valve cusps are structurally normal. There is trace pulmonic valve regurgitation. AORTA The visualized aorta is normal in size. Measurements - Sinus: 3.2 cm. Mid ascending aorta 2.5 cm. Distal ascending aorta 2.7 cm. Mid arch 2.9 cm. PULMONARY ARTERIES The pulmonary arteries are unseen or not interrogated. INTERATRIAL SEPTUM There is no evidence of intracardiac shunting as detected by Doppler. INTERVENTRICULAR SEPTUM There is no flow through the interventricular septum as detected by Doppler. PERICARDIUM There is no pericardial effusion. CONCLUSIONS: - Exam indication: Sustained atrial fibrillation - The left ventricle is normal in size. There is mild left ventricular hypertrophy. Left ventricular systolic function is normal. EF = 57 5% (2D biplane) Normal left ventricular diastolic function. - The right ventricle is normal in size. Right ventricular systolic function is normal. - No significant valve disease: Trivial AI, 1+ MR, trivial TR, trivial PI - The patient has not had a prior CC echocardiographic exam for comparison. * * * Final * * * CC [id number] : [id number] Normal [facility] Brain without Contraston Brain without Contrast [facility] [address] [place] [id number] Brain without Contrast MR#: [id number] Acct: [id number] Name: CRIS RUBIO Rep #: [id number] : 1955 F 70 From: Lynnette Stallworth MD PCP: Dr. Wesly Hidalgo MD Status: REG CLI Study: Brain without Contrast Date of Exam: 07/30/25 Exam# [id number] Ordering Dr: Wesly Hidalgo MD PROCEDURE: BRAIN WITHOUT CONTRAST 07/30/2025 REASON FOR EXAM: RT HAND PARESTHESIA TECHNIQUE: Procedure Code: MRIBR Modality: MR Procedure: BRAIN WITHOUT CONTRAST Multiplanar and multisequence images were obtained. COMPARISON: None. FINDINGS: Brain: Mild cerebral atrophy and chronic periventricular white matter disease. No restricted diffusion. No hemorrhage. No mass-effect or midline shift. The craniocervical junction is unremarkable. The orbits are unremarkable. Ventricles: No ventriculomegaly. Major Intracranial Vessels: Patent. Sinuses: Clear. Mastoids: Clear. MRI/Brain without Contrast IMPRESSION: No acute brain abnormalities. Mild white matter changes which are nonspecific but most likely due to chronic small-vessel ischemia. Reading Location: [facility] CC: Dr. Wesly Hidalgo MD [employer] Keeper: Signed Normal [facility] Urgent Care Visit Reporton 1 Urgent Care Visit Report [facility] [address], [address] [place] [address] OFFICE VISIT Date of Service: 07/09/25 MR#: [id number] Acct: [id number] Name: CRIS RUBIO Rep #: [id number] : 1955 Provider: SIM Mei Age/Sex: 70/F Location[place] [facility] Status: Signed Intake Vital Signs 07/01/25 09:50 07/09/25 11:42 Height 5 ft 5 ft Weight: 174 lb 177 lb BMI 34.0 34.5 BP 114/70 Blood Pressure Location Lt brachial Position Sitting Respiration 16 Pulse 65 Pulse Source NIBP Temp 98.5 F Temp Source Oral Pulse Oximetry (%) 98 Oxygen Delivery Method room air Intake Visit Reasons: R SIDE EAR PAIN Chief Complaint: right head/ear/neck/arm pain Education Paraprofessional Required: No Is patient in pain?: Yes Allergies ampicillin Allergy (Intermediate, Verified 07/09/25 11:43) Rash sulfamethoxazole (From Bactrim) Allergy (Intermediate, Verified 07/09/25 11:43) BLOTCHES/ HIVES trimethoprim (From Bactrim) Allergy (Intermediate, Verified 07/09/25 11:43) BLOTCHES/ HIVES niacin (From Niaspan Extended-Release) Adverse Reaction (Intermediate, Verified 07/09/25 11:43) REDDNESS/ PASSED OUT amitriptyline Adverse Reaction (Mild, Verified 07/09/25 11:43) EARS RING clarithromycin (From Biaxin) Adverse Reaction (Mild, Verified 07/09/25 11:43) Upset Stomach nirmatrelvir (From Paxlovid) Adverse Reaction (Mild, Verified 07/09/25 11:43) tachycardia ritonavir (From Paxlovid) Adverse Reaction (Mild, Verified 07/09/25 11:43) tachycardia Medications ???Medication ???Instructions ???Recorded ???Confirmed ???Type potassium chloride 10 mEq 10 meq PO DAILY PRN LEG CRAMPS 07/09/25 History tablet,extended release vitamin E 268 mg (400 unit) capsule 400 unit PO DAILY SUPPLEMENT 07/09/25 History ascorbic acid (vitamin C) 1,000 mg 1,000 mg PO DAILY SUPPLEMENT 09/2507/09/25 History tablet zinc 50 mg tablet 50 mg PO DAILY SUPPLEMENT 12/15/20 07/09/25 History albuterol sulfate 90 mcg/actuation 2 inh inhalation UD PRN Shortnes s 08/30/22 07/09/25 History aerosol inhaler Of Breath magnesium oxide 400 mg PO QHS SUPPLEMENT 08/30/22 07/09/25 History atenolol 50 mg tablet 50 mg PO DAILY 30 days #90 tabs 07/09/25 Rx calcium carbonate 600 mg PO BID 09/05/22 07/09/25 Hi story cholecalciferol (vitamin D3) 25 25 mcg PO DAILY 09/05/22 07/09/25 History mcg (1,000 unit) tablet valsartan 320 1 tab PO DAILY BLOOD PRESSURE #90 12/01/22 10/04/25 Rx mg-hydrochlorothiazide 12.5 mg tabs tablet furosemide 20 mg tablet 20 mg PO DAILY PRN 12/05/22 History apixaban 5 mg tablet (Eliquis) 5 mg PO BID #60 tabs 09/20/2401/28 Rx biotin 5,000 mcg sublingual tablet 5,000 mcg sublingual QDAY 07/09/25 History febuxostat 40 mg tablet 40 mg PO DAILY Gout prevention 07/09/25 History melatonin 10 mg capsule 10 mg PO HS PRN 06/23/25 07/09/25 History Is last menstrual period known: No Post menopausal: Yes Patient : No Have you fallen in the past year?: No Nurse's Note: started with right temporal scalp pain , now into right ear/neck/shoulder/arm/dash nd. sharp searing pain. pt hx of shingles in same area approx 3 years ago and received shingles vaccine upon resolution. no rash visible today and pt denies rash PFSH Medical History Bilateral carpal tunnel syndrome PAF (paroxysmal atrial fibrillation) Spinal stenosis Hyperlipidemia Atrial fibrillation with rapid ventricular response (08/30/22) Essential hypertension Bronchospasm, acute Hypoxia Influenza with pneumonia Status post L4-L5 laminectomy Depression Asthma Malignant hyperthermia Osteoarthritis Hemorrhoid GERD (gastroesophageal reflux disease) history of superficial venous thrombosis Rosacea Osteopenia Surgical History History of cardiac radiofrequency ablation (05/16/25) H/O kyphoplasty History of colonoscopy ( 2006) History of fasciotomy Status post laser ablation of incompetent vein History of right knee joint replacement History of total replacement of left ankle Family History Brother Malignant hyperthermia due to anesthesia Brother Malignant hyperthermia due to anesthesia Brother Malignant hyperthermia due to anesthesia Diabetes Hypertension Cancer lung Asthma Mother Diabetes Hypertension Father Cancer lung Aunt Colon cancer Social History Smoking Status: Former smoker how long ago did patient quit smokin alcohol intake: never substance use type: does not use caffeine: Yes Type: carbonated beverages Nu (more content not included)... Normal [facility] Orthopedic Visit Reporton Orthopedic Visit Report [facility] [address] [place] [address] [address] [place] [address] OFFICE VISIT Date of Service: 07/01/25 MR#: [id number] Acct: [id number] Name: CRIS RUBIO Rep #: [id number] : 1955 Provider: Dr. Ran wolfe MD Age/Sex: 70/F Location[place] [facility] Status: Signed Intake Vital Signs 06/23/25 15:46 07/01/25 09:50 Height 5 ft 5 ft Weight: 175 lb 174 lb BMI 34.2 34.0 BP 133/74 H Blood Pressure Location Lt brachial Position Sitting Respiration 16 Pulse 66 Pulse Source Monitor Intake Visit Reasons: BL HANDS Chief Complaint: BL hands Accompanied by: Self Is patient in pain?: Yes (BL hands) Pain scale (1-10): 2 Allergies ampicillin Allergy (Intermediate, Verified 07/01/25 09:51) Rash sulfamethoxazole (From Bactrim) Allergy (Intermediate, Verified 07/01/25 09:51) BLOTCHES/ HIVES trimethoprim (From Bactrim) Allergy (Intermediate, Verified 07/01/25 09:51) BLOTCHES/ HIVES niacin (From Niaspan Extended-Release) Adverse Reaction (Intermediate, Verified 07/01/25 09:51) REDDNESS/ PASSED OUT amitriptyline Adverse Reaction (Mild, Verified 07/01/25 09:51) EARS RING clarithromycin (From Biaxin) Adverse Reaction (Mild, Verified 07/01/25 09:51) Upset Stomach nirmatrelvir (From Paxlovid) Adverse Reaction (Mild, Verified 07/01/25 09:51) tachycardia ritonavir (From Paxlovid) Adverse Reaction (Mild, Verified 07/01/25 09:51) tachycardia Medications ???Medication ???Instructions ???Recorded ???Confirmed ???Type potassium chloride 10 mEq 10 meq PO DAILY PRN LEG CRAMPS 07/01/25 History tablet,extended release vitamin E 268 mg (400 unit) capsule 400 unit PO DAILY SUPPLEMENT 07/01/25 History ascorbic acid (vitamin C) 1,000 mg 1,000 mg PO DAILY SUPPLEMENT 09/2506/23/25 History tablet zinc 50 mg tablet 50 mg PO DAILY SUPPLEMENT 12/15/20 07/01/25 History albuterol sulfate 90 mcg/actuation 2 inh inhalation UD PRN Shortnes s 08/30/22 07/01/25 History aerosol inhaler Of Breath magnesium oxide 400 mg PO QHS SUPPLEMENT 08/30/22 07/01/25 History atenolol 50 mg tablet 50 mg PO DAILY 30 days #90 tabs 07/01/25 Rx calcium carbonate 600 mg PO BID 09/05/22 07/01/25 Hi story cholecalciferol (vitamin D3) 25 25 mcg PO DAILY 09/05/22 07/01/25 History mcg (1,000 unit) tablet valsartan 320 1 tab PO DAILY BLOOD PRESSURE #90 09/05/22 07/01/25 Rx mg-hydrochlorothiazide 12.5 mg tabs tablet furosemide 20 mg tablet 20 mg PO DAILY PRN 12/05/22 History apixaban 5 mg tablet (Eliquis) 5 mg PO BID #60 tabs 09/20/2406/07 Rx biotin 5,000 mcg sublingual tablet 5,000 mcg sublingual QDAY 07/01/25 History febuxostat 40 mg tablet 40 mg PO DAILY Gout prevention 07/01/25 History melatonin 10 mg capsule 10 mg PO HS PRN 06/23/25 07/01/25 History Have you fallen in the past year?: No PFSH Medical History Bilateral carpal tunnel syndrome PAF (paroxysmal atrial fibrillation) Spinal stenosis Hyperlipidemia Atrial fibrillation with rapid ventricular response (08/30/22) Essential hypertension Bronchospasm, acute Hypoxia Influenza with pneumonia Status post L4-L5 laminectomy Depression Asthma Malignant hyperthermia Osteoarthritis Hemorrhoid GERD (gastroesophageal reflux disease) history of superficial venous thrombosis Rosacea Osteopenia Surgical History History of cardiac radiofrequency ablation (05/16/25) H/O kyphoplasty History of colonoscopy ( 2006) History of fasciotomy Status post laser ablation of incompetent vein History of right knee joint replacement History of total replacement of left ankle Family History Brother Malignant hyperthermia due to anesthesia Brother Malignant hyperthermia due to anesthesia Brother Malignant hyperthermia due to anesthesia Diabetes Hypertension Cancer lung Asthma Mother Diabetes Hypertension Father Cancer lung Aunt Colon cancer Social History Smoking Status: Former smoker how long ago did patient quit smokin alcohol intake: never substance use type: does not use caffeine: Yes Type: carbonated beverages Number of servings: 1 HPI BL HANDS Details: This documentation accurately reflects the service provided and the decisions made by me, Dr. Ran Dennison MD 07/01/25 0841. Part of today???s visit was documented by [ ], acting as scribe. CRIS RUBIO is a 70 year old F here today for bilat CTS. had a right side injection it helped for a bit. hard to open jars. had it since 1999 mild. 1.5 yrs getting worse. hurts i (more content not included)... Normal [facility] Cardiology Visit Reporton Cardiology Visit Report [facility] [place] [address] OFFICE VISIT Date of Service: 06/23/25 MR#: [id number] Acct: [id number] Name: CRIS RUBIO Rep #: [id number] : 1955 Provider: Dr. Quinton Barton MD Age/Sex: 70/F [place] [facility] Status: Signed HPI HPI History of Present Illness Details: Cris Rubio is a 70-year-old lady with a history of hypertension, hyperlipidemia, and atrial fibrillation. Atrial fibrillation was noted during a hospital stay for influenza. She did have an echocardiogram performed which demonstrated an ejection fraction of 65% with no wall motion abnormalities and pulmonary artery systolic pressure of 33 mmHg. She had COVID in previously and after taking one dose of Paxlovid she had Afib. She was seen with [facility] [facility] team, Dr. Allen, on 11/19/2024. She was seen by the water resource consultant in [place] and underwent atrial fibrillation ablation successfully. She denies chest, arm, jaw, or neck discomfort. She noted headaches, upper body pressure, and shortness of breath. This is followed by fatigue. She denies bilateral lower extremity edema. She denies claudication. She denies shortness of breath with activity, shortness of breath at rest, orthopnea, or PND. She denies chronic cough. She denies significant, sudden weight gain. She denies lightheadedness, dizziness, near-syncope, or syncope. She denies blood in urine, blood in stool, or epistaxis. He denies fever with chills. She denies myalgia. She denies fatigue. Her exercise level has remained stable. Intake Vital Signs 04/02/24 10:04 02/24/25 14:11 06/23/25 15:46 Height 5 ft 5 ft 5 ft Weight: 175 lb BMI 34.2 BP 133/74 H Blood Pressure Location Lt brachial Position Sitting Respiration 16 Pulse 66 Pulse Source Monitor Intake Visit Reasons: 1 Y FU Education Paraprofessional Required: No Accompanied by: Self Is patient in pain?: No Allergies ampicillin Allergy (Intermediate, Verified 06/23/25 15:49) Rash sulfamethoxazole (From Bactrim) Allergy (Intermediate, Verified 06/23/25 15:49) BLOTCHES/ HIVES trimethoprim (From Bactrim) Allergy (Intermediate, Verified 06/23/25 15:49) BLOTCHES/ HIVES niacin (From Niaspan Extended-Release) Adverse Reaction (Intermediate, Verified 06/23/25 15:49) REDDNESS/ PASSED OUT amitriptyline Adverse Reaction (Mild, Verified 06/23/25 15:49) EARS RING clarithromycin (From Biaxin) Adverse Reaction (Mild, Verified 06/23/25 15:49) Upset Stomach nirmatrelvir (From Paxlovid) Adverse Reaction (Mild, Verified 06/23/25 15:49) tachycardia ritonavir (From Paxlovid) Adverse Reaction (Mild, Verified 06/23/25 15:49) tachycardia Medications ???Medication ???Instructions ???Recorded ???Confirmed ???Type potassium chloride 10 mEq 10 meq PO DAILY PRN LEG CRAMPS 06/23/25 History tablet,extended release vitamin E 268 mg (400 unit) capsule 400 unit PO DAILY SUPPLEMENT 06/23/25 History ascorbic acid (vitamin C) 1,000 mg 1,000 mg PO DAILY SUPPLEMENT 09/2506/23/25 History tablet zinc 50 mg tablet 50 mg PO DAILY SUPPLEMENT 12/15/20 06/23/25 History albuterol sulfate 90 mcg/actuation 2 inh inhalation UD PRN Shortnes s 08/30/22 06/23/25 History aerosol inhaler Of Breath magnesium oxide 400 mg PO QHS SUPPLEMENT 08/30/22 06/23/25 History atenolol 50 mg tablet 50 mg PO DAILY 30 days #90 tabs 06/23/25 Rx calcium carbonate 600 mg PO BID 09/05/22 06/23/25 Hi story cholecalciferol (vitamin D3) 25 25 mcg PO DAILY 09/05/22 06/23/25 History mcg (1,000 unit) tablet valsartan 320 1 tab PO DAILY BLOOD PRESSURE #90 09/05/22 06/23/25 Rx mg-hydrochlorothiazide 12.5 mg tabs tablet furosemide 20 mg tablet 20 mg PO DAILY PRN 12/05/22 History apixaban 5 mg tablet (Eliquis) 5 mg PO BID #60 tabs 09/20/2406/06 Rx biotin 5,000 mcg sublingual tablet 5,000 mcg sublingual QDAY 06/23/25 History febuxostat 40 mg tablet 40 mg PO DAILY Gout prevention 06/23/25 History melatonin 10 mg capsule 10 mg PO HS PRN 06/23/25 06/23/25 History Ejection fraction %: 60 Have you fallen in the past year?: No PFSH Medical History PAF (paroxysmal atrial fibrillation) Spinal stenosis Hyperlipidemia Atrial fibrillation with rapid ventricular response (08/30/22) Essential hypertension Bronchospasm, acute Hypoxia Influenza with pneumonia Status post L4-L5 laminectomy Depression Asthma Malignant hyperthermia Osteoarthritis Hemorrhoid GERD (gastroesophageal reflux disease) history of superficial venous thrombosis Rosacea Osteopenia Surgical History History of cardiac radiofre (more content not included)... Normal [facility] Absolute lymphocyte countOrd ered By: Wesly Hidalgo on 06-22-2025 Lymphocytes Auto (Unsp spec) [#/Vol] 2.99 10*3/uL 0.83-4.51 [facility] Absolute neutrophil countOrd ered By: Wesly Hidalgo on 06-22-2025 Neutrophils (Bld) [#/Vol] 5.7 10*3/uL 2.0-7.7 [facility] Anion gap in Serum or Plasma Ordered By: Wesly Rocky on 06-22-2025 Anion gap [Moles/Vol] 12 mmol/L 5-15 [facility] Automated lymphocyte count a s percentage of total leukocytesOrdered By: Wesly Hidalgo on 06-22-2025 Lymphocytes/100 WBC Auto (Unsp spec) 30.4 % 19-41 [facility] BUN/creatinine ratioOrdered By: Wesly Hidalgo on 06-22-2025 Urea nitrogen/Creatinine [Mass ratio] 17.0 mg/mg 10-20 [facility] Basophil percentageOrdered B y: Wesly Rocky on 06-22-2025 Basophils/100 WBC (Bld) 0.1 % 0-1 [facility] Bilirubin, totalOrdered By: Wesly Hidalgo on 06-22-2025 Bilirubin [Mass/Vol] 0.46 mg/dL 0.00-1.30 [facility] CBC W/Diff, Automatedon 06-06 Absolute Lymph 2.99 X10 3/uL Normal 0.83-4.51 [facility] Comment on above: Performed By: #### L 100.0100, L506.1001, L501.9520, L500.4050, L500.4100, L501.1400 #### [facility] [address] [place], [address] Absolute Neut 5.7 X10 3/uL Normal 2.0-7.7 [facility] Comment on above: Performed By: #### L 100.0100, L506.1001, L501.9520, L500.4050, L500.4100, L501.1400 #### [facility] [address] [place], [address] Basophils/100 WBC (Bld) 0.1 % Normal 0-1 [facility] Comment on above: Performed By: #### L 100.0100, L506.1001, L501.9520, L500.4050, L500.4100, L501.1400 #### [facility] [address] [place], [address] Eosinophils/100 WBC (Bld) 0.0 % Normal 0-5 [facility] Comment on above: Performed By: #### L 100.0100, L506.1001, L501.9520, L500.4050, L500.4100, L501.1400 #### [facility] [address] [place], [address] Erythrocyte distribution width (RBC) [Ratio] 13.2 % Normal 11.6-14.6 [facility] Comment on above: Performed By: #### L 100.0100, L506.1001, L501.9520, L500.4050, L500.4100, L501.1400 #### [facility] [address] [place], [address] Hematocrit (Bld) [Volume fraction] 42.9 % Normal 37-47 [facility] Comment on above: Performed By: #### L 100.0100, L506.1001, L501.9520, L500.4050, L500.4100, L501.1400 #### [facility] [address] [place], [address] Hemoglobin (Bld) [Mass/Vol] 14.2 g/dL Normal 12.0-15.0 [facility] Comment on above: Performed By: #### L 100.0100, L506.1001, L501.9520, L500.4050, L500.4100, L501.1400 #### [facility] [address] [place], [address] IG% 0.700 Normal 0.0-0.9 [facility] Comment on above: Result Comment: IG% - Immature Granulocytes (promyelocytes, myelocytes and metamyelocytes) > 1% indicates that a LEFT SHIFT is Present. Performed By: #### L 100.0100, L506.1001, L501.9520, L500.4050, L500.4100, L501.1400 #### [facility] [address] [place], [address] Lymphocytes/100 WBC (Bld) 30.4 % Normal 19-41 [facility] Comment on above: Performed By: #### L 100.0100, L506.1001, L501.9520, L500.4050, L500.4100, L501.1400 #### [facility] [address] [place], [address] MCH (RBC) [Entitic mass] 29.6 pg Normal 27.0-32.0 [facility] Comment on above: Performed By: #### L 100.0100, L506.1001, L501.9520, L500.4050, L500.4100, L501.1400 #### [facility] [address] [place], [address] MCHC (RBC) [Mass/Vol] 33.1 g/dL Normal 32-36 [facility] Comment on above: Performed By: #### L 100.0100, L506.1001, L501.9520, L500.4050, L500.4100, L501.1400 #### [facility] [address] [place], [address] MCV (RBC) [Entitic vol] 89.4 fL Normal 81-99 [facility] Comment on above: Performed By: #### L 100.0100, L506.1001, L501.9520, L500.4050, L500.4100, L501.1400 #### [facility] [address] [place], [address] Monocytes/100 WBC (Bld) 11.4 % High 0-10 [facility] Comment on above: Performed By: #### L 100.0100, L506.1001, L501.9520, L500.4050, L500.4100, L501.1400 #### [facility] [address] [place], [address] Neutrophils/100 WBC (Bld) 57.4 % Normal 47-70 [facility] Comment on above: Performed By: #### L 100.0100, L506.1001, L501.9520, L500.4050, L500.4100, L501.1400 #### [facility] [address] [place], [address] Nucleated RBC (Bld) [#/Vol] 0 10*3/uL Normal 0-5 [facility] Comment on above: Performed By: #### L 100.0100, L506.1001, L501.9520, L500.4050, L500.4100, L501.1400 #### [facility] [address] [place], [address] Platelet mean volume (Bld) [Entitic vol] 9.9 fL Normal 6.2-12.0 [facility] Comment on above: Performed By: #### L 100.0100, L506.1001, L501.9520, L500.4050, L500.4100, L501.1400 #### [facility] [address] [place], [address] Platelets (Bld) [#/Vol] 231 10*3/uL Normal 150-450 [facility] Comment on above: Performed By: #### L 100.0100, L506.1001, L501.9520, L500.4050, L500.4100, L501.1400 #### [facility] [address] [place], [address] RBC (Bld) [#/Vol] 4.80 10*6/uL Normal 4.2-5.4 [facility] Comment on above: Performed By: #### L 100.0100, L506.1001, L501.9520, L500.4050, L500.4100, L501.1400 #### [facility] [address] [place], [address] RDW SD 43.6 fl Normal 35.1-43.9 [facility] Comment on above: Performed By: #### L 100.0100, L506.1001, L501.9520, L500.4050, L500.4100, L501.1400 #### [facility] [address] [place], [address] WBC (Bld) [#/Vol] 9.9 10*3/uL Normal 4.4-11.0 [facility] Comment on above: Performed By: #### L 100.0100, L506.1001, L501.9520, L500.4050, L500.4100, L501.1400 #### [facility] [address] [place], [address] Calculated very low density lipoprotein (VLDL) cholesterol measurementOrdered By: Wesly Hidalgo on 06-22-2025 Calculated very low density lipoprotein (VLDL) cholesterol measurement 28 mg/dL 5-40 [facility] Carbon dioxide, total [Moles /volume] in Central venous bloodOrdered By: Wesly Hidalgo on 06-22-2025 CO2 [Moles/Vol] 28.5 mmol/L 21.0-32.0 [facility] Chloride assayOrdered By: Freddie Hidalgo on 06-22-2025 Chloride [Moles/Vol] 100 mmol/L 98-108 [facility] Comprehensive Metabolic Prof ilon 06-22-2025 Albumin [Mass/Vol] 4.5 g/dL Normal 3.4-4.8 [facility] Comment on above: Performed By: #### L 100.0100, L506.1001, L501.9520, L500.4050, L500.4100, L501.1400 #### [facility] [address] [place], [address] Albumin/Globulin [Mass ratio] 2.0 {ratio} Normal 0.9-2.4 [facility] Comment on above: Performed By: #### L 100.0100, L506.1001, L501.9520, L500.4050, L500.4100, L501.1400 #### [facility] [address] [place], [address] ALK PHOS 65 U/L Normal 35-104 [facility] Comment on above: Performed By: #### L 100.0100, L506.1001, L501.9520, L500.4050, L500.4100, L501.1400 #### [facility] [address] [place], [address] ALT [Catalytic activity/Vol] 15 U/L Normal <=34 [facility] Comment on above: Performed By: #### L 100.0100, L506.1001, L501.9520, L500.4050, L500.4100, L501.1400 #### [facility] [address] [place], [address] AST [Catalytic activity/Vol] 19 U/L Normal <=31 [facility] Comment on above: Performed By: #### L 100.0100, L506.1001, L501.9520, L500.4050, L500.4100, L501.1400 #### [facility] [address] [place], [address] Bilirubin [Mass/Vol] 0.46 mg/dL Normal 0.00-1.30 [facility] Comment on above: Performed By: #### L 100.0100, L506.1001, L501.9520, L500.4050, L500.4100, L501.1400 #### [facility] [address] [place], [address] BUN/CRE 17.0 RATIO Normal 10-20 [facility] Comment on above: Performed By: #### L 100.0100, L506.1001, L501.9520, L500.4050, L500.4100, L501.1400 #### [facility] [address] [place], [address] Calcium [Mass/Vol] 10.4 mg/dL Normal 7.6-11.0 [facility] Comment on above: Performed By: #### L 100.0100, L506.1001, L501.9520, L500.4050, L500.4100, L501.1400 #### [facility] [address] [place], [address] Chloride [Moles/Vol] 100 mmol/L Normal 98-108 [facility] Comment on above: Performed By: #### L 100.0100, L506.1001, L501.9520, L500.4050, L500.4100, L501.1400 #### [facility] [address] [place], [address] CO2 [Moles/Vol] 28.5 mmol/L Normal 21.0-32.0 [facility] Comment on above: Performed By: #### L 100.0100, L506.1001, L501.9520, L500.4050, L500.4100, L501.1400 #### [facility] [address] [place], [address] Creatinine [Mass/Vol] 1.25 mg/dL High 0.70-1.20 [facility] Comment on above: Performed By: #### L 100.0100, L506.1001, L501.9520, L500.4050, L500.4100, L501.1400 #### [facility] [address] [place], [address] GAP 12 Normal 5-15 [facility] Comment on above: Performed By: #### L 100.0100, L506.1001, L501.9520, L500.4050, L500.4100, L501.1400 #### [facility] [address] [place], [address] GFR/1.73 sq M.predicted among non-blacks MDRD (S/P/Bld) [Vol rate/Area] 46 mL/min/{1.73_m2} Low >60 [facility] Comment on above: Result Comment: mL/m in/1.73m2 CKD-EPI Creatinine Equation (2020) Performed By: #### L 100.0100, L506.1001, L501.9520, L500.4050, L500.4100, L501.1400 #### [facility] [address] [place], [address] Globulin (S) [Mass/Vol] 2.3 g/dL Normal 2.2-4.2 [facility] Comment on above: Performed By: #### L 100.0100, L506.1001, L501.9520, L500.4050, L500.4100, L501.1400 #### [facility] [address] [place], [address] Glucose [Mass/Vol] 72 mg/dL Normal 70-99 [facility] Comment on above: Performed By: #### L 100.0100, L506.1001, L501.9520, L500.4050, L500.4100, L501.1400 #### [facility] [address] [place], [address] Potassium [Moles/Vol] 3.6 mmol/L Normal 3.3-5.1 [facility] Comment on above: Performed By: #### L 100.0100, L506.1001, L501.9520, L500.4050, L500.4100, L501.1400 #### [facility] [address] [place], [address] Sodium [Moles/Vol] 140 mmol/L Normal 133-145 [facility] Comment on above: Performed By: #### L 100.0100, L506.1001, L501.9520, L500.4050, L500.4100, L501.1400 #### [facility] [address] [place], [address] T PROT 6.8 g/dL Normal 5.9-8.4 [facility] Comment on above: Performed By: #### L 100.0100, L506.1001, L501.9520, L500.4050, L500.4100, L501.1400 #### [facility] [address] [place], [address] Urea nitrogen [Mass/Vol] 21 mg/dL High 4-19 [facility] Comment on above: Performed By: #### L 100.0100, L506.1001, L501.9520, L500.4050, L500.4100, L501.1400 #### [facility] [address] [place], [address] Eosinophil percentageOrdered By: Wesly Rocky on 06-22-2025 Eosinophils/100 WBC (Bld) 0.0 % 0-5 [facility] Erythrocyte distribution wid th ratioOrdered By: Wesly Hidalgo on 06-22-2025 Erythrocyte distribution width (RBC) [Ratio] 13.2 % 11.6-14.6 [facility] Erythrocyte distribution wid th standard deviationOrdered By: Wesly Hidalgo on 06-22-2025 Erythrocyte distribution width (RBC) [Ratio] 43.6 fl 35.1-43.9 [facility] Glomerular filtration rate ( GFR) estimation/1.73 sq m using serum, plasma, or whole bOrdered By: Wesly Hidalgo on 06-22-2025 GFR/1.73 sq M.predicted among non-blacks MDRD (S/P/Bld) [Vol rate/Area] 46 mL/min/{1.73_m2} Low >60 [facility] Comment on above: mL/min/1.73m2 CKD-EP I Creatinine Equation (2020) Hematocrit Auto (Bld) [Volum e fraction]Ordered By: Wesly Hidalgo on 06-22-2025 Hematocrit (Bld) [Volume fraction] 42.9 % 37-47 [facility] Hemoglobin measurementOrdere d By: Wesly Hidalgo on 06-22-2025 Hemoglobin (Bld) [Mass/Vol] 14.2 g/dL 12.0-15.0 [facility] Immature granulocytes/100 WB C Auto (Bld)Ordered By: Wesly Hidalgo on 06-22-2025 Immature granulocytes/100 WBC (Bld) 0.700 % 0.0-0.9 [facility] Comment on above: IG% - Immature Granu locytes (promyelocytes, myelocytes and metamyelocytes) > 1% indicates that a LEFT SHIFT is Present. LDL calc ser/plasOrdered By: Wesly Hidalgo on 06-22-2025 Cholesterol in LDL [Mass/Vol] 120 mg/dL [facility] Comment on above: Ixwgdbgvsp=549-702 m g/dL & Higher Klho=698 mg/dL or greaterFriedwald Equation for LDL-C Laboratory - Chemistry and C hemistry - challengeOrdered By: Wesly Hidalgo on 06-22-2025 AST [Catalytic activity/Vol] 19 U/L <32 [facility] Lipid Profileon 06-22-2025 CHOL:HDL 4.69 Normal [facility] Comment on above: Performed By: #### L 100.0100, L506.1001, L501.9520, L500.4050, L500.4100, L501.1400 ####[facility] [address] [place], [place], [id number] Cholesterol [Mass/Vol] 188 mg/dL Normal <=200 [facility] Comment on above: Result Comment: Chol esterol level, Desirable <200 mg/dL Borderline high cholesterol 200-239 mg/dL High cholesterol >=240 mg/dL Recommendations of the NCEP Adult Treatment Panel for the following risk-cutoff thresholds for the [place] population. Performed By: #### L 100.0100, L506.1001, L501.9520, L500.4050, L500.4100, L501.1400 ####[facility] [address] [place], [address] Cholesterol in HDL [Mass/Vol] 40 mg/dL Normal [facility] Comment on above: Result Comment: Suzanne onal Cholesterol Education Program (NCEP) guidelines: <40 mg/dL: Low HDL-cholesterol (major risk factor for CHD) >= 60 mg/dL: High HDL-cholesterol (negative risk factor for CHD) HDL-cholesterol is affected by a number of factors, e.g. smoking, exercise, hormones, sex and age. Performed By: #### L 100.0100, L506.1001, L501.9520, L500.4050, L500.4100, L501.1400 ####[facility] [address] [place], [address] Cholesterol in LDL [Mass/Vol] 120 mg/dL Normal [facility] Comment on above: Result Comment: Bord aqylpf=690-664 mg/dL Higher Ayjp=284 mg/dL or greater Friedwald Equation for LDL-C Performed By: #### L 100.0100, L506.1001, L501.9520, L500.4050, L500.4100, L501.1400 ####[facility] [address] [place], [address] Cholesterol in VLDL [Mass/Vol] 28 mg/dL Normal 5-40 [facility] Comment on above: Performed By: #### L 100.0100, L506.1001, L501.9520, L500.4050, L500.4100, L501.1400 ####[facility] [address] [place], [place], [id number] Triglyceride [Mass/Vol] 141 mg/dL Normal [facility] Comment on above: Result Comment: The drugs N-Acetylcysteine and Metamizole may falsely depress this assay. Normal range: <150 mg/dL Borderline High: 150-199 mg/dL High: 200-499 mg/dL Very High: >500 mg/dL Performed By: #### L 100.0100, L506.1001, L501.9520, L500.4050, L500.4100, L501.1400 ####[facility] [address] [place], [place], [id number] MCV (mean corpuscular volume ) determinationOrdered By: Wesly Hidalgo on 06-22-2025 MCV (RBC) [Entitic vol] 89.4 fL 81-99 [facility] Mean corpuscular hemoglobin (MCH) determinationOrdered By: Wesly Hidalgo on 06-22-2025 MCH (RBC) [Entitic mass] 29.6 pg 27.0-32.0 [facility] Mean corpuscular hemoglobin concentration (MCHC) determinationOrdered By: Wesly Hidalgo on 06-22-2025 MCHC (RBC) [Mass/Vol] 33.1 g/dL 32-36 [facility] Mean platelet volume determi nationOrdered By: Wesly Hidalgo on 06-22-2025 Platelet mean volume (Bld) [Entitic vol] 9.9 fL 6.2-12.0 [facility] Monocyte percentageOrdered B y: Wesly Hidalgo on 06-22-2025 Monocytes/100 WBC (Bld) 11.4 % High 0-10 [facility] Neutrophil percentageOrdered By: Wesly Hidalgo on 06-22-2025 Neutrophils/100 WBC (Bld) 57.4 % 47-70 [facility] Nucleated red blood cell per centageOrdered By: Wesly Hidalgo on 06-22-2025 Nucleated RBC/100 WBC (Bld) [Ratio] 0 % 0-5 [facility] Platelet countOrdered By: Freddie Hidalgo on 06-22-2025 Platelets (Bld) [#/Vol] 231 10*3/uL 150-450 [facility] Potassium measurement (mass/ volume)Ordered By: Wesly Hidalgo on 06-22-2025 Potassium (Unsp spec) [Mass/Vol] 3.6 mmol/L 3.3-5.1 [facility] RBC Auto (Bld) [#/Vol]Ordere d By: Wesly Hidalgo on 06-22-2025 RBC (Bld) [#/Vol] 4.80 10*6/uL 4.2-5.4 [facility] Screening total cholesterol/ high density lipoprotein (HDL) cholesterol ratioOrdered By: Wesly Hidalgo on 06-22-2025 Cholesterol.total/Choles terol in HDL [Mass ratio] 4.69 {ratio} [facility] Serum creatinine measurement (mass/volume)Ordered By: Wesly Hidalgo on 06-22-2025 Creatinine [Mass/Vol] 1.25 mg/dL High 0.70-1.20 [facility] Serum globulin measurementOr dered By: Wesly Hidalgo 06-22-2025 Globulin (S) [Mass/Vol] 2.3 g/dL 2.2-4.2 [facility] Serum glucose measurement (m ass/volume)Ordered By: Wesly Hidalgo 06-22-2025 Glucose [Mass/Vol] 72 mg/dL 70-99 [facility] Serum or plasma alanine [place] otransferase (ALT) measurementOrdered By: Wesly Hidalgo 06-22-2025 ALT [Catalytic activity/Vol] 15 U/L <35 [facility] Serum or plasma albumin ranjana urement (mass/volume)Ordered By: Wesly Hidalgo 06-22-2025 Albumin [Mass/Vol] 4.5 g/dL 3.4-4.8 [facility] Serum or plasma albumin/glob ulin mass ratioOrdered By: Wesly Hidalgo 06-22-2025 Albumin/Globulin [Mass ratio] 2.0 {ratio} 0.9-2.4 [facility] Serum or plasma alkaline lebron sphatase measurementOrdered By: Wesly Hidalgo 06-22-2025 ALP [Catalytic activity/Vol] 65 U/L 35-104 [facility] Serum or plasma calcium ranjana urement (mass/volume)Ordered By: Wesly Hidalgo 06-22-2025 Calcium [Mass/Vol] 10.4 mg/dL 7.6-11.0 [facility] Serum or plasma cholesterol in HDL measurement (mass/volume)Ordered By: Wesly Hidalgo on 06-22-2025 Cholesterol in HDL [Mass/Vol] 40 mg/dL >40 [facility] Comment on above: National Cholesterol Education Program (NCEP) guidelines:<40 mg/dL: Low HDL-cholesterol (major risk factor for CHD)>= 60 mg/dL: High HDL-cholesterol (negative risk factor for CHD)HDL-cholesterol is affected by a number of factors, e.g. smoking, exercise, hormones, sex and age. Serum or plasma cholesterol measurement (mass/volume)Ordered By: Wesly Hidalgo on 06-22-2025 Cholesterol [Mass/Vol] 188 mg/dL <201 [facility] Comment on above: Cholesterol level, D esirable <200 mg/dLBorderline high cholesterol 200-239 mg/dLHigh cholesterol >=240 mg/dLRecommendations of the NCEP Adult Treatment Panel for the following risk-cutoff thresholds for the [place] population. Serum or plasma urea nitroge n measurement (mass/volume)Ordered By: Wesly Hidalgo on 06-22-2025 Urea nitrogen [Mass/Vol] 21 mg/dL High 4-19 [facility] Serum or plasma uric acid me asurement (mass/volume)Ordered By: Wesly Hidalgo on 06-22-2025 Urate [Mass/Vol] 4.7 mg/dL 2.6-6.0 [facility] Comment on above: The drugs N-Acetylcy steine and Metamizole may falsely depress this assay. Sodium levelOrdered By: Wesly Hidalgo on 06-22-2025 Sodium [Moles/Vol] 140 mmol/L 133-145 [facility] TSH DL <= 0.005 mIU/L QnOrde red By: Wesly Hidalgo on 06-22-2025 TSH Qn 2.880 uIU/mL 0.300-4.200 [facility] Thyroid Stim Hormone (TSH)on 06-22-2025 TSH 2.880 uIU/mL Normal 0.300-4.200 [facility] Comment on above: Performed By: #### L 100.0100, L506.1001, L501.9520, L500.4050, L500.4100, L501.1400 ####[facility] [id number] [place], [place], [address] Total proteinOrdered By: Wesly Hidalgo on 06-22-2025 Protein [Mass/Vol] 6.8 g/dL 5.9-8.4 [facility] Triglycerides measurementOrd ered By: Wesly Hidalgo on 06-22-2025 Triglyceride [Mass/Vol] 141 mg/dL <199 [facility] Comment on above: The drugs N-Acetylcy steine and Metamizole may falsely depress this assay. Normal range: <150 mg/dLBorderline High: 150-199 mg/dLHigh: 200-499 mg/dLVery High: >500 mg/dL Uric Acidon 06-22-2025 URIC 4.7 mg/dL Normal 2.6-6.0 [facility] Comment on above: Result Comment: The drugs N-Acetylcysteine and Metamizole may falsely depress this assay. Performed By: #### L 100.0100, L506.1001, L501.9520, L500.4050, L500.4100, L501.1400 ####[facility] [id number] [place], [place], [id number] Vitamin D,25 Hydroxyon 06-22 Vitamin D 25-OH 65.7 ng/mL Normal 30-100 [facility] Comment on above: Result Comment: Laura min D Status Deficiency: <20 ng/mL (50nmol/L) Insufficiency: 20-30 ng/mL (50-75 nmol/L) Sufficiency: 30-100 ng/mL (75-250 nmol/L) Toxicity: >100 ng/mL (>250 nmol/L) Performed By: #### L 100.0100, L506.1001, L501.9520, L500.4050, L500.4100, L501.1400 ####[facility] [id number] [place], [place], [id number] White blood cell (WBC) count Ordered By: Wesly Hidalgo on 06-22-2025 WBC (Bld) [#/Vol] 9.9 10*3/uL 4.4-11.0 [facility] 05-20-2025 [facility] Telephone (AGCARDPOB ) -------- CRIS RUBIO ([id number]) 1955 F Date Time Provider Department 05/20/25 NICOLE ALLEN During your visit today, we recorded the following information about you: RajSyeda quiñonez 05/20/2025 10:38 AM Signed Post PVAI orders pended for signature Allergies As of Date: 05/20/2025 Noted Allergy Reaction AMITRIPTYLINE 01/02/2012 5 - Intolerance Comments: Weight Gain and Buzzing In Ears AMPICILLIN 10/15/2010 2 - Rash BACTRIM (SULFAMETHOXAZOLE) 10/15/2010 2 - Rash BIAXIN (CLARITHROMYCIN) 10/15/2010 8 - GI Upset INHALED ANESTHETICS (HALOGEN BASE*04/05/2024 14 - Other: See Comments Comments: Family history of malignant hyperthermia; she states her testing for this was inconclusive, she was told to assume she has it or high risk for having it NIASPAN (NIACIN) 10/15/2010 1 - Mental Status Change PAXLOVID (NIRMATRELVIR-RITONAVIR) 05/16/2025 12 - Shortness of Breath 14 - Other: See Comments Comments: Patient states went into AFIB Date Reviewed: 05/16/2025 Reviewed by: Nicole Allen MD - Fully Assessed Reason for Visit: Orders [681] Primary Visit Diagnosis:Persistent atrial fibrillation (HCC) [I48.19] Other Visit Diagnosis:Dyspnea, unspecified type [R06.00] Order(s):ECHO [501776] Order #: [id number]: 1 FUTURE OUTSIDE VENDOR CARDIAC OUTPATIENT EXTENDED RHYTHM RECORDING (WITHOUT TELEMETRY) [[id number]] Order #: [id number]: 1 FUTURE OUTSIDE VENDOR CARDIAC OUTPATIENT EXTENDED RHYTHM RECORDING (WITHOUT TELEMETRY) [5595915] Order #: [id number]: 1 Prescriptions as of 05/20/2025 - cholecalciferol (VITAMIN D3) 1,000 unit tab tablet Take 1 tablet by mouth once daily. - febuxostat (ULORIC) 40 mg tab Take 40 mg by mouth once daily. - furosemide (LASIX) 40 mg tablet Take 1 tablet by mouth once daily as needed (leg edema). - potassium chloride ER (KLOR-CON) 20 mEq tablet Take 1 tablet by mouth once daily as needed (when taking furosemide). - melatonin 10 mg tab Take 10 mg by mouth at bedtime as needed for insomnia. - OTC NUTRITIONAL SUPPLEMENT Take 400 mg by mouth daily at bedtime. - ELIQUIS 5 mg tab(s) Take 5 mg by mouth two times a day. - Valsartan-hydroCHLOROthi azide 320-12.5 mg per tablet Take 1 tablet by mouth daily at bedtime. - OTC NUTRITIONAL SUPPLEMENT Vitamin C - OTC NUTRITIONAL SUPPLEMENT Zinc - OTC NUTRITIONAL SUPPLEMENT Vitamin E - Calcium-Cholecalciferol, D3, (CALCIUM 600 WITH VITAMIN D3) 600 mg(1,500mg) -400 unit ORAL Cap Take by mouth three times daily. Pt take twice daily - albuterol 2.5 mg/0.5 mL INHALATION nebulizer solution Use 0.5 mL via nebulizer every 6 hours as needed. - albuterol (VENTOLIN) 90 mcg/Actuation INHALATION Aero 2 puffs every 4 hours Problem List As Of Date 05/20/2025 Noted Resolved Degenerative disc disease, cervical [M50.30] 12/13/2011 Degenerative disc disease, lumbar [M51.369] 12/13/2011 Rosacea [L71.9] 12/13/2011 Asthma, mild persistent [J45.30] 12/13/2011 Lumbar radicular pain [M54.16] 12/13/2011 Low HDL (under 40) [E78.6] 12/13/2011 GERD (gastroesophageal reflux disease) [K21.9] 12/13/2011 Arthritis of knee, right [M17.11] 12/13/2011 Arthritis of left ankle [M19.072] 12/13/2011 Atrophic vaginitis [N95.2] 01/02/2012 Paroxysmal atrial fibrillation (HCC) [I48.0] 04/04/2024 Anticoagulant long-term use [Z79.01] 04/04/2024 Essential hypertension [I10] 04/04/2024 At risk for stroke [Z91.89] 04/04/2024 Family history of malignant hyperthermia [Z84.8* Status post catheter ablation of atrial fibrill* Encounter Status:Closed by NICOLE ALLEN on 05/20/25 [facility] ANES POSTPROC EVALon 025 ANES POSTPROC EVAL HNO ID: [id number] Author: JESUS MILLER MD Service: Anesthesiology Author Type: Physician Type: Anesthesia Postprocedure Evaluation Filed: 05/17/2025 12:58 Note Text: POST ANESTHESIA EVALUATION NOTE : 1955 Procedure Summary Date: 05/16/25 Room / Location: [place] [address] / [facility] Anesthesia Start: 1441 Anesthesia Stop: 1743 Procedure: COMPRE EP EVAL ABLTJ ATR FIB PULM VEIN ISOLATION (Cardiac) Diagnosis: Paroxysmal atrial fibrillation (HCC) (Paroxysmal atrial fibrillation (HCC) [I48.0]) Surgeons: Nicole Allen MD Responsible Provider: Jesus Miller MD Anesthesia Type: MAC ASA Status: 3 Anesthesia Type: MAC Last Vitals Vitals Value Taken Time BP 99/58 05/17/25 11:01 Temp 36.7 ?C (98 ?F) 05/17/25 11:01 Pulse 69 05/17/25 11:01 Resp 18 05/17/25 11:01 SpO2 98 % 05/17/25 11:01 Post Anesthesia Patient Status Anticipated Disposition: inpatient floor planned admission. Neurological Status: aware and responsive. Pulmonary Status: breathing comfortably on room air Airway Control: returned to baseline unsupported. Cardiovascular Status: stable. Pain Management: clinically adequate Postoperative Hydration: acceptable. Intraoperative Events: no significant anesthesia events Post Operative Nausea/Vomiting Status: no significant post operative nausea or vomiting Recommendation: further care per PACU/ICU/floor team. Anesthesia Observations No Documentation SIGNATURE: Jesus Miller MD PATIENT NAME: Cris Rubio DATE: May 17, 2025 TIME: 12:58 PM CSN: [id number] Normal [facility] Basic metabolic 2000 panelon 05-17-2025 Anion gap [Moles/Vol] 9 mmol/L Normal 8-15 [facility] Comment on above: Order Comment: Speci men Type: BLOOD SPECIMENOrdering Facility: [facility] Address: [address] [place] [address] Performed By: #### 2 4321-2 ####[facility]ORATORYCLIA [id number] [place] [address] [place] Calcium [Mass/Vol] 8.6 mg/dL Normal 8.5-10.2 [facility] Comment on above: Order Comment: Speci men Type: BLOOD SPECIMENOrdering Facility: [facility] Address: [address] [place] [address] Performed By: #### 2 4321-2 ####[facility] LABORATORYCLIA [id number] [place] [address] [place] Chloride [Moles/Vol] 102 mmol/L Normal 98-107 [facility] Comment on above: Order Comment: Speci men Type: BLOOD SPECIMENOrdering Facility: [facility] Address: [address] [place] [address] Performed By: #### 2 4321-2 ####[facility]ATORYCLIA [id number] [place] [address] [place] CO2 [Moles/Vol] 23 mmol/L Normal 22-30 [facility] Comment on above: Order Comment: Speci men Type: BLOOD SPECIMENOrdering Facility: [facility] Address: [address] [place] [address] Performed By: #### 2 4321-2 ####[facility]ORYCLIA [id number] [place] [address] [place] Creatinine [Mass/Vol] 0.93 mg/dL Normal 0.58-0.96 [facility] Comment on above: Order Comment: Speci men Type: BLOOD SPECIMENOrdering Facility: [facility] Address: [address] [place], [place] [address] Performed By: #### 2 4321-2 ####[facility] LABORATORYCLIA [id number] [place] [id number] [place] eGFRcr SerPlBld CKD-EPI 2020 66 mL/min/1.73m??? Normal >=60 [facility] Comment on above: Order Comment: Coco gutiérrez Type: BLOOD SPECIMENOrdering Facility: [facility] Address: [address] [place] [address] Result Comment: Jesisca mated Glomerular Filtration Rate (eGFR) is calculated using the 2020 CKD-EPI creatinine equation. This equation utilizes serum creatinine, sex, and age as parameters. The creatinine assay has traceable calibration to isotope dilution-mass spectrometry. Refer to KDIGO guidelines for clinical interpretation. In patients with unstable renal function, e.g. those with acute kidney injury, the eGFR may not accurately reflect actual GFR. Performed By: #### 2 4321-2 ####[facility]ENT[facility] HEALTHIA [id number] [place] [address] [place] Glucose [Mass/Vol] 89 mg/dL Normal 74-99 [facility] Comment on above: Order Comment: Coco gutiérrez Type: BLOOD SPECIMENOrdering Facility: [facility] Address: [address] [place] [address] Result Comment: The [place] Diabetes Association (ADA) provides guidance for cutoff values for fasting glucose and random glucose. The ADA defines fasting as no caloric intake for at least 8 hours. Fasting plasma glucose results between 100 to 125 mg/dL indicate increased risk for diabetes (prediabetes). Fasting plasma glucose results greater than or equal to 126 mg/dL meet the criteria for diagnosis of diabetes. In the absence of unequivocal hyperglycemia, results should be confirmed by repeat testing. In a patient with classic symptoms of hyperglycemia or hyperglycemic crisis, random plasma glucose results greater than or equal to 200 mg/dL meet the criteria for diagnosis of diabetes. Reference: Standards of Medical Care in Diabetes 2016, [place] Diabetes Association. Diabetes Care. 2016.39(Suppl 1). Performed By: #### 2 4321-2 ####[facility] LABORATORYCLIA [id number] [place] [id number] [place] Potassium [Moles/Vol] 3.3 mmol/L Low 3.7-5.1 [facility] Comment on above: Order Comment: Speci men Type: BLOOD SPECIMENOrdering Facility: [facility] Address: [address] [place] [address] Performed By: #### 2 4321-2 ####[facility] LABORATORYCLIA [id number] [address] [place] Sodium [Moles/Vol] 134 mmol/L Low 136-144 [facility] Comment on above: Order Comment: Speci men Type: BLOOD SPECIMENOrdering Facility: [facility] Address: [address] [place] [address] Performed By: #### 2 4321-2 ####[facility] LABORATORYCLIA [id number] [address] STATES OF [facility] Urea nitrogen [Mass/Vol] 18 mg/dL Normal 7-21 [facility] Comment on above: Order Comment: Speci men Type: BLOOD SPECIMENOrdering Facility: [facility] Address: [address] [place] [address] Performed By: #### 2 4321-2 ####[facility] LABORATORYCLIA [id number] [address] [place] CBC panel Auto (Bld)on 05-17 Erythrocyte distribution width (RBC) [Ratio] 13.2 % Normal 11.5-15.0 [facility] Comment on above: Order Comment: Speci men Type: BLOOD SPECIMENOrdering Facility: [facility] Address: [address] [place] [address] Performed By: #### 5 8410-2 ####[facility] LABORATORYCLIA [id number] [address] Hematocrit (Bld) [Volume fraction] 36.2 % Normal 36.0-46.0 [facility] Comment on above: Order Comment: Speci men Type: BLOOD SPECIMENOrdering Facility: [facility] Address: [address] [place] [address] Performed By: #### 5 8410-2 ####[facility] LABORATORYCLIA [id number] [address] STATES OF [facility] Hemoglobin (Bld) [Mass/Vol] 12.1 g/dL Normal 11.5-15.5 [facility] Comment on above: Order Comment: Speci men Type: BLOOD SPECIMENOrdering Facility: [facility] Address: [address] [place] [address] Performed By: #### 5 8410-2 ####[facility] LABORATORYCLIA [id number] [address] MCH (RBC) [Entitic mass] 30.2 pg Normal 26.0-34.0 [facility] Comment on above: Order Comment: Speci men Type: BLOOD SPECIMENOrdering Facility: [facility] Address: [address] [place] [address] Performed By: #### 5 8410-2 ####[facility] LABORATORYCLIA [id number] [address] MCHC (RBC) [Mass/Vol] 33.4 g/dL Normal 30.5-36.0 [facility] Comment on above: Order Comment: Speci men Type: BLOOD SPECIMENOrdering Facility: [facility] Address: [address] [place] [address] Performed By: #### 5 8410-2 ####[facility] LABORATORYCLIA [id number] [address] [place] MCV (RBC) [Entitic vol] 90.3 fL Normal 80.0-100.0 [place] Comment on above: Order Comment: Speci men Type: BLOOD SPECIMENOrdering Facility: [facility] Address: [address] [place] [address] Performed By: #### 5 8410-2 ####[facility] LABORATORYCLIA [id number] [address] Nucleated RBC (Bld) [#/Vol] 10*3/uL Normal <0.01 [facility] Comment on above: Order Comment: Speci men Type: BLOOD SPECIMENOrdering Facility: [facility] Address: [address] [place] [address] Performed By: #### 5 8410-2 ####[facility] LABORATORYCLIA [id number] [address] STATES [facility] Platelet mean volume (Bld) [Entitic vol] 10.3 fL Normal 9.0-12.7 [facility] Comment on above: Order Comment: Speci men Type: BLOOD SPECIMENOrdering Facility: [facility] Address: [address] [place] [address] Performed By: #### 5 8410-2 ####[facility] LABORATORYCLIA [id number] [address] [place] Platelets (Bld) [#/Vol] 146 10*3/uL Low 150-400 [facility] Comment on above: Order Comment: Speci men Type: BLOOD SPECIMENOrdering Facility: [facility] Address: [address] [place] [address] Performed By: #### 5 8410-2 ####[facility] LABORATORYCLIA [id number] [place] [address] [place] RBC (Bld) [#/Vol] 4.01 10*6/uL Normal 3.90-5.20 [facility] Comment on above: Order Comment: Speci men Type: BLOOD SPECIMENOrdering Facility: [facility] Address: [address] [place] [address] Performed By: #### 5 8410-2 ####[facility] LABORATORYCLIA [id number] [address] [place] WBC (Bld) [#/Vol] 4.55 10*3/uL Normal 3.70-11.00 [facility] Comment on above: Order Comment: Speci men Type: BLOOD SPECIMENOrdering Facility: [facility] Address: [address] [place] [address] Performed By: #### 5 8410-2 ####[facility]ORATORYCLIA [id number] [address] CNDSon 05-17-2025 [facility] HNO ID: [id number] Author: NICOLE ALLEN MD Service: Electrophysiology Author Type: Nurse Practitioner Type: Discharge Summary Filed: 05/17/2025 15:53 Note Text: -------- Attestation signed by Nicole Allen MD at 05/17/2025 3:53 PM [facility] Electrophysiology (EP) EP Attending Reviewed case. Agree with evaluation and plan of care as outlined by the MONOTYPE CASTER, as we discussed. Nicole Allen MD May 17, 2025 3:53 PM -------- DISCHARGE SUMMARY PATIENT NAME: Cris Rubio Code Status: Not on file Highest Readmission Risk Score: 7 The 30 day readmissions risk score is derived from an internally validated risk model which evaluates patient level characteristics, utilization history, medication orders and lab results up until the day of discharge. Patients with a score of 39 or above are considered highest risk for readmission. Specific patient level drivers will be listed at the bottom of the summary. Admission Information Admission Information ADMIT DATE: 05/16/2025 DISCHARGE DATE: 05/17/2025 MY DOCTORS AND MEDICAL TEAM: My Main Hospital Doctor: Nicole Allen MD Primary Care Provider: Wesly Hidalgo MD My Medical Team Members: Treatment Team: Attending Provider: Nicole Allen MD MY CONDITION AT DISCHARGE: Stable REASON I WAS IN THE HOSPITAL: Pulsed field ablation of paroxysmal atrial fibrillation, procedure performed by Dr. Allen 05/16/2025. SUMMARY OF WHAT HAPPENED WHILE I WAS IN THE HOSPITAL: The patient underwent pulsed field ablation of paroxysmal atrial fibrillation, procedure performed by Dr. Allen 05/16/2025. There were no intraprocedural complications. The patient recovered in the rapid observation unit where she was monitored overnight and discharged home. OTHER PROBLEMS/DIAGNOSIS: Principal Problem: Paroxysmal atrial fibrillation (HCC) - The patient underwent pulsed field ablation of paroxysmal atrial fibrillation, procedure performed by Dr. Allen 05/16/2025. There were no intraprocedural complications. The patient did well overnight, telemetry demonstrates sinus rhythm with rates in the 60s-80s, EKG shows normal sinus rhythm, 72 bpm. Figure of 8 suture removed from bilateral groins to their entirety, without issue. She will continue Eliquis 5 mg twice daily. She will have a three month follow up at [facility] which will consist of an echocardiogram and 7-day holter monitor. She will then follow up in [address] Allen's office with Dr. Allen or the MONOTYPE CASTER (Advanced Practice Nurse). We reviewed postprocedure instructions, medications and follow-up, patient verbalizes understanding. Information handout given regarding post-PVI instructions. She is okay to be discharged, as discussed with Dr. Allen. CHADS2-Vasc Score Breakdown 3 Total Score 1 Female 1 Age 65-74 years old 1 History of hypertension Active Problems: Anticoagulant long-term use At risk for stroke Status post catheter ablation of atrial fibrillation Resolved Problems: * No resolved hospital problems. * OPERATIONS PERFORMED WHILE IN THE HOSPITAL: Pulsed field ablation of paroxysmal atrial fibrillation, procedure performed by Dr. Allen 05/16/2025. Discharge Disposition Discharge Disposition: Home With Self Care Activity When You Leave the Hospital Do not sit for long periods of time with your arms or legs bent May drive 24 hours after discharge from hospital No lifting greater than 5-10 pounds for 5-7 days No strenuous activity, exercise, or sports for 5-7 days, casual walking is fine No walking restrictions Take showers, not baths, until your wound is completely healed (usually 7-10 days) Diet Instructions Resume your pre-hospital diet For Pain When You Leave the Hospital Use acetaminophen (Tylenol) as recommended on the bottle Wound/Surgical Site Care Any bruising and bumps should disappear within 3-4 days Avoid lotions or powders Check your wound every day Right and left groins If the bruising expands or the bump enlarges please call your doctor Some bruising, soreness or a small bump under the skin at the inserion site is normal Wash your wound area with mild soap and water daily and gently pat dry with a towel Call Your Doctor If There is an unusual odor from the wound area There is severe pain at the operative site You have lightheadedness, fainting, or confusion You have persistent or heavy bleeding You have redness, swelling, pus or drainage from the wound Your temperature is greater than 101F Follow Up Appointments Follow-Up Appointment With: Echocardiogram and 7-day patch monitor When: In: Comment - 3 months Patient/Parents to call for appointment?: No The offi (more content not included)... Normal [facility] ECG COMPLETEon 05-17-2025 ECG COMPLETE Ventricular Rate : 7 2 BPM Atrial Rate : 72 BPM P-R Interval : 174 ms QRS Duration : 86 ms Q-T Interval : 430 ms QTC Calculation(Bazett) : 470 ms Calculated P Gregory : 58 degrees Calculated R Gregory : 9 degrees Calculated T Gregory : 43 degrees NORMAL SINUS RHYTHM NORMAL ECG NO PREVIOUS ECGS AVAILABLE Confirmed by MD DAHL VINAY ([id number]) on 05/17/2025 12:15:23 PM NAME : CRIS RUBIO PID : [id number] : 1955 Gender : Female Race : ORD : [id number] Procedure Date : May 17 2025 06:46:51 Edit Date : May 17 2025 12:15:29 Diagnosis: NORMAL SINUS RHYTHM NORMAL ECG NO PREVIOUS ECGS AVAILABLE Confirmed by MD DAHL VINAY ([id number]) on 05/17/2025 12:15:23 PM Test Reason : Arrhythmia Location : 103 : [facility] Overread By : MD DAHL VINAY Edited By : MD DAHL VINAY Referred By : NICOLE ALLEN Acquired by : JEFFREY KLEIN Normal [facility] ANES PRE-OPon 05-16-2025 ANES PRE-OP HNO ID: [id number] Author: JESUS MILLER MD Service: Anesthesiology Author Type: Physician Type: Anesthesia Preprocedure Evaluation Filed: 05/16/2025 14:56 Note Text: ANESTHESIOLOGY DAY OF SURGERY NOTE : 1955 Procedure Information Date/Time: 05/16/25 1340 Procedure: COMPRE EP EVAL ABLTJ ATR FIB PULM VEIN ISOLATION (Cardiac) - atrial fibrillation catheter ablation (PFA, Carto, Pentaray). On Eliquis. No medications that need to be held. I will send query to Anesthesiology about her strong family history of complications from anesthesia (malignant hyperthermia). So we will need input from Anesthesiology about whether they can still do GA vs moderate sedation. HANDP ON 05/11 BY [facility] PACU/[place]OU [place] 02 [place] [facility] Surgeons: Nicole Allen MD Estimated body mass index is 34.57 kg/m? as calculated from the following: Height as of this encounter: 152.4 cm (5'). Weight as of this encounter: 80.3 kg (177 lb). Most recent hematocrit and potassium results: Hematocrit 41.2 05/16/2025 Potassium 3.7 05/16/2025 Relevant Problems CARDIO (+) Essential hypertension (+) Paroxysmal atrial fibrillation (HCC) GI (+) GERD (gastroesophageal reflux disease) PULMONARY (+) Asthma, mild persistent (HCC) Other (+) Arthritis of knee, right (+) Arthritis of left ankle I - PHYSICAL EVALUATION AIRWAY Patient intubated: No. Tracheostomy tube not present Mallampati: II. TM distance: >3 FB. Neck ROM: full ROM without neurological symptoms. Mouth opening: adequate. Short neck: no. Thick neck: no DENTAL Dental findings: missing tooth/teeth, chipped, broken tooth and poor dentition. Dentures, upper: complete. Additional exam findings: no II - ANESTHESIA PLAN ASA Score: 3 Anesthetic Plan: MAC NPO Status: adequate Anesthetic plan additional comments: Strong family history of Malignant Hyperthermia. Beta Wendy Monitoring Plan Monitoring plan: standard ASA. Post Procedure Analgesic Plan Postoperative analgesic plan: parenteral or oral opioids and multimodal analgesia. Informed Consent Anesthetic risks, benefits, alternatives, personnel and consent discussed: yes. Patient / Responsible Democrat agrees to proceed: yes Patient / Surrogate agrees to blood products: Yes Significant changes in the patient condition since the History and Physical, not otherwise documented in primary service progress note: no. Potential Anesthesia issues that may suggest increased risk of complications or contraindication to planned procedure: other. Strong family history of Malignant Hyperthermia Vitals Value Taken Time BP 125/59 05/16/25 12:27 Pulse 57 05/16/25 12:27 Resp 18 05/16/25 12:27 Temp 35.6 ?C (96 ?F) 05/16/25 12:27 SpO2 97 % 05/16/25 12:27 No current facility-administered medications on file as of 05/16/2025. Outpatient Medications as of 05/16/2025 Medication Sig colchicine 0.6 mg tablet Take 0.6 mg by mouth once daily. melatonin 10 mg tab Take 10 mg by mouth daily at bedtime. OTC NUTRITIONAL SUPPLEMENT Take 400 mg by mouth daily at bedtime. ELIQUIS 5 mg tab(s) Take 5 mg by mouth two times a day. Valsartan-hydroCHLOROthi azide 320-12.5 mg per tablet OTC NUTRITIONAL SUPPLEMENT Vitamin C OTC NUTRITIONAL SUPPLEMENT Zinc OTC NUTRITIONAL SUPPLEMENT Vitamin E atenolol 50 mg ORAL tablet Take 1 tablet by mouth twice daily. Calcium-Cholecalciferol, D3, (CALCIUM 600 WITH VITAMIN D3) 600 mg(1,500mg) -400 unit ORAL Cap Take by mouth three times daily. Pt take twice daily furosemide (LASIX) 20 mg ORAL tablet Take 1 tablet by mouth once daily. (Patient taking differently: Take 20 mg by mouth as needed.) potassium chloride 10 mEq ORAL tablet Take 1 tablet by mouth once daily. Cholecalciferol, Vitamin D3, 1,000 unit ORAL Tab Take 1 tablet by mouth twice daily. albuterol 2.5 mg/0.5 mL INHALATION nebulizer solution Use 0.5 mL via nebulizer every 6 hours as needed. albuterol (VENTOLIN) 90 mcg/Actuation INHALATION Aero 2 puffs every 4 hours I have interviewed and examined the patient. I have reviewed the medical record and/or the pre-anesthesia evaluation, pertinent labs, and test results. This contains updated information obtained within 48 hours of Surgery/Procedure. SIGNATURE: Jesus Miller MD PATIENT NAME: Cris Rubio DATE: May 16, 2025 TIME: 2:03 PM CSN: [id number] Normal [facility] Basic metabolic 2000 panelon 05-16-2025 Anion gap [Moles/Vol] 12 mmol/L Normal 8-15 [facility] Comment on above: Order Comment: Speci men Type: BLOOD SPECIMENOrdering Facility: [facility] Address: [address] [place] [address] Performed By: #### 2 4321-2 ####[facility] LABORATORYCLIA [id number] [place] [address] [place] Calcium [Mass/Vol] 8.8 mg/dL Normal 8.5-10.2 [facility] Comment on above: Order Comment: Speci men Type: BLOOD SPECIMENOrdering Facility: [facility] Address: [address] [place] [address] Performed By: #### 2 4321-2 ####[facility] LABORATORYCLIA [id number] [place] [address] [place] Chloride [Moles/Vol] 102 mmol/L Normal 98-107 [facility] Comment on above: Order Comment: Speci men Type: BLOOD SPECIMENOrdering Facility: [facility] Address: [address] [place] [address] Performed By: #### 2 4321-2 ####[facility] LABORATORYCLIA [id number] [place] [address] [place] CO2 [Moles/Vol] 25 mmol/L Normal 22-30 [facility] Comment on above: Order Comment: Speci men Type: BLOOD SPECIMENOrdering Facility: [facility] Address: [address] [place] [address] Performed By: #### 2 4321-2 ####[facility] LABORATORYCLIA [id number] [place] [address] [place] Creatinine [Mass/Vol] 1.08 mg/dL High 0.58-0.96 [facility] Comment on above: Order Comment: Speci men Type: BLOOD SPECIMENOrdering Facility: [facility] Address: [address] [place] [address] Performed By: #### 2 4321-2 ####[facility] LABORATORYCLIA [id number] [place] [address] [place] eGFRcr SerPlBld CKD-EPI 2020 55 mL/min/1.73m??? Low >=60 [facility] Comment on above: Order Comment: Coco gutiérrez Type: BLOOD SPECIMENOrdering Facility: [facility] Address: [address] [place] [address] Result Comment: Jessica mated Glomerular Filtration Rate (eGFR) is calculated using the 2020 CKD-EPI creatinine equation. This equation utilizes serum creatinine, sex, and age as parameters. The creatinine assay has traceable calibration to isotope dilution-mass spectrometry. Refer to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 (gastroesophageal reflux disease) history of superficial venous thrombosis Rosacea Osteopenia Surgical History H/O kyphoplasty History of colonoscopy ( 2006) History of fasciotomy Status post laser ablation of incompetent vein History of right knee joint replacement History of total replacement of left ankle Family History Brother Malignant hyperthermia due to anesthesia Brother Malignant hyperthermia due to anesthesia Brother Malignant hyperthermia due to anesthesia Diabetes Hypertension Cancer lung Asthma Mother Diabetes Hypertension Father Cancer lung Aunt Colon cancer Social History Smoking Status: Former smoker how long ago did patient quit smokin alcohol intake: never substance use type: does not use caffeine: Yes Type: carbonated beverages Number of servings: 1 HPI LESION R FAITH Details: Cris Rubio is a delightful 69-year-old female who presents today for 2 skin spots on the right tenriism and right cheek. She reports that they have been there for up to 2 years and have been getting larger and more raised off the skin. She does not have a regular benzene washer. She was referred to us by Dr. Hidalgo. Patient is not a smoker. Of note patient does not have any history of skin cancer. She did however grow up in [place] the [place] where she was on the beach and saw the more sunscreen. We discussed sunscreen and the importance of sunscreen at today's visit. ROS General General: Yes good health; No fatigue, fever(s) or weight loss HENMT HENMT: No rhinitis, sore throat/mouth sore, nasal congestion, contacts or glaucoma Endo Endocrine: No thyroid disease, polydipsia, heat intolerance, cold intolerance, hepatitis or excessive urine Skin Skin: No Bleeding, bruising, changing moles or suspicious lesion Musc Musculoskeletal: Yes back pain; No joint pain, joint stiffness, muscle weakness, osteoarthritis or Muscle aches/ myalgia Neuro Neurological: No headache(s), No lightheadedness and No numbness Cardio Cardiovascular: No chest pain, pacemaker, fatigue or shortness of breat with exertion Psych Psychiatric: Yes depression; No claustrophobia or anxiety Resp Respiratory: Yes asthma; No spitting up, shortness of breath, sleep apnea, emphysema, TB, Cough or Smoker Gastro Gastrointestinal: No diarrhea, constipation, blood in stool, nausea, vomiting or abdominal bloating Naga Hematologic: No anemia, No bleeding and No abnormal bleeding Genitourinary: No urinary frequency, blood in urine or incontinence Exam Details Neck: no cervical lymphadenopathy on my exam (palpation) Sauer 2 skin Face exam: She has 2 small patches on the right face over the zygomatic arch and over the right cheek just (more content not included)... Normal [facility] Breast imaging reportOrdered By: Jennifer Epperson on 12-27-2024 Study report [facility] [address] [place] [address] SCRN MAMM (CAD)W/LASHONDA BILAT MR#: [id number] Acct: [id number] Name: CRIS RUBIO Rep #: [id number] : 1955 F 69 From: Teto Epperson DO PCP: Dr. Wesly Hidalgo MD Status: [facility] Study:SCRN MAMM (CAD)W/LASHONDA BILAT Date of Exa m: 12/27/24 Exam# [id number] Ordering Dr: Wesly Hidalgo MD EXAM: SCRN MAMM (CAD)W/LASHONDA BILAT 12/27/2024 CLINICAL HISTORY: F, Age 69 y/o , SCREENING TECHNIQUE: Bilateral Diagnostic digital breast tomosynthesis with 2D and 3D images. Computer aided detection. COMPARISON: Prior exam(s) dated 12/26/2023. FINDINGS: TISSUE DENSITY: The breast tissue is almost entirely fatty. Bilateral Breast Mammographic Findings: There are no suspicious masses, suspicious clustered microcalcifications, architectural distortion or secondary signs of malignancy identified in either breast. Stable nodular densities are seen in both breasts. Benign-appearing round microcalcifications are seen in both breasts. BI/SCRN MAMM (CAD)W/LASHONDA BILAT IMPRESSION: Right Breast: BIRADS 2 BENIGN FINDING. Left Breast: BIRADS 2 BENIGN FINDING. OVERALL FINAL ASSESSMENT: BIRADS 2 BENIGN FINDING. RECOMMENDATION: Routine annual follow-up in 1 Year A letter with findings and recommendations will be mailed to the patient. Reading Location: [id number] CC: Dr. Wesly Hidalgo MD ~ [employer] Reserv[employer] Keeper: Signed [facility] SCRN MAMM (CAD)W/LASHONDA BILATo n 12-27-2024 SCRN MAMM (CAD)W/LASHONDA BILAT [facility] [address] [place] [address] SCRN MAMM (CAD)W/LASHONDA BILAT MR#: [id number] Acct: [id number] Name: CRIS RUBIO Rep #: [id number] : 1955 F 69 From: Jennifer Angel PCP: Dr. Wesly Hidalgo MD Status: REG CLI Study: SCRN MAMM (CAD)W/LASHONDA BILAT Date of Exam: 12/05 01/28 Exam# [id number] Ordering Dr: Wesly Hidalgo MD EXAM: SCRN MAMM (CAD)W/LASHONDA BILAT 12/27/2024 CLINICAL HISTORY: F, Age 69 y/o , SCREENING TECHNIQUE: Bilateral Diagnostic digital breast tomosynthesis with 2D and 3D images. Computer aided detection. COMPARISON: Prior exam(s) dated 12/26/2023. FINDINGS: TISSUE DENSITY: The breast tissue is almost entirely fatty. Bilateral Breast Mammographic Findings: There are no suspicious masses, suspicious clustered microcalcifications, architectural distortion or secondary signs of malignancy identified in either breast. Stable nodular densities are seen in both breasts. Benign- appearing round microcalcifications are seen in both breasts. BI/SCRN MAMM (CAD)W/LASHONDA BILAT IMPRESSION: Right Breast: BIRADS 2 BENIGN FINDING. Left Breast: BIRADS 2 BENIGN FINDING. OVERALL FINAL ASSESSMENT: BIRADS 2 BENIGN FINDING. RECOMMENDATION: Routine annual follow-up in 1 Year A letter with findings and recommendations will be mailed to the patient. Reading Location: [id number] CC: Dr. Wesly Hidalgo MD [employer] And Reserv[employer] Keeper: Signed Normal [facility] Influenza virus A and B and SARS-CoV-2 (COVID-19) and Respiratory syncytial virus RNAOrdered By: Wesly Hidalgo on 12-20-2024 SARS-CoV-2 (COVID-19) RNA TAMEKA+probe Ql (Unsp spec) [facility] M100.678on 12-20-2024 M100.678 Normal Reference Ran ge = Negative FLUABV+SARS-CoV-2+RSV Pnl Resp TAMEKA+probe GeneXpert Instrument, PCR method SARS-CoV-2 (COVID 19) Negative INFLUENZA A Negative INFLUENZA B Negative RSV PCR Negative Normal [facility] Comment on above: Performed By: #### M 100.678 #### [facility] [address] [place], [address] NCS and/or EMG Patienton NCS and/or EMG Patient [facility] Pulmonary Services/Neurology [address] [place] [address] MR#: [id number] Acct: [id number] Name: CRIS RUBIO Rep #: [id number] : 1955 69 From: Mehnaz Thomson MD Referring Dr: Wesly Hidalgo MD Status: [facility] Location: [facility] Date: 12/15/24 Sex: F C NCS and/or EMG Patient Report Ordering Doctor: Wesly Hidalgo Chi DATE OF SERVICE: 12/15/24 Xiomy presents for electrodiagnostic testing of the upper limbs. She reports numbness and tingling in both hands. Electrodiagnostic findings: Median motor nerve demonstrates normal distal latency, amplitude and conduction velocity bilaterally. Normal ulnar motor response bilaterally, including conduction across the elbow. Normal median and ulnar F???waves. Prolonged median sensory latency at the wrist bilaterally. Normal ulnar and radial sensory responses. Needle EMG testing was performed in the upper limbs. 1+ fibrillations noted in the left pronator teres. All other muscles tested, including cervical paraspinals, showed no evidence of denervation with normal motor unit action potentials. Electrodiagnostic impression: This is an abnormal study in the upper limbs next 1. Electrodiagnostic findings suggestive of bilateral median mononeuropathy. This consistent with a mild bilateral carpal tunnel syndrome. 2. No electrodiagnostic evidence is noted for cervical radiculopathy. Multi Select Codes Neurology Neurology Interp Codes: 68768-59 Musc test done w/n test comp (interp) (2) and 03703-62 Nrv cndj test 13/> studies (interp) 12/15/24 1459 Date Mehnaz Thomson MD CC: Dr. Mehnaz Thomson MD; Dr. Wesly Hidalgo MD Date Dictated: 12/15/241447 Date Transcribed: 12/15/241447 [employer]erv[employer] Keeper: AA Signed Normal [facility] Absolute neutrophil countOrd ered By: Wesly Hidalgo on 12-08-2024 Neutrophils (Bld) [#/Vol] 5.3 10*3/uL 2.0-7.7 [facility] Anion gap in Serum or Plasma Ordered By: Wesly Hidalgo on 12-08-2024 Anion gap [Moles/Vol] 12 mmol/L 5-15 [facility] BUN/creatinine ratioOrdered By: Wesly Hidalgo on 12-08-2024 Urea nitrogen/Creatinine [Mass ratio] 19.4 mg/mg 10-20 [facility] Basophil percentageOrdered B y: Wesly Hidalgo on 12-08-2024 Basophils/100 WBC (Bld) 0.0 % 0-1 [facility] Bilirubin, totalOrdered By: Wesly Hidalgo on 12-08-2024 Bilirubin [Mass/Vol] 0.42 mg/dL 0.00-1.30 [facility] CBC W/Diff, Automatedon Absolute Lymph 3.33 X10 3/uL Normal 0.83-4.51 [facility] Comment on above: Performed By: #### L 100.0100, L500.4100, L500.4050, L501.1400, L506.1001, L501.9520 ####[facility] [address] [place], [address] Absolute Neut 5.3 X10 3/uL Normal 2.0-7.7 [facility] Comment on above: Performed By: #### L 100.0100, L500.4100, L500.4050, L501.1400, L506.1001, L501.9520 ####[facility] [address] [place], [address] Basophils/100 WBC (Bld) 0.0 % Normal 0-1 [facility] Comment on above: Performed By: #### L 100.0100, L500.4100, L500.4050, L501.1400, L506.1001, L501.9520 ####[facility] [address] [place], [address] Eosinophils/100 WBC (Bld) 0.0 % Normal 0-5 [facility] Comment on above: Performed By: #### L 100.0100, L500.4100, L500.4050, L501.1400, L506.1001, L501.9520 ####[facility] [address] [place], [address] Erythrocyte distribution width (RBC) [Ratio] 13.8 % Normal 11.6-14.6 [facility] Comment on above: Performed By: #### L 100.0100, L500.4100, L500.4050, L501.1400, L506.1001, L501.9520 ####[facility] [address] [place], [address] Hematocrit (Bld) [Volume fraction] 44.5 % Normal 37-47 [facility] Comment on above: Performed By: #### L 100.0100, L500.4100, L500.4050, L501.1400, L506.1001, L501.9520 ####[facility] [address] [place], [address] Hemoglobin (Bld) [Mass/Vol] 15.2 g/dL High 12.0-15.0 [facility] Comment on above: Performed By: #### L 100.0100, L500.4100, L500.4050, L501.1400, L506.1001, L501.9520 ####[facility] [address] [place], [address] IG% 0.500 Normal 0.0-0.9 [facility] Comment on above: Result Comment: IG% - Immature Granulocytes (promyelocytes, myelocytes and metamyelocytes) > 1% indicates that a LEFT SHIFT is Present. Performed By: #### L 100.0100, L500.4100, L500.4050, L501.1400, L506.1001, L501.9520 ####[facility] [address] [place], [address] Lymphocytes/100 WBC (Bld) 34.2 % Normal 19-41 [facility] Comment on above: Performed By: #### L 100.0100, L500.4100, L500.4050, L501.1400, L506.1001, L501.9520 ####[facility] [address] [place], [address] MCH (RBC) [Entitic mass] 30.8 pg Normal 27.0-32.0 [facility] Comment on above: Performed By: #### L 100.0100, L500.4100, L500.4050, L501.1400, L506.1001, L501.9520 ####[facility] [address] [place], [address] MCHC (RBC) [Mass/Vol] 34.2 g/dL Normal 32-36 [facility] Comment on above: Performed By: #### L 100.0100, L500.4100, L500.4050, L501.1400, L506.1001, L501.9520 ####[facility] [address] [place], [address] MCV (RBC) [Entitic vol] 90.3 fL Normal 81-99 [facility] Comment on above: Performed By: #### L 100.0100, L500.4100, L500.4050, L501.1400, L506.1001, L501.9520 ####[facility] [address] [place], [address] Monocytes/100 WBC (Bld) 10.5 % High 0-10 [facility] Comment on above: Performed By: #### L 100.0100, L500.4100, L500.4050, L501.1400, L506.1001, L501.9520 ####[facility] [address] [place], [address] Neutrophils/100 WBC (Bld) 54.8 % Normal 47-70 [facility] Comment on above: Performed By: #### L 100.0100, L500.4100, L500.4050, L501.1400, L506.1001, L501.9520 ####[facility] [address] [place], [address] Nucleated RBC (Bld) [#/Vol] 0 10*3/uL Normal 0-5 [facility] Comment on above: Performed By: #### L 100.0100, L500.4100, L500.4050, L501.1400, L506.1001, L501.9520 ####[facility] [address] [place], [address] Platelet mean volume (Bld) [Entitic vol] 10.7 fL Normal 6.2-12.0 [facility] Comment on above: Performed By: #### L 100.0100, L500.4100, L500.4050, L501.1400, L506.1001, L501.9520 ####[facility] [address] [place], [address] Platelets (Bld) [#/Vol] 226 10*3/uL Normal 150-450 [facility] Comment on above: Performed By: #### L 100.0100, L500.4100, L500.4050, L501.1400, L506.1001, L501.9520 ####[facility] [address] [place], [place], [phone] RBC (Bld) [#/Vol] 4.93 10*6/uL Normal 4.2-5.4 [facility] Comment on above: Performed By: #### L 100.0100, L500.4100, L500.4050, L501.1400, L506.1001, L501.9520 ####[facility] [address] [place], [address] RDW SD 44.9 fl High 35.1-43.9 [facility] Comment on above: Performed By: #### L 100.0100, L500.4100, L500.4050, L501.1400, L506.1001, L501.9520 ####[facility] [address] [place], [address] WBC (Bld) [#/Vol] 9.7 10*3/uL Normal 4.4-11.0 [facility] Comment on above: Performed By: #### L 100.0100, L500.4100, L500.4050, L501.1400, L506.1001, L501.9520 ####[facility] [address] [place], [place], [address] Calculated very low density lipoprotein (VLDL) cholesterol measurementOrdered By: Wesly Hidalgo on 12-08-2024 VLDL Cholesterol 36 mg/dL 5-40 [facility] Carbon dioxide, total [Moles /volume] in Central venous bloodOrdered By: Wesly Hidalgo on 12-08-2024 CO2 [Moles/Vol] 27.2 mmol/L 21.0-32.0 [facility] Chloride assayOrdered By: Freddie Hidalgo on 12-08-2024 Chloride [Moles/Vol] 100 mmol/L 98-108 [facility] Comprehensive Metabolic Prof ilon 12-08-2024 Albumin [Mass/Vol] 4.4 g/dL Normal 3.4-4.8 [facility] Comment on above: Performed By: #### L 100.0100, L500.4100, L500.4050, L501.1400, L506.1001, L501.9520 ####[facility] [address] [place], [address] Albumin/Globulin [Mass ratio] 1.8 {ratio} Normal 0.9-2.4 [facility] Comment on above: Performed By: #### L 100.0100, L500.4100, L500.4050, L501.1400, L506.1001, L501.9520 ####[facility] [address] [place], [address] ALK PHOS 67 U/L Normal 35-104 [facility] Comment on above: Performed By: #### L 100.0100, L500.4100, L500.4050, L501.1400, L506.1001, L501.9520 ####[facility] [address] [place], [address] ALT [Catalytic activity/Vol] 17 U/L Normal <=34 [facility] Comment on above: Performed By: #### L 100.0100, L500.4100, L500.4050, L501.1400, L506.1001, L501.9520 ####[facility] [address] [place], [address] AST [Catalytic activity/Vol] 20 U/L Normal <=31 [facility] Comment on above: Performed By: #### L 100.0100, L500.4100, L500.4050, L501.1400, L506.1001, L501.9520 ####[facility] [address] [place], [address] Bilirubin [Mass/Vol] 0.42 mg/dL Normal 0.00-1.30 [facility] Comment on above: Performed By: #### L 100.0100, L500.4100, L500.4050, L501.1400, L506.1001, L501.9520 ####[facility] [address] [place], [address] BUN/CRE 19.4 RATIO Normal 10-20 [facility] Comment on above: Performed By: #### L 100.0100, L500.4100, L500.4050, L501.1400, L506.1001, L501.9520 ####[facility] [address] [place], [address] Calcium [Mass/Vol] 9.8 mg/dL Normal 7.6-11.0 [facility] Comment on above: Performed By: #### L 100.0100, L500.4100, L500.4050, L501.1400, L506.1001, L501.9520 ####[facility] [address] [place], [address] Chloride [Moles/Vol] 100 mmol/L Normal 98-108 [facility] Comment on above: Performed By: #### L 100.0100, L500.4100, L500.4050, L501.1400, L506.1001, L501.9520 ####[facility] [address] [place], [address] CO2 [Moles/Vol] 27.2 mmol/L Normal 21.0-32.0 [facility] Comment on above: Performed By: #### L 100.0100, L500.4100, L500.4050, L501.1400, L506.1001, L501.9520 ####[facility] [address] [place], [address] Creatinine [Mass/Vol] 1.23 mg/dL High 0.70-1.20 [facility] Comment on above: Performed By: #### L 100.0100, L500.4100, L500.4050, L501.1400, L506.1001, L501.9520 ####[facility] [address] [place], [address] GAP 12 Normal 5-15 [facility] Comment on above: Performed By: #### L 100.0100, L500.4100, L500.4050, L501.1400, L506.1001, L501.9520 ####[facility] [address] [place], [address] GFR/1.73 sq M.predicted among non-blacks MDRD (S/P/Bld) [Vol rate/Area] 48 mL/min/{1.73_m2} Low >60 [facility] Comment on above: Result Comment: mL/m in/1.73m2 CKD-EPI Creatinine Equation (2020) Performed By: #### L 100.0100, L500.4100, L500.4050, L501.1400, L506.1001, L501.9520 ####[facility] [address] [place], [address] Globulin (S) [Mass/Vol] 2.4 g/dL Normal 2.2-4.2 [facility] Comment on above: Performed By: #### L 100.0100, L500.4100, L500.4050, L501.1400, L506.1001, L501.9520 ####[facility] [address] [place], [address] Glucose [Mass/Vol] 68 mg/dL Low 70-99 [facility] Comment on above: Performed By: #### L 100.0100, L500.4100, L500.4050, L501.1400, L506.1001, L501.9520 ####[facility] [address] [place], [address] Potassium [Moles/Vol] 3.9 mmol/L Normal 3.3-5.1 [facility] Comment on above: Performed By: #### L 100.0100, L500.4100, L500.4050, L501.1400, L506.1001, L501.9520 ####[facility] [address] [place], [address] Sodium [Moles/Vol] 139 mmol/L Normal 133-145 [facility] Comment on above: Performed By: #### L 100.0100, L500.4100, L500.4050, L501.1400, L506.1001, L501.9520 ####[facility] [address] [place], [address] T PROT 6.8 g/dL Normal 5.9-8.4 [facility] Comment on above: Performed By: #### L 100.0100, L500.4100, L500.4050, L501.1400, L506.1001, L501.9520 ####[facility] [address] [place], [address] Urea nitrogen [Mass/Vol] 24 mg/dL High 4-19 [facility] Comment on above: Performed By: #### L 100.0100, L500.4100, L500.4050, L501.1400, L506.1001, L501.9520 ####[facility] [address] [place], [address] Eosinophil percentageOrdered By: Wesly Hidalgo on 12-08-2024 Eosinophils/100 WBC (Bld) 0.0 % 0-5 [facility] Erythrocyte distribution wid th ratioOrdered By: Wesly Hidalgo on 12-08-2024 Erythrocyte distribution width (RBC) [Ratio] 13.8 % 11.6-14.6 [facility] Erythrocyte distribution wid th standard deviationOrdered By: Wesly Hidalgo on 12-08-2024 Erythrocyte distribution width (RBC) [Entitic vol] 44.9 fL High 35.1-43.9 [facility] GFR/1.73 sq M.predicted noé g non-blacks MDRD (S/P/Bld) [Vol rate/Area]Ordered By: Wesly Hidalgo on 12-08-2024 Estimated GFR (MDRD) Non-Af Amer 48 Low >60 [facility] Comment on above: mL/min/1.73m2 CKD-EP I Creatinine Equation (2020) Hematocrit Auto (Bld) [Volum e fraction]Ordered By: Wesly Hidalgo on 12-08-2024 Hematocrit (Bld) [Volume fraction] 44.5 % 37-47 [facility] Hemoglobin measurementOrdere d By: Wesly Hidalgo on 12-08-2024 Hemoglobin (Bld) [Mass/Vol] 15.2 g/dL High 12.0-15.0 [facility] Immature granulocytes/100 WB C Auto (Bld)Ordered By: Wesly Hidalgo on 12-08-2024 Immature granulocytes/100 WBC (Bld) 0.500 % 0.0-0.9 [facility] Comment on above: IG% - Immature Granu locytes (promyelocytes, myelocytes and metamyelocytes) > 1% indicates that a LEFT SHIFT is Present. L506.1001on 12-08-2024 Vitamin D 25-OH 61.2 ng/mL Normal 30-100 [facility] Comment on above: Result Comment: Laura min D Status Deficiency: <20 ng/mL (50nmol/L) Insufficiency: 20-30 ng/mL (50-75 nmol/L) Sufficiency: 30-100 ng/mL (75-250 nmol/L) Toxicity: >100 ng/mL (>250 nmol/L) Performed By: #### L 100.0100, L500.4100, L500.4050, L501.1400, L506.1001, L501.9520 ####[facility] [address] [place], [id number] LDL calc ser/plasOrdered By: Wesly Hidalgo on 12-08-2024 LDL Cholesterol, Calculated 116 mg/dL [facility] Comment on above: Ulmrgsyymj=151-286 m g/dL & Higher Ezpr=409 mg/dL or greater Laboratory - Chemistry and C hemistry - challengeOrdered By: Wesly Hidalgo on 12-08-2024 AST [Catalytic activity/Vol] 20 U/L <32 [facility] Lipid Profileon 12-08-2024 CHOL:HDL 4.61 Normal [facility] Comment on above: Performed By: #### L 100.0100, L500.4100, L500.4050, L501.1400, L506.1001, L501.9520 ####[facility] [address] [place], [address] Cholesterol [Mass/Vol] 195 mg/dL Normal <=200 [facility] Comment on above: Result Comment: Chol esterol level, Desirable <200 mg/dL Borderline high cholesterol 200-239 mg/dL High cholesterol >=240 mg/dL Recommendations of the NCEP Adult Treatment Panel for the following risk-cutoff thresholds for the [place] population. Performed By: #### L 100.0100, L500.4100, L500.4050, L501.1400, L506.1001, L501.9520 ####[facility] [address] [place], [address] Cholesterol in HDL [Mass/Vol] 42 mg/dL Normal [facility] Comment on above: Result Comment: Suzanne onal Cholesterol Education Program (NCEP) guidelines: <40 mg/dL: Low HDL-cholesterol (major risk factor for CHD) >= 60 mg/dL: High HDL-cholesterol (negative risk factor for CHD) HDL-cholesterol is affected by a number of factors, e.g. smoking, exercise, hormones, sex and age. Performed By: #### L 100.0100, L500.4100, L500.4050, L501.1400, L506.1001, L501.9520 ####[facility] [address] [place], [address] Cholesterol in LDL [Mass/Vol] 116 mg/dL Normal [facility] Comment on above: Result Comment: Bord blaswz=446-186 mg/dL Higher Atsy=671 mg/dL or greater Performed By: #### L 100.0100, L500.4100, L500.4050, L501.1400, L506.1001, L501.9520 ####[facility] [address] [place], [address] Cholesterol in VLDL [Mass/Vol] 36 mg/dL Normal 5-40 [facility] Comment on above: Performed By: #### L 100.0100, L500.4100, L500.4050, L501.1400, L506.1001, L501.9520 ####[facility] [address] [place], [address] Triglyceride [Mass/Vol] 182 mg/dL Normal [facility] Comment on above: Result Comment: The drugs N-Acetylcysteine and Metamizole may falsely depress this assay. Normal range: <150 mg/dL Borderline High: 150-199 mg/dL High: 200-499 mg/dL Very High: >500 mg/dL Performed By: #### L 100.0100, L500.4100, L500.4050, L501.1400, L506.1001, L501.9520 ####[facility] [address] [place], [address] Lymphocytes Auto (Unsp spec) [#/Vol]Ordered By: Wesly Hidalgo on 12-08-2024 Lymphocytes (Bld) [#/Vol] 3.33 10*3/uL 0.83-4.51 [facility] Lymphocytes/100 WBC Auto (Un sp spec)Ordered By: Wesly Hidalgo on 12-08-2024 Lymphocytes/100 WBC (Bld) 34.2 % 19-41 [facility] MCV (mean corpuscular volume ) determinationOrdered By: Wesly Hidalgo on 12-08-2024 MCV (RBC) [Entitic vol] 90.3 fL 81-99 [facility] Mean corpuscular hemoglobin (MCH) determinationOrdered By: Wesly Hidalgo on 12-08-2024 MCH (RBC) [Entitic mass] 30.8 pg 27.0-32.0 [facility] Mean corpuscular hemoglobin concentration (MCHC) determinationOrdered By: Wesly Hidalgo on 12-08-2024 MCHC (RBC) [Mass/Vol] 34.2 g/dL 32-36 [facility] Mean platelet volume determi nationOrdered By: Wesly Hidalgo on 12-08-2024 Platelet mean volume (Bld) [Entitic vol] 10.7 fL 6.2-12.0 [facility] Monocyte percentageOrdered B y: Wesly Hidalgo on 12-08-2024 Monocytes/100 WBC (Bld) 10.5 % High 0-10 [facility] Neutrophil percentageOrdered By: Wesly Hidalgo on 12-08-2024 Neutrophils/100 WBC (Bld) 54.8 % 47-70 [facility] Nucleated red blood cell per centageOrdered By: Wesly Hidalgo on 12-08-2024 Nucleated RBC/100 WBC (Bld) [Ratio] 0 % 0-5 [facility] Platelet countOrdered By: Freddie Hidalgo on 12-08-2024 Platelets (Bld) [#/Vol] 226 10*3/uL 150-450 [facility] Potassium (Unsp spec) [Mass/ Vol]Ordered By: Wesly Hidalgo on 12-08-2024 Potassium [Moles/Vol] 3.9 mmol/L 3.3-5.1 [facility] RBC Auto (Bld) [#/Vol]Ordere d By: Wesly Hidalgo on 12-08-2024 RBC (Bld) [#/Vol] 4.93 10*6/uL 4.2-5.4 [facility] Screening total cholesterol/ high density lipoprotein (HDL) cholesterol ratioOrdered By: Wesly Hidalgo on 12-08-2024 Cholesterol.total/Choles terol in HDL [Mass ratio] 4.61 {ratio} [facility] Serum creatinine measurement (mass/volume)Ordered By: Wesly Hidalgo on 12-08-2024 Creatinine [Mass/Vol] 1.23 mg/dL High 0.70-1.20 [facility] Serum globulin measurementOr dered By: Wesly Hidalgo on 12-08-2024 Globulin (S) [Mass/Vol] 2.4 g/dL 2.2-4.2 [facility] Serum glucose measurement (m ass/volume)Ordered By: Wesly Hidalgo 12-08-2024 Glucose [Mass/Vol] 68 mg/dL Low 70-99 [facility] Serum or plasma alanine [place] otransferase (ALT) measurementOrdered By: Wesly Hidalgo 12-08-2024 ALT [Catalytic activity/Vol] 17 U/L <35 [facility] Serum or plasma albumin ranjana urement (mass/volume)Ordered By: Wesly Hidalgo 12-08-2024 Albumin [Mass/Vol] 4.4 g/dL 3.4-4.8 [facility] Serum or plasma albumin/glob ulin mass ratioOrdered By: Wesly Rocky 12-08-2024 Albumin/Globulin [Mass ratio] 1.8 {ratio} 0.9-2.4 [facility] Serum or plasma alkaline lebron sphatase measurementOrdered By: Wesly Rocky 12-08-2024 ALP [Catalytic activity/Vol] 67 U/L 35-104 [facility] Serum or plasma calcium ranjana urement (mass/volume)Ordered By: Wesly Hidalgo 12-08-2024 Calcium [Mass/Vol] 9.8 mg/dL 7.6-11.0 [facility] Serum or plasma cholesterol in HDL measurement (mass/volume)Ordered By: Wesly Hidalgo 12-08-2024 Cholesterol in HDL [Mass/Vol] 42 mg/dL >40 [facility] Comment on above: National Cholesterol Education Program (NCEP) guidelines:<40 mg/dL: Low HDL-cholesterol (major risk factor for CHD)>= 60 mg/dL: High HDL-cholesterol (negative risk factor for CHD)HDL-cholesterol is affected by a number of factors, e.g. smoking, exercise, hormones, sex and age. Serum or plasma cholesterol measurement (mass/volume)Ordered By: Wesly Hidalgo 12-08-2024 Cholesterol [Mass/Vol] 195 mg/dL <201 [facility] Comment on above: Cholesterol level, D esirable <200 mg/dLBorderline high cholesterol 200-239 mg/dLHigh cholesterol >=240 mg/dLRecommendations of the NCEP Adult Treatment Panel for the following risk-cutoff thresholds for the [place] population. Serum or plasma urea nitroge n measurement (mass/volume)Ordered By: Wesly Hidalgo 12-08-2024 Urea nitrogen [Mass/Vol] 24 mg/dL High 4-19 [facility] Serum or plasma uric acid me asurement (mass/volume)Ordered By: Wesly Hidalgo on 12-08-2024 Urate [Mass/Vol] 9.3 mg/dL High 2.6-6.0 [facility] Comment on above: The drugs N-Acetylcy steine and Metamizole may falsely depress this assay. Sodium levelOrdered By: Wesly Hidalgo on 12-08-2024 Sodium [Moles/Vol] 139 mmol/L 133-145 [facility] TSH DL <= 0.005 mIU/L QnOrde red By: Wesly Hidalgo on 12-08-2024 Thyroid Stimulating Hormone (TSH) 2.250 uIU/mL 0.300-4.200 [facility] Thyroid Stim Hormone (TSH)on 12-08-2024 TSH 2.250 uIU/mL Normal 0.300-4.200 [facility] Comment on above: Performed By: #### L 100.0100, L500.4100, L500.4050, L501.1400, L506.1001, L501.9520 ####[facility] [address] [place], [address] Total proteinOrdered By: Wesly Hidalgo on 12-08-2024 Protein [Mass/Vol] 6.8 g/dL 5.9-8.4 [facility] Triglycerides measurementOrd ered By: Wesly Hidalgo on 12-08-2024 Triglyceride [Mass/Vol] 182 mg/dL <199 [facility] Comment on above: The drugs N-Acetylcy steine and Metamizole may falsely depress this assay. Normal range: <150 mg/dLBorderline High: 150-199 mg/dLHigh: 200-499 mg/dLVery High: >500 mg/dL Uric Acidon 12-08-2024 URIC 9.3 mg/dL High 2.6-6.0 [facility] Comment on above: Result Comment: The drugs N-Acetylcysteine and Metamizole may falsely depress this assay. Performed By: #### L 100.0100, L500.4100, L500.4050, L501.1400, L506.1001, L501.9520 ####[facility] [address] [place], [place], [id number] Vitamin D, 25-hydroxyOrdered By: Wesly Hidalgo on 12-08-2024 Vitamin D 25-Hydroxy 61.2 ng/mL 30-100 [facility] Comment on above: Vitamin D StatusDefi ciency: <20 ng/mL (50nmol/L)Insufficiency: 20-30 ng/mL (50-75 nmol/L)Sufficiency: 30-100 ng/mL (75-250 nmol/L)Toxicity: >100 ng/mL (>250 nmol/L) White blood cell (WBC) count Ordered By: Wesly Hidalgo on 12-08-2024 WBC (Bld) [#/Vol] 9.7 10*3/uL 4.4-11.0 [facility] CNOVon 11-18-2024 CNOV Office Visit ([facility]) -------- CRIS RUBIO ([id number]) 1955 F Date Time Provider Department 11/18/24 3:20 PM NICOLE ALLEN AGCARDPOB During your visit today, we recorded the following information about you: Pulse Blood pressure Weight 75/minute 144/79 83 kg Nicole Allen MD 11/19/2024 12:45 PM Signed PRIMARY CARE PHYSICIAN: Wesly Hidalgo MD [address] [place] [address] Patient Care Team: Wesly Hidalgo Chi as PCP - General (Gerontology) Danyell Ware PA-C as Physician Bankruptcy Law Specialist (Cardiology) Quinton Barton MD as Specialty Biological Plant Operator (Cardiology) Nicole Allen MD as Specialty Biological Plant Operator (Cardiology) CHIEF COMPLAINT: Follow-up for arrhythmia HISTORY OF PRESENT ILLNESS: Ms. Rubio is a 69 year old female who presents today for a cardiovascular medicine follow-up visit. History copied from previous notes, edited as needed: Summary of previous notes: Ms. Rubio has a history of arrhythmia, first evaluated in [facility] in April 2024. In about 2008, before moving to [place] from [place], she was experiencing palpitations, heart racing. She was frequently using her inhaler for asthma. She was seen by a mig tig welder, had testing including stress testing. She reports the tests were okay, was not told that she had any arrhythmia. She moved to [place] in 2009. She was "sick with flu" in August 2022, was hospitalized. She was receiving "breathing treatment", possibly albuterol, and she had arrhythmia. She states she was told it was atrial fibrillation. She was evaluated by Dr. Barton, [facility]. She was treated with Eliquis. She was already on atenolol prior to that episode for hypertension. She has had episodes periodically with "heart racing" and "skipping beats." She had COVID November 2023, had one dose of Paxlovid, and developed severe palpitations and tachycardia. She was told she had tachycardia and atrial fibrillation." She had another episode of atrial fibrillation a couple months ago (2023). Typically episodes occur at nighttime. No obvious triggers or exacerbating factors. She does not drink alcohol. She drinks occasional soda but otherwise not much caffeine. She has not been tested for sleep apnea. Her , who has sleep apnea, states she only snores occasionally and does not have apnea at nighttime that he has noticed. In summary, Ms. Rubio has symptomatic paroxysmal atrial fibrillation. I had a detailed discussion with Ms. Rubio and her regarding atrial fibrillation and its management. I reviewed the cornerstones or pillars of management including stroke prevention, ventricular response rate control, atrial rhythm control and patient modifiable risk factors and lifestyle changes relevant to atrial fibrillation. A rhythm control treatment strategy appears to be appropriate due to bothersome symptoms. Discussed options in detail, including antiarrhythmic drug therapy and catheter ablation. Antiarrhythmic drug options would be potentially limited by the findings of an echocardiogram, so I encouraged her to get the echocardiogram completed that was ordered by [facility]. Discussed options regarding better ventricular rate control. Catheter ablation might be reasonable option, but she has strong family history of malignant hypertension from anesthesia and was evidently told by someone in the past to assume that she has this condition as well. She was evidently tested but results inconclusive. We might need to consider having her see a specialist in this regard, at minimum have pre-procedure evaluation by Anesthesiology team. Catheter ablation is typically performed with the use of general anesthesia, but could be performed with moderate sedation, but this would be less desirable. PLAN AND RECOMMENDATIONS: 1) Continue with current plan of care from EP standpoint for now. 2) Consider either increase beta-wendy or add diltiazem. 3) Have the echocardiogram completed as scheduled ([facility]) -- have report sent to me when study is completed. 4) Consider flecainide if echocardiogram does not show contraindication -- this would be short term option and potentially correction option if effective and well tolerated. 5) Consider catheter ablation -- pulsed field ablation (PFA) would be probably best as would offer chance for shorter procedure, as she might need to have the procedure performed with moderate sedation rather than GA due to family history of malignant hypertension. If she opts for catheter ablation I would need her to be seen by the Anesthesiology team in advance of the procedure to determine whether she should have any particular testing for malignant hypertension and also develop a strategy for how she should be managed during the procedure. Interim History (more content not included)... Normal [facility] ECG B/O W INTERP (MED OFFICE )on 11-18-2024 Interpretation and review of laboratory results Normal [facility] Sinus rhythm 63 bpm; normal conduction intervals (WA 174 ms, QRS 80 ms); QTc 423 ms [facility] Absolute neutrophil countOrd ered By: Wesly Hidalgo on 10-27-2024 Neutrophils (Bld) [#/Vol] 5.9 10*3/uL 2.0-7.7 [facility] Albumin to globulin ratioOrd ered By: Wesly Hidalgo on 10-27-2024 Albumin/Globulin [Mass ratio] 1.2 {ratio} 0.9-2.4 [facility] Basophil percentageOrdered B y: Wesly Hidalgo on 10-27-2024 Basophils/100 WBC (Bld) 0.1 % 0-1 [facility] Bilirubin, totalOrdered By: Wesly Hidalgo on 10-27-2024 Bilirubin [Mass/Vol] 0.60 mg/dL 0.20-1.00 [facility] Comment on above: For patients on eltr ombopag therapy, use of Dimension [place] TBIL is not recommended. Blood urea nitrogen (BUN)/cr eatinine ratioOrdered By: Wesly Hidalgo on 10-27-2024 Urea nitrogen/Creatinine [Mass ratio] 12.1 mg/mg 10-20 [facility] C-reactive protein measureme nt by high sensitivity methodOrdered By: Wesly Hidalgo on 10-27-2024 C-Reactive Protein Extended Range 11.10 mg/L High 0.0-3.0 [facility] Comment on above: C-Reactive Protein ( CRP) provides useful information for thediagnosis, therapy and monitoring of inflammatory processesand associated diseases. For the evaluation of Relative Riskfor Cardiovascular Disease, a High Sensitivity CRP (HSCRP)should be ordered. CBC W/Diff, Automatedon 10-07 Absolute Lymph 2.84 X10 3/uL Normal 0.83-4.51 [facility] Comment on above: Performed By: #### L 101.9900, L100.0100, L500.4050, L501.1400, L501.6710 ####[facility] [address] [place], [address] Absolute Neut 5.9 X10 3/uL Normal 2.0-7.7 [facility] Comment on above: Performed By: #### L 101.9900, L100.0100, L500.4050, L501.1400, L501.6710 ####[facility] [address] [place], [address] Basophils/100 WBC (Bld) 0.1 % Normal 0-1 [facility] Comment on above: Performed By: #### L 101.9900, L100.0100, L500.4050, L501.1400, L501.6710 ####[facility] [address] [place], [address] Eosinophils/100 WBC (Bld) 0.0 % Normal 0-5 [facility] Comment on above: Performed By: #### L 101.9900, L100.0100, L500.4050, L501.1400, L501.6710 ####[facility] [address] [place], [address] Erythrocyte distribution width (RBC) [Ratio] 13.0 % Normal 11.6-14.6 [facility] Comment on above: Performed By: #### L 101.9900, L100.0100, L500.4050, L501.1400, L501.6710 ####[facility] [address] [place], [address] Hematocrit (Bld) [Volume fraction] 44.7 % Normal 37-47 [facility] Comment on above: Performed By: #### L 101.9900, L100.0100, L500.4050, L501.1400, L501.6710 ####[facility] [address] [place], [address] Hemoglobin (Bld) [Mass/Vol] 14.6 g/dL Normal 12.0-15.0 [facility] Comment on above: Performed By: #### L 101.9900, L100.0100, L500.4050, L501.1400, L501.6710 ####[facility] [address] [place], [address] IG% 0.800 Normal 0.0-0.9 [facility] Comment on above: Result Comment: IG% - Immature Granulocytes (promyelocytes, myelocytes and metamyelocytes) > 1% indicates that a LEFT SHIFT is Present. Performed By: #### L 101.9900, L100.0100, L500.4050, L501.1400, L501.6710 ####[facility] [address] [place], [address] Lymphocytes/100 WBC (Bld) 29.1 % Normal 19-41 [facility] Comment on above: Performed By: #### L 101.9900, L100.0100, L500.4050, L501.1400, L501.6710 ####[facility] [address] [place], [address] MCH (RBC) [Entitic mass] 29.7 pg Normal 27.0-32.0 [facility] Comment on above: Performed By: #### L 101.9900, L100.0100, L500.4050, L501.1400, L501.6710 ####[facility] [address] [place], [address] MCHC (RBC) [Mass/Vol] 32.7 g/dL Normal 32-36 [facility] Comment on above: Performed By: #### L 101.9900, L100.0100, L500.4050, L501.1400, L501.6710 ####[facility] [address] [place], [address] MCV (RBC) [Entitic vol] 91.0 fL Normal 81-99 [facility] Comment on above: Performed By: #### L 101.9900, L100.0100, L500.4050, L501.1400, L501.6710 ####[facility] [address] [place], [address] Monocytes/100 WBC (Bld) 9.1 % Normal 0-10 [facility] Comment on above: Performed By: #### L 101.9900, L100.0100, L500.4050, L501.1400, L501.6710 ####[facility] [address] [place], [address] Neutrophils/100 WBC (Bld) 60.9 % Normal 47-70 [facility] Comment on above: Performed By: #### L 101.9900, L100.0100, L500.4050, L501.1400, L501.6710 ####[facility] [address] [place], [address] Nucleated RBC (Bld) [#/Vol] 0 10*3/uL Normal 0-5 [facility] Comment on above: Performed By: #### L 101.9900, L100.0100, L500.4050, L501.1400, L501.6710 ####[facility] [address] [place], [address] Platelet mean volume (Bld) [Entitic vol] 10.2 fL Normal 6.2-12.0 [facility] Comment on above: Performed By: #### L 101.9900, L100.0100, L500.4050, L501.1400, L501.6710 ####[facility] [address] [place], [address] Platelets (Bld) [#/Vol] 248 10*3/uL Normal 150-450 [facility] Comment on above: Performed By: #### L 101.9900, L100.0100, L500.4050, L501.1400, L501.6710 ####[facility] [address] [place], [address] RBC (Bld) [#/Vol] 4.91 10*6/uL Normal 4.2-5.4 [facility] Comment on above: Performed By: #### L 101.9900, L100.0100, L500.4050, L501.1400, L501.6710 ####[facility] [address] [place], [address] RDW SD 42.8 fl Normal 35.1-43.9 [facility] Comment on above: Performed By: #### L 101.9900, L100.0100, L500.4050, L501.1400, L501.6710 ####[facility] [address] [place], [address] WBC (Bld) [#/Vol] 9.8 10*3/uL Normal 4.4-11.0 [facility] Comment on above: Performed By: #### L 101.9900, L100.0100, L500.4050, L501.1400, L501.6710 ####[facility] [address] [place], [address] CRPon 10-27-2024 C-REACTIVE PROT 11.10 mg/L High 0.0-3.0 [facility] Comment on above: Result Comment: C-Re active Protein (CRP) provides useful information for the diagnosis, therapy and monitoring of inflammatory processes and associated diseases. For the evaluation of Relative Risk for Cardiovascular Disease, a High Sensitivity CRP (HSCRP) should be ordered. Performed By: #### L 101.9900, L100.0100, L500.4050, L501.1400, L501.6710 ####[facility] [address] [place], [address] Carbon dioxide measurementOr dered By: Wesly Hidalgo on 10-27-2024 CO2 [Moles/Vol] 31.0 mmol/L 21.0-32.0 [facility] Chloride measurementOrdered By: Wesly Hidalgo on 10-27-2024 Chloride [Moles/Vol] 99 mmol/L 98-107 [facility] Comprehensive Metabolic Prof ilon 10-27-2024 Albumin [Mass/Vol] 3.9 g/dL Normal 3.2-5.0 [facility] Comment on above: Performed By: #### L 101.9900, L100.0100, L500.4050, L501.1400, L501.6710 ####[facility] [address] [place], [address] Albumin/Globulin [Mass ratio] 1.2 {ratio} Normal 0.9-2.4 [facility] Comment on above: Performed By: #### L 101.9900, L100.0100, L500.4050, L501.1400, L501.6710 ####[facility] [address] [place], [address] ALK P 72 U/L Normal 45-117 [facility] Comment on above: Performed By: #### L 101.9900, L100.0100, L500.4050, L501.1400, L501.6710 ####[facility] [address] [place], [address] ALT [Catalytic activity/Vol] 26 U/L Normal 13-56 [facility] Comment on above: Performed By: #### L 101.9900, L100.0100, L500.4050, L501.1400, L501.6710 ####[facility] [address] [place], [address] AST [Catalytic activity/Vol] 17 U/L Normal 15-37 [facility] Comment on above: Performed By: #### L 101.9900, L100.0100, L500.4050, L501.1400, L501.6710 ####[facility] [address] [place], [address] Bilirubin [Mass/Vol] 0.60 mg/dL Normal 0.20-1.00 [facility] Comment on above: Result Comment: For patients on eltrombopag therapy, use of Dimension [place] TBIL is not recommended. Performed By: #### L 101.9900, L100.0100, L500.4050, L501.1400, L501.6710 ####[facility] [address] [place], [address] BUN/CRE 12.1 RATIO Normal 10-20 [facility] Comment on above: Performed By: #### L 101.9900, L100.0100, L500.4050, L501.1400, L501.6710 ####[facility] [address] [place], [address] CA,Total 10.1 mg/dL Normal 8.5-10.1 [facility] Comment on above: Performed By: #### L 101.9900, L100.0100, L500.4050, L501.1400, L501.6710 ####[facility] [address] [place], [address] Chloride [Moles/Vol] 99 mmol/L Normal 98-107 [facility] Comment on above: Performed By: #### L 101.9900, L100.0100, L500.4050, L501.1400, L501.6710 ####[facility] [address] [place], [address] CO2 [Moles/Vol] 31.0 mmol/L Normal 21.0-32.0 [facility] Comment on above: Performed By: #### L 101.9900, L100.0100, L500.4050, L501.1400, L501.6710 ####[facility] [address] [place], [address] Creatinine [Mass/Vol] 1.24 mg/dL High 0.55-1.02 [facility] Comment on above: Result Comment: The validity of the calculated GFR GFRAA in patients over 70 years has not been determined. Clinical correlation is essential. Performed By: #### L 101.9900, L100.0100, L500.4050, L501.1400, L501.6710 ####[facility] [address] [place], [address] EST GFR - AA 55 mL/min Low >60 [facility] Comment on above: Result Comment: Afri can Tongan GFR Calc Performed By: #### L 101.9900, L100.0100, L500.4050, L501.1400, L501.6710 ####[facility] [address] [place], [address] GAP 6 Normal 5-15 [facility] Comment on above: Performed By: #### L 101.9900, L100.0100, L500.4050, L501.1400, L501.6710 ####[facility] [address] [place], [address] GFR/1.73 sq M.predicted among non-blacks MDRD (S/P/Bld) [Vol rate/Area] 46 mL/min/{1.73_m2} Low >60 [facility] Comment on above: Result Comment: Non- GFR Calc Performed By: #### L 101.9900, L100.0100, L500.4050, L501.1400, L501.6710 ####[facility] [address] [place], [address] Globulin (S) [Mass/Vol] 3.3 g/dL Normal 2.2-4.2 [facility] Comment on above: Performed By: #### L 101.9900, L100.0100, L500.4050, L501.1400, L501.6710 ####[facility] [address] [place], [address] Glucose [Mass/Vol] 99 mg/dL Normal 74-106 [facility] Comment on above: Performed By: #### L 101.9900, L100.0100, L500.4050, L501.1400, L501.6710 ####[facility] [address] [place], [address] Potassium [Moles/Vol] 3.6 mmol/L Normal 3.5-5.1 [facility] Comment on above: Performed By: #### L 101.9900, L100.0100, L500.4050, L501.1400, L501.6710 ####[facility] [address] [place], [address] Sodium [Moles/Vol] 136 mmol/L Normal 136-145 [facility] Comment on above: Performed By: #### L 101.9900, L100.0100, L500.4050, L501.1400, L501.6710 ####[facility] [address] [place], [address] T PROT 7.2 g/dL Normal 6.4-8.2 [facility] Comment on above: Performed By: #### L 101.9900, L100.0100, L500.4050, L501.1400, L501.6710 ####[facility] [address] [place], [address] Urea nitrogen [Mass/Vol] 15 mg/dL Normal 7-18 [facility] Comment on above: Performed By: #### L 101.9900, L100.0100, L500.4050, L501.1400, L501.6710 ####[facility] [address] [place], [address] Eosinophil percentageOrdered By: Wesly Hidalgo on 10-27-2024 Eosinophils/100 WBC (Bld) 0.0 % 0-5 [facility] Erythrocyte Sed Rateon 10-27 SED RATE 4 mm/hr Normal 0-30 [facility] Comment on above: Performed By: #### L 101.9900, L100.0100, L500.4050, L501.1400, L501.6710 ####[facility] [address] [place], [address] Erythrocyte distribution wid th ratioOrdered By: Wesly Hidalgo on 10-27-2024 Erythrocyte distribution width (RBC) [Ratio] 13.0 % 11.6-14.6 [facility] Erythrocyte distribution wid th standard deviationOrdered By: Wesly Hidalgo on 10-27-2024 Erythrocyte distribution width (RBC) [Entitic vol] 42.8 fL 35.1-43.9 [facility] Erythrocyte sedimentation ra teOrdered By: Wesly Hidalgo on 10-27-2024 ESR (Bld) [Velocity] 4 mm/h 0-30 [facility] Estimated glomerular filtrat ion rate (GFR) AmericanOrdered By: Wesly Hidalgo on 10-27-2024 Estimated GFR (MDRD) Amer 55 mL/min Low >60 [facility] Comment on above: GFR Calc Foot min 3 Viewson 5 Foot min 3 Views [facility] [address] [place], [place] [address] Foot min 3 Views MR#: [id number] Acct: [id number] Name: CRIS RUBIO Rep #: [id number] : 1955 F 69 From: Franc batres DO PCP: Dr. Wesly Hidalgo MD Status: REG CLI Study: Foot min 3 Views Date of Exam: 10/27/24 Exam# [id number] Ordering Dr: Wesly Hidalgo MD [id number] EXAM: XR RIGHT FOOT COMPLETE, 3 OR MORE VIEWS CLINICAL INDICATION: RIGHT FOOT PAIN TECHNIQUE: Frontal, lateral and oblique views of the right foot. COMPARISON: Right toes, 06/26/2023 FINDINGS: BONES/JOINTS: First metatarsophalangeal joint arthrosis. Likely chronic stress reactive changes of the fourth metatarsal. Calcaneal spurs. No acute fracture. No subluxation. Normal alignment. No sclerotic or destructive changes observed. SOFT TISSUES: Soft tissue swelling. No radiopaque foreign body. RAD/Foot min 3 Views IMPRESSION: Degenerative changes. Likely chronic stress reactive changes of the fourth metatarsal. No acute findings. Electronically Signed: Franc Bryson DO at 21:38 EST , CC: Dr. Wesly Hidalgo MD [employer] Keeper: Signed Normal [facility] Glomerular filtration rate ( GFR) estimationOrdered By: Wesly Hidalgo on 01-22-2025 Estimated GFR (MDRD) Non-Af Amer 46 mL/min Low >60 [facility] Comment on above: Non- GFR Calc Glucose measurementOrdered B y: Wesly Hidalgo on 10-27-2024 Glucose [Mass/Vol] 99 mg/dL 74-106 [facility] Hematocrit Auto (Bld) [Volum e fraction]Ordered By: Wesly Hidalgo on 10-27-2024 Hematocrit (Bld) [Volume fraction] 44.7 % 37-47 [facility] Hemoglobin measurementOrdere d By: Wesly Hidalgo on 10-27-2024 Hemoglobin (Bld) [Mass/Vol] 14.6 g/dL 12.0-15.0 [facility] Immature granulocytes/100 WB C Auto (Bld)Ordered By: Wesly Hidalgo on 10-27-2024 Immature granulocytes/100 WBC (Bld) 0.800 % 0.0-0.9 [facility] Comment on above: IG% - Immature Granu locytes (promyelocytes, myelocytes and metamyelocytes) > 1% indicates that a LEFT SHIFT is Present. Laboratory - Chemistry and C hemistry - challengeOrdered By: Wesly Hidalgo on 10-27-2024 AST [Catalytic activity/Vol] 17 U/L 15-37 [facility] Lymphocytes Auto (Unsp spec) [#/Vol]Ordered By: Wesly Hidalgo on 10-27-2024 Lymphocytes (Bld) [#/Vol] 2.84 10*3/uL 0.83-4.51 [facility] Lymphocytes/100 WBC Auto (Un sp spec)Ordered By: Wesly Hidalgo 10-27-2024 Lymphocytes/100 WBC (Bld) 29.1 % 19-41 [facility] MCV (mean corpuscular volume ) determinationOrdered By: Wesly Hidalgo 10-27-2024 MCV (RBC) [Entitic vol] 91.0 fL 81-99 [facility] Mean corpuscular hemoglobin (MCH) determinationOrdered By: Wesly Hidalgo 10-27-2024 MCH (RBC) [Entitic mass] 29.7 pg 27.0-32.0 [facility] Mean corpuscular hemoglobin concentration (MCHC) determinationOrdered By: Wesly Hidalgo 10-27-2024 MCHC (RBC) [Mass/Vol] 32.7 g/dL 32-36 [facility] Mean platelet volume determi nationOrdered By: Wesly Hidalgo on 10-27-2024 Platelet mean volume (Bld) [Entitic vol] 10.2 fL 6.2-12.0 [facility] Monocyte percentageOrdered B y: Wesly Hidalgo on 10-27-2024 Monocytes/100 WBC (Bld) 9.1 % 0-10 [facility] Neutrophil percentageOrdered By: Wesly Hidalgo on 10-27-2024 Neutrophils/100 WBC (Bld) 60.9 % 47-70 [facility] Nucleated red blood cell per centageOrdered By: Wesly Hidalgo on 10-27-2024 Nucleated RBC/100 WBC (Bld) [Ratio] 0 % 0-5 [facility] Platelet countOrdered By: Freddie Hidalgo on 10-27-2024 Platelets (Bld) [#/Vol] 248 10*3/uL 150-450 [facility] Potassium measurementOrdered By: Wesly Hidalgo on 10-27-2024 Potassium [Moles/Vol] 3.6 mmol/L 3.5-5.1 [facility] RBC Auto (Bld) [#/Vol]Ordere d By: Wesly Hidalgo on 10-27-2024 RBC (Bld) [#/Vol] 4.91 10*6/uL 4.2-5.4 [facility] Serum anion gap measurementO rdered By: Wesly Hidalgo 10-27-2024 Anion gap [Moles/Vol] 6 mmol/L 5-15 [facility] Serum globulin measurementOr dered By: Wesly Hidalgo 10-27-2024 Globulin (S) [Mass/Vol] 3.3 g/dL 2.2-4.2 [facility] Serum or plasma alanine [place] otransferase (ALT) measurementOrdered By: Wesly Hidalgo 10-27-2024 ALT [Catalytic activity/Vol] 26 U/L 13-56 [facility] Serum or plasma albumin ranjana urement (mass/volume)Ordered By: Wesly Hidalgo 10-27-2024 Albumin [Mass/Vol] 3.9 g/dL 3.2-5.0 [facility] Serum or plasma alkaline [place] sphatase measurementOrdered By: Wesly Hidalgo on 10-27-2024 ALP [Catalytic activity/Vol] 72 U/L 45-117 [facility] Serum or plasma calcium ranjana urement (mass/volume)Ordered By: Wesly Hidalgo on 10-27-2024 Calcium [Mass/Vol] 10.1 mg/dL 8.5-10.1 [facility] Serum or plasma creatinine m easurement (mass/volume)Ordered By: Wesly Hidalgo on 10-27-2024 Creatinine [Mass/Vol] 1.24 mg/dL High 0.55-1.02 [facility] Comment on above: The validity of the calculated GFR & GFRAA in patients over 70 years has not been determined. Clinical correlation is essential. Serum or plasma urea nitroge n measurement (mass/volume)Ordered By: Wesly Hidalgo on 10-27-2024 Urea nitrogen [Mass/Vol] 15 mg/dL 7-18 [facility] Serum or plasma uric acid me asurement (mass/volume)Ordered By: Wesly Hidalgo on 10-27-2024 Urate [Mass/Vol] 4.9 mg/dL 2.6-6.0 [facility] Comment on above: The drugs N-Acetylcy steine and Metamizole may falsely depress this assay. Sodium levelOrdered By: Wesly Hidalgo on 10-27-2024 Sodium [Moles/Vol] 136 mmol/L 136-145 [facility] Total proteinOrdered By: Wesly Hidalgo on 10-27-2024 Protein [Mass/Vol] 7.2 g/dL 6.4-8.2 [facility] Uric Acidon 10-27-2024 URIC 4.9 mg/dL Normal 2.6-6.0 [facility] Comment on above: Result Comment: The drugs N-Acetylcysteine and Metamizole may falsely depress this assay. Performed By: #### L 101.9900, L100.0100, L500.4050, L501.1400, L501.6710 ####[facility] [address] [place], [address] White blood cell (WBC) count Ordered By: Wesly Hidalgo on 10-27-2024 WBC (Bld) [#/Vol] 9.8 10*3/uL 4.4-11.0 [facility] Stress Reporton 10-22-2024 Stress Report [facility] [address] [address] MR#: [id number] Acct: [id number] Name: CRIS RUBIO Rep #: [id number] : 1955 69 From: Quinton Barton MD Primary Care: Dr. Wesly Hidalgo MD Status: REG CLI Referring Dr: Juan Miguel Ziegler NP IT SECURITY ARCHITECT-C Sex: F C Stress Test Report Pharmacologic myocardial perfusion stress test. 69-year-old lady with a history of paroxysmal atrial fibrillation Resting EKG demonstrates sinus rhythm with a rate of 71 bpm. Resting blood pressure is 162/82 mmHg. 0.4 mg of regadenoson was infused per usual protocol followed by rapid intravenous saline flush injection. Continuous EKG monitoring was performed. The maximum heart rate was 96 bpm which was 63% of max impacted heart rate the maximum workload was 1 metabolic equivalent. At rest there were no ST or T wave changes noted to suggest ischemia and at peak infusion nonspecific ST changes were noted which did not meet the criteria for ischemia. No clinical angina is noted. The final blood pressure was 148/88 mmHg. Myocardial perfusion protocol. 11.9 mCi of technetium 99m sestamibi was injected at rest. 0.4 mg of regadenoson was infused per usual protocol. At peak infusion 33.6 mCi of technetium 99m sestamibi was injected stress images were obtained stress and rest images were reconstructed and compared in the short axis vertical long and horizontal long axis. Gated images were also obtained. Perfusion SPECT analysis: Review of the stress images demonstrate normal uptake of tracer noted in all areas of the myocardium. The resting images similar demonstrated normal uptake of tracer noted in all areas of t he myocardium. No areas of reversibility are noted to suggest ischemia and no previous infarct is noted. Gated SPECT analysis: The gated ejection fraction is 79%. Conclusion: Normal pharmacologic myocardial perfusion stress test. Preserved ejection fraction. 10/22/24 1321 Date Quinton Barton MD CC: SIM Ziegler; Dr. Wesly Hidalgo MD Date Dictated: 10/22/24 1320 Date Transcribed: 10/22/241319 [employer] Keeper: [place] Signed Normal [facility] Serum or plasma uric acid me asurement (mass/volume)Ordered By: Wesly Hidalgo on 10-18-2024 Urate [Mass/Vol] 7.3 mg/dL High 2.6-6.0 [facility] Comment on above: The drugs N-Acetylcy steine and Metamizole may falsely depress this assay. Uric Acidon 10-18-2024 URIC 7.3 mg/dL High 2.6-6.0 [facility] Comment on above: Result Comment: The drugs N-Acetylcysteine and Metamizole may falsely depress this assay. Performed By: #### L 501.1400 #### [facility] [address] [place], [place], [address] Cardiology Visit Reporton Cardiology Visit Report [facility] [address] [place] [address] OFFICE VISIT Date of Service: 10/07/24 MR#: [id number] Acct: [id number] Name: CRIS RUBIO Rep #: [id number] : 1955 Provider: SIM barajas Age/Sex: 69/F [place] [facility] Status: Signed HPI HPI History of Present Illness Details: Cris Rubio is a 69-year-old lady with a history of hypertension, hyperlipidemia, and atrial fibrillation. Atrial fibrillation was noted during a hospital stay for influenza. She did have an echocardiogram performed which demonstrated an ejection fraction of 65% with no wall motion abnormalities and pulmonary artery systolic pressure of 33 mmHg. She had COVID in previously and after taking one dose of Paxlovid she had Afib. She denies chest, arm, jaw, or neck discomfort. She states 3-4 episodes of palpitations that she attributes to atrial fibrillation. She noted headaches, upper body pressure, and shortness of breath. This is followed by fatigue. She denies bilateral lower extremity edema. She denies claudication. She denies shortness of breath with activity, shortness of breath at rest, orthopnea, or PND. She denies chronic cough. She denies significant, sudden weight gain. She denies lightheadedness, dizziness, near-syncope, or syncope. She denies blood in urine, blood in stool, or epistaxis. He denies fever with chills. She denies myalgia. She denies fatigue. Her exercise level has remained stable. Intake Vital Signs 04/02/24 10:04 10/07/24 11:08 Height 5 ft 5 ft Weight: 179 lb BMI 34.9 BP 128/76 H Blood Pressure Location Lt brachial Position Sitting Respiration 18 Pulse 63 Pulse Source Monitor Intake Visit Reasons: 6 M FU Education Paraprofessional Required: No Is patient in pain?: No Allergies ampicillin Allergy (Intermediate, Verified 10/07/24 11:08) Rash sulfamethoxazole (From Bactrim) Allergy (Intermediate, Verified 10/07/24 11:08) BLOTCHES/ HIVES trimethoprim (From Bactrim) Allergy (Intermediate, Verified 10/07/24 11:08) BLOTCHES/ HIVES niacin (From Niaspan Extended-Release) Adverse Reaction (Intermediate, Verified 10/07/24 11:08) REDDNESS/ PASSED OUT amitriptyline Adverse Reaction (Mild, Verified 10/07/24 11:08) EARS RING clarithromycin (From Biaxin) Adverse Reaction (Mild, Verified 10/07/24 11:08) Upset Stomach nirmatrelvir (From Paxlovid) Adverse Reaction (Mild, Verified 10/07/24 11:08) tachycardia ritonavir (From Paxlovid) Adverse Reaction (Mild, Verified 10/07/24 11:08) tachycardia Medications ???Medication ???Instructions ???Recorded ???Confirmed ???Type potassium chloride 10 mEq 10 meq PO DAILY PRN LEG CRAMPS 11/02/13 10/07/24 History tablet,extended release vitamin E 268 mg (400 unit) capsule 400 unit PO DAILY SUPPLEMENT 10/20/19 10/07/24 History ascorbic acid (vitamin C) 1,000 mg 1,000 mg PO DAILY SUPPLEMENT 12/15/20 10/07/24 History tablet wdoeukkq-wzfc-nolz 8 mg-folic 400 1 ea PO DAILY HEALTH MAINTENANCE 12/15/20 10/07/24 History mcg-K 50 mcg-lutein 300 mcg tablet (Centrum Silver Women) zinc 50 mg tablet 50 mg PO DAILY SUPPLEMENT 12/15/20 10/07/24 History albuterol sulfate 2.5 mg/3 mL 2.5 mg inhalation Q4H PRN 08/30/22 04/02/24 History (0.083 %) solution for nebulization Shortness Of Breath albuterol sulfate 90 mcg/actuation 2 inh inhalation UD PRN Shortness 08/30/22 10/07/24 History aerosol inhaler Of Breath magnesium oxide 400 mg PO QHS SUPPLEMENT 08/30/22 10/07/24 History atenolol 50 mg tablet 50 mg PO DAILY 30 days #90 tabs 09/05/22 10/07/24 Rx calcium carbonate 600 mg PO BID 09/05/22 10/07/24 History cholecalciferol (vitamin D3) 25 25 mcg PO DAILY 09/05/22 10/07/24 History mcg (1,000 unit) tablet valsartan 320 1 tab PO DAILY BLOOD PRESSURE #90 09/05/22 10/07/24 Rx mg-hydrochlorothiazide 12.5 mg tabs tablet furosemide 20 mg tablet 20 mg PO DAILY PRN 12/05/22 10/07/24 History apixaban 5 mg tablet (Eliquis) 5 mg PO BID #60 tabs 09/20/24 10/07/24 Rx Have you fallen in the past year?: Yes PFSH Medical History (Reviewed 10/07/24 @ 11:36 by Juan Miguel Ziegler IT SECURITY ARCHITECT, IT SECURITY ARCHITECT-C) PAF (paroxysmal atrial fibrillation) Spinal stenosis Hyperlipidemia Atrial fibrillation with rapid ventricular response (08/30/22) Essential hypertension Bronchospasm, acute Hypoxia Influenza with pneumonia Status post L4-L5 laminectomy Depression Asthma Malignant hyperthermia Osteoarthritis Hemorrhoid GERD (gastroesophageal reflux disease) history of superficial venous thrombosis Rosacea Osteopenia Surgical History H/O kyphoplasty History of colonoscopy ( 2006) History of fasciotomy Status post laser ablation of incompetent vein History of right knee joint replacement History of total r (more content not included)... Normal [facility] Influenza virus A and B and SARS-CoV-2 (COVID-19) and Respiratory syncytial virus RNAOrdered By: Wesly Hidalgo on 09-27-2024 SARS-CoV-2 (COVID-19) RNA TAMEKA+probe Ql (Unsp spec) [facility] M100.678on 09-27-2024 M100.678 Pending SARS-CoV-2 (COVID 19) Negative INFLUENZA A Negative INFLUENZA B Negative RSV PCR Negative Normal [facility] Comment on above: Performed By: #### M 100.678 ####[facility] [address] [place], [address] ECG B/O W INTERP (MED OFFICE )on 04-05-2024 Sinus rhythm 64 bpm; normal conduction intervals (WA 168 ms, QRS 80 ms); QTc 437 ms [facility] Absolute lymphocyte countOrd ered By: Wesly Michelleok on 12-08-2023 Lymphocytes Auto (Unsp spec) [#/Vol] 2.68 10*3/uL 0.83-4.51 [facility] Automated lymphocyte count a s percentage of total leukocytesOrdered By: Wesly Rocky on 12-08-2023 Lymphocytes/100 WBC Auto (Unsp spec) 28.5 % 19-41 [facility] Basophil percentageOrdered B y: Wesly Hidalgo on 12-08-2023 Basophils/100 WBC (Bld) 0.1 % 0-1 [facility] Bilirubin [Mass/Vol] 0.40 mg/dL 0.20-1.00 [facility] Comment on above: For patients on eltr ombopag therapy, use of Dimension [place] TBIL is not recommended. Chloride [Moles/Vol] 108 mmol/L 98-107 [facility] Cholesterol [Mass/Vol] 151 mg/dL <200 [facility] Comment on above: <200 mg/dL Desirable 200-240 mg/dL Borderline >240 mg/dL High Risk Eosinophils/100 WBC (Bld) 0.0 % 0-5 [facility] Glucose [Mass/Vol] 108 mg/dL 74-106 [facility] Comment on above: Fasting Glucose resu lt from 100 to 125 mg/dL suggests IMPAIRED HOMEOSTASIS per A.D.A. criteria. Hemoglobin (Bld) [Mass/Vol] 13.5 g/dL 12.0-15.0 [facility] Monocytes/100 WBC (Bld) 9.9 % 0-10 [facility] Neutrophils (Bld) [#/Vol] 5.7 10*3/uL 2.0-7.7 [facility] Neutrophils/100 WBC (Bld) 60.4 % 47-70 [facility] Potassium [Moles/Vol] 3.6 mmol/L 3.5-5.1 [facility] Protein [Mass/Vol] 6.4 g/dL 6.4-8.2 [facility] Sodium [Moles/Vol] 140 mmol/L 136-145 [facility] Triglyceride [Mass/Vol] 339 mg/dL <199 [facility] Comment on above: The drugs N-Acetylcy steine and Metamizole may falsely depress this assay.Serum Triglycerides Reference Interval Normal <150 mg/dL Borderline high 150 - 199 mg/dL High 200 - 499 mg/dL Very High > or = 500 mg/dL WBC (Bld) [#/Vol] 9.4 10*3/uL 4.4-11.0 [facility] Determination of erythrocyte mean corpuscular volume (MCV)Ordered By: Wesly Hidalgo on 12-08-2023 MCV (RBC) [Entitic vol] 89.5 fL 81-99 [facility] Erythrocyte distribution wid th ratioOrdered By: Wesyl Rocky on 12-08-2023 Erythrocyte distribution width (RBC) [Ratio] 13.9 % 11.6-14.6 [facility] Erythrocyte distribution wid th standard deviationOrdered By: Wesly Hidalgo on 12-08-2023 Erythrocyte distribution width (RBC) [Entitic vol] 45.3 fL 35.1-43.9 [facility] Hematocrit Auto (Bld) [Volum e fraction]Ordered By: Wesly Hidalgo on 12-08-2023 Hematocrit (Bld) [Volume fraction] 41.1 % 37-47 [facility] Immature granulocytes/100 WB C Auto (Bld)Ordered By: Wesly Hidalgo on 12-08-2023 Immature granulocytes/100 WBC (Bld) 1.100 % 0.0-0.9 [facility] Comment on above: IG% - Immature Granu locytes (promyelocytes, myelocytes and metamyelocytes) > 1% indicates that a LEFT SHIFT is Present. Laboratory - Chemistry and C hemistry - challengeOrdered By: Wesly Hidalgo on 12-08-2023 Albumin/Globulin [Mass ratio] 1.1 {ratio} 0.9-2.4 [facility] ALP [Catalytic activity/Vol] 82 U/L 45-117 [facility] ALT [Catalytic activity/Vol] 36 U/L 13-56 [facility] Cholesterol in HDL [Mass/Vol] 30 mg/dL >40 [facility] Comment on above: The drugs N-Acetylcy steine and Metamizole may falsely depress this assay. Reference Range HDL <40 mg/dL Low HDL Cholesterol HDL >or= 60 mg/dL High HDL Cholesterol Cholesterol in LDL [Mass/Vol] 53 mg/dL 0-130 [facility] CO2 [Moles/Vol] 29.0 mmol/L 21.0-32.0 [facility] Globulin (S) [Mass/Vol] 3.0 g/dL 2.2-4.2 [facility] Urea nitrogen/Creatinine [Mass ratio] 18.5 mg/mg 10-20 [facility] Laboratory - Hematology and Cell countsOrdered By: Wesly Hidalgo on 12-08-2023 MCH (RBC) [Entitic mass] 29.4 pg 27.0-32.0 [facility] MCHC (RBC) [Mass/Vol] 32.8 g/dL 32-36 [facility] Nucleated RBC/100 WBC (Bld) [Ratio] 0 % 0-5 [facility] Platelet mean volume (Bld) [Entitic vol] 10.6 fL 6.2-12.0 [facility] Platelets (Bld) [#/Vol] 222 10*3/uL 150-450 [facility] No Panel InformationOrdered By: Wesly Hidalgo on 12-08-2023 Estimated GFR (MDRD) Amer 52 mL/min >60 [facility] Comment on above: GFR Calc Estimated GFR (MDRD) Non-Af Amer 43 mL/min >60 [facility] Comment on above: Non- GFR Calc Vitamin D 25-Hydroxy 42.2 ng/mL [facility] Comment on above: Vitamin D 25(OH) Sta tus Range Deficiency <20 ng/mL (50nmol/L) Insufficiency 20 - 30 ng/mL (50 - 75 nmol/L) Sufficiency 30 - 100 ng/mL (75 - 250 nmol/L) Toxicity >100 ng/mL (>250 nmol/L) VLDL Cholesterol 68 mg/dL 5-40 [facility] RBC Auto (Bld) [#/Vol]Ordere d By: Wesly Hidalgo on 12-08-2023 RBC (Bld) [#/Vol] 4.59 10*6/uL 4.2-5.4 [facility] Serum or plasma calcium ranjana urement (mass/volume)Ordered By: Wesly Hidalgo on 12-08-2023 Calcium [Mass/Vol] 9.0 mg/dL 8.5-10.1 [facility] Serum or plasma creatinine m easurement (mass/volume)Ordered By: Wesly Hidalgo on 12-08-2023 Creatinine [Mass/Vol] 1.30 mg/dL 0.55-1.02 [facility] Comment on above: The validity of the calculated GFR & GFRAA in patients over 70 years has not been determined. Clinical correlation is essential. Serum or plasma thyroid stim ulating hormone (TSH) measurement (units/volume)Ordered By: Wesly Hidalgo on 12-08-2023 TSH Qn 2.16 uIU/mL 0.358-3.74 [facility] Serum or plasma urea nitroge n measurement (mass/volume)Ordered By: Wesly Hidalgo on 12-08-2023 Urea nitrogen [Mass/Vol] 24 mg/dL 7-18 [facility] Serum or plasma uric acid me asurement (mass/volume)Ordered By: Wesly Hidalgo 12-08-2023 Urate [Mass/Vol] 9.0 mg/dL 2.6-6.0 [facility] Comment on above: The drugs N-Acetylcy steine and Metamizole may falsely depress this assay. Thin prep Papanicolaou smear with manual screeningOrdered By: Wesly Hidalgo on 12-08-2023 Thin prep Papanicolaou smear with manual screening 3.4 g/dL 3.2-5.0 [facility] Thin prep Papanicolaou smear with manual screening 20 U/L 15-37 [facility] Thin prep Papanicolaou smear with manual screening 3 5-15 [facility] Absolute lymphocyte countOrd ered By: Wesly Hidalgo on 06-26-2023 Lymphocytes Auto (Unsp spec) [#/Vol] 2.23 10*3/uL 0.83-4.51 [facility] Basophil percentageOrdered B y: Wesly Hidalgo on 06-26-2023 Basophils/100 WBC (Bld) 0.0 % 0-1 [facility] Chloride [Moles/Vol] 105 mmol/L 98-107 [facility] Eosinophils/100 WBC (Bld) 0.0 % 0-5 [facility] Glucose [Mass/Vol] 100 mg/dL 74-106 [facility] Comment on above: Fasting Glucose resu lt from 100 to 125 mg/dL suggests IMPAIRED HOMEOSTASIS per A.D.A. criteria. Neutrophils (Bld) [#/Vol] 4.8 10*3/uL 2.0-7.7 [facility] Neutrophils/100 WBC (Bld) 62.1 % 47-70 [facility] Potassium [Moles/Vol] 3.9 mmol/L 3.5-5.1 [facility] Sodium [Moles/Vol] 140 mmol/L 136-145 [facility] WBC (Bld) [#/Vol] 7.7 10*3/uL 4.4-11.0 [facility] Blood erythrocytes count (nu mber/volume)Ordered By: Wesly Hidalgo on 06-26-2023 RBC (Bld) [#/Vol] 4.41 10*6/uL 4.2-5.4 [facility] Blood hemoglobin measurement (mass/volume)Ordered By: Wesly Hidalgo on 06-26-2023 Hemoglobin (Bld) [Mass/Vol] 13.4 g/dL 12.0-15.0 [facility] Blood lymphocytes/100 leukoc ytesOrdered By: Wesly Hidalgo on 06-26-2023 Lymphocytes/100 WBC (Bld) 29.1 % 19-41 [facility] Blood monocytes/100 leukocyt esOrdered By: Wesly Hidalgo on 06-26-2023 Monocytes/100 WBC (Bld) 8.7 % 0-10 [facility] Blood platelet mean volumeOr dered By: Wesly Hidalgo on 06-26-2023 Platelet mean volume (Bld) [Entitic vol] 10.6 fL 6.2-12.0 [facility] Determination of erythrocyte mean corpuscular volume (MCV)Ordered By: Wesly Hidalgo on 06-26-2023 MCV (RBC) [Entitic vol] 91.2 fL 81-99 [facility] Erythrocyte sedimentation ra teOrdered By: Wesly Hidalgo on 06-26-2023 ESR (Bld) [Velocity] 15 mm/h 0-30 [facility] Hematocrit Auto (Bld) [Volum e fraction]Ordered By: Wesly Hidalgo on 06-26-2023 Hematocrit (Bld) [Volume fraction] 40.2 % 37-47 [facility] Laboratory - Chemistry and C hemistry - challengeOrdered By: Wesly Hidalgo on 06-26-2023 CO2 [Moles/Vol] 30.0 mmol/L 21.0-32.0 [facility] Urea nitrogen/Creatinine [Mass ratio] 12.9 mg/mg 10-20 [facility] Laboratory - Hematology and Cell countsOrdered By: Wesly Hidalgo on 06-26-2023 Erythrocyte distribution width (RBC) [Entitic vol] 43.3 fL 35.1-43.9 [facility] Erythrocyte distribution width (RBC) [Ratio] 13.1 % 11.6-14.6 [facility] Immature granulocytes/100 WBC (Bld) 0.100 % 0.0-0.9 [facility] Comment on above: IG% - Immature Granu locytes (promyelocytes, myelocytes and metamyelocytes) > 1% indicates that a LEFT SHIFT is Present. MCH (RBC) [Entitic mass] 30.4 pg 27.0-32.0 [facility] Nucleated RBC/100 WBC (Bld) [Ratio] 0 % 0-5 [facility] Laboratory - Microbiology an d Antimicrobial susceptibilityOrdered By: Wesly Hidalgo on 06-26-2023 SARS-CoV-2 (COVID-19) RNA TAMEKA+probe Ql (Unsp spec) [facility] MCHC Auto (RBC) [Mass/Vol]Or dered By: Wesly Hidalgo on 06-26-2023 MCHC (RBC) [Mass/Vol] 33.3 g/dL 32-36 [facility] No Panel InformationOrdered By: Wesly Hidalgo on 06-26-2023 Influenza Types A,B Direct FA (ALANIS) [facility] C-Reactive Protein High Sensitivity 12.20 mg/L <3.00 [facility] Comment on above: Low Relative Risk of CVD <1.0 mg/L Average Relative Risk of CVD 1.0 - 3.0 mg/L High Relative Risk of CVD >3.0 mg/L Estimated GFR (MDRD) Amer 55 mL/min >60 [facility] Comment on above: GFR Calc Estimated GFR (MDRD) Non-Af Amer 46 mL/min >60 [facility] Comment on above: Non- GFR Calc Platelets bldOrdered By: Wesly Hidalgo on 06-26-2023 Platelets (Bld) [#/Vol] 211 10*3/uL 150-450 [facility] RSV Ag EIAOrdered By: Wesly simmons on 06-26-2023 RSV Ag Immune stain Ql (Tiss) [facility] Serum or plasma calcium ranjana urement (mass/volume)Ordered By: Wesly Hidalgo on 06-26-2023 Calcium [Mass/Vol] 9.2 mg/dL 8.5-10.1 [facility] Serum or plasma creatinine m easurement (mass/volume)Ordered By: Wesly Hidalgo on 06-26-2023 Creatinine [Mass/Vol] 1.24 mg/dL 0.55-1.02 [facility] Comment on above: The validity of the calculated GFR & GFRAA in patients over 70 years has not been determined. Clinical correlation is essential. Serum or plasma urea nitroge n measurement (mass/volume)Ordered By: Wesly Hidalgo on 06-26-2023 Urea nitrogen [Mass/Vol] 16 mg/dL 7-18 [facility] Serum or plasma uric acid me asurement (mass/volume)Ordered By: Wesly Hidalgo on 06-26-2023 Urate [Mass/Vol] 9.5 mg/dL 2.6-6.0 [facility] Comment on above: The drugs N-Acetylcy steine and Metamizole may falsely depress this assay. Thin prep Papanicolaou smear with manual screeningOrdered By: Wesly Hidalgo on 06-26-2023 Thin prep Papanicolaou smear with manual screening 5 5-15 [facility] Absolute lymphocyte countOrd ered By: Wesly Hidalgo on 06-03-2023 Lymphocytes Auto (Unsp spec) [#/Vol] 2.10 10*3/uL 0.83-4.51 [facility] Basophil percentageOrdered B y: Wesly Hidalgo on 06-03-2023 Basophils/100 WBC (Bld) 0.0 % 0-1 [facility] Bilirubin [Mass/Vol] 0.40 mg/dL 0.20-1.00 [facility] Comment on above: For patients on eltr ombopag therapy, use of Dimension [place] TBIL is not recommended. Chloride [Moles/Vol] 103 mmol/L 98-107 [facility] Cholesterol [Mass/Vol] 172 mg/dL <200 [facility] Comment on above: <200 mg/dL Desirable 200-240 mg/dL Borderline >240 mg/dL High Risk Eosinophils/100 WBC (Bld) 0.0 % 0-5 [facility] Glucose [Mass/Vol] 98 mg/dL 74-106 [facility] Neutrophils (Bld) [#/Vol] 2.9 10*3/uL 2.0-7.7 [facility] Neutrophils/100 WBC (Bld) 52.3 % 47-70 [facility] Potassium [Moles/Vol] 4.2 mmol/L 3.5-5.1 [facility] Protein [Mass/Vol] 6.6 g/dL 6.4-8.2 [facility] Sodium [Moles/Vol] 138 mmol/L 136-145 [facility] Triglyceride [Mass/Vol] 194 mg/dL <199 [facility] Comment on above: The drugs N-Acetylcy steine and Metamizole may falsely depress this assay.Serum Triglycerides Reference Interval Normal <150 mg/dL Borderline high 150 - 199 mg/dL High 200 - 499 mg/dL Very High > or = 500 mg/dL WBC (Bld) [#/Vol] 5.5 10*3/uL 4.4-11.0 [facility] Blood erythrocytes count (nu mber/volume)Ordered By: Wesly Hidalgo on 06-03-2023 RBC (Bld) [#/Vol] 4.36 10*6/uL 4.2-5.4 [facility] Blood hemoglobin measurement (mass/volume)Ordered By: [facility] on 06-03-2023 Hemoglobin (Bld) [Mass/Vol] 12.7 g/dL 12.0-15.0 [facility] Blood lymphocytes/100 leukoc ytesOrdered By: [facility] on 06-03-2023 Lymphocytes/100 WBC (Bld) 38.3 % 19-41 [facility] Blood monocytes/100 leukocyt esOrdered By: [facility] on 06-03-2023 Monocytes/100 WBC (Bld) 8.9 % 0-10 [facility] Blood platelet mean volumeOr dered By: [facility] on 06-03-2023 Platelet mean volume (Bld) [Entitic vol] 10.7 fL 6.2-12.0 [facility] Determination of erythrocyte mean corpuscular volume (MCV)Ordered By: [facility] on 06-03-2023 MCV (RBC) [Entitic vol] 92.7 fL 81-99 [facility] Hematocrit Auto (Bld) [Volum e fraction]Ordered By: [facility] on 06-03-2023 Hematocrit (Bld) [Volume fraction] 40.4 % 37-47 [facility] Laboratory - Chemistry and C hemistry - challengeOrdered By: [facility] 06-03-2023 ALP [Catalytic activity/Vol] 81 U/L 45-117 [facility] ALT [Catalytic activity/Vol] 24 U/L 13-56 [facility] CO2 [Moles/Vol] 32.0 mmol/L 21.0-32.0 [facility] Globulin (S) [Mass/Vol] 3.1 g/dL 2.2-4.2 [facility] Urea nitrogen/Creatinine [Mass ratio] 13.8 mg/mg 10-20 [facility] Laboratory - Hematology and Cell countsOrdered By: [facility] 06-03-2023 Erythrocyte distribution width (RBC) [Entitic vol] 44.8 fL 35.1-43.9 [facility] Erythrocyte distribution width (RBC) [Ratio] 13.3 % 11.6-14.6 [facility] Immature granulocytes/100 WBC (Bld) 0.500 % 0.0-0.9 [facility] Comment on above: IG% - Immature Granu locytes (promyelocytes, myelocytes and metamyelocytes) > 1% indicates that a LEFT SHIFT is Present. MCH (RBC) [Entitic mass] 29.1 pg 27.0-32.0 [facility] Nucleated RBC/100 WBC (Bld) [Ratio] 0 % 0-5 [facility] MCHC Auto (RBC) [Mass/Vol]Or dered By: Wesly Hidalgo on 06-03-2023 MCHC (RBC) [Mass/Vol] 31.4 g/dL 32-36 [facility] No Panel InformationOrdered By: Wesly Hidalgo on 06-03-2023 Estimated GFR (MDRD) Amer 56 mL/min >60 [facility] Comment on above: GFR Calc Estimated GFR (MDRD) Non-Af Amer 46 mL/min >60 [facility] Comment on above: Non- GFR Calc Thyroid Stimulating Hormone (TSH) 2.03 uIU/mL 0.358-3.74 [facility] Vitamin D 25-Hydroxy 47.3 ng/mL [facility] Comment on above: Vitamin D 25(OH) Sta tus Range Deficiency <20 ng/mL (50nmol/L) Insufficiency 20 - 30 ng/mL (50 - 75 nmol/L) Sufficiency 30 - 100 ng/mL (75 - 250 nmol/L) Toxicity >100 ng/mL (>250 nmol/L) Platelets bldOrdered By: Wesly Hidalgo on 06-03-2023 Platelets (Bld) [#/Vol] 208 10*3/uL 150-450 [facility] Serum or plasma albumin ranjana urement (mass/volume)Ordered By: Wesly Hidalgo on 06-03-2023 Albumin [Mass/Vol] 3.5 g/dL 3.2-5.0 [facility] Serum or plasma albumin/glob ulin mass ratioOrdered By: Wesly Hidalgo on 06-03-2023 Albumin/Globulin [Mass ratio] 1.1 {ratio} 0.9-2.4 [facility] Serum or plasma calcium ranjana urement (mass/volume)Ordered By: Wesly Hidalgo on 06-03-2023 Calcium [Mass/Vol] 9.0 mg/dL 8.5-10.1 [facility] Serum or plasma cholesterol in HDL measurement (mass/volume)Ordered By: Wesly Hidalgo on 06-03-2023 Cholesterol in HDL [Mass/Vol] 33 mg/dL >40 [facility] Comment on above: The drugs N-Acetylcy steine and Metamizole may falsely depress this assay. Reference Range HDL <40 mg/dL Low HDL Cholesterol HDL >or= 60 mg/dL High HDL Cholesterol Serum or plasma cholesterol in VLDL measurement (mass/volume)Ordered By: Wesly Hidalgo on 06-03-2023 Cholesterol in VLDL [Mass/Vol] 39 mg/dL 5-40 [facility] Serum or plasma creatinine m easurement (mass/volume)Ordered By: Wesly Hidalgo on 06-03-2023 Creatinine [Mass/Vol] 1.23 mg/dL 0.55-1.02 [facility] Comment on above: The validity of the calculated GFR & GFRAA in patients over 70 years has not been determined. Clinical correlation is essential. Serum or plasma low density lipoprotein (LDL) cholesterol measurement (mass/volume)Ordered By: Wesly Hidalgo on 06-03-2023 Cholesterol in LDL [Mass/Vol] 100 mg/dL 0-130 [facility] Serum or plasma urea nitroge n measurement (mass/volume)Ordered By: Wesly Hidalgo on 06-03-2023 Urea nitrogen [Mass/Vol] 17 mg/dL 7-18 [facility] Thin prep Papanicolaou smear with manual screeningOrdered By: Wesly Hidalgo on 06-03-2023 Thin prep Papanicolaou smear with manual screening 22 U/L 15-37 [facility] Thin prep Papanicolaou smear with manual screening 3 5-15 [facility] Absolute lymphocyte countOrd ered By: Dr. Hidalgo on 12-03-2022 Lymphocytes Auto (Unsp spec) [#/Vol] 2.31 10*3/uL 0.83-4.51 [facility] Basophil percentageOrdered B y: Dr. Hidalgo on 12-03-2022 Basophils/100 WBC (Bld) 0.1 % 0-1 [facility] Bilirubin [Mass/Vol] 0.50 mg/dL 0.20-1.00 [facility] Comment on above: For patients on eltr ombopag therapy, use of Dimension [place] TBIL is not recommended. Chloride [Moles/Vol] 103 mmol/L 98-107 [facility] Eosinophils/100 WBC (Bld) 0.0 % 0-5 [facility] Glucose [Mass/Vol] 99 mg/dL 74-106 [facility] Neutrophils (Bld) [#/Vol] 4.4 10*3/uL 2.0-7.7 [facility] Neutrophils/100 WBC (Bld) 59.7 % 47-70 [facility] Potassium [Moles/Vol] 3.8 mmol/L 3.5-5.1 [facility] Protein [Mass/Vol] 6.9 g/dL 6.4-8.2 [facility] Sodium [Moles/Vol] 141 mmol/L 136-145 [facility] WBC (Bld) [#/Vol] 7.3 10*3/uL 4.4-11.0 [facility] Blood erythrocytes count (nu mber/volume)Ordered By: Dr. Hidalgo on 12-03-2022 RBC (Bld) [#/Vol] 4.78 10*6/uL 4.2-5.4 [facility] Blood hemoglobin measurement (mass/volume)Ordered By: Dr. Hidalgo on 12-03-2022 Hemoglobin (Bld) [Mass/Vol] 14.2 g/dL 12.0-15.0 [facility] Blood lymphocytes/100 leukoc ytesOrdered By: Dr. Hidalgo on 12-03-2022 Lymphocytes/100 WBC (Bld) 31.6 % 19-41 [facility] Blood monocytes/100 leukocyt esOrdered By: Dr. Hidalgo on 12-03-2022 Monocytes/100 WBC (Bld) 8.2 % 0-10 [facility] Blood platelet mean volumeOr dered By: Dr. Hidalgo on 12-03-2022 Platelet mean volume (Bld) [Entitic vol] 10.4 fL 6.2-12.0 [facility] Determination of erythrocyte mean corpuscular volume (MCV)Ordered By: Dr. Hidalgo on 12-03-2022 MCV (RBC) [Entitic vol] 89.7 fL 81-99 [facility] Hematocrit Auto (Bld) [Volum e fraction]Ordered By: Dr. Hidalgo on 12-03-2022 Hematocrit (Bld) [Volume fraction] 42.9 % 37-47 [facility] Laboratory - Chemistry and C hemistry - challengeOrdered By: Dr. Hidalgo on 12-03-2022 ALP [Catalytic activity/Vol] 72 U/L 45-117 [facility] ALT [Catalytic activity/Vol] 25 U/L 13-56 [facility] CO2 [Moles/Vol] 34.0 mmol/L 21.0-32.0 [facility] Globulin (S) [Mass/Vol] 3.2 g/dL 2.2-4.2 [facility] Urea nitrogen/Creatinine [Mass ratio] 16.4 mg/mg 10-20 [facility] Laboratory - Hematology and Cell countsOrdered By: Dr. Hidalgo on 12-03-2022 Erythrocyte distribution width (RBC) [Entitic vol] 43.1 fL 35.1-43.9 [facility] Erythrocyte distribution width (RBC) [Ratio] 13.2 % 11.6-14.6 [facility] Immature granulocytes/100 WBC (Bld) 0.400 % 0.0-0.9 [facility] Comment on above: IG% - Immature Granu locytes (promyelocytes, myelocytes and metamyelocytes) > 1% indicates that a LEFT SHIFT is Present. MCH (RBC) [Entitic mass] 29.7 pg 27.0-32.0 [facility] Nucleated RBC/100 WBC (Bld) [Ratio] 0 % 0-5 [facility] MCHC Auto (RBC) [Mass/Vol]Or dered By: Dr. Hidalgo on 12-03-2022 MCHC (RBC) [Mass/Vol] 33.1 g/dL 32-36 [facility] No Panel InformationOrdered By: Dr. Hidalgo on 12-03-2022 Estimated GFR (MDRD) Amer 56 mL/min >60 [facility] Comment on above: GFR Calc Estimated GFR (MDRD) Non-Af Amer 47 mL/min >60 [facility] Comment on above: Non- GFR Calc Thyroid Stimulating Hormone (TSH) 2.17 uIU/mL 0.358-3.74 [facility] Vitamin D 25-Hydroxy 43.2 ng/mL [facility] Comment on above: Vitamin D 25(OH) Sta tus Range Deficiency <20 ng/mL (50nmol/L) Insufficiency 20 - 30 ng/mL (50 - 75 nmol/L) Sufficiency 30 - 100 ng/mL (75 - 250 nmol/L) Toxicity >100 ng/mL (>250 nmol/L) Platelets bldOrdered By: Dr. Hidalgo on 12-03-2022 Platelets (Bld) [#/Vol] 237 10*3/uL 150-450 [facility] Serum or plasma albumin ranjana urement (mass/volume)Ordered By: Dr. Hidalgo on 12-03-2022 Albumin [Mass/Vol] 3.7 g/dL 3.2-5.0 [facility] Serum or plasma albumin/glob ulin mass ratioOrdered By: Dr. Hidalgo on 12-03-2022 Albumin/Globulin [Mass ratio] 1.2 {ratio} 0.9-2.4 [facility] Serum or plasma calcium ranjana urement (mass/volume)Ordered By: Dr. Hidalgo on 12-03-2022 Calcium [Mass/Vol] 9.3 mg/dL 8.5-10.1 [facility] Serum or plasma creatinine m easurement (mass/volume)Ordered By: Dr. Hidalgo on 12-03-2022 Creatinine [Mass/Vol] 1.22 mg/dL 0.55-1.02 [facility] Comment on above: The validity of the calculated GFR & GFRAA in patients over 70 years has not been determined. Clinical correlation is essential. Serum or plasma urea nitroge n measurement (mass/volume)Ordered By: Dr. Hidalgo on 12-03-2022 Urea nitrogen [Mass/Vol] 20 mg/dL 7-18 [facility] Thin prep Papanicolaou smear with manual screeningOrdered By: Dr. Hidalgo on 12-03-2022 Thin prep Papanicolaou smear with manual screening 23 U/L 15-37 [facility] Thin prep Papanicolaou smear with manual screening 4 5-15 [facility] Laboratory - Drug toxicology Ordered By: Dr. Becerra on 11-07-2022 Amphetamines Ql (U) Negative <1000 ng/mL [facility] Benzodiazepines Ql (U) Negative < 200 ng/mL [facility] Cannabinoids Screen Ql (U) Negative < 50 ng/mL [facility] Cocaine Ql (U) Negative < 300 ng/mL [facility] Opiates Ql (U) Positive < 300 ng/mL [facility] No Panel InformationOrdered By: Dr. Becerra on 11-07-2022 MDMA (Ecstasy) Screen Negative < 500 ng/mL [facility] Miscellaneous Test See comment [facility] Comment on above: [id number] 6+OXYCODONE-B UND (ng/mL) DRUG RESULT SCREEN CUTOFF____ Amphetamines,Urine Negative ng/mL 1000 Amphetamine test includes Amphetamine and Methamphetamine.Barbiturates Negative ng/mL 200Benzodiazepines Negative ng/mL 200Cannabinoid Negative ng/mL 20Cocaine (Metab) Negative ng/mL 300Opiates Positive ng/mL 300 Opiates test includes Codeine, Morphine, Hydromorphone, Hydrocodone. Codeine Negative 300 Morphine Negative 300 Hydromorphone PositiveHydromorphone Conf,MS,UR 608 ng/mL 300 Hydrocodone PositiveHydrocodone Conf,MS,UR >3000 ng/mL 300Oxycodone/Oxymorphone,Urine Negative ng/mL 300 Test includes Oxydodone and Oxymorphone. TESTING PERFORMED AT [facility]. ORIGINAL REPORT ON FILE IN LAB CONTAINS ADDITIONAL TEST SITE INFORMATION. Urine Barbiturates Screen Negative < 200 ng/mL [facility] Urine Drug Screen Comment [facility] Comment on above: CONFIRMATORY TESTING FOR ALL POSITIVE URINE DRUG SCREENRESULTS WILL ONLY BE SENT OUT UPON PHYSICIAN ORDER. VISTA Urine Drug Screen methods provide only preliminaryanalytical test results. A more specific alternate chemicalmethod must be used in order to obtain a confirmedanalytical result. Gas chromatography/mass spectrometery(GC/MS) is the preferred confirmatory method. Clinicalconsideration and professional judgement should be appliedto any drug of abuse test result, particularly whenpreliminary positive results are used. URINE TCA TESTING MUST BE ORDERED SEPARATELY. USE TESTMNEMONIC: [facility] Urine Methadone Screen Negative < 300 ng/mL [facility] Urine phencyclidine (PCP) de tectionOrdered By: Dr. Becerra on 11-07-2022 Phencyclidine Ql (U) Negative < 25 ng/mL [facility] Basophil percentageOrdered B y: Dr. Hidalgo on 09-04-2022 Chloride [Moles/Vol] 105 mmol/L 98-107 [facility] Glucose [Mass/Vol] 113 mg/dL 74-106 [facility] Comment on above: Fasting Glucose resu lt from 100 to 125 mg/dL suggests IMPAIRED HOMEOSTASIS per A.D.A. criteria. Potassium [Moles/Vol] 4.0 mmol/L 3.5-5.1 [facility] Sodium [Moles/Vol] 140 mmol/L 136-145 [facility] Laboratory - Chemistry and C hemistry - challengeOrdered By: Dr. Hidalgo on 09-04-2022 CO2 [Moles/Vol] 28.0 mmol/L 21.0-32.0 [facility] Urea nitrogen/Creatinine [Mass ratio] 19.5 mg/mg 10-20 [facility] No Panel InformationOrdered By: Dr. Hidalgo on 09-04-2022 Estimated GFR (MDRD) Amer 83 mL/min >60 [facility] Comment on above: GFR Calc Estimated GFR (MDRD) Non-Af Amer 69 mL/min >60 [facility] Comment on above: Non- GFR Calc Serum or plasma calcium ranjana urement (mass/volume)Ordered By: Dr. Hidalgo on 09-04-2022 Calcium [Mass/Vol] 8.6 mg/dL 8.5-10.1 [facility] Serum or plasma creatinine m easurement (mass/volume)Ordered By: Dr. Hidalgo on 09-04-2022 Creatinine [Mass/Vol] 0.87 mg/dL 0.55-1.02 [facility] Comment on above: The validity of the calculated GFR & GFRAA in patients over 70 years has not been determined. Clinical correlation is essential. Serum or plasma urea nitroge n measurement (mass/volume)Ordered By: Dr. Hidalgo on 09-04-2022 Urea nitrogen [Mass/Vol] 17 mg/dL 7-18 [facility] Thin prep Papanicolaou smear with manual screeningOrdered By: Dr. Hidalgo on 09-04-2022 Thin prep Papanicolaou smear with manual screening 7 5-15 [facility] Absolute lymphocyte countOrd ered By: Dr. Charlton on 08-31-2022 Lymphocytes Auto (Unsp spec) [#/Vol] 0.54 10*3/uL 0.83-4.51 [facility] Basophil percentageOrdered B y: Dr. Charlton on 08-31-2022 Basophils/100 WBC (Bld) 0.2 % 0-1 [facility] Bilirubin [Mass/Vol] 0.20 mg/dL 0.20-1.00 [facility] Comment on above: For patients on eltr ombopag therapy, use of Dimension [place] TBIL is not recommended. Chloride [Moles/Vol] 105 mmol/L 98-107 [facility] Eosinophils/100 WBC (Bld) 0.0 % 0-5 [facility] Glucose [Mass/Vol] 137 mg/dL 74-106 [facility] Comment on above: Fasting Glucose resu lt greater than or equal to 126 mg/dL suggests DIABETES MELLITUS per A.D.A. criteria. Neutrophils (Bld) [#/Vol] 4.1 10*3/uL 2.0-7.7 [facility] Neutrophils/100 WBC (Bld) 83.9 % 47-70 [facility] Potassium [Moles/Vol] 3.7 mmol/L 3.5-5.1 [facility] Protein [Mass/Vol] 5.6 g/dL 6.4-8.2 [facility] Sodium [Moles/Vol] 138 mmol/L 136-145 [facility] WBC (Bld) [#/Vol] 4.9 10*3/uL 4.4-11.0 [facility] Blood erythrocytes count (nu mber/volume)Ordered By: Dr. Charlton on 08-31-2022 RBC (Bld) [#/Vol] 3.59 10*6/uL 4.2-5.4 [facility] Blood hemoglobin measurement (mass/volume)Ordered By: Dr. Charlton on 08-31-2022 Hemoglobin (Bld) [Mass/Vol] 10.6 g/dL 12.0-15.0 [facility] Blood lymphocytes/100 leukoc ytesOrdered By: Dr. Charlton on 08-31-2022 Lymphocytes/100 WBC (Bld) 11.0 % 19-41 [facility] Blood manual differential co mment interpretation (narrative result)Ordered By: Dr. Charlton on 08-31-2022 Manual differential comment Jason (Bld) [Interp] SCANNED [facility] Blood monocytes/100 leukocyt esOrdered By: Dr. Charlton on 08-31-2022 Monocytes/100 WBC (Bld) 4.5 % 0-10 [facility] Blood platelet mean volumeOr dered By: Dr. Charlton on 08-31-2022 Platelet mean volume (Bld) [Entitic vol] 10.0 fL 6.2-12.0 [facility] Determination of erythrocyte mean corpuscular volume (MCV)Ordered By: Dr. Charlton on 08-31-2022 MCV (RBC) [Entitic vol] 91.9 fL 81-99 [facility] Hematocrit Auto (Bld) [Volum e fraction]Ordered By: Dr. Charlton on 08-31-2022 Hematocrit (Bld) [Volume fraction] 33.0 % 37-47 [facility] Laboratory - Chemistry and C hemistry - challengeOrdered By: Dr. Charlton on 08-31-2022 ALP [Catalytic activity/Vol] 54 U/L 45-117 [facility] ALT [Catalytic activity/Vol] 23 U/L 13-56 [facility] CO2 [Moles/Vol] 29.0 mmol/L 21.0-32.0 [facility] Globulin (S) [Mass/Vol] 2.9 g/dL 2.2-4.2 [facility] Urea nitrogen/Creatinine [Mass ratio] 16.5 mg/mg 10-20 [facility] Laboratory - Hematology and Cell countsOrdered By: Dr. Charlton on 08-31-2022 Erythrocyte distribution width (RBC) [Entitic vol] 46.4 fL 35.1-43.9 [facility] Erythrocyte distribution width (RBC) [Ratio] 13.9 % 11.6-14.6 [facility] Immature granulocytes/100 WBC (Bld) 0.400 % 0.0-0.9 [facility] Comment on above: IG% - Immature Granu locytes (promyelocytes, myelocytes and metamyelocytes) > 1% indicates that a LEFT SHIFT is Present. MCH (RBC) [Entitic mass] 29.5 pg 27.0-32.0 [facility] Nucleated RBC/100 WBC (Bld) [Ratio] 0 % 0-5 [facility] MCHC Auto (RBC) [Mass/Vol]Or dered By: Dr. Charlton on 08-31-2022 MCHC (RBC) [Mass/Vol] 32.1 g/dL 32-36 [facility] No Panel InformationOrdered By: Dr. Charlton on 08-31-2022 Estimated Creatinine Clearance Calc 43.09 ml/min [facility] Estimated GFR (MDRD) Amer 79 mL/min >60 [facility] Comment on above: GFR Calc Estimated GFR (MDRD) Non-Af Amer 66 mL/min >60 [facility] Comment on above: Non- GFR Calc Platelets bldOrdered By: Dr. Charlton on 08-31-2022 Platelets (Bld) [#/Vol] 142 10*3/uL 150-450 [facility] Respiratory pathogens DNA an d RNA 12b panel TAMEKA+probe (Unsp spec)Ordered By: Dr. Charlton on 08-31-2022 Respiratory Panel (PCR) Influenza A (Subtype H3) [facility] Serum or plasma albumin ranjana urement (mass/volume)Ordered By: Dr. Charlton on 08-31-2022 Albumin [Mass/Vol] 2.7 g/dL 3.2-5.0 [facility] Serum or plasma albumin/glob ulin mass ratioOrdered By: Dr. Charlton on 08-31-2022 Albumin/Globulin [Mass ratio] 0.9 {ratio} 0.9-2.4 [facility] Serum or plasma calcium ranjana urement (mass/volume)Ordered By: Dr. Charlton on 08-31-2022 Calcium [Mass/Vol] 8.2 mg/dL 8.5-10.1 [facility] Serum or plasma creatinine m easurement (mass/volume)Ordered By: Dr. Charlton on 08-31-2022 Creatinine [Mass/Vol] 0.91 mg/dL 0.55-1.02 [facility] Comment on above: The validity of the calculated GFR & GFRAA in patients over 70 years has not been determined. Clinical correlation is essential. Serum or plasma urea nitroge n measurement (mass/volume)Ordered By: Dr. Charlton on 08-31-2022 Urea nitrogen [Mass/Vol] 15 mg/dL 7-18 [facility] Thin prep Papanicolaou smear with manual screeningOrdered By: Dr. Charlton on 08-31-2022 Thin prep Papanicolaou smear with manual screening 20 U/L 15-37 [facility] Thin prep Papanicolaou smear with manual screening 4 5-15 [facility] Absolute lymphocyte counton 08-30-2022 Lymphocytes Auto (Unsp spec) [#/Vol] 0.69 10*3/uL 0.83-4.51 [facility] Work Phone: Basophil percentageon 2021 Basophils/100 WBC (Bld) 0.0 % 0-1 [facility] Work Phone: Chloride [Moles/Vol] 103 mmol/L 98-107 [facility] Work Phone: Eosinophils/100 WBC (Bld) 0.0 % 0-5 [facility] Work Phone: Glucose [Mass/Vol] 106 mg/dL 74-106 [facility] Work Phone: Comment on above: Fasting Glucose resu lt from 100 to 125 mg/dL suggests IMPAIRED HOMEOSTASIS per A.D.A. criteria. Neutrophils (Bld) [#/Vol] 3.1 10*3/uL 2.0-7.7 [facility] Work Phone: Neutrophils/100 WBC (Bld) 71.3 % 47-70 [facility] Work Phone: Potassium [Moles/Vol] 3.3 mmol/L 3.5-5.1 [facility] Work Phone: Sodium [Moles/Vol] 139 mmol/L 136-145 [facility] Work Phone: WBC (Bld) [#/Vol] 4.3 10*3/uL 4.4-11.0 [facility] Work Phone: Basophil percentageOrdered B y: Dr. Harman on 08-30-2022 Lactate [Moles/Vol] 0.8 mmol/L 0.4-2.0 [facility] Blood erythrocytes count (nu mber/volume)on 08-30-2022 RBC (Bld) [#/Vol] 4.00 10*6/uL 4.2-5.4 [facility] Work Phone: Blood hemoglobin measurement (mass/volume)on 08-30-2022 Hemoglobin (Bld) [Mass/Vol] 12.3 g/dL 12.0-15.0 [facility] Work Phone: Blood lymphocytes/100 leukoc yteson 08-30-2022 Lymphocytes/100 WBC (Bld) 16.0 % 19-41 [facility] Work Phone: Blood monocytes/100 leukocyt eson 08-30-2022 Monocytes/100 WBC (Bld) 12.5 % 0-10 [facility] Work Phone: Blood platelet mean volumeon 08-30-2022 Platelet mean volume (Bld) [Entitic vol] 10.0 fL 6.2-12.0 [facility] Work Phone: Determination of erythrocyte mean corpuscular volume (MCV)on 08-30-2022 MCV (RBC) [Entitic vol] 91.8 fL 81-99 [facility] Work Phone: Hematocrit Auto (Bld) [Volum e fraction]on 08-30-2022 Hematocrit (Bld) [Volume fraction] 36.7 % 37-47 [facility] Work Phone: Laboratory - Chemistry and C hemistry - challengeon 08-30-2022 CO2 [Moles/Vol] 30.0 mmol/L 21.0-32.0 [facility] Work Phone: Urea nitrogen/Creatinine [Mass ratio] 14.5 mg/mg 10-20 [facility] Work Phone: Laboratory - Chemistry and C hemistry - challengeOrdered By: Dr. Charlton on 08-30-2022 Magnesium [Mass/Vol] 2.0 mg/dL 1.6-2.6 [facility] Natriuretic peptide B (Bld) [Mass/Vol] 118.9 pg/mL 0-100 [facility] Laboratory - Hematology and Cell countson 08-30-2022 Erythrocyte distribution width (RBC) [Entitic vol] 47.2 fL 35.1-43.9 [facility] Work Phone: Erythrocyte distribution width (RBC) [Ratio] 14.0 % 11.6-14.6 [facility] Work Phone: Immature granulocytes/100 WBC (Bld) 0.200 % 0.0-0.9 [facility] Work Phone: Comment on above: IG% - Immature Granu locytes (promyelocytes, myelocytes and metamyelocytes) > 1% indicates that a LEFT SHIFT is Present. MCH (RBC) [Entitic mass] 30.8 pg 27.0-32.0 [facility] Work Phone: Nucleated RBC/100 WBC (Bld) [Ratio] 0 % 0-5 [facility] Work Phone: MCHC Auto (RBC) [Mass/Vol]on 08-30-2022 MCHC (RBC) [Mass/Vol] 33.5 g/dL 32-36 [facility] Work Phone: No Panel Informationon 08-30 Estimated Creatinine Clearance Calc 36.90 ml/min [facility] Work Phone: Estimated GFR (MDRD) Amer 59 mL/min >60 [facility] Work Phone: Comment on above: GFR Calc Estimated GFR (MDRD) Non-Af Amer 49 mL/min >60 [facility] Work Phone: Comment on above: Non- GFR Calc No Panel InformationOrdered By: Dr. Harman on 08-30-2022 Influenza Types A,B Direct FA (ALANIS) Influenzae A [facility] No Panel InformationOrdered By: Dr. Charlton on 08-30-2022 Streptococcus pneumoniae Antigen (M [facility] Platelets bldon 08-30-2022 Platelets (Bld) [#/Vol] 152 10*3/uL 150-450 [facility] Work Phone: Serum or plasma calcium ranjana urement (mass/volume)on 08-30-2022 Calcium [Mass/Vol] 8.4 mg/dL 8.5-10.1 [facility] Work Phone: Serum or plasma creatinine m easurement (mass/volume)on 08-30-2022 Creatinine [Mass/Vol] 1.17 mg/dL 0.55-1.02 [facility] Work Phone: Comment on above: The validity of the calculated GFR & GFRAA in patients over 70 years has not been determined. Clinical correlation is essential. Serum or plasma urea nitroge n measurement (mass/volume)on 08-30-2022 Urea nitrogen [Mass/Vol] 17 mg/dL 7-18 [facility] Work Phone: Thin prep Papanicolaou smear with manual screeningon 08-30-2022 Thin prep Papanicolaou smear with manual screening 6 5-15 [facility] Work Phone: Absolute lymphocyte counton 06-03-2022 Lymphocytes Auto (Unsp spec) [#/Vol] 2.57 10*3/uL 0.83-4.51 [facility] Work Phone: Basophil percentageon 2021 Basophils/100 WBC (Bld) 0.2 % 0-1 [facility] Work Phone: Bilirubin [Mass/Vol] 0.60 mg/dL 0.20-1.00 [facility] Work Phone: Comment on above: For patients on eltr ombopag therapy, use of Dimension [place] TBIL is not recommended. Chloride [Moles/Vol] 106 mmol/L 98-107 [facility] Work Phone: Eosinophils/100 WBC (Bld) 0.1 % 0-5 [facility] Work Phone: Glucose [Mass/Vol] 93 mg/dL 74-106 [facility] Work Phone: Neutrophils (Bld) [#/Vol] 5.0 10*3/uL 2.0-7.7 [facility] Work Phone: [phone] Neutrophils/100 WBC (Bld) 58.9 % 47-70 [facility] Work Phone: Potassium [Moles/Vol] 3.9 mmol/L 3.5-5.1 [facility] Work Phone: [phone] Protein [Mass/Vol] 6.2 g/dL 6.4-8.2 [facility] Work Phone: [phone] Sodium [Moles/Vol] 141 mmol/L 136-145 [facility] Work Phone: [phone] WBC (Bld) [#/Vol] 8.5 10*3/uL 4.4-11.0 [facility] Work Phone: [phone] Blood erythrocytes count (nu mber/volume)on 06-03-2022 RBC (Bld) [#/Vol] 4.32 10*6/uL 4.2-5.4 [facility] Work Phone: Blood hemoglobin measurement (mass/volume)on 06-03-2022 Hemoglobin (Bld) [Mass/Vol] 13.2 g/dL 12.0-15.0 [facility] Work Phone: [phone] Blood lymphocytes/100 leukoc yteson 06-03-2022 Lymphocytes/100 WBC (Bld) 30.1 % 19-41 [facility] Work Phone: Blood monocytes/100 leukocyt eson 06-03-2022 Monocytes/100 WBC (Bld) 8.9 % 0-10 [facility] Work Phone: Blood platelet mean volumeon 06-03-2022 Platelet mean volume (Bld) [Entitic vol] 10.2 fL 6.2-12.0 [facility] Work Phone: Determination of erythrocyte mean corpuscular volume (MCV)on 06-03-2022 MCV (RBC) [Entitic vol] 93.3 fL 81-99 [facility] Work Phone: Hematocrit Auto (Bld) [Volum e fraction]on 06-03-2022 Hematocrit (Bld) [Volume fraction] 40.3 % 37-47 [facility] Work Phone: Laboratory - Chemistry and C hemistry - challengeon 06-03-2022 ALP [Catalytic activity/Vol] 74 U/L 45-117 [facility] Work Phone: ALT [Catalytic activity/Vol] 30 U/L 13-56 [facility] Work Phone: CO2 [Moles/Vol] 29.0 mmol/L 21.0-32.0 [facility] Work Phone: Globulin (S) [Mass/Vol] 2.9 g/dL 2.2-4.2 [facility] Work Phone: Urea nitrogen/Creatinine [Mass ratio] 20.2 mg/mg 10-20 [facility] Work Phone: Laboratory - Hematology and Cell countson 06-03-2022 Erythrocyte distribution width (RBC) [Entitic vol] 47.8 fL 35.1-43.9 [facility] Work Phone: [phone] Erythrocyte distribution width (RBC) [Ratio] 14.0 % 11.6-14.6 [facility] Work Phone: [phone] Immature granulocytes/100 WBC (Bld) 1.800 % 0.0-0.9 [facility] Work Phone: Comment on above: IG% - Immature Granu locytes (promyelocytes, myelocytes and metamyelocytes) > 1% indicates that a LEFT SHIFT is Present. MCH (RBC) [Entitic mass] 30.6 pg 27.0-32.0 [facility] Work Phone: Nucleated RBC/100 WBC (Bld) [Ratio] 0 % 0-5 [facility] Work Phone: MCHC Auto (RBC) [Mass/Vol]on 06-03-2022 MCHC (RBC) [Mass/Vol] 32.8 g/dL 32-36 [facility] Work Phone: No Panel Informationon 06-03 Estimated GFR (MDRD) Amer 64 mL/min >60 [facility] Work Phone: Comment on above: GFR Calc Estimated GFR (MDRD) Non-Af Amer 53 mL/min >60 [facility] Work Phone: Comment on above: Non- GFR Calc Thyroid Stimulating Hormone (TSH) 1.58 uIU/mL 0.358-3.74 [facility] Work Phone: Vitamin D 25-Hydroxy 41.2 ng/mL [facility] Work Phone: Comment on above: Vitamin D 25(OH) Sta tus Range Deficiency <20 ng/mL (50nmol/L) Insufficiency 20 - 30 ng/mL (50 - 75 nmol/L) Sufficiency 30 - 100 ng/mL (75 - 250 nmol/L) Toxicity >100 ng/mL (>250 nmol/L) Platelets bldon 06-03-2022 Platelets (Bld) [#/Vol] 224 10*3/uL 150-450 [facility] Work Phone: Serum or plasma albumin ranjana urement (mass/volume)on 06-03-2022 Albumin [Mass/Vol] 3.3 g/dL 3.2-5.0 [facility] Work Phone: Serum or plasma albumin/glob ulin mass ratioon 06-03-2022 Albumin/Globulin [Mass ratio] 1.1 {ratio} 0.9-2.4 [facility] Work Phone: Serum or plasma calcium ranjana urement (mass/volume)on 06-03-2022 Calcium [Mass/Vol] 8.9 mg/dL 8.5-10.1 oste r [facility] Work Phone: Serum or plasma creatinine m easurement (mass/volume)on 06-03-2022 Creatinine [Mass/Vol] 1.09 mg/dL 0.55-1.02 [facility] Work Phone: Comment on above: The validity of the calculated GFR & GFRAA in patients over 70 years has not been determined. Clinical correlation is essential. Serum or plasma urea nitroge n measurement (mass/volume)on 06-03-2022 Urea nitrogen [Mass/Vol] 22 mg/dL 7-18 [facility] Work Phone: Thin prep Papanicolaou smear with manual screeningon 06-03-2022 Thin prep Papanicolaou smear with manual screening 19 U/L 15-37 [facility] Work Phone: Thin prep Papanicolaou smear with manual screening 6 5-15 [facility] Work Phone: Laboratory - Microbiology an d Antimicrobial susceptibilityon 05-28-2022 SARS-CoV-2 (COVID-19) RNA TAMEKA+probe Ql (Unsp spec) Not detected Not Detect [facility] Work Phone: Comment on above: Normal Reference Ran ge: Not DetectedMethod:(RT-PCR) real-time reverse transcriptase PCRLuminex ANGE Instrument*The Food and Drug Administration (FDA) has issued an Emergency Use Authorization (EAU) for the ANGE SARS-CoV-2 Assay for the rapid detection of the virus that causes COVID-19. This test has been validated, but the FDAs independent review of this validation is pending.*Negative results do not preclude infection and should not be used as the sole basis for treatment or patient management. Optimum specimen types and timing for peak viral levels during infections caused by SARS-CoV-2 have not been determined. Collection of multiple specimens from the same patient may be necessary to detect the virus. The possibility of a false negative result should be considered if the patient has clinical presentation or has had recent exposure. Absolute lymphocyte counton 11-19-2021 Lymphocytes Auto (Unsp spec) [#/Vol] 2.12 10*3/uL 0.83-4.51 [facility] Work Phone: Basophil percentageon 2021 Basophils/100 WBC (Bld) 0.0 % 0-1 [facility] Work Phone: Bilirubin [Mass/Vol] 0.50 mg/dL 0.20-1.00 [facility] Work Phone: [phone] Comment on above: For patients on eltr ombopag therapy, use of Dimension [place] TBIL is not recommended. Chloride [Moles/Vol] 102 mmol/L 98-107 [facility] Work Phone: Eosinophils/100 WBC (Bld) 0.0 % 0-5 [facility] Work Phone: Glucose [Mass/Vol] 73 mg/dL 74-106 [facility] Work Phone: Neutrophils (Bld) [#/Vol] 3.9 10*3/uL 2.0-7.7 [facility] Work Phone: Neutrophils/100 WBC (Bld) 57.8 % 47-70 [facility] Work Phone: Potassium [Moles/Vol] 3.5 mmol/L 3.5-5.1 [facility] Work Phone: Protein [Mass/Vol] 6.7 g/dL 6.4-8.2 [facility] Work Phone: Sodium [Moles/Vol] 137 mmol/L 136-145 [facility] Work Phone: WBC (Bld) [#/Vol] 6.7 10*3/uL 4.4-11.0 [facility] Work Phone: Blood erythrocytes count (nu mber/volume)on 11-19-2021 RBC (Bld) [#/Vol] 4.46 10*6/uL 4.2-5.4 [facility] Work Phone: Blood hemoglobin measurement (mass/volume)on 11-19-2021 Hemoglobin (Bld) [Mass/Vol] 13.9 g/dL 12.0-15.0 [facility] Work Phone: Blood lymphocytes/100 leukoc yteson 11-19-2021 Lymphocytes/100 WBC (Bld) 31.8 % 19-41 [facility] Work Phone: Blood monocytes/100 leukocyt eson 11-19-2021 Monocytes/100 WBC (Bld) 9.9 % 0-10 [facility] Work Phone: Blood platelet mean volumeon 11-19-2021 Platelet mean volume (Bld) [Entitic vol] 9.9 fL 6.2-12.0 [facility] Work Phone: Determination of erythrocyte mean corpuscular volume (MCV)on 11-19-2021 MCV (RBC) [Entitic vol] 92.8 fL 81-99 [facility] Work Phone: Hematocrit Auto (Bld) [Volum e fraction]on 11-19-2021 Hematocrit (Bld) [Volume fraction] 41.4 % 37-47 [facility] Work Phone: Laboratory - Chemistry and C hemistry - challengeon 11-19-2021 ALP [Catalytic activity/Vol] 71 U/L 45-117 [facility] Work Phone: ALT [Catalytic activity/Vol] 24 U/L 13-56 [facility] Work Phone: CO2 [Moles/Vol] 31.0 mmol/L 21.0-32.0 [facility] Work Phone: Globulin (S) [Mass/Vol] 3.2 g/dL 2.2-4.2 [facility] Work Phone: Urea nitrogen/Creatinine [Mass ratio] 10.9 mg/mg 10-20 [facility] Work Phone: Laboratory - Hematology and Cell countson 11-19-2021 Erythrocyte distribution width (RBC) [Entitic vol] 44.5 fL 35.1-43.9 [facility] Work Phone: Erythrocyte distribution width (RBC) [Ratio] 13.2 % 11.6-14.6 [facility] Work Phone: Immature granulocytes/100 WBC (Bld) 0.500 % 0.0-0.9 [facility] Work Phone: Comment on above: IG% - Immature Granu locytes (promyelocytes, myelocytes and metamyelocytes) > 1% indicates that a LEFT SHIFT is Present. MCH (RBC) [Entitic mass] 31.2 pg 27.0-32.0 [facility] Work Phone: Nucleated RBC/100 WBC (Bld) [Ratio] 0 % 0-5 [facility] Work Phone: MCHC Auto (RBC) [Mass/Vol]on 11-19-2021 MCHC (RBC) [Mass/Vol] 33.6 g/dL 32-36 [facility] Work Phone: No Panel Informationon 11-19 Estimated GFR (MDRD) Amer 64 mL/min >60 [facility] Work Phone: Comment on above: GFR Calc Estimated GFR (MDRD) Non-Af Amer 53 mL/min >60 [facility] Work Phone: Comment on above: Non- GFR Calc Thyroid Stimulating Hormone (TSH) 2.44 uIU/mL 0.358-3.74 [facility] Work Phone: Vitamin D 25-Hydroxy 48.4 ng/mL [facility] Work Phone: Comment on above: Vitamin D 25(OH) Sta tus Range Deficiency <20 ng/mL (50nmol/L) Insufficiency 20 - 30 ng/mL (50 - 75 nmol/L) Sufficiency 30 - 100 ng/mL (75 - 250 nmol/L) Toxicity >100 ng/mL (>250 nmol/L) Platelets bldon 11-19-2021 Platelets (Bld) [#/Vol] 226 10*3/uL 150-450 [facility] Work Phone: Serum or plasma albumin ranjana urement (mass/volume)on 11-19-2021 Albumin [Mass/Vol] 3.5 g/dL 3.2-5.0 [facility] Work Phone: Serum or plasma albumin/glob ulin mass ratioon 11-19-2021 Albumin/Globulin [Mass ratio] 1.1 {ratio} 0.9-2.4 [facility] Work Phone: Serum or plasma calcium ranjana urement (mass/volume)on 11-19-2021 Calcium [Mass/Vol] 9.0 mg/dL 8.5-10.1 [facility] Work Phone: Serum or plasma creatinine m easurement (mass/volume)on 11-19-2021 Creatinine [Mass/Vol] 1.10 mg/dL 0.55-1.02 [facility] Work Phone: Comment on above: The validity of the calculated GFR & GFRAA in patients over 70 years has not been determined. Clinical correlation is essential. Serum or plasma urea nitroge n measurement (mass/volume)on 11-19-2021 Urea nitrogen [Mass/Vol] 12 mg/dL 7-18 [facility] Work Phone: Thin prep Papanicolaou smear with manual screeningon 11-19-2021 Thin prep Papanicolaou smear with manual screening 21 U/L 15-37 [facility] Work Phone: Thin prep Papanicolaou smear with manual screening 4 5-15 [facility] Work Phone: Laboratory - Drug toxicology on 10-30-2021 Amphetamines Ql (U) Negative [facility] Work Phone: Benzodiazepines Ql (U) Negative [facility] Work Phone: Cannabinoids Screen Ql (U) Negative [facility] Work Phone: Cocaine Ql (U) Negative [facility] Work Phone: Opiates Ql (U) Positive [facility] Work Phone: No Panel Informationon 10-30 Miscellaneous Test See comment [facility] Work Phone: Comment on above: [id number] 6+OXYCODONE-B UND (ng/mL) DRUG RESULT SCREEN CUTOFF____ Amphetamines,Urine Negative ng/mL 1000 Amphetamine test includes Amphetamine and Methamphetamine.Barbiturates Negative ng/mL 200Benzodiazepines Negative ng/mL 200Cannabinoid Negative ng/mL 20Cocaine (Metab) Negative ng/mL 300Opiates Positive ng/mL 300 Opiates test includes Codeine, Morphine, Hydromorphone, Hydrocodone. Please Note: Confirmation performed by Mass Spectrometry Codeine Negative 300 Morphine Negative 300 Hydromorphone Positive Hydromorphone Conf, MS, UR 773 ng/mL 300 Hydrocodone Positive Hydrocodone Conf, MS, UR >3000 ng/mL 300 Oxycodone/Oxymorphone,Urine Negative ng/mL 300 Test includes Oxydodone and Oxymorphone. TESTING PERFORMED AT [facility]. ORIGINAL REPORT ON FILE IN LAB CONTAINS ADDITIONAL TEST SITE INFORMATION. Urine Barbiturates Screen Negative [facility] Work Phone: Urine Drug Screen Comment [facility] Work Phone: Comment on above: CONFIRMATORY TESTING FOR ALL POSITIVE URINE DRUG SCREENRESULTS WILL ONLY BE SENT OUT UPON PHYSICIAN ORDER. The results of Urine Drug Screen methods provide only preliminary analytical test results. A more specific alternate chemical method must be used in order to obtain a confirmed analytical result. Gas chromatography/mass spectrometery (GC/MS) is the preferred confirmatory method. Clinical consideration and professional judgement should be applied to any drug of abuse test result, particularly whenpreliminary positive results are used. Urine Methadone Screen Negative [facility] Work Phone: Urine Methamphetamine-MDMA Screen Negative [facility] Work Phone: Screening buprenorphine dete ctionon 10-30-2021 Buprenorphine Screen Ql (Unsp spec) Negative [facility] Work Phone: Urine phencyclidine (PCP) de tectionon 10-30-2021 Phencyclidine Ql (U) Negative [facility] Work Phone: No Panel Information Influenza Types A,B Direct FA (ALANIS) [facility] Work Phone: Influenza Types A,B Direct FA (ALANIS) Influenzae A [facility] Work Phone: Respiratory Panel (PCR) Influenza A (Subtype H3) [facility] Work Phone: Streptococcus pneumoniae Antigen (M [facility] Work Phone: RSV Ag EIA RSV Ag Immune stain Ql (Tiss) [facility] Work Phone: Vital Signs Date Time Vital Sign Value Performing Clinician Faci lity 07-09-2025 11:42-0400 Body height 152.[address] Wesly Hidalgo MD Work Phone: [facility] 07-09-2025 11:42-0400 Body mass index (BMI) [Ratio] 34.5 kg/m2 Dr. Wesly Hidalgo MD Work Phone: [facility] 07-09-2025 11:42-0400 Body temperature 98.5 [degF] Dr. Wesly Hidalgo MD Work Phone: [facility] 07-09-2025 11:42-0400 Body weight 80.[address] Wesly Hidalgo MD Work Phone: [facility] 07-09-2025 11:42-0400 Diastolic blood pressure 70 mm[Hg] Dr. Wesly iHdalgo MD Work Phone: 5(126)460-321499 [place] [address] 07-09-2025 11:42-0400 Heart rate 65 /min Dr. Wesly Hidalgo MD Work Phone: 9(488)134-065347 [place] [address] 07-09-2025 11:42-0400 Respiratory rate 16 /min Dr. Wesly Hidalgo MD Work Phone: 6(657)544-881647 [place] [address] 07-09-2025 11:42-0400 SaO2% (BldA) [Mass fraction] 98 % Dr. Wesly Hidalgo MD Work Phone: 4(599)906-829347 [place] [address] 07-09-2025 11:42-0400 Systolic blood pressure 114 mm[Hg] Dr. Wesly Hidalgo MD Work Phone: 6(012)327-950847 [place] [address] 07-01-2025 09:50-0400 Body height 152.[address] Wesly Hidalgo MD Work Phone: 0(016)420-328547 [place] [address] 07-01-2025 09:50-0400 Body mass index (BMI) [Ratio] 34 kg/m2 Dr. Wesly Hidalgo MD Work Phone: 3(313)890-796647 [place] [address] 07-01-2025 09:50-0400 Body weight 78.[address] Wesly Hidalgo MD Work Phone: 0(043)866-656347 [place] [address] 06-23-2025 15:46-0400 Body mass index (BMI) [Ratio] 34.2 kg/m2 Dr. Wesly Hidalgo MD Work Phone: 0(338)127-727747 [place] [address] 06-23-2025 15:46-0400 Body weight 79.[address] Wesly Hidalgo MD Work Phone: 0(732)108-721647 [place] [address] 06-23-2025 15:46-0400 Diastolic blood pressure 74 mm[Hg] Dr. Wesly Hidalgo MD Work Phone: 9(089)777-720547 [place] [address] 06-23-2025 15:46-0400 Heart rate 66 /min Dr. Wesly Hidalgo MD Work Phone: 5(375)319-265147 [place] [address] 06-23-2025 15:46-0400 Respiratory rate 16 /min Dr. Wesly Hidalgo MD Work Phone: [facility] 06-23-2025 15:46-0400 Systolic blood pressure 133 mm[Hg] Dr. Wesly Hidalgo MD Work Phone: [facility] 12-31-2024 11:19-0400 Body height 152.[address] Wesly Hidalgo MD Work Phone: [facility] 12-31-2024 11:19-0400 Body mass index (BMI) [Ratio] 36.1 kg/m2 Dr. Wesly Hidalgo MD Work Phone: [facility] 12-31-2024 11:19-0400 Body weight 83.[address] Wesly Hidalgo MD Work Phone: [facility] 12-31-2024 11:19-0400 Diastolic blood pressure 81 mm[Hg] Dr. Wesly Hidalgo MD Work Phone: [facility] 12-31-2024 11:19-0400 Heart rate 60 /min Dr. Wesly Hidalgo MD Work Phone: [facility] 12-31-2024 11:19-0400 Respiratory rate 18 /min Dr. Wesly Hidalgo MD Work Phone: [facility] 12-31-2024 11:19-0400 SaO2% (BldA) [Mass fraction] 97 % Dr. Wesly Hidalgo MD Work Phone: [facility] 12-31-2024 11:19-0400 Systolic blood pressure 133 mm[Hg] Dr. Wesly Hidalgo MD Work Phone: [facility] 11-18-2024 15:22-0500 Body weight 83.01 kg iNcole Allen MD Work Phone: [facility] 11-18-2024 15:22-0500 Diastolic blood pressure 79 mm[Hg] Nicole Allen MD Work Phone: [facility] 11-18-2024 15:22-0500 Heart rate 75 /min Nicole Allen MD Work Phone: [facility] 11-18-2024 15:22-0500 SaO2% (BldA) [Mass fraction] 98 % Nicole Allen MD Work Phone: [facility] 11-18-2024 15:22-0500 Systolic blood pressure 144 mm[Hg] Nicole Allen MD Work Phone: [facility] 10-07-2024 11:08-0500 Body height 152.[address] Wesly Hidalgo MD Work Phone: [facility] 10-07-2024 11:08-0500 Body mass index (BMI) [Ratio] 34.9 kg/m2 Dr. Wesly Hidalgo MD Work Phone: [facility] 10-07-2024 11:08-0500 Body weight 81.[address] Wesly Hidalgo MD Work Phone: [facility] 10-07-2024 11:08-0500 Diastolic blood pressure 76 mm[Hg] Dr. Wesly Hidalgo MD Work Phone: [facility] 10-07-2024 11:08-0500 Heart rate 63 /min Dr. Wesly Hidalgo MD Work Phone: [facility] 10-07-2024 11:08-0500 Respiratory rate 18 /min Dr. Wesly Hidalgo MD Work Phone: [facility] 10-07-2024 11:08-0500 Systolic blood pressure 128 mm[Hg] Dr. Wesly Hidalgo MD Work Phone: [facility] 04-05-2024 14:35-0400 Body weight 81.47 kg Nicole Allen MD Work Phone: [facility] 04-05-2024 14:35-0400 Diastolic blood pressure 80 mm[Hg] Nicole Allen MD Work Phone: [facility] 04-05-2024 14:35-0400 Heart rate 73 /min Nicole Allen MD Work Phone: [facility] 04-05-2024 14:35-0400 SaO2% (BldA) [Mass fraction] 96 % Nicole Allen MD Work Phone: [facility] 04-05-2024 14:35-0400 Systolic blood pressure 144 mm[Hg] Nicole Allen MD Work Phone: [facility] 06-09-2023 09:54-0400 Body height 152.4 cm [facility] 06-09-2023 09:54-0400 Body mass index (BMI) [Ratio] 33.5 kg/m2 [facility] 06-09-2023 09:54-0400 Body temperature 97.5 [degF] [facility] 06-09-2023 09:54-0400 Body weight 78.01 kg [facility] 06-09-2023 09:54-0400 Diastolic blood pressure 73 mm[Hg] [facility] 06-09-2023 09:54-0400 Heart rate 73 /min [facility] 06-09-2023 09:54-0400 Respiratory rate 14 /min [facility] 06-09-2023 09:54-0400 SaO2% (BldA) [Mass fraction] 97 % [facility] 06-09-2023 09:54-0400 Systolic blood pressure 154 mm[Hg] [facility] 02-07-2023 18:36-0400 Body height 152.[address] Wesly Hidalgo Work Phone: [facility] 02-07-2023 18:36-0400 Body mass index (BMI) [Ratio] 34.2 kg/m2 Dr. Wesly Hidalgo Work Phone: [facility] 02-07-2023 18:36-0400 Body temperature 96.4 [degF] Dr. Wesly Hidalgo Work Phone: [facility] 02-07-2023 18:36-0400 Body weight 79.[address] Wesly Hidalgo Work Phone: [facility] 02-07-2023 18:36-0400 Diastolic blood pressure 71 mm[Hg] Dr. Wesly Hidalgo Work Phone: [facility] 02-07-2023 18:36-0400 Heart rate 93 /min Dr. Wesly Hidalgo Work Phone: [facility] 02-07-2023 18:36-0400 Respiratory rate 16 /min Dr. Wesly Hidalgo Work Phone: [facility] 02-07-2023 18:36-0400 SaO2% (BldA) [Mass fraction] 97 % Dr. Wesly Hidalgo Work Phone: [facility] 02-07-2023 18:36-0400 Systolic blood pressure 131 mm[Hg] Dr. Wesly Hidalgo Work Phone: 1(263)972-602499 [place] [address] 12-05-2022 10:39-0500 Body height 152.[address] Wesly Hidalgo Work Phone: 6(440)441-898947 [place] [address] 12-05-2022 10:39-0500 Body mass index (BMI) [Ratio] 34.5 kg/m2 Dr. Wesly Hidalgo Work Phone: 4(470)664-435799 [place] [address] 12-05-2022 10:39-0500 Body weight 80.[address] Wesly Hidalgo Work Phone: 1(901)152-583547 [place] [address] 12-05-2022 10:39-0500 Diastolic blood pressure 85 mm[Hg] Dr. Wesly Hidalgo Work Phone: 3(075)713-268299 [place] [address] 12-05-2022 10:39-0500 Heart rate 70 /min Dr. Wesly Hidalgo Work Phone: 2(924)414-638999 [place] [address] 12-05-2022 10:39-0500 Respiratory rate 18 /min Dr. Wesly Hidalgo Work Phone: 9(318)518-678799 [place] [address] 12-05-2022 10:39-0500 SaO2% (BldA) [Mass fraction] 98 % Dr. Wesly Hidalgo Work Phone: 8(503)583-407599 [place] [address] 12-05-2022 10:39-0500 Systolic blood pressure 130 mm[Hg] Dr. Wesly Hidalgo Work Phone: 9(729)116-578799 [place] [address] 09-05-2022 10:58-0500 Body height 152.[address] Wesly Hidalgo Work Phone: [facility] Work Phone: 09-05-2022 10:58-0500 Body mass index (BMI) [Ratio] 35.2 kg/m2 Dr. Wesly Hidalgo Work Phone: [facility] 09-05-2022 10:58-0500 Body weight 81.[address] Wesly Hidalgo Work Phone: [facility] 09-05-2022 10:58-0500 Diastolic blood pressure 95 mm[Hg] Dr. Wesly Hidalgo Work Phone: 4(596)593-177899 [place] [address] 09-05-2022 10:58-0500 Heart rate 76 /min Dr. Wesly Hidalgo Work Phone: 5(402)525-794799 [place] [address] 09-05-2022 10:58-0500 Respiratory rate 18 /min Dr. Wesly Hidalgo Work Phone: [facility] 09-05-2022 10:58-0500 Systolic blood pressure 185 mm[Hg] Dr. Wesly Hidalgo Work Phone: [facility] 08-31-2022 11:39-0500 Heart rate 85 /min Dr. Wesly Hidalgo Work Phone: [facility] 08-31-2022 11:39-0500 Respiratory rate 18 /min Dr. Wesly Hidalgo Work Phone: [facility] 08-31-2022 11:39-0500 SaO2% (BldA) [Mass fraction] 95 % Dr. Wesly Hidalgo Work Phone: [facility] 08-31-2022 07:55-0500 Body temperature 98 [degF] Dr. Wesly Hidalgo Work Phone: [facility] 08-31-2022 07:55-0500 Diastolic blood pressure 58 mm[Hg] Dr. Wesly Hidalgo Work Phone: [facility] 08-31-2022 07:55-0500 Inhaled oxygen flow rate 2 L/min Dr. Wesly Hidalgo Work Phone: [facility] 08-31-2022 07:55-0500 Systolic blood pressure 118 mm[Hg] Dr. Wesly Hidalgo Work Phone: [facility] 08-30-2022 14:53-0500 Body height 152.[address] Wesly Hidalgo Work Phone: [facility] Work Phone: 08-30-2022 14:53-0500 Body weight 82.[address] Wesly Hidalgo Work Phone: [facility] 08-30-2022 13:40-0500 Body mass index (BMI) [Ratio] 35.5 kg/m2 Dr. Wesly Hidalgo Work Phone: [facility] 08-30-2022 12:07-0500 Body temperature 98.4 [degF] [facility] Work Phone: 08-30-2022 12:07-0500 Diastolic blood pressure 55 mm[Hg] [facility] Work Phone: 08-30-2022 12:07-0500 Heart rate 123 /min [facility] Work Phone: 08-30-2022 12:07-0500 Inhaled oxygen flow rate 1 L/min [facility] Work Phone: 08-30-2022 12:07-0500 Respiratory rate 22 /min [facility] Work Phone: 08-30-2022 12:07-0500 SaO2% (BldA) [Mass fraction] 94 % [facility] Work Phone: 08-30-2022 12:07-0500 Systolic blood pressure 128 mm[Hg] [facility] Work Phone: 08-30-2022 09:43-0500 Body height 157.48 cm [facility] Work Phone: 08-30-2022 09:43-0500 Body mass index (BMI) [Ratio] 33 kg/m2 [facility] Work Phone: 08-30-2022 09:43-0500 Body weight 82.1 kg [facility] Work Phone: 07-07-2022 15:47-0400 Heart rate 80 /min [facility] Work Phone: 07-07-2022 15:47-0400 Respiratory rate 12 /min [facility] Work Phone: 07-07-2022 15:47-0400 SaO2% (BldA) [Mass fraction] 98 % [facility] Work Phone: 07-07-2022 13:08-0400 Body height 152.4 cm [facility] Work Phone: 07-07-2022 13:08-0400 Body mass index (BMI) [Ratio] 36.3 kg/m2 [facility] Work Phone: 07-07-2022 13:08-0400 Body temperature 98.1 [degF] [facility] Work Phone: 07-07-2022 13:08-0400 Body weight 84.27 kg [facility] Work Phone: 07-07-2022 13:08-0400 Diastolic blood pressure 68 mm[Hg] [facility] Work Phone: 07-07-2022 13:08-0400 Systolic blood pressure 115 mm[Hg] [facility] Work Phone: Encounters Encounter Date Encounter Type Care Provider Facility Start: 08-16-2025 ambulatory NICOLE bardalesty:[facility] Start: 07-30-2025 End: 07-30-2025 ambulatory Wesly Hidalgo Facility:[facility] Start: 07-09-2025 End: 07-09-2025 Patient encounter procedure Sondra Mei NP-C [facility] Work Phone: Start: 07-09-2025 End: 07-09-[address] Wesly Hidalgo MD Work Phone: -[facility] Start: 07-01-2025 End: 07-01-[address] Ran Dennison MD -[facility] Work Phone: Start: 07-01-2025 End: 07-01-[address] Wesly Hidalgo MD Work Phone: -[facility] Start: 06-23-2025 End: 06-23-[address] Quinton Barton MD -[facility] Work Phone: Start: 06-23-2025 End: 06-23-[address] Wesly Hidalgo MD Work Phone: -[facility] Start: 06-22-2025 End: 06-22-[address] Wesly Hidalgo MD Work Phone: -Laboratory Phy Office 3rd Flr Start: 06-22-2025 End: 06-22-[address] Wesly Hidalgo MD -Laboratory Phy Office 3rd Flr Start: 06-22-2025 End: 06-22-2025 ambulatory Wesly Hidalgo Facility:[facility] Start: 05-20-2025 End: 05-20-2025 Telephone encounter Nicole Allen MD Work Phone: [facility] [place] Comment on above: Orders Start: 05-16-2025 End: 05-17-2025 ambulatory NICOLE ALLEN Facility:[facility] Start: 05-10-2025 End: 05-10-2025 ambulatory WESLY HIDALGO Facility:[facility] Start: 05-10-2025 Encounter for other preprocedural examination NICOLE ALLEN [facility] Start: 04-14-2025 End: 04-14-2025 Telephone encounter Nicole Allen MD Work Phone: [facility] [place] Comment on above: Preparations For Pro cedures Start: 02-24-2025 End: 02-24-2025 Emergency department patient visit Remus Ungkat Facility:[facility] Start: 12-31-2024 End: 12-31-[address] Nicole Knapp MD -[facility] Work Phone: Start: 12-31-2024 End: 12-31-2024 ambulatory Wesly Hidalgo Facility:[facility] Start: 12-27-2024 End: 12-27-[address] Wesly Hidalgo MD Work Phone: [facility] Work Phone: Start: 12-27-2024 End: 12-27-[address] Wesly Hidalgo MD -Outpatient Breast Imaging Work Phone: Start: 12-27-2024 End: 12-27-2024 ambulatory Wesly Hidalgo Facility:[facility] Start: 12-20-2024 End: 12-20-[address] Wesly Hidalgo MD Work Phone: [facility] Work Phone: Start: 12-20-2024 End: 12-20-[address] Wesly Hidalgo MD -Laboratory, Phy Office 3rd [facility] Start: 12-20-2024 End: 12-20-2024 ambulatory Wesly Anatoly [place] Facility:[facility] Start: 12-15-2024 ambulatory Wesly Anatoly Michelleok Facility:[facility] Start: 12-15-2024 Non-patient / Non-visit Dr. Mehnaz leigh MD -[facility]- Start: 12-15-2024 End: 12-15-[address] Wesly Hidalgo MD Work Phone: [facility] Work Phone: Start: 12-15-2024 End: 12-15-[address] Wesly Hidalgo MD -Pulmonary Services/Neurology Work Phone: Start: 12-15-2024 End: 12-15-2024 ambulatory Wesly [facility] [place] Facility:[facility] Start: 12-08-2024 End: 12-08-[address] Wesly Hidalgo MD Work Phone: [facility] Work Phone: Start: 12-08-2024 End: 12-08-[address] Wesly Hidalgo MD -Laboratory, Phy Office 3rd Flr Start: 12-08-2024 End: 12-08-2024 ambulatory [facility] Facility:[facility] Start: 11-18-2024 End: 11-18-2024 Office outpatient visit 25 minutes Nicole Allen MD Work Phone: [facility] [place] Comment on above: Paroxysmal atrial fi brillation (HCC) (Primary Dx); At risk for stroke; Anticoagulant long-term use; Family history of malignant hyperthermia Start: 11-18-2024 End: 11-18-2024 ambulatory NICOLE ALLEN Facility:[facility] Start: 10-27-2024 End: 10-27-[address] Wesly Hidalgo MD -Radiology, [facility] Work Phone: Start: 10-27-2024 End: 10-27-2024 ambulatory [facility] Facility:[facility] Start: 10-22-2024 ambulatory Juan Miguel Ziegler NP Facility :[facility] Start: 10-22-2024 Non-patient / Non-visit Dr. Kin AMEZCUA -[facility] Start: 10-22-2024 End: 10-22-2024 Patient encounter procedure Juan Miguel Ziegler IT SECURITY ARCHITECT-C -Cardiovascular Services Work Phone: Start: 10-22-2024 End: 10-22-2024 ambulatory [facility] Facility:[facility] Start: 10-18-2024 End: 10-18-[address] Wesly Hidalgo MD -Laboratory, Phy Office 3rd Flr Start: 10-18-2024 End: 10-18-2024 ambulatory [facility] [place] Facility:[facility] Start: 10-07-2024 End: 10-07-2024 Patient encounter procedure Juan Miguel Ziegler IT SECURITY ARCHITECT-C -[facility] Work Phone: Start: 10-07-2024 End: 10-07-2024 ambulatory [facility] [place] Facility:[facility] Start: 09-27-2024 End: 09-27-[address] Wesly Hidalgo MD -Laboratory, Phy Office 3rd Flr Start: 09-27-2024 End: 09-27-2024 ambulatory Wesly Ledbetter [place] Facility:[facility] Start: 04-29-2024 Telephone encounter Nicole lassiter MD Work Phone: [facility] [place] Comment on above: Treatment Planning Start: 04-05-2024 End: 04-05-2024 Office outpatient new 45 minutes Nicole Allen MD Work Phone: [facility] [place] Comment on above: Paroxysmal atrial fi brillation (HCC) (Primary Dx); At risk for stroke; Anticoagulant long-term use Start: 12-26-2023 End: 12-26-2023 ambulatory [facility] Work Phone: Start: 12-26-2023 End: 12-26-2023 Patient encounter procedure [facility]-Outpatient Breast Imaging Work Phone: Start: 12-08-2023 End: 12-08-2023 ambulatory [facility] Work Phone: Start: 12-08-2023 End: 12-08-2023 Patient encounter procedure [facility]-Laboratory, Phy Office 3rd Flr Start: 06-26-2023 End: 06-26-2023 ambulatory [facility] Work Phone: Start: 06-26-2023 End: 06-26-2023 Patient encounter procedure [facility]-Laboratory, Phy Office 3rd Flr Start: 06-09-2023 End: 06-09-2023 Emergency department patient visit [facility]-Emergency Department Work Phone: Start: 06-03-2023 End: 06-03-2023 Patient encounter procedure [facility]-Laboratory, Phy Office 3rd Flr Start: 04-29-2023 End: 04-29-2023 ambulatory [facility] Work Phone: Start: 04-29-2023 End: 04-29-2023 Patient encounter procedure [facility]-Radiology, [facility] Work Phone: Start: 02-07-2023 End: 02-07-2023 Emergency department patient visit Dr. Wesly Hidalgo Work Phone: [facility]-Emergency Department Start: 12-24-2022 End: 12-24-[address] Wesly Hidalgo Work Phone: [facility] Work Phone: Start: 12-24-2022 End: 12-24-[address] Wesly Hidalgo Work Phone: [facility]-Outpatient Breast Imaging Start: 12-05-2022 End: 12-05-[address] Wesly Hidalgo Work Phone: [facility] Start: 12-03-2022 End: 12-03-[address] Wesly Hidalgo Work Phone: [facility] Work Phone: Start: 12-03-2022 End: 12-03-[address] [facility] Start: 11-07-2022 End: 11-07-[address] [facility]idal[facility] Start: 09-05-2022 End: 09-05-[address] Wesly Hidalgo Work Phone: [facility] Start: 09-04-2022 End: 09-04-[address] Wesly Hidalgo Work Phone: [facility] Work Phone: Start: 09-04-2022 End: 09-04-[address] Wes[facility]idalgo [facility] Start: 08-31-2022 Non-patient / Non-visit Dr. Freddie Hidalgo Work Phone: [facility] Start: 08-31-2022 Non-patient / Non-visit Dr. Freddie Hidalgo Work Phone: [facility] Start: 08-30-2022 Non-patient / Non-visit Dr. Freddie Hidalgo Work Phone: [facility] Start: 08-30-2022 End: 08-30-2022 Non-patient / Non-visit Dr. Wesly Hidalgo Work Phone: [facility] Start: 08-30-2022 End: 08-31-2022 Evaluation and management of inpatient [facility]-Progressive Care Unit Start: 07-07-2022 End: 07-07-2022 Emergency department patient visit [facility]-Emergency Department Start: 06-03-2022 End: 06-03-2022 ambulatory [facility] Work Phone: Start: 06-03-2022 End: 06-03-2022 Patient encounter procedure [facility]-Laboratory, Phy Office 3rd Flr Start: 05-28-2022 End: 05-28-2022 ambulatory [facility] Work Phone: Start: 05-28-2022 End: 05-28-2022 Patient encounter procedure [facility]-Pulmonary Services/Neurology Start: 01-22-2022 End: 01-22-2022 Patient encounter procedure [facility]-Radiology, [facility] Start: 12-03-2021 End: 12-03-2021 Patient encounter procedure [facility]-Outpatient Breast Imaging Start: 11-19-2021 End: 11-19-2021 Patient encounter procedure [facility]-Laboratory, Phy Office 3rd Flr Start: 10-30-2021 End: 10-30-2021 Patient encounter procedure [facility]-Laboratory Procedures Date Procedure Procedure Detail Performing Clinician Start: 06-22-2025 Vitamin D, 25-hydrox y measurement Dr. Wesly Hidalgo MD Work Phone: Comment on above: Vitamin D StatusDefi ciency: <20 ng/mL (50nmol/L)Insufficiency: 20-30 ng/mL (50-75 nmol/L)Sufficiency: 30-100 ng/mL (75-250 nmol/L)Toxicity: >100 ng/mL (>250 nmol/L) Start: 05-16-2025 Antibody screen NICOLE ALLEN Comment on above: Order Comment: Speci men Type: BLOOD SPECIMENOrdering Facility[facility] Address: [address] [place] [address] Performed By: #### T SCR ####[facility] BLOOD BANKCLIA [id number] [place] [address] [place] Start: 12-27-2024 Screening mammography D r. Wesly Hidalgo MD Work Phone: Start: 12-20-2024 SARS-CoV-2, Influenz a & RSV (PCR) Dr. Wesly Hidalgo MD Work Phone: Start: 11-18-2024 Ecg routine ecg w/le ast 12 lds w/i&r Nicole Allen MD Work Phone: Start: 10-27-2024 X-ray of foot, three or more views Dr. Wesly Hidalgo MD Work Phone: Start: 10-22-2024 Cardiovascular stres s test using pharmacologic stress agent Dr. Wesly Hidalgo MD Work Phone: Start: 09-27-2024 SARS-CoV-2, Influenz a & RSV (PCR) Dr. Wesly Hidalgo MD Work Phone: Start: 04-05-2024 Ecg routine ecg w/le ast 12 lds w/i&r Nicole Allen MD Work Phone: Start: 12-26-2023 Screening mammography Start: 06-26-2023 Plain X-ray of toe Start: 06-26-2023 Coronavirus COVID-19 PCR Start: 06-26-2023 Influenza Types A,B Direct FA (ALANIS) Start: 06-26-2023 Respiratory syncytia l virus antigen assay Start: 04-29-2023 Radiography of thora cic spine Start: 02-07-2023 Plain x-ray of hand Dr. Wesly Hidalgo Work Phone: Start: 12-24-2022 Screening mammography D lori Hidalgo Work Phone: Start: 08-30-2022 Plain chest X-ray Start: 07-07-2022 X-ray of lumbar spin e, two or three views Start: 01-22-2022 Radiography of thora cic spine Start: 12-03-2021 Screening mammography Start: 12-14-2011 Lipid 1996 panel - S salvatore or Plasma Nicole Allen MD Work Phone: Start: 12-16-2007 [facility] Nicole jaquez MD Work Phone: Influenza Types A,B Direct FA (ALANIS) Influenza Types A,B Direct FA (ALANIS) Dr. Wesly Hidalgo Work Phone: Respiratory Panel (PCR) Dr. Wesly Hidalgo Work Phone: Respiratory Panel (PCR) Dr. Wesly Hidalgo Work Phone: Respiratory syncytia l virus antigen assay Streptococcus pneumo niae Antigen (M Dr. Wesly Hidalgo Work Phone: Streptococcus pneumo niae Antigen (M Dr. Wesly Hidalgo Work Phone: Viral antigen assay Plan of Treatment Date Care Activity Detail Author Start: 05-17-2028 Diabetes Screening Diabetes Screenin g [facility] Start: 08-16-2025 End: 05-20-2026 Echocardiography ECHO Cardiology Routine Persistent atrial fibrillation (HCC) Dyspnea, unspecified type Expected: 08/16/2025, Expires: 05/20/2026 [facility] Work Phone: Comment on above: Expected: 08/16/2025 , Expires: 05/20/2026 Start: 08-16-2025 End: 05-20-2026 OUTSIDE VENDOR CARDIAC OUTPATIENT EXTENDED RHYTHM RECORDING (WITHOUT TELEMETRY) OUTSIDE VENDOR CARDIAC OUTPATIENT EXTENDED RHYTHM RECORDING (WITHOUT TELEMETRY) Holter Routine Persistent atrial fibrillation (HCC) Expected: 08/16/2025, Expires: 05/20/2026 [facility] Comment on above: Expected: 08/16/2025 , Expires: 05/20/2026 Start: 07-01-2025 End: 07-01-2025 Patient encounter procedure Bilateral carpal tunnel syndrome -[facility] Work Phone: Start: 06-23-2025 End: 06-23-2025 Evaluation of diagnostic study results [facility] Start: 06-06-2025 Influenza vaccination Influenza Vacc ine (#1) [facility] Start: 05-16-2025 Subsequent hospital visit by physician 05/16/2025 Hospital Encounter [facility] [address] [place] [address] Nicole Allen MD [address] [place] [address] Paroxysmal atrial fibrillation (HCC) [I48.0] [facility] Comment on above: Paroxysmal atrial fi brillation (HCC) [I48.0] Start: 05-10-2025 End: 05-10-2025 ambulatory 05/10/2025 11:20 AM EDT PAT Pre Surgical Testing [address] [place], [place] [id number] Needs H&P with EKG for PFA on 05/[address] Allen [facility] Comment on above: Needs H&P with EKG f or PFA on 05/[address] Allen Start: 12-31-2024 Patient referral [facility] Work Phone: Start: 10-06-2024 Advance Directive Discussion Advance Directive Discussion [facility] Start: 10-06-2024 Medicare Advantage A nnual Wellness Visit Medicare Advantage Annual Wellness Visit [facility] Start: 06-06-2024 Covid-19 Vaccine ( season) Covid-19 Vaccine ( season) [facility] Start: 06-06-2024 Influenza vaccination Influenza Vacc ine (#1) [facility] Start: 10-06-2023 Advance Directive Discussion Advance Directive Discussion [facility] Start: 10-06-2023 Behavioral Health Screening Behavioral Health Screening [facility] Start: 06-06-2023 Covid-19 Vaccine ( season) Covid-19 Vaccine ( season) [facility] Start: 08-31-2022 Patient discharge [facility] Start: 08-30-2022 Oxygen therapy [facility] Start: 08-30-2022 Following clinical p athway protocol [facility] Start: 08-30-2022 Transfusion of blood product [facility] Start: 08-30-2022 Inhalation therapy procedure [facility] Start: 08-30-2022 Admission procedure [facility] Start: 08-30-2022 [facility] Work Phone: Start: 08-30-2022 [facility] Start: 01-04-2020 Pneumococcal Vaccine : 65+ (1 of 1 - PCV) Pneumococcal Vaccine: 65+ (1 of 1 - PCV) [facility] Start: 01-04-2020 Screening for osteoporosis Bone Dens ity Screening [facility] Start: 12-13-2016 Lipid panel Lipid Screening [facility] Start: 2015 RSV Vaccine (1 - 1-d ose 60+ series) RSV Vaccine (1 - 1-dose 60+ series) [facility] Start: 2015 RSV Vaccine (1 - Ris k 60-74 years 1-dose series) RSV Vaccine (1 - Risk 60-74 years 1-dose series) [facility] Start: 12-13-2014 Diabetes Screening Diabetes Screenin g [facility] Start: 01-29-2013 Screening for malign ant neoplasm of breast Mammogram Screening [facility] Start: 12-15-2012 Screening for malign ant neoplasm of colon [facility] Start: 2005 Pneumococcal Vaccine : 50+ (1 of 1 - PCV) Pneumococcal Vaccine: 50+ (1 of 1 - PCV) [facility] Start: 2005 Shingrix Vaccine (1 of 2) Chung grix Vaccine (1 of 2) [facility] Start: 01-04-2000 Screening for malign ant neoplasm of colon [facility] Start: 1974 Urine microalbumin profile DTa P,Tdap,Td Vaccine (1 - Tdap) [facility] Start: 1973 Annual PCP Team Set [employer] laverne Disease Visit Annual PCP Team Chronic Disease Visit [facility] Start: 1973 Anxiety Screening Anxiety Screening [facility] Start: 1973 BP Controlled (<130/80) BP Con trolled (<130/80) [facility] Start: 1973 Depression Screening Depression Scre ening [facility] Start: 1973 Hepatitis C screening Hepatitis C Sc carie [facility] Start: 1973 Spirometry Spirometry [facility] Ephys evl trnsptl tx atrial fib isolat pulm vein COMPRE EP EVAL ABLTJ ATR FIB PULM VEIN ISOLATION Paroxysmal atrial fibrillation (HCC) [facility] LAB Patient Education [facility] Work Phone: Patient referral [facility] Work Phone: Immunizations Immunization Date Immunization Notes Care Provider Fa cility 02-07-2023 tetanus toxoid, redu rajiv diphtheria toxoid, and acellular pertussis vaccine, adsorbed Dr. Wesly Hidalgo Work Phone: [facility] 09-25-2020 Influenza virus vaccine [facility] 07-01-2017 Influenza virus vaccine [facility] 06-25-2013 Pneumococcal Vaccine [facility] Work Phone: 06-25-2013 pneumococcal vaccine , unspecified formulation [facility] Payers Date Payer Category Payer Medicare [id number] 2024 Self-pay [id number] 2023 Medicare UHC MEDICARE UHC DUAL COMPLETE HMO POS SNP [id number] 2023-Present [phone] [address] [place] [address] Medicare [id number] 2023 Medicare (Managed Care) 1.2. [id number] 2023 Unknown [id number] 2023 Medicaid [id number] 2023 Unknown [id number] 2017 Medicaid [id number] 2002 Medicare [id number] Private Health Insurance [facility] [id number] Unknown [id number] 62 Unknown [id number] 2.16.840.1.293355.3.579.2.4 62 Unknown [id number] 2.16.840.1.689634.3.579.2.4 62 Unknown [id number] 2.16.840.1.080548.3.579.2.4 62 Unknown [id number] 2.16.840.1.751469.3.579.2.4 62 Unknown [id number] 2.16.840.1.580618.3.579.2.4 62 Unknown [id number] 2.16.840.1.629060.3.579.2.4 62 Unknown [id number] 2.16.840.1.870572.3.579.2.4 62 Unknown [id number] 2.16.840.1.927075.3.579.2.4 62 Unknown [id number] 2.16.840.1.880595.3.579.2.4 62 Unknown [id number] 2.16.840.1.163657.3.579.2.4 62 Unknown [id number] 2.16.840.1.974652.3.579.2.4 62 Unknown [id number] 2.16.840.1.418250.3.579.2.4 62 Unknown [id number] 2.16.840.1.749358.3.579.2.4 62 Unknown [id number] 2.16.840.1.656891.3.579.2.4 62 Unknown [id number] 2.16.840.1.311675.3.579.2.4 62 Unknown [id number] 2.16.840.1.684659.3.579.2.4 62 Unknown [id number] 2.16.840.1.215870.3.579.2.4 62 Social History Date Type Detail Facility Start: 02-14-2021 End: 06-09-2023 Tobacco smoking status MDIS Unknown if ever smoked [facility] Start: 01-04-2021 None [facility] Start: 01-04-2021 Spouse/ Signif icant Other [facility] Start: 12-15-2020 Non-smoker [facility] Start: 1955 Sex Assigned At Female [facility] Start: 04-05-2024 End: 02-24-2025 Tobacco smoking status MDIS Ex-smoker [facility] Start: 10-06-1969 End: 10-06-1990 History of tobacco use Current smoker [facility] Start: 10-06-1969 End: 10-06-1990 History of tobacco use Cigarette Smoker [facility] Start: 04-05-2024 End: 05-10-2025 Tobacco use and exposure Smokeless tobacco non-user [facility] Start: 04-05-2024 End: 05-16-2025 Alcohol intake Current non-drinker of alcohol (finding) [facility] Start: 04-05-2024 End: 05-17-2025 History of Social function [facility] Start: 04-05-2024 End: 05-17-2025 Tobacco use panel [facility] Start: 09-06-2012 National Score (1-100), lower number is lower risk 54 [facility] Start: 1955 Sex Assigned At Not on file [facility] Start: 12-19-2024 End: 01-01-2025 Sex Female (finding) [facility] (I/We) worried whether (my/our) food would run out before (I/we) got money to buy more. Never true [facility] In the past 12 months, was there a time when you were not able to pay the mortgage or rent on time? No [facility] Medical Equipment Procedure Code Equipment Code Equipment Origin al Text Equipment Identifier Dates 2.4MM INBONE SHABNAA PINS FDA Start: 10-17-2017 2.4MM INBONE SHABANA PINS FDA Start: 10-17-2017 2.4MM INBONE SHABANA PINS FDA Start: 10-17-2017 2.4MM INBONE SHABANA PINS FDA Start: 10-17-2017 2.4MM INBONE SHABANA PINS FDA Start: 10-17-2017 2.5MM DARCO HEAD ED K-WIRE FDA Start: 10-17-2017 2.5MM DARCO HEAD ED K-WIRE FDA Start: 10-17-2017 4.4MM DARCO HEAD ED DRILL BIT FDA Start: 10-17-2017 4.8MM TIBIAL COR NER DRILL FDA Start: 10-17-2017 6.5/7.5 SCREW WASHER FDA Star t: 10-17-2017 6.5MM DARCO HEAD ED SCREW FDA Start: 10-17-2017 2.4MM INBONE SHABANA PINS FDA Start: 10-17-2017 6.5MM HEADED TETO CO SCREW FDA Start: 10-17-2017 CEMENT,BONE MARIE H 1/2 BATCH FDA Start: 10-17-2017 DARCO HEADED K-W GRACE 2.5MM FDA Start: 10-17-2017 DARCO HEADED K-W GRACE 2.5MM FDA Start: 10-17-2017 INBONE SCREW, REBECCA NE REMOVER FDA Start: 10-17-2017 INFINFITY TIB COMPONENT FDA Start: 10-17-2017 INFINITY POLY INSERT FDA Star t: 10-17-2017 INFINITY TALAR D OME SLCUS FDA Start: 10-17-2017 NARROW SAW BLADE FDA Start: 10-17-2017 PROPHECY INFINIT Y ALIGN GUIDE FDA Start: 10-17-2017 2.4MM INBONE SHABANA PINS FDA Start: 10-17-2017 TEMP FIX PIN PARAMJIT RESECT GUIDE FDA Start: 10-17-2017 TEMP FIX PIN PARAMJIT RESECT GUIDE FDA Start: 10-17-2017 2.4MM INBONE SHABANA PINS FDA Start: 10-17-2017 2.4MM INBONE SHABANA PINS FDA Start: 10-17-2017 2.4MM INBONE SHABANA PINS FDA Start: 10-17-2017 2.4MM INBONE SHABANA PINS FDA Start: 10-17-2017 2.4MM INBONE SHABANA PINS FDA Start: 10-17-2017 2.4MM INBONE SHABANA PINS FDA Start: 10-17-2017 PATCH,AMNION 2X3CM FDA Start: 01-04-2021 2.4MM INBONE SHABANA PINS FDA Start: 10-17-2017 2.4MM INBONE SHABANA PINS FDA Start: 10-17-2017 2.4MM INBONE SHABANA PINS FDA Start: 10-17-2017 2.4MM INBONE SHABANA PINS FDA Start: 10-17-2017 2.4MM INBONE SHABANA PINS FDA Start: 10-17-2017 2.5MM DARCO HEAD ED K-WIRE FDA Start: 10-17-2017 2.5MM DARCO HEAD ED K-WIRE FDA Start: 10-17-2017 4.4MM DARCO HEAD ED DRILL BIT FDA Start: 10-17-2017 4.8MM TIBIAL COR NER DRILL FDA Start: 10-17-2017 6.5/7.5 SCREW WASHER FDA Star t: 10-17-2017 6.5MM DARCO HEAD ED SCREW FDA Start: 10-17-2017 2.4MM INBONE SHABANA PINS FDA Start: 10-17-2017 6.5MM HEADED TETO CO SCREW FDA Start: 10-17-2017 CEMENT,BONE MARIE H 1/2 BATCH FDA Start: 10-17-2017 DARCO HEADED K-W GRACE 2.5MM FDA Start: 10-17-2017 DARCO HEADED K-W GRACE 2.5MM FDA Start: 10-17-2017 INBONE SCREW, REBECCA NE REMOVER FDA Start: 10-17-2017 INFINFITY TIB COMPONENT FDA Start: 10-17-2017 INFINITY POLY INSERT FDA Star t: 10-17-2017 INFINITY TALAR D OME SLCUS FDA Start: 10-17-2017 NARROW SAW BLADE FDA Start: 10-17-2017 PROPHECY INFINIT Y ALIGN GUIDE FDA Start: 10-17-2017 2.4MM INBONE SHABANA PINS FDA Start: 10-17-2017 TEMP FIX PIN PARAMJIT RESECT GUIDE FDA Start: 10-17-2017 TEMP FIX PIN PARAMJIT RESECT GUIDE FDA Start: 10-17-2017 2.4MM INBONE SHABANA PINS FDA Start: 10-17-2017 2.4MM INBONE SHABANA PINS FDA Start: 10-17-2017 2.4MM INBONE SHABANA PINS FDA Start: 10-17-2017 2.4MM INBONE SHABANA PINS FDA Start: 10-17-2017 2.4MM INBONE SHABANA PINS FDA Start: 10-17-2017 2.4MM INBONE SHABANA PINS FDA Start: 10-17-2017 PATCH,AMNION 2X3CM FDA Start: 01-04-2021 2.4MM INBONE SHABANA PINS FDA Start: 10-17-2017 2.4MM INBONE SHABANA PINS FDA Start: 10-17-2017 2.4MM INBONE SHABANA PINS FDA Start: 10-17-2017 2.4MM INBONE SHABANA PINS FDA Start: 10-17-2017 2.4MM INBONE SHABANA PINS FDA Start: 10-17-2017 2.5MM DARCO HEAD ED K-WIRE FDA Start: 10-17-2017 2.5MM DARCO HEAD ED K-WIRE FDA Start: 10-17-2017 4.4MM DARCO HEAD ED DRILL BIT FDA Start: 10-17-2017 4.8MM TIBIAL COR NER DRILL FDA Start: 10-17-2017 6.5/7.5 SCREW WASHER FDA Star t: 10-17-2017 6.5MM DARCO HEAD ED SCREW FDA Start: 10-17-2017 2.4MM INBONE SHABANA PINS FDA Start: 10-17-2017 6.5MM HEADED TETO CO SCREW FDA Start: 10-17-2017 CEMENT,BONE MARIE H 1/2 BATCH FDA Start: 10-17-2017 DARCO HEADED K-W GRACE 2.5MM FDA Start: 10-17-2017 DARCO HEADED K-W GRACE 2.5MM FDA Start: 10-17-2017 INBONE SCREW, REBECCA NE REMOVER FDA Start: 10-17-2017 INFINFITY TIB COMPONENT FDA Start: 10-17-2017 INFINITY POLY INSERT FDA Star t: 10-17-2017 INFINITY TALAR D OME SLCUS FDA Start: 10-17-2017 NARROW SAW BLADE FDA Start: 10-17-2017 PROPHECY INFINIT Y ALIGN GUIDE FDA Start: 10-17-2017 2.4MM INBONE SHABANA PINS FDA Start: 10-17-2017 TEMP FIX PIN PARAMJIT RESECT GUIDE FDA Start: 10-17-2017 TEMP FIX PIN PARAMJIT RESECT GUIDE FDA Start: 10-17-2017 2.4MM INBONE SHABANA PINS FDA Start: 10-17-2017 2.4MM INBONE SHABANA PINS FDA Start: 10-17-2017 2.4MM INBONE SHABANA PINS FDA Start: 10-17-2017 2.4MM INBONE SHABANA PINS FDA Start: 10-17-2017 2.4MM INBONE SHABANA PINS FDA Start: 10-17-2017 2.4MM INBONE SHABANA PINS FDA Start: 10-17-2017 PATCH,AMNION 2X3CM FDA Start: 01-04-2021 2.4MM INBONE SHABANA PINS FDA Start: 10-17-2017 2.4MM INBONE SHABANA PINS FDA Start: 10-17-2017 2.4MM INBONE SHABANA PINS FDA Start: 10-17-2017 2.4MM INBONE SHABANA PINS FDA Start: 10-17-2017 2.4MM INBONE SHABANA PINS FDA Start: 10-17-2017 2.5MM DARCO HEAD ED K-WIRE FDA Start: 10-17-2017 2.5MM DARCO HEAD ED K-WIRE FDA Start: 10-17-2017 4.4MM DARCO HEAD ED DRILL BIT FDA Start: 10-17-2017 4.8MM TIBIAL COR NER DRILL FDA Start: 10-17-2017 6.5/7.5 SCREW WASHER FDA Star t: 10-17-2017 6.5MM DARCO HEAD ED SCREW FDA Start: 10-17-2017 2.4MM INBONE SHABANA PINS FDA Start: 10-17-2017 6.5MM HEADED TETO CO SCREW FDA Start: 10-17-2017 CEMENT,BONE MARIE H 1/2 BATCH FDA Start: 10-17-2017 DARCO HEADED K-W GRACE 2.5MM FDA Start: 10-17-2017 DARCO HEADED K-W GRACE 2.5MM FDA Start: 10-17-2017 INBONE SCREW, REBECCA NE REMOVER FDA Start: 10-17-2017 INFINFITY TIB COMPONENT FDA Start: 10-17-2017 INFINITY POLY INSERT FDA Star t: 10-17-2017 INFINITY TALAR D OME SLCUS FDA Start: 10-17-2017 NARROW SAW BLADE FDA Start: 10-17-2017 PROPHECY INFINIT Y ALIGN GUIDE FDA Start: 10-17-2017 2.4MM INBONE SHABANA PINS FDA Start: 10-17-2017 TEMP FIX PIN PARAMJIT RESECT GUIDE FDA Start: 10-17-2017 TEMP FIX PIN PARAMJIT RESECT GUIDE FDA Start: 10-17-2017 2.4MM INBONE SHABANA PINS FDA Start: 10-17-2017 2.4MM INBONE SHABANA PINS FDA Start: 10-17-2017 2.4MM INBONE SHABANA PINS FDA Start: 10-17-2017 2.4MM INBONE SHABANA PINS FDA Start: 10-17-2017 2.4MM INBONE SHABANA PINS FDA Start: 10-17-2017 2.4MM INBONE SHABANA PINS FDA Start: 10-17-2017 PATCH,AMNION 2X3CM FDA Start: 01-04-2021 2.4MM INBONE SHABANA PINS FDA Start: 10-17-2017 2.4MM INBONE SHABANA PINS FDA Start: 10-17-2017 2.4MM INBONE SHABANA PINS FDA Start: 10-17-2017 2.4MM INBONE SHABANA PINS FDA Start: 10-17-2017 2.4MM INBONE SHABANA PINS FDA Start: 10-17-2017 2.5MM DARCO HEAD ED K-WIRE FDA Start: 10-17-2017 2.5MM DARCO HEAD ED K-WIRE FDA Start: 10-17-2017 4.4MM DARCO HEAD ED DRILL BIT FDA Start: 10-17-2017 4.8MM TIBIAL COR NER DRILL FDA Start: 10-17-2017 6.5/7.5 SCREW WASHER FDA Star t: 10-17-2017 6.5MM DARCO HEAD ED SCREW FDA Start: 10-17-2017 2.4MM INBONE SHABANA PINS FDA Start: 10-17-2017 6.5MM HEADED TETO CO SCREW FDA Start: 10-17-2017 CEMENT,BONE MARIE H 1/2 BATCH FDA Start: 10-17-2017 DARCO HEADED K-W GRACE 2.5MM FDA Start: 10-17-2017 DARCO HEADED K-W GRACE 2.5MM FDA Start: 10-17-2017 INBONE SCREW, REBECCA NE REMOVER FDA Start: 10-17-2017 INFINFITY TIB COMPONENT FDA Start: 10-17-2017 INFINITY POLY INSERT FDA Star t: 10-17-2017 INFINITY TALAR D OME SLCUS FDA Start: 10-17-2017 NARROW SAW BLADE FDA Start: 10-17-2017 PROPHECY INFINIT Y ALIGN GUIDE FDA Start: 10-17-2017 2.4MM INBONE SHABANA PINS FDA Start: 10-17-2017 TEMP FIX PIN PARAMJIT RESECT GUIDE FDA Start: 10-17-2017 TEMP FIX PIN PARAMJIT RESECT GUIDE FDA Start: 10-17-2017 2.4MM INBONE SHABANA PINS FDA Start: 10-17-2017 2.4MM INBONE SHABANA PINS FDA Start: 10-17-2017 2.4MM INBONE SHABANA PINS FDA Start: 10-17-2017 2.4MM INBONE SHABANA PINS FDA Start: 10-17-2017 2.4MM INBONE SHABANA PINS FDA Start: 10-17-2017 2.4MM INBONE SHABANA PINS FDA Start: 10-17-2017 PATCH,AMNION 2X3CM FDA Start: 01-04-2021 2.4MM INBONE SHABANA PINS FDA Start: 10-17-2017 2.4MM INBONE SHABANA PINS FDA Start: 10-17-2017 2.4MM INBONE SHABANA PINS FDA Start: 10-17-2017 2.4MM INBONE HSABANA PINS FDA Start: 10-17-2017 2.4MM INBONE SHABANA PINS FDA Start: 10-17-2017 2.5MM DARCO HEAD ED K-WIRE FDA Start: 10-17-2017 2.5MM DARCO HEAD ED K-WIRE FDA Start: 10-17-2017 4.4MM DARCO HEAD ED DRILL BIT FDA Start: 10-17-2017 4.8MM TIBIAL COR NER DRILL FDA Start: 10-17-2017 6.5/7.5 SCREW WASHER FDA Star t: 10-17-2017 6.5MM DARCO HEAD ED SCREW FDA Start: 10-17-2017 2.4MM INBONE SHABANA PINS FDA Start: 10-17-2017 6.5MM HEADED TETO CO SCREW FDA Start: 10-17-2017 CEMENT,BONE MARIE H 1/2 BATCH FDA Start: 10-17-2017 DARCO HEADED K-W GRACE 2.5MM FDA Start: 10-17-2017 DARCO HEADED K-W GRACE 2.5MM FDA Start: 10-17-2017 INBONE SCREW, REBECCA NE REMOVER FDA Start: 10-17-2017 INFINFITY TIB COMPONENT FDA Start: 10-17-2017 INFINITY POLY INSERT FDA Star t: 10-17-2017 INFINITY TALAR D OME SLCUS FDA Start: 10-17-2017 NARROW SAW BLADE FDA Start: 10-17-2017 PROPHECY INFINIT Y ALIGN GUIDE FDA Start: 10-17-2017 2.4MM INBONE SHABANA PINS FDA Start: 10-17-2017 TEMP FIX PIN PARAMJIT RESECT GUIDE FDA Start: 10-17-2017 TEMP FIX PIN PARAMJIT RESECT GUIDE FDA Start: 10-17-2017 2.4MM INBONE SHABANA PINS FDA Start: 10-17-2017 2.4MM INBONE SHABANA PINS FDA Start: 10-17-2017 2.4MM INBONE SHABANA PINS FDA Start: 10-17-2017 2.4MM INBONE SHABANA PINS FDA Start: 10-17-2017 2.4MM INBONE SHABANA PINS FDA Start: 10-17-2017 2.4MM INBONE SHABANA PINS FDA Start: 10-17-2017 PATCH,AMNION 2X3CM FDA Start: 01-04-2021 2.4MM INBONE SHABANA PINS FDA Start: 10-17-2017 2.4MM INBONE SHABANA PINS FDA Start: 10-17-2017 2.4MM INBONE SHABANA PINS FDA Start: 10-17-2017 2.4MM INBONE SHABANA PINS FDA Start: 10-17-2017 2.4MM INBONE SHABANA PINS FDA Start: 10-17-2017 2.5MM DARCO HEAD ED K-WIRE FDA Start: 10-17-2017 2.5MM DARCO HEAD ED K-WIRE FDA Start: 10-17-2017 4.4MM DARCO HEAD ED DRILL BIT FDA Start: 10-17-2017 4.8MM TIBIAL COR NER DRILL FDA Start: 10-17-2017 6.5/7.5 SCREW WASHER FDA Star t: 10-17-2017 6.5MM DARCO HEAD ED SCREW FDA Start: 10-17-2017 2.4MM INBONE SHABANA PINS FDA Start: 10-17-2017 6.5MM HEADED TETO CO SCREW FDA Start: 10-17-2017 CEMENT,BONE MARIE H 1/2 BATCH FDA Start: 10-17-2017 DARCO HEADED K-W GRACE 2.5MM FDA Start: 10-17-2017 DARCO HEADED K-W GRACE 2.5MM FDA Start: 10-17-2017 INBONE SCREW, REBECCA NE REMOVER FDA Start: 10-17-2017 INFINFITY TIB COMPONENT FDA Start: 10-17-2017 INFINITY POLY INSERT FDA Star t: 10-17-2017 INFINITY TALAR D OME SLCUS FDA Start: 10-17-2017 NARROW SAW BLADE FDA Start: 10-17-2017 PROPHECY INFINIT Y ALIGN GUIDE FDA Start: 10-17-2017 2.4MM INBONE SHABANA PINS FDA Start: 10-17-2017 TEMP FIX PIN PARAMJIT RESECT GUIDE FDA Start: 10-17-2017 TEMP FIX PIN PARAMIJT RESECT GUIDE FDA Start: 10-17-2017 2.4MM INBONE SHABANA PINS FDA Start: 10-17-2017 2.4MM INBONE SHABANA PINS FDA Start: 10-17-2017 2.4MM INBONE SHABANA PINS FDA Start: 10-17-2017 2.4MM INBONE SHABANA PINS FDA Start: 10-17-2017 2.4MM INBONE SHABANA PINS FDA Start: 10-17-2017 2.4MM INBONE SHABANA PINS FDA Start: 10-17-2017 PATCH,AMNION 2X3CM FDA Start: 01-04-2021 2.4MM INBONE SHABANA PINS FDA Start: 10-17-2017 2.4MM INBONE SHABANA PINS FDA Start: 10-17-2017 2.4MM INBONE SHABANA PINS FDA Start: 10-17-2017 2.4MM INBONE SHABANA PINS FDA Start: 10-17-2017 2.4MM INBONE SHABANA PINS FDA Start: 10-17-2017 2.5MM DARCO HEAD ED K-WIRE FDA Start: 10-17-2017 2.5MM DARCO HEAD ED K-WIRE FDA Start: 10-17-2017 4.4MM DARCO HEAD ED DRILL BIT FDA Start: 10-17-2017 4.8MM TIBIAL COR NER DRILL FDA Start: 10-17-2017 6.5/7.5 SCREW WASHER FDA Star t: 10-17-2017 6.5MM DARCO HEAD ED SCREW FDA Start: 10-17-2017 2.4MM INBONE SHABANA PINS FDA Start: 10-17-2017 6.5MM HEADED TETO CO SCREW FDA Start: 10-17-2017 CEMENT,BONE MARIE H 1/2 BATCH FDA Start: 10-17-2017 DARCO HEADED K-W GRACE 2.5MM FDA Start: 10-17-2017 DARCO HEADED K-W GRACE 2.5MM FDA Start: 10-17-2017 INBONE SCREW, REBECCA NE REMOVER FDA Start: 10-17-2017 INFINFITY TIB COMPONENT FDA Start: 10-17-2017 INFINITY POLY INSERT FDA Star t: 10-17-2017 INFINITY TALAR D OME SLCUS FDA Start: 10-17-2017 NARROW SAW BLADE FDA Start: 10-17-2017 PROPHECY INFINIT Y ALIGN GUIDE FDA Start: 10-17-2017 2.4MM INBONE SHABANA PINS FDA Start: 10-17-2017 TEMP FIX PIN PARAMJIT RESECT GUIDE FDA Start: 10-17-2017 TEMP FIX PIN PARAMJIT RESECT GUIDE FDA Start: 10-17-2017 2.4MM INBONE SHABANA PINS FDA Start: 10-17-2017 2.4MM INBONE SHABANA PINS FDA Start: 10-17-2017 2.4MM INBONE SHABANA PINS FDA Start: 10-17-2017 2.4MM INBONE SHABANA PINS FDA Start: 10-17-2017 2.4MM INBONE SHABANA PINS FDA Start: 10-17-2017 2.4MM INBONE SHABANA PINS FDA Start: 10-17-2017 PATCH,AMNION 2X3CM FDA Start: 01-04-2021 2.4MM INBONE SHABANA PINS FDA Start: 10-17-2017 2.4MM INBONE SHABANA PINS FDA Start: 10-17-2017 2.4MM INBONE [place] PINS FDA Start: 10-17-2017 2.4MM INBONE [place] PINS FDA Start: 10-17-2017 2.4MM INBONE [place] PINS FDA Start: 10-17-2017 2.5MM DARCO HEAD ED K-WIRE FDA Start: 10-17-2017 2.5MM DARCO HEAD ED K-WIRE FDA Start: 10-17-2017 4.4MM DARCO HEAD ED DRILL BIT FDA Start: 10-17-2017 4.8MM TIBIAL COR NER DRILL FDA Start: 10-17-2017 6.5/7.5 SCREW WASHER FDA Star t: 10-17-2017 6.5MM DARCO HEAD ED SCREW FDA Start: 10-17-2017 2.4MM INBONE [place] PINS FDA Start: 10-17-2017 6.5MM HEADED TETO CO SCREW FDA Start: 10-17-2017 CEMENT,BONE MARIE H 1/2 BATCH FDA Start: 10-17-2017 DARCO HEADED K-W GRACE 2.5MM FDA Start: 10-17-2017 DARCO HEADED K-W GRACE 2.5MM FDA Start: 10-17-2017 INBONE SCREW, REBECCA NE REMOVER FDA Start: 10-17-2017 INFINFITY TIB COMPONENT FDA Start: 10-17-2017 INFINITY POLY INSERT FDA Star t: 10-17-2017 INFINITY TALAR D OME SLCUS FDA Start: 10-17-2017 NARROW SAW BLADE FDA Start: 10-17-2017 PROPHECY INFINIT Y ALIGN GUIDE FDA Start: 10-17-2017 2.4MM INBONE [place] PINS FDA Start: 10-17-2017 TEMP FIX PIN PARAMJIT RESECT GUIDE FDA Start: 10-17-2017 TEMP FIX PIN PARAMJIT RESECT GUIDE FDA Start: 10-17-2017 2.4MM INBONE [place] PINS FDA Start: 10-17-2017 2.4MM INBONE [place] PINS FDA Start: 10-17-2017 2.4MM INBONE [place] PINS FDA Start: 10-17-2017 2.4MM INBONE [place] PINS FDA Start: 10-17-2017 2.4MM INBONE [place] PINS FDA Start: 10-17-2017 2.4MM INBONE [place] PINS FDA Start: 10-17-2017 PATCH,AMNION 2X3CM FDA Start: 01-04-2021 2.4MM INBONE [place] PINS FDA Start: 10-17-2017 2.4MM INBONE [place] PINS FDA Start: 10-17-2017 2.4MM INBONE [place] PINS FDA Start: 10-17-2017 2.4MM INBONE [place] PINS FDA Start: 10-17-2017 2.4MM INBONE [place] PINS FDA Start: 10-17-2017 2.5MM DARCO HEAD ED K-WIRE FDA Start: 10-17-2017 2.5MM DARCO HEAD ED K-WIRE FDA Start: 10-17-2017 4.4MM DARCO HEAD ED DRILL BIT FDA Start: 10-17-2017 4.8MM TIBIAL COR NER DRILL FDA Start: 10-17-2017 6.5/7.5 SCREW WASHER FDA Star t: 10-17-2017 6.5MM DARCO HEAD ED SCREW FDA Start: 10-17-2017 2.4MM INBONE [place] PINS FDA Start: 10-17-2017 6.5MM HEADED TETO CO SCREW FDA Start: 10-17-2017 CEMENT,BONE MARIE H 1/2 BATCH FDA Start: 10-17-2017 DARCO HEADED K-W GRACE 2.5MM FDA Start: 10-17-2017 DARCO HEADED K-W GRACE 2.5MM FDA Start: 10-17-2017 INBONE SCREW, REBECCA NE REMOVER FDA Start: 10-17-2017 INFINFITY TIB COMPONENT FDA Start: 10-17-2017 INFINITY POLY INSERT FDA Star t: 10-17-2017 INFINITY TALAR D OME SLCUS FDA Start: 10-17-2017 NARROW SAW BLADE FDA Start: 10-17-2017 PROPHECY INFINIT Y ALIGN GUIDE FDA Start: 10-17-2017 2.4MM INBONE [place] PINS FDA Start: 10-17-2017 TEMP FIX PIN PARAMJIT RESECT GUIDE FDA Start: 10-17-2017 TEMP FIX PIN PARAMJIT RESECT GUIDE FDA Start: 10-17-2017 2.4MM INBONE [place] PINS FDA Start: 10-17-2017 2.4MM INBONE [place] PINS FDA Start: 10-17-2017 2.4MM INBONE [place] PINS FDA Start: 10-17-2017 2.4MM INBONE SHABA[place] PINS FDA Start: 10-17-2017 2.4MM INBONE SHABA[place] PINS FDA Start: 10-17-2017 2.4MM INBONE SHABA[place] PINS FDA Start: 10-17-2017 PATCH,AMNION 2X3CM FDA Start: 01-04-2021 2.4MM INBONE SHABANA PINS FDA Start: 10-17-2017 2.4MM INBONE SHABANA PINS FDA Start: 10-17-2017 2.4MM INBONE SHABANA PINS FDA Start: 10-17-2017 2.4MM INBONE SHABANA PINS FDA Start: 10-17-2017 2.4MM INBONE SHABANA PINS FDA Start: 10-17-2017 2.5MM DARCO HEAD ED K-WIRE FDA Start: 10-17-2017 2.5MM DARCO HEAD ED K-WIRE FDA Start: 10-17-2017 4.4MM DARCO HEAD ED DRILL BIT FDA Start: 10-17-2017 4.8MM TIBIAL COR NER DRILL FDA Start: 10-17-2017 6.5/7.5 SCREW WASHER FDA Star t: 10-17-2017 6.5MM DARCO HEAD ED SCREW FDA Start: 10-17-2017 2.4MM INBONE SHABANA PINS FDA Start: 10-17-2017 6.5MM HEADED TETO CO SCREW FDA Start: 10-17-2017 CEMENT,BONE MARIE H 1/2 BATCH FDA Start: 10-17-2017 DARCO HEADED K-W GRACE 2.5MM FDA Start: 10-17-2017 DARCO HEADED K-W GRACE 2.5MM FDA Start: 10-17-2017 INBONE SCREW, REBECCA NE REMOVER FDA Start: 10-17-2017 INFINFITY TIB COMPONENT FDA Start: 10-17-2017 INFINITY POLY INSERT FDA Star t: 10-17-2017 INFINITY TALAR D OME SLCUS FDA Start: 10-17-2017 NARROW SAW BLADE FDA Start: 10-17-2017 PROPHECY INFINIT Y ALIGN GUIDE FDA Start: 10-17-2017 2.4MM INBONE SHABANA PINS FDA Start: 10-17-2017 TEMP FIX PIN PARAMJIT RESECT GUIDE FDA Start: 10-17-2017 TEMP FIX PIN PARAMJIT RESECT GUIDE FDA Start: 10-17-2017 2.4MM INBONE SHABANA PINS FDA Start: 10-17-2017 2.4MM INBONE SHABANA PINS FDA Start: 10-17-2017 2.4MM INBONE SHABANA PINS FDA Start: 10-17-2017 2.4MM INBONE SHABANA PINS FDA Start: 10-17-2017 2.4MM INBONE SHABANA PINS FDA Start: 10-17-2017 2.4MM INBONE SHABANA PINS FDA Start: 10-17-2017 PATCH,AMNION 2X3CM FDA Start: 01-04-2021 2.4MM INBONE SHABANA PINS FDA Start: 10-17-2017 2.4MM INBONE SHABANA PINS FDA Start: 10-17-2017 2.4MM INBONE SHABANA PINS FDA Start: 10-17-2017 2.4MM INBONE SHABANA PINS FDA Start: 10-17-2017 2.4MM INBONE SHABANA PINS FDA Start: 10-17-2017 2.5MM DARCO HEAD ED K-WIRE FDA Start: 10-17-2017 2.5MM DARCO HEAD ED K-WIRE FDA Start: 10-17-2017 4.4MM DARCO HEAD ED DRILL BIT FDA Start: 10-17-2017 4.8MM TIBIAL COR NER DRILL FDA Start: 10-17-2017 6.5/7.5 SCREW WASHER FDA Star t: 10-17-2017 6.5MM DARCO HEAD ED SCREW FDA Start: 10-17-2017 2.4MM INBONE SHABANA PINS FDA Start: 10-17-2017 6.5MM HEADED TETO CO SCREW FDA Start: 10-17-2017 CEMENT,BONE MARIE H 1/2 BATCH FDA Start: 10-17-2017 DARCO HEADED K-W GRACE 2.5MM FDA Start: 10-17-2017 DARCO HEADED K-W GRACE 2.5MM FDA Start: 10-17-2017 INBONE SCREW, REBECCA NE REMOVER FDA Start: 10-17-2017 INFINFITY TIB COMPONENT FDA Start: 10-17-2017 INFINITY POLY INSERT FDA Star t: 10-17-2017 INFINITY TALAR D OME SLCUS FDA Start: 10-17-2017 NARROW SAW BLADE FDA Start: 10-17-2017 PROPHECY INFINIT Y ALIGN GUIDE FDA Start: 10-17-2017 2.4MM INBONE SHABANA PINS FDA Start: 10-17-2017 TEMP FIX PIN PARAMJIT RESECT GUIDE FDA Start: 10-17-2017 TEMP FIX PIN PARAMJIT RESECT GUIDE FDA Start: 10-17-2017 2.4MM INBONE SHABANA PINS FDA Start: 10-17-2017 2.4MM INBONE SHABANA PINS FDA Start: 10-17-2017 2.4MM INBONE SHABANA PINS FDA Start: 10-17-2017 2.4MM INBONE SHABANA PINS FDA Start: 10-17-2017 2.4MM INBONE SHABANA PINS FDA Start: 10-17-2017 2.4MM INBONE SHABANA PINS FDA Start: 10-17-2017 PATCH,AMNION 2X3CM FDA Start: 01-04-2021 2.4MM INBONE SHABANA PINS FDA Start: 10-17-2017 2.4MM INBONE SHABANA PINS FDA Start: 10-17-2017 2.4MM INBONE SHABANA PINS FDA Start: 10-17-2017 2.4MM INBONE SHABANA PINS FDA Start: 10-17-2017 2.4MM INBONE SHABANA PINS FDA Start: 10-17-2017 2.5MM DARCO HEAD ED K-WIRE FDA Start: 10-17-2017 2.5MM DARCO HEAD ED K-WIRE FDA Start: 10-17-2017 4.4MM DARCO HEAD ED DRILL BIT FDA Start: 10-17-2017 4.8MM TIBIAL COR NER DRILL FDA Start: 10-17-2017 6.5/7.5 SCREW WASHER FDA Star t: 10-17-2017 6.5MM DARCO HEAD ED SCREW FDA Start: 10-17-2017 2.4MM INBONE SHABANA PINS FDA Start: 10-17-2017 6.5MM HEADED TETO CO SCREW FDA Start: 10-17-2017 CEMENT,BONE MARIE H 1/2 BATCH FDA Start: 10-17-2017 DARCO HEADED K-W GRACE 2.5MM FDA Start: 10-17-2017 DARCO HEADED K-W GRACE 2.5MM FDA Start: 10-17-2017 INBONE SCREW, REBECCA NE REMOVER FDA Start: 10-17-2017 INFINFITY TIB COMPONENT FDA Start: 10-17-2017 INFINITY POLY INSERT FDA Star t: 10-17-2017 INFINITY TALAR D OME SLCUS FDA Start: 10-17-2017 NARROW SAW BLADE FDA Start: 10-17-2017 PROPHECY INFINIT Y ALIGN GUIDE FDA Start: 10-17-2017 2.4MM INBONE SHABANA PINS FDA Start: 10-17-2017 TEMP FIX PIN PARAMJIT RESECT GUIDE FDA Start: 10-17-2017 TEMP FIX PIN PARAMJIT RESECT GUIDE FDA Start: 10-17-2017 2.4MM INBONE SHABANA PINS FDA Start: 10-17-2017 2.4MM INBONE SHABANA PINS FDA Start: 10-17-2017 2.4MM INBONE SHABANA PINS FDA Start: 10-17-2017 2.4MM INBONE SHABANA PINS FDA Start: 10-17-2017 2.4MM INBONE SHABANA PINS FDA Start: 10-17-2017 2.4MM INBONE SHABANA PINS FDA Start: 10-17-2017 PATCH,AMNION 2X3CM FDA Start: 01-04-2021 2.4MM INBONE SHABANA PINS FDA Start: 10-17-2017 2.4MM INBONE SHABANA PINS FDA Start: 10-17-2017 2.4MM INBONE SHABANA PINS FDA Start: 10-17-2017 2.4MM INBONE SHABANA PINS FDA Start: 10-17-2017 2.4MM INBONE SHABANA PINS FDA Start: 10-17-2017 2.5MM DARCO HEAD ED K-WIRE FDA Start: 10-17-2017 2.5MM DARCO HEAD ED K-WIRE FDA Start: 10-17-2017 4.4MM DARCO HEAD ED DRILL BIT FDA Start: 10-17-2017 4.8MM TIBIAL COR NER DRILL FDA Start: 10-17-2017 6.5/7.5 SCREW WASHER FDA Star t: 10-17-2017 6.5MM DARCO HEAD ED SCREW FDA Start: 10-17-2017 2.4MM INBONE SHABANA PINS FDA Start: 10-17-2017 6.5MM HEADED TETO CO SCREW FDA Start: 10-17-2017 CEMENT,BONE MARIE H 1/2 BATCH FDA Start: 10-17-2017 DARCO HEADED K-W GRACE 2.5MM FDA Start: 10-17-2017 DARCO HEADED K-W GRACE 2.5MM FDA Start: 10-17-2017 INBONE SCREW, REBECCA NE REMOVER FDA Start: 10-17-2017 INFINFITY TIB COMPONENT FDA Start: 10-17-2017 INFINITY POLY INSERT FDA Star t: 10-17-2017 INFINITY TALAR D OME SLCUS FDA Start: 10-17-2017 NARROW SAW BLADE FDA Start: 10-17-2017 PROPHECY INFINIT Y ALIGN GUIDE FDA Start: 10-17-2017 2.4MM INBONE SHABANA PINS FDA Start: 10-17-2017 TEMP FIX PIN PARAMJIT RESECT GUIDE FDA Start: 10-17-2017 TEMP FIX PIN PARAMJIT RESECT GUIDE FDA Start: 10-17-2017 2.4MM INBONE SHABANA PINS FDA Start: 10-17-2017 2.4MM INBONE SHABANA PINS FDA Start: 10-17-2017 2.4MM INBONE SHABANA PINS FDA Start: 10-17-2017 2.4MM INBONE SHABANA PINS FDA Start: 10-17-2017 2.4MM INBONE SHABANA PINS FDA Start: 10-17-2017 2.4MM INBONE SHABANA PINS FDA Start: 10-17-2017 PATCH,AMNION 2X3CM FDA Start: 01-04-2021 2.4MM INBONE SHABANA PINS FDA Start: 10-17-2017 2.4MM INBONE SHABANA PINS FDA Start: 10-17-2017 2.4MM INBONE SHABANA PINS FDA Start: 10-17-2017 2.4MM INBONE SHABANA PINS FDA Start: 10-17-2017 2.4MM INBONE SHABANA PINS FDA Start: 10-17-2017 2.5MM DARCO HEAD ED K-WIRE FDA Start: 10-17-2017 2.5MM DARCO HEAD ED K-WIRE FDA Start: 10-17-2017 4.4MM DARCO HEAD ED DRILL BIT FDA Start: 10-17-2017 4.8MM TIBIAL COR NER DRILL FDA Start: 10-17-2017 6.5/7.5 SCREW WASHER FDA Star t: 10-17-2017 6.5MM DARCO HEAD ED SCREW FDA Start: 10-17-2017 2.4MM INBONE SHABANA PINS FDA Start: 10-17-2017 6.5MM HEADED TETO CO SCREW FDA Start: 10-17-2017 CEMENT,BONE MARIE H 1/2 BATCH FDA Start: 10-17-2017 DARCO HEADED K-W GRACE 2.5MM FDA Start: 10-17-2017 DARCO HEADED K-W GRACE 2.5MM FDA Start: 10-17-2017 INBONE SCREW, REBECCA NE REMOVER FDA Start: 10-17-2017 INFINFITY TIB COMPONENT FDA Start: 10-17-2017 INFINITY POLY INSERT FDA Star t: 10-17-2017 INFINITY TALAR D OME SLCUS FDA Start: 10-17-2017 NARROW SAW BLADE FDA Start: 10-17-2017 PROPHECY INFINIT Y ALIGN GUIDE FDA Start: 10-17-2017 2.4MM INBONE SHABANA PINS FDA Start: 10-17-2017 TEMP FIX PIN PARAMJIT RESECT GUIDE FDA Start: 10-17-2017 TEMP FIX PIN PARAMJIT RESECT GUIDE FDA Start: 10-17-2017 2.4MM INBONE SHABANA PINS FDA Start: 10-17-2017 2.4MM INBONE SHABANA PINS FDA Start: 10-17-2017 2.4MM INBONE SHABANA PINS FDA Start: 10-17-2017 2.4MM INBONE SHABANA PINS FDA Start: 10-17-2017 2.4MM INBONE SHABANA PINS FDA Start: 10-17-2017 2.4MM INBONE SHABANA PINS FDA Start: 10-17-2017 PATCH,AMNION 2X3CM FDA Start: 01-04-2021 2.4MM INBONE SHABANA PINS FDA Start: 10-17-2017 2.4MM INBONE SHABANA PINS FDA Start: 10-17-2017 2.4MM INBONE SHABANA PINS FDA Start: 10-17-2017 2.4MM INBONE SHABANA PINS FDA Start: 10-17-2017 2.4MM INBONE SHABANA PINS FDA Start: 10-17-2017 2.5MM DARCO HEAD ED K-WIRE FDA Start: 10-17-2017 2.5MM DARCO HEAD ED K-WIRE FDA Start: 10-17-2017 4.4MM DARCO HEAD ED DRILL BIT FDA Start: 10-17-2017 4.8MM TIBIAL COR NER DRILL FDA Start: 10-17-2017 6.5/7.5 SCREW WASHER FDA Star t: 10-17-2017 6.5MM DARCO HEAD ED SCREW FDA Start: 10-17-2017 2.4MM INBONE SHABANA PINS FDA Start: 10-17-2017 6.5MM HEADED TETO CO SCREW FDA Start: 10-17-2017 CEMENT,BONE MARIE H 1/2 BATCH FDA Start: 10-17-2017 DARCO HEADED K-W GRACE 2.5MM FDA Start: 10-17-2017 DARCO HEADED K-W GRACE 2.5MM FDA Start: 10-17-2017 INBONE SCREW, REBECCA NE REMOVER FDA Start: 10-17-2017 INFINFITY TIB COMPONENT FDA Start: 10-17-2017 INFINITY POLY INSERT FDA Star t: 10-17-2017 INFINITY TALAR D OME SLCUS FDA Start: 10-17-2017 NARROW SAW BLADE FDA Start: 10-17-2017 PROPHECY INFINIT Y ALIGN GUIDE FDA Start: 10-17-2017 2.4MM INBONE SHABANA PINS FDA Start: 10-17-2017 TEMP FIX PIN PARAMJIT RESECT GUIDE FDA Start: 10-17-2017 TEMP FIX PIN PARAMJIT RESECT GUIDE FDA Start: 10-17-2017 2.4MM INBONE SHABANA PINS FDA Start: 10-17-2017 2.4MM INBONE SHABANA PINS FDA Start: 10-17-2017 2.4MM INBONE SHABANA PINS FDA Start: 10-17-2017 2.4MM INBONE SHABANA PINS FDA Start: 10-17-2017 2.4MM INBONE SHAABNA PINS FDA Start: 10-17-2017 2.4MM INBONE SHABANA PINS FDA Start: 10-17-2017 PATCH,AMNION 2X3CM FDA Start: 01-04-2021 2.4MM INBONE SHABANA PINS FDA Start: 10-17-2017 2.4MM INBONE SHABANA PINS FDA Start: 10-17-2017 2.4MM INBONE SHABANA PINS FDA Start: 10-17-2017 2.4MM INBONE SHABANA PINS FDA Start: 10-17-2017 2.4MM INBONE SHABANA PINS FDA Start: 10-17-2017 2.5MM DARCO HEAD ED K-WIRE FDA Start: 10-17-2017 2.5MM DARCO HEAD ED K-WIRE FDA Start: 10-17-2017 4.4MM DARCO HEAD ED DRILL BIT FDA Start: 10-17-2017 4.8MM TIBIAL COR NER DRILL FDA Start: 10-17-2017 6.5/7.5 SCREW WASHER FDA Star t: 10-17-2017 6.5MM DARCO HEAD ED SCREW FDA Start: 10-17-2017 2.4MM INBONE SHABANA PINS FDA Start: 10-17-2017 6.5MM HEADED TETO CO SCREW FDA Start: 10-17-2017 CEMENT,BONE MARIE H 1/2 BATCH FDA Start: 10-17-2017 DARCO HEADED K-W GRACE 2.5MM FDA Start: 10-17-2017 DARCO HEADED K-W GRACE 2.5MM FDA Start: 10-17-2017 INBONE SCREW, REBECCA NE REMOVER FDA Start: 10-17-2017 INFINFITY TIB COMPONENT FDA Start: 10-17-2017 INFINITY POLY INSERT FDA Star t: 10-17-2017 INFINITY TALAR D OME SLCUS FDA Start: 10-17-2017 NARROW SAW BLADE FDA Start: 10-17-2017 PROPHECY INFINIT Y ALIGN GUIDE FDA Start: 10-17-2017 2.4MM INBONE SHABANA PINS FDA Start: 10-17-2017 TEMP FIX PIN PARAMJIT RESECT GUIDE FDA Start: 10-17-2017 TEMP FIX PIN PARAMJIT RESECT GUIDE FDA Start: 10-17-2017 2.4MM INBONE SHABANA PINS FDA Start: 10-17-2017 2.4MM INBONE SHABANA PINS FDA Start: 10-17-2017 2.4MM INBONE SHABANA PINS FDA Start: 10-17-2017 2.4MM INBONE SHABANA PINS FDA Start: 10-17-2017 2.4MM INBONE SHABANA PINS FDA Start: 10-17-2017 2.4MM INBONE SHABANA PINS FDA Start: 10-17-2017 PATCH,AMNION 2X3CM FDA Start: 01-04-2021 2.4MM INBONE SHABANA PINS FDA Start: 10-17-2017 2.4MM INBONE SHABANA PINS FDA Start: 10-17-2017 2.4MM INBONE SHABANA PINS FDA Start: 10-17-2017 2.4MM INBONE SHABANA PINS FDA Start: 10-17-2017 2.4MM INBONE SHABANA PINS FDA Start: 10-17-2017 2.5MM DARCO HEAD ED K-WIRE FDA Start: 10-17-2017 2.5MM DARCO HEAD ED K-WIRE FDA Start: 10-17-2017 4.4MM DARCO HEAD ED DRILL BIT FDA Start: 10-17-2017 4.8MM TIBIAL COR NER DRILL FDA Start: 10-17-2017 6.5/7.5 SCREW WASHER FDA Star t: 10-17-2017 6.5MM DARCO HEAD ED SCREW FDA Start: 10-17-2017 2.4MM INBONE SHABANA PINS FDA Start: 10-17-2017 6.5MM HEADED TETO CO SCREW FDA Start: 10-17-2017 CEMENT,BONE MARIE H 1/2 BATCH FDA Start: 10-17-2017 DARCO HEADED K-W GRACE 2.5MM FDA Start: 10-17-2017 DARCO HEADED K-W GRACE 2.5MM FDA Start: 10-17-2017 INBONE SCREW, REBECCA NE REMOVER FDA Start: 10-17-2017 INFINFITY TIB COMPONENT FDA Start: 10-17-2017 INFINITY POLY INSERT FDA Star t: 10-17-2017 INFINITY TALAR D OME SLCUS FDA Start: 10-17-2017 NARROW SAW BLADE FDA Start: 10-17-2017 PROPHECY INFINIT Y ALIGN GUIDE FDA Start: 10-17-2017 2.4MM INBONE SHABANA PINS FDA Start: 10-17-2017 TEMP FIX PIN PARAMJIT RESECT GUIDE FDA Start: 10-17-2017 TEMP FIX PIN PARAMJIT RESECT GUIDE FDA Start: 10-17-2017 2.4MM INBONE SHABANA PINS FDA Start: 10-17-2017 2.4MM INBONE SHABANA PINS FDA Start: 10-17-2017 2.4MM INBONE SHABANA PINS FDA Start: 10-17-2017 2.4MM INBONE SHABANA PINS FDA Start: 10-17-2017 2.4MM INBONE SHABANA PINS FDA Start: 10-17-2017 2.4MM INBONE SHABANA PINS FDA Start: 10-17-2017 PATCH,AMNION 2X3CM FDA Start: 01-04-2021 2.4MM INBONE SHABANA PINS FDA Start: 10-17-2017 2.4MM INBONE SHABANA PINS FDA Start: 10-17-2017 2.4MM INBONE SHABANA PINS FDA Start: 10-17-2017 2.4MM INBONE SHABANA PINS FDA Start: 10-17-2017 2.4MM INBONE SHABANA PINS FDA Start: 10-17-2017 2.5MM DARCO HEAD ED K-WIRE FDA Start: 10-17-2017 2.5MM DARCO HEAD ED K-WIRE FDA Start: 10-17-2017 4.4MM DARCO HEAD ED DRILL BIT FDA Start: 10-17-2017 4.8MM TIBIAL COR NER DRILL FDA Start: 10-17-2017 6.5/7.5 SCREW WASHER FDA Star t: 10-17-2017 6.5MM DARCO HEAD ED SCREW FDA Start: 10-17-2017 2.4MM INBONE SHABANA PINS FDA Start: 10-17-2017 6.5MM HEADED TETO CO SCREW FDA Start: 10-17-2017 CEMENT,BONE MARIE H 1/2 BATCH FDA Start: 10-17-2017 DARCO HEADED K-W GRACE 2.5MM FDA Start: 10-17-2017 DARCO HEADED K-W GRACE 2.5MM FDA Start: 10-17-2017 INBONE SCREW, REBECCA NE REMOVER FDA Start: 10-17-2017 INFINFITY TIB COMPONENT FDA Start: 10-17-2017 INFINITY POLY INSERT FDA Star t: 10-17-2017 INFINITY TALAR D OME SLCUS FDA Start: 10-17-2017 NARROW SAW BLADE FDA Start: 10-17-2017 PROPHECY INFINIT Y ALIGN GUIDE FDA Start: 10-17-2017 2.4MM INBONE SHABANA PINS FDA Start: 10-17-2017 TEMP FIX PIN PARAMJIT RESECT GUIDE FDA Start: 10-17-2017 TEMP FIX PIN PARAMJIT RESECT GUIDE FDA Start: 10-17-2017 2.4MM INBONE SHABANA PINS FDA Start: 10-17-2017 2.4MM INBONE SHABANA PINS FDA Start: 10-17-2017 2.4MM INBONE SHABANA PINS FDA Start: 10-17-2017 2.4MM INBONE SHABANA PINS FDA Start: 10-17-2017 2.4MM INBONE SHABANA PINS FDA Start: 10-17-2017 2.4MM INBONE SHABANA PINS FDA Start: 10-17-2017 PATCH,AMNION 2X3CM FDA Start: 01-04-2021 2.4MM INBONE SHABANA PINS FDA Start: 10-17-2017 2.4MM INBONE SHABANA PINS FDA Start: 10-17-2017 2.4MM INBONE SHABANA PINS FDA Start: 10-17-2017 2.4MM INBONE SHABANA PINS FDA Start: 10-17-2017 2.4MM INBONE SHABANA PINS FDA Start: 10-17-2017 2.5MM DARCO HEAD ED K-WIRE FDA Start: 10-17-2017 2.5MM DARCO HEAD ED K-WIRE FDA Start: 10-17-2017 4.4MM DARCO HEAD ED DRILL BIT FDA Start: 10-17-2017 4.8MM TIBIAL COR NER DRILL FDA Start: 10-17-2017 6.5/7.5 SCREW WASHER FDA Star t: 10-17-2017 6.5MM DARCO HEAD ED SCREW FDA Start: 10-17-2017 2.4MM INBONE SHABANA PINS FDA Start: 10-17-2017 6.5MM HEADED TETO CO SCREW FDA Start: 10-17-2017 CEMENT,BONE MARIE H 1/2 BATCH FDA Start: 10-17-2017 DARCO HEADED K-W GRACE 2.5MM FDA Start: 10-17-2017 DARCO HEADED K-W GRACE 2.5MM FDA Start: 10-17-2017 INBONE SCREW, REBECCA NE REMOVER FDA Start: 10-17-2017 INFINFITY TIB COMPONENT FDA Start: 10-17-2017 INFINITY POLY INSERT FDA Star t: 10-17-2017 INFINITY TALAR D OME SLCUS FDA Start: 10-17-2017 NARROW SAW BLADE FDA Start: 10-17-2017 PROPHECY INFINIT Y ALIGN GUIDE FDA Start: 10-17-2017 2.4MM INBONE SHABANA PINS FDA Start: 10-17-2017 TEMP FIX PIN PARAMJIT RESECT GUIDE FDA Start: 10-17-2017 TEMP FIX PIN PARAMJIT RESECT GUIDE FDA Start: 10-17-2017 2.4MM INBONE SHABANA PINS FDA Start: 10-17-2017 2.4MM INBONE SHABANA PINS FDA Start: 10-17-2017 2.4MM INBONE SHABANA PINS FDA Start: 10-17-2017 2.4MM INBONE SHABANA PINS FDA Start: 10-17-2017 2.4MM INBONE SHABANA PINS FDA Start: 10-17-2017 2.4MM INBONE SHABANA PINS FDA Start: 10-17-2017 PATCH,AMNION 2X3CM FDA Start: 01-04-2021 2.4MM INBONE SHABANA PINS FDA Start: 10-17-2017 2.4MM INBONE SHABANA PINS FDA Start: 10-17-2017 2.4MM INBONE SHABANA PINS FDA Start: 10-17-2017 2.4MM INBONE SHABANA PINS FDA Start: 10-17-2017 2.4MM INBONE SHABANA PINS FDA Start: 10-17-2017 2.5MM DARCO HEAD ED K-WIRE FDA Start: 10-17-2017 2.5MM DARCO HEAD ED K-WIRE FDA Start: 10-17-2017 4.4MM DARCO HEAD ED DRILL BIT FDA Start: 10-17-2017 4.8MM TIBIAL COR NER DRILL FDA Start: 10-17-2017 6.5/7.5 SCREW WASHER FDA Star t: 10-17-2017 6.5MM DARCO HEAD ED SCREW FDA Start: 10-17-2017 2.4MM INBONE SHBAANA PINS FDA Start: 10-17-2017 6.5MM HEADED TETO CO SCREW FDA Start: 10-17-2017 CEMENT,BONE MARIE H 1/2 BATCH FDA Start: 10-17-2017 DARCO HEADED K-W GRACE 2.5MM FDA Start: 10-17-2017 DARCO HEADED K-W GRACE 2.5MM FDA Start: 10-17-2017 INBONE SCREW, REBECCA NE REMOVER FDA Start: 10-17-2017 INFINFITY TIB COMPONENT FDA Start: 10-17-2017 INFINITY POLY INSERT FDA Star t: 10-17-2017 INFINITY TALAR D OME SLCUS FDA Start: 10-17-2017 NARROW SAW BLADE FDA Start: 10-17-2017 PROPHECY INFINIT Y ALIGN GUIDE FDA Start: 10-17-2017 2.4MM INBONE SHABANA PINS FDA Start: 10-17-2017 TEMP FIX PIN PARAMJIT RESECT GUIDE FDA Start: 10-17-2017 TEMP FIX PIN PARAMJIT RESECT GUIDE FDA Start: 10-17-2017 2.4MM INBONE SHABANA PINS FDA Start: 10-17-2017 2.4MM INBONE SHABANA PINS FDA Start: 10-17-2017 2.4MM INBONE SHABANA PINS FDA Start: 10-17-2017 2.4MM INBONE SHABANA PINS FDA Start: 10-17-2017 2.4MM INBONE SHABANA PINS FDA Start: 10-17-2017 2.4MM INBONE SHABANA PINS FDA Start: 10-17-2017 PATCH,AMNION 2X3CM FDA Start: 01-04-2021 2.4MM INBONE SHABANA PINS FDA Start: 10-17-2017 2.4MM INBONE SHABANA PINS FDA Start: 10-17-2017 2.4MM INBONE SHABANA PINS FDA Start: 10-17-2017 2.4MM INBONE SHABANA PINS FDA Start: 10-17-2017 2.4MM INBONE SHABANA PINS FDA Start: 10-17-2017 2.5MM DARCO HEAD ED K-WIRE FDA Start: 10-17-2017 2.5MM DARCO HEAD ED K-WIRE FDA Start: 10-17-2017 4.4MM DARCO HEAD ED DRILL BIT FDA Start: 10-17-2017 4.8MM TIBIAL COR NER DRILL FDA Start: 10-17-2017 6.5/7.5 SCREW WASHER FDA Star t: 10-17-2017 6.5MM DARCO HEAD ED SCREW FDA Start: 10-17-2017 2.4MM INBONE SHABANA PINS FDA Start: 10-17-2017 6.5MM HEADED TETO CO SCREW FDA Start: 10-17-2017 CEMENT,BONE MARIE H 1/2 BATCH FDA Start: 10-17-2017 DARCO HEADED K-W GRACE 2.5MM FDA Start: 10-17-2017 DARCO HEADED K-W GRACE 2.5MM FDA Start: 10-17-2017 INBONE SCREW, REBECCA NE REMOVER FDA Start: 10-17-2017 INFINFITY TIB COMPONENT FDA Start: 10-17-2017 INFINITY POLY INSERT FDA Star t: 10-17-2017 INFINITY TALAR D OME SLCUS FDA Start: 10-17-2017 NARROW SAW BLADE FDA Start: 10-17-2017 PROPHECY INFINIT Y ALIGN GUIDE FDA Start: 10-17-2017 2.4MM INBONE SHABANA PINS FDA Start: 10-17-2017 TEMP FIX PIN PARAMJIT RESECT GUIDE FDA Start: 10-17-2017 TEMP FIX PIN PARAMJIT RESECT GUIDE FDA Start: 10-17-2017 2.4MM INBONE SHABANA PINS FDA Start: 10-17-2017 2.4MM INBONE SHABANA PINS FDA Start: 10-17-2017 2.4MM INBONE SHABANA PINS FDA Start: 10-17-2017 2.4MM INBONE SHABANA PINS FDA Start: 10-17-2017 2.4MM INBONE SHABANA PINS FDA Start: 10-17-2017 2.4MM INBONE SHABANA PINS FDA Start: 10-17-2017 PATCH,AMNION 2X3CM FDA Start: 01-04-2021 2.4MM INBONE SHABANA PINS FDA Start: 10-17-2017 2.4MM INBONE SHABANA PINS FDA Start: 10-17-2017 2.4MM INBONE SHABANA PINS FDA Start: 10-17-2017 2.4MM INBONE SHABA[place] PINS FDA Start: 10-17-2017 2.4MM INBONE [place] PINS FDA Start: 10-17-2017 2.5MM DARCO HEAD ED K-WIRE FDA Start: 10-17-2017 2.5MM DARCO HEAD ED K-WIRE FDA Start: 10-17-2017 4.4MM DARCO HEAD ED DRILL BIT FDA Start: 10-17-2017 4.8MM TIBIAL COR NER DRILL FDA Start: 10-17-2017 6.5/7.5 SCREW WASHER FDA Star t: 10-17-2017 6.5MM DARCO HEAD ED SCREW FDA Start: 10-17-2017 2.4MM INBONE [place] PINS FDA Start: 10-17-2017 6.5MM HEADED TETO CO SCREW FDA Start: 10-17-2017 CEMENT,BONE MARIE H 1/2 BATCH FDA Start: 10-17-2017 DARCO HEADED K-W GRACE 2.5MM FDA Start: 10-17-2017 DARCO HEADED K-W GRACE 2.5MM FDA Start: 10-17-2017 INBONE SCREW, REBECCA NE REMOVER FDA Start: 10-17-2017 INFINFITY TIB COMPONENT FDA Start: 10-17-2017 INFINITY POLY INSERT FDA Star t: 10-17-2017 INFINITY TALAR D OME SLCUS FDA Start: 10-17-2017 NARROW SAW BLADE FDA Start: 10-17-2017 PROPHECY INFINIT Y ALIGN GUIDE FDA Start: 10-17-2017 2.4MM INBONE [place] PINS FDA Start: 10-17-2017 TEMP FIX PIN PARAMJIT RESECT GUIDE FDA Start: 10-17-2017 TEMP FIX PIN PARAMJIT RESECT GUIDE FDA Start: 10-17-2017 2.4MM INBONE [place] PINS FDA Start: 10-17-2017 2.4MM INBONE [place] PINS FDA Start: 10-17-2017 2.4MM INBONE [place] PINS FDA Start: 10-17-2017 2.4MM INBONE [place] PINS FDA Start: 10-17-2017 2.4MM INBONE [place]NA PINS FDA Start: 10-17-2017 2.4MM KRISTINA ESTRADA FDA Start: 10-17-2017 PATCH,AMNION 2X3CM FDA Start: 01-04-2021 Goals Date Patient Goal Desired Activity /State Personal health goal Functional Status Date Assessment Result Facility 05-17-2025 Are you deaf, or do you have serious difficulty hearing No 05/17/2025 11:35 AM Cherelle Benavidez RN No [facility] 05-17-2025 Are you blind, or do you have serious difficulty seeing, even when wearing glasses No 05/17/2025 11:35 AM Cherelle Benavidez RN No [facility] 05-17-2025 Do you have serious difficulty walking or climbing stairs No 05/17/2025 11:35 AM Cherelle Benavidez RN [facility] 05-17-2025 Do you have difficul ty dressing or bathing No 05/17/2025 11:35 AM Cherelle Benavidez RN [facility] 05-17-2025 Because of a physica l, mental, or emotional condition, do you have difficulty doing errands alone such as visiting a physician's office or shopping No 05/17/2025 11:35 AM Cherelle Benavidez RN [facility] 08-31-2022 Functional status Bedrest;[employer] [facility] Work Phone: Mental Status Date Assessment Result Facility 05-17-2025 Because of a physica l, mental, or emotional condition, do you have serious difficulty concentrating, remembering, or making decisions No 05/17/2025 11:35 AM Cherelle Benavidez RN No [facility] 08-31-2022 Cognitive function Voice/Name [facility] Work Phone: 08-30-2022 Cognitive function Level Of Cons ciousness Awake;Alert;Appropriate [facility] Work Phone: Clinical Notes 08-30-2022 to 08-16-2025 Note Date & Type Note Facility 08-16-2025 Note HNO ID: [id number] Author: DENVER NOTRON RN Service: ? Author Type: Registered Nurse Type: Patient Education Filed: 08/16/2025 10:33 Note Text: Patient educated on 7 day patch monitor, and verbalizes understanding. [facility] 07-01-2025 Progress note [facility] 06-23-2025 Evaluation note Diagnosis Onset Date Resolution PAF (paroxysmal atrial fibrillation) acute June 23, 2025 3:37pm Essential hypertension chronic Se ptember 2024 3:37pm Bilateral carpal tunnel syndrome acute July 01, 2025 9:40am [facility] Work Phone: 1(883) 134-393709-18-2025 Progress [facility] [address] [place] [address] OFFICE VISIT Date of Service: 06/23/25 MR#: [id number] Acct: [id number] Name: CRIS RUBIO Rep #: [id number] : 1955 Provider: Dr. Marcelo Barton MD Age/Sex: 70/F [place] [facility] Status: Signed HPI HPI History of Present Illness Details: Cris Rubio is a 70-year-old lady with a history of hypertension, hyperlipidemia, and atrial fibrillation. Atrial fibrillation was noted during a hospital stay for influenza. She did have an echocardiogram performed which demonstrated an ejection fraction of 65% with no wall motion abnormalities and pulmonary artery systolic pressure of 33 mmHg. She had COVID in previously and after taking one doseof Paxlovid she had Afib. [facility], Dr. Allen, on11/19/2024. She was seen by the water resource consultant in [place] and underwent atrial fibrillation ablation successfully. She denies chest, arm, jaw, or neck discomfort. She noted headaches, upper body pressure, and shortness of breath. This is followed by fatigue. She deniesbilateral lower extremity edema. She denies claudication. She denies shortnessof breath with activity, shortness of breath at rest, orthopnea, orPND. She denies chronic cough. She denies significant, sudden weight gain. She denies lightheadedness, dizziness, near-syncope, or syncope. She denies blood in urine, blood in stool, or epistaxis. Hedenies fever with chills. She denies myalgia. She denies fatigue. Her exercise level has remained stable. Intake Vital Signs 04/02/24 10:04 02/24/25 14:11 06/23/25 15:46 Height 5 ft 5 ft 5 ft Weight: 175 lb BMI 34.2 BP 133/74 H Blood Pressure Location Lt brachial Position Sitting Respiration 16 Pulse 66 Pulse Source Monitor Intake Visit Reasons: 1 Y FU Education Paraprofessional Required: No Accompanied by: Self Is patient in pain?: No Allergies ampicillin Allergy (Intermediate, Verified 06/23/25 15:49) Rash sulfamethoxazole (From Bactrim) Allergy (Intermediate, Verified 06/23/25 15:49) BLOTCHES/ HIVES trimethoprim (From Bactrim) Allergy (Intermediate, Verified 06/23/25 15:49) BLOTCHES/ HIVES niacin (From Niaspan Extended-Release) Adverse Reaction (Intermediate, Verified 06/23/25 15:49) REDDNESS/ PASSED OUT amitriptyline Adverse Reaction (Mild, Verified 06/23/25 15:49) EARS RING clarithromycin (From Biaxin) Adverse Reaction (Mild, Verified 06/23/25 15:49) Upset Stomach nirmatrelvir (From Paxlovid) Adverse Reaction (Mild, Verified 06/23/25 15:49) tachycardia ritonavir (From Paxlovid) Adverse Reaction (Mild, Verified 06/23/25 15:49) tachycardia Medications ?Medication ?Instructions ?Recorded ?Confirmed ?Type potassium chloride 10 mEq 10 meq PO DAILY PRN LEG CRAM PS 11/02/13 06/23/25 History tablet,extended release vitamin E 268 mg (400 unit) capsule 400 unit PO DAILY SUPPLEMENT 10/20/19 06/23/25 History ascorbic acid (vitamin C) 1,000 mg 1,000 mg PO DAILY S UPPLEMENT 12/15/20 06/23/25 History tablet zinc 50 mg tablet 50 mg PO DAILY SUPPLEMENT 06/23/25 History albuterol sulfate 90 mcg/actuation 2 inh inhalation UD PRN Shortness 08/30/22 06/23/25 History aerosol inhaler Of Breath magnesium oxide 400 mg PO QHS SUPPLEMENT 06/23/25 History atenolol 50 mg tablet 50 mg PO DAILY 30 days #90 t abs 12/01/22 09/18/25 Rx calcium carbonate 600 mg PO BID 09/05/2206/23 History cholecalciferol (vitamin D3) 25 25 mcg PO DAILY 06/23/25 History mcg (1,000 unit) tablet valsartan 320 1 tab PO DAILY BLOOD PRESSUR E #90 09/05/22 06/23/25 Rx mg-hydrochlorothiazide 12.5 mg tabs tablet furosemide 20 mg tablet 20 mg PO DAILY PRN 12/05/22 06/23/25 History apixaban 5 mg tablet (Eliquis) 5 mg PO BID #60 tabs 06/23/25 Rx biotin 5,000 mcg sublingual tablet 5,000 mcg sublingua l QDAY 06/23/25 06/23/25 History febuxostat 40 mg tablet 40 mg PO DAILY Gout preventi on 06/23/25 06/23/25 History melatonin 10 mg capsule 10 mg PO HS PRN 06/23/25 History Ejection fraction %: 60 Have you fallen in the past year?: No PFSH Medical History PAF (paroxysmal atrial fibrillation) Spinal stenosis Hyperlipidemia Atrial fibrillation with rapid ventricular response (08/30/22) Essential hypertension Bronchospasm, acute Hypoxia Influenza with pneumonia Status post L4-L5 laminectomy Depression Asthma Malignant hyperthermia Osteoarthritis Hemorrhoid GERD (gastroesophageal reflux disease) history of superficial venous thrombosis Rosacea Osteopenia Surgical History History of cardiac radiofrequency ablation (05/16/25) H/O kyphoplasty History of colonoscopy (~2006) History of fasciotomy Status post laser ablation of incompetent vein History of right knee joint replacement History of total replacement of left ankle Family History Brother Malignant hyperthermia due to anesthesia Brother Malignant hyperthermia due to anesthesia Brother Malignant hyperthermia due to anesthesia Diabetes Hypertension Cancer lung Asthma Mother Diabetes Hypertension Father Cancer lung Aunt Colon cancer Social History Smoking Status: Former smoker how long ago did patient quit smokin alcohol intake: never substance use type: does not use caffeine: Yes Type: carbonated beverages Number of servings: 1 ROS Const Const: Negative for fatigue, weakness, daytime sleepiness or difficulty sleeping ENT ENT: Negative for dizziness or Nosebleed/epistaxis Cardio Chest Pain: No Palpitations: No Edema: Bilateral (trace at times) Resp Respiratory: Negative for SOB with activity, SOB at rest, SOB orthopnea\\SOB lying down or Cough GI GI: Negative nausea, vomiting or heartburn Neuro Neuro: Negative for dizziness, lightheadedness, near syncope or weakness Endo Endo: Negative for fatigue Cardiology Exam Const Appearance: cooperative, healthy appearing, comfortable and no acute distress Nutritional Appearance: well nourished and obese Orientation: alert, awake and oriented x3 Head Head: normal to inspection Ears: hearing grossly normal bilaterally Nose: external nose normal Face and Sinus: face symmetric Mouth: moist mucous membranes Eyes General: appearance normal, both eyes and all related structures Eyelids: eyelids normal EOM: EOM intact bilaterally Neck Neck: normal visual inspection and no JVD Carotids: normal carotid upstroke Chest Chest inspection: normal inspection of the chest, symmetric chest movement and normal respiratory effort; Negative cough Auscultation: Bilateral: Clear to Auscultation Cardio Rate: regular rate Rhythm: regular rhythm Heart sounds: S1 normal and S2 normal; Negative rub, gallop or murmur GI GI: normal to inspection and obese Neuro General: patient alert, patient awake, patient oriented x3 and CN's II-XI intactbilaterally Skin Skin: no rashes or lesions noted Extremities Pulses: Normal: Right Posterior Tibial Pulse, Left Posterior Tibial Pulse, RightRadial Pulse and Left Radial Pulse Lower Extremity Edema: None: Bilateral Psych Psychological: normal affect Supplemental Info Supplemental Information Echocardiogram 04/20/24 Interpretation Summary Normal LV size. Left ventricular systolic function is normal. The left ventricular ejection fraction is 60 %. Pulmonary artery systolic pressure is 38 mmHg. ECHOCARDIOGRAM 08/30/22 Interpretation Summary Normal LV size. Left ventricular systolic function is normal. The estimated ejection fraction is 65 %. Trivial eccentric mitral valve insufficiency. Pulmonary artery systolic pressure is 33 mmHg Pharmacologic myocardial perfusion stress test from 10/22/2024 Conclusion: Normal pharmacologic myocardial perfusion stress test. Preserved ejection fraction. Labs: HDL Cholesterol, (40-) 40 mg/dL Cholesterol, (<=200) 188 mg/dL Triglycerides, (-199) 141 mg/dL Diagnostics: Electrocardiogram Echocardiogram Stress Test Stress Test Nuclear Medicine Chest X-Ray Chest CTA Past Visits: Cardiology Visit Today Assessment and Plan Assessment and Plan (1) PAF (paroxysmal atrial fibrillation): Status: Acute Plan: [id number] score: 3 (age, gender, HTN) (3.2% stroke risk) Atrial fibrillation stage: 3A, paroxysmal 12 Lead EC09/05/2022-sinus bradycardia 59 bpm Echocardiogram: 04/20/2024-EF: 60%, normal left atrium, normal right atrium size Heart Rate Control: Atenolol 50 mg p.o. daily Anticoagulation/CVA Protection: Eliquis 5 mg p.o. twice daily She saw electrophysiology team, Dr. Allen, who performed an ablation with pulsed field ablation on 05/16/2025. There were no intraprocedural complications. Her EKG today demonstrates sinus rhythmwith a rate of 67 bpm the plan is for her to continue Eliquis 5 mg twice a day and follow-up at [facility] in 3 months with an echocardiogram and a 7-day Holter monitor. This can be performed here as well.. (2) Essential hypertension: Status: Chronic Plan: Blood pressure is controlled. She will continue with her valsartan/hydrochlorothiazide, atenolol. Orders: Orders 12 [place] [facility] [place] I48.91 - Unspecified atrial fibrillation Plan Details Additional Comments: Thank you for allowing us to participate in the patients plan of care, if you have any questions please do not hesitate to call. Plan was reviewed with patient/family member along with red flag symptoms. Understanding was acknowledged. Questions were answered to apparent satisfaction. This note was generated using a voice recognition system and there may be incorrect words, spellingor punctuation that were not noted when reviewing the office note prior to saving. Portions of this documentation were copied and pasted from previous office visitnotes to provide a cohesive continuity of the history. The note has been reviewed, edited, and updated, as necessary. Follow Up: 6 Months (jajar) Coding Level of Care Code Off vis,est,level 4 Diagnoses PAF (paroxysmal atrial fibrillation) I48.0 Essential hypertension I10 Coding Level of Care Code Off vis,est,level 4 Diagnoses PAF (paroxysmal atrial fibrillation) I48.0 Essential hypertension I10 Clinical Quality Measures Falls Risk Screening/Assistive Devices Have you fallen in the past year?: No Cardiac Ejection fraction %: 60 06/23/25 1623 D> Date _ Quinton Barton MD Cosigner Signature: Date (if applicable) CC: Dr. Wesly Hidalgo MD ~ [facility]09-18-2025 Progress note Author Quinton Barton [facility] Note Date/Time June 23, 2025 4:17pm [facility] [address] [place] [address] OFFICE VISIT Date of Service: 06/23/25 MR#: [id number] Acct: [id number] Name: CRIS RUBIO Rep #: [id number] : 1955 Provider: Dr. Marcelo Barton MD Age/Sex: 70/F [place] [facility] Status: Signed HPI HPI History of Present Illness Details: Cris Rubio is a 70-year-old lady with a history of hypertension, hyperlipidemia, and atrial fibrillation. Atrial fibrillation was noted during a hospital stay for influenza. She did have an echocardiogram performed which demonstrated an ejection fraction of 65% with no wall motion abnormalities and pulmonary artery systolic pressure of 33 mmHg. She had COVID in previously and after taking one dose of Paxlovid she had Afib. She was seen with [facility], Dr. Allen, on 11/19/2024. She was seen by the water resource consultant in [place] and underwent atrial fibrillation ablation successfully. She denies chest, arm, jaw, or neck discomfort. She noted headaches, upper body pressure, and shortness of breath. This is followed by fatigue. She deniesbilateral lower extremity edema. She denies claudication. She denies shortnessof breath with activity, shortness of breath at rest, orthopnea, or PND. She denies chronic cough. She denies significant, sudden weight gain. She denies lightheadedness, dizziness, near-syncope, or syncope. She denies blood in urine, blood in stool, or epistaxis. He denies fever with chills. She denies myalgia. She denies fatigue. Her exercise level has remained stable. Intake Vital Signs 04/02/24 10:04 02/24/25 14:11 06/23/25 15:46 Height 5 ft 5 ft 5 ft Weight: 175 lb BMI 34.2 BP 133/74 H Blood Pressure Location Lt brachial Position Sitting Respiration 16 Pulse 66 Pulse Source Monitor Intake Visit Reasons: 1 Y FU Education Paraprofessional Required: No Accompanied by: Self Is patient in pain?: No Allergies ampicillin Allergy (Intermediate, Verified 06/23/25 15:49) Rash sulfamethoxazole (From Bactrim) Allergy (Intermediate, Verified 06/23/25 15:49) BLOTCHES/ HIVES trimethoprim (From Bactrim) Allergy (Intermediate, Verified 06/23/25 15:49) BLOTCHES/ HIVES niacin (From Niaspan Extended-Release) Adverse Reaction (Intermediate, Verified 06/23/25 15:49) REDDNESS/ PASSED OUT amitriptyline Adverse Reaction (Mild, Verified 06/23/25 15:49) EARS RING clarithromycin (From Biaxin) Adverse Reaction (Mild, Verified 06/23/25 15:49) Upset Stomach nirmatrelvir (From Paxlovid) Adverse Reaction (Mild, Verified 06/23/25 15:49) tachycardia ritonavir (From Paxlovid) Adverse Reaction (Mild, Verified 06/23/25 15:49) tachycardia Medications ?Medication ?Instructions ?Recorded ?Confirmed ?Type potassium chloride 10 mEq 10 meq PO DAILY PRN LEG CRAM PS 11/02/13 06/23/25 History tablet,extended release vitamin E 268 mg (400 unit) capsule 400 unit PO DAILY SUPPLEMENT 10/20/19 06/23/25 History ascorbic acid (vitamin C) 1,000 mg 1,000 mg PO DAILY S UPPLEMENT 12/15/20 06/23/25 History tablet zinc 50 mg tablet 50 mg PO DAILY SUPPLEMENT 06/23/25 History albuterol sulfate 90 mcg/actuation 2 inh inhalation UD PRN Shortness 08/30/22 06/23/25 History aerosol inhaler Of Breath magnesium oxide 400 mg PO QHS SUPPLEMENT 06/23/25 History atenolol 50 mg tablet 50 mg PO DAILY 30 days #90 t abs 09/05/22 06/23/25 Rx calcium carbonate 600 mg PO BID 09/05/2206/23 History cholecalciferol (vitamin D3) 25 25 mcg PO DAILY 06/23/25 History mcg (1,000 unit) tablet valsartan 320 1 tab PO DAILY BLOOD PRESSUR E #90 09/05/22 06/23/25 Rx mg-hydrochlorothiazide 12.5 mg tabs tablet furosemide 20 mg tablet 20 mg PO DAILY PRN 12/05/22 06/23/25 History apixaban 5 mg tablet (Eliquis) 5 mg PO BID #60 tabs 06/23/25 Rx biotin 5,000 mcg sublingual tablet 5,000 mcg sublingua l QDAY 06/23/25 06/23/25 History febuxostat 40 mg tablet 40 mg PO DAILY Gout preventi on 06/23/25 06/23/25 History melatonin 10 mg capsule 10 mg PO HS PRN 06/23/25 History Ejection fraction %: 60 Have you fallen in the past year?: No PFSH Medical History PAF (paroxysmal atrial fibrillation) Spinal stenosis Hyperlipidemia Atrial fibrillation with rapid ventricular response (08/30/22) Essential hypertension Bronchospasm, acute Hypoxia Influenza with pneumonia Status post L4-L5 laminectomy Depression Asthma Malignant hyperthermia Osteoarthritis Hemorrhoid GERD (gastroesophageal reflux disease) history of superficial venous thrombosis Rosacea Osteopenia Surgical History History of cardiac radiofrequency ablation (05/16/25) H/O kyphoplasty History of colonoscopy (~2006) History of fasciotomy Status post laser ablation of incompetent vein History of right knee joint replacement History of total replacement of left ankle Family History Brother Malignant hyperthermia due to anesthesia Brother Malignant hyperthermia due to anesthesia Brother Malignant hyperthermia due to anesthesia Diabetes Hypertension Cancer lung Asthma Mother Diabetes Hypertension Father Cancer lung Aunt Colon cancer Social History Smoking Status: Former smoker how long ago did patient quit smokin alcohol intake: never substance use type: does not use caffeine: Yes Type: carbonated beverages Number of servings: 1 ROS Const Const: Negative for fatigue, weakness, daytime sleepiness or difficulty sleeping ENT ENT: Negative for dizziness or Nosebleed/epistaxis Cardio Chest Pain: No Palpitations: No Edema: Bilateral (trace at times) Resp Respiratory: Negative for SOB with activity, SOB at rest, SOB orthopnea\\SOB lying down or Cough GI GI: Negative nausea, vomiting or heartburn Neuro Neuro: Negative for dizziness, lightheadedness, near syncope or weakness Endo Endo: Negative for fatigue Cardiology Exam Const Appearance: cooperative, healthy appearing, comfortable and no acute distress Nutritional Appearance: well nourished and obese Orientation: alert, awake and oriented x3 Head Head: normal to inspection Ears: hearing grossly normal bilaterally Nose: external nose normal Face and Sinus: face symmetric Mouth: moist mucous membranes Eyes General: appearance normal, both eyes and all related structures Eyelids: eyelids normal EOM: EOM intact bilaterally Neck Neck: normal visual inspection and no JVD Carotids: normal carotid upstroke Chest Chest inspection: normal inspection of the chest, symmetric chest movement and normal respiratory effort; Negative cough Auscultation: Bilateral: Clear to Auscultation Cardio Rate: regular rate Rhythm: regular rhythm Heart sounds: S1 normal and S2 normal; Negative rub, gallop or murmur GI GI: normal to inspection and obese Neuro General: patient alert, patient awake, patient oriented x3 and CN's II-XI intactbilaterally Skin Skin: no rashes or lesions noted Extremities Pulses: Normal: Right Posterior Tibial Pulse, Left Posterior Tibial Pulse, RightRadial Pulse and Left Radial Pulse Lower Extremity Edema: None: Bilateral Psych Psychological: normal affect Supplemental Info Supplemental Information Echocardiogram 04/20/24 Interpretation Summary Normal LV size. Left ventricular systolic function is normal. The left ventricular ejection fraction is 60 %. Pulmonary artery systolic pressure is 38 mmHg. ECHOCARDIOGRAM 08/30/22 Interpretation Summary Normal LV size. Left ventricular systolic function is normal. The estimated ejection fraction is 65 %. Trivial eccentric mitral valve insufficiency. Pulmonary artery systolic pressure is 33 mmHg Pharmacologic myocardial perfusion stress test from 10/22/2024 Conclusion: Normal pharmacologic myocardial perfusion stress test. Preserved ejection fraction. Labs: HDL Cholesterol, (40-) 40 mg/dL Cholesterol, (<=200) 188 mg/dL Triglycerides, (-199) 141 mg/dL Diagnostics: Electrocardiogram Echocardiogram Stress Test Stress Test Nuclear Medicine Chest X-Ray Chest CTA Past Visits: Cardiology Visit Today Assessment and Plan Assessment and Plan (1) PAF (paroxysmal atrial fibrillation): Status: Acute Plan: [id number] score: 3 (age, gender, HTN) (3.2% stroke risk) Atrial fibrillation stage: 3A, paroxysmal 12 Lead EC09/05/2022-sinus bradycardia 59 bpm Echocardiogram: 04/20/2024-EF: 60%, normal left atrium, normal right atrium size Heart Rate Control: Atenolol 50 mg p.o. daily Anticoagulation/CVA Protection: Eliquis 5 mg p.o. twice daily She saw electrophysiology team, Dr. Allen, who performed an ablation with pulsed field ablation on 05/16/2025. There were no intraprocedural complications. Her EKG today demonstrates sinus rhythm with a rate of 67 bpm the plan is for her to continue Eliquis 5 mg twice a day and follow-up at [facility] in 3 months with an echocardiogram and a 7-day Holter monitor. This can be performed here as well.. (2) Essential hypertension: Status: Chronic Plan: Blood pressure is controlled. She will continue with her valsartan/hydrochlorothiazide, atenolol. Orders: Orders 12 Lead E[place] [facility] [place] I48.91 - Unspecified atrial fibrillation Plan Details Additional Comments: Thank you for allowing us to participate in the patients plan of care, if you have any questions please do not hesitate to call. Plan was reviewed with patient/family member along with red flag symptoms. Understanding was acknowledged. Questions were answered to apparent satisfaction. This note was generated using a voice recognition system and there may be incorrect words, spelling or punctuation that were not noted when reviewing the office note prior to saving. Portions of this documentation were copied and pasted from previous office visitnotes to provide a cohesive continuity of the history. The note has been reviewed, edited, and updated, as necessary. Follow Up: 6 Months (jhr) Coding Level of Care Code Off vis,est,level 4 Diagnoses PAF (paroxysmal atrial fibrillation) I48.0 Essential hypertension I10 Coding Level of Care Code Off vis,est,level 4 Diagnoses PAF (paroxysmal atrial fibrillation) I48.0 Essential hypertension I10 Clinical Quality Measures Falls Risk Screening/Assistive Devices Have you fallen in the past year?: No Cardiac Ejection fraction %: 60 06/23/25 1623 <Electronically signed by Quinton Killian D> Date _ Quinton Barton MD Cosigner Signature: Date (if applicable) CC: Dr. Wesly Hidalgo MD ~ [facility] [employer] Work Phone: [phone] 776-245808-15-2025 Telephone encounter Note* Telephone Encounter - Syeda Carrasco - 05/20/2025 10:36 AM EDT Post PVAI orders pended for signature [facility]08-15-2025 Miscellaneous Notes* Telephone Encounter - Syeda Carrasco - 05/20/2025 10:36 AM EDT Post PVAI orders pended for signature [facility]25 NoteHNO ID: [id number] Author: KAILEY ACHARYA, RN Service: Care Management Author Type: Registered Nurse Type: Care Mgt Initial Assessment Filed: 05/17/2025 12:00 Note Text: CARE MANAGEMENT: ASSESSMENT AND DISCHARGE PLAN SERVICE DATE: May 17, 2025 SERVICE TIME: 10:52 AM PCP: Wesly Hidalgo MD Primary Contact: Extended Emergency Contact Information Primary Emergency Contact: GENEVA RUBIO Address[address] [address], [place] [address] [facility] Mobile Relation: Spouse Admission Status: Ambulatory Surgery Insurance Provider: [facility] DUAL COMPLETE HMO POS SNP Discharge Planning requested by: Per Department Practice Potential Transition Plans Home Advance Directives Current Advance Directive: Health Care Power of Club Manager In Chart: Yes Up To Date and Valid: Yes Current Living Arrangements and Support Lives with: Spouse/significant other Type of Residence: Private Residence (House) Does the patient have to climb stairs at home?: Yes Support: Spouse/significant other, Family members How do you manage to accomplish the following: Independent: Ambulation, Bathe/Shower, Dress, Meals/Meal Prep, Going to the bathroom, Medication Management, Transportation to appointments/community Current Services/Equipment Current Post-Acute Service(s): DME Current DME Type: Shower seat Discharge Planning Patient Goal(s): Be able to go home, General wellness, Less pain [place] of Choice Explained: [place] of Choice Given: No Reason Not Given: No placements necessary Are you interested in bedside delivery of your medications? No Discharge Planning Participant(s): Patient Patient/Family Comments: Caregiver Assessment: Caregiver is ready, willing and able to meet the patient's needs as recommended by the inter-professional team: Yes Name of Caregiver: Transport at Discharge: Transportation Arrangements: Car Needs Prior to Discharge: Needs Prior to Discharge: None Post-Acute Discharge Plan: Per chart review, patient is a 70 yr old female who for scheduled procedure: atrial fibrillation catheter ablation Met with patient at bedside; introduced self and CM role. Prior to admission, patient was independent with ADLs. The patient declined using any assistive equipment. She lives with her and is on disability due to back pain. is available to assist but patient is mostly independent. She has had a walk in shower installed which has increased her independence with showering. Patient drives. At this time, the patient has no skilled needs. CM will continue to follow for post-acute needs based on hospital course. The patient will be transported home at d/c by via private auto. Update: Patient is discharging home today with no skilled needs SIGNATURE: Kailey Acharya RN PATIENT NAME: Cris Rubio DATE: May 17, 2025 TIME: 10:52 [facility]08-11-2025 NoteHNO ID: [id number] Author: TIFFANIE COLLINS MD Service: Electrophysiology Author Type: Physician Type: Plan of Care Filed: 05/16/2025 17:17 Note Text: Patient seen at bedside No new complaints Figure of 8 sutures from both groin access sites removed Lt side no ooze Small amount of bloody fluid released from Rt subcutaneous access site on removing F of 8 suture Moderate manual pressure held for about 3 minutes. No significant oozing. Simple gauze dressing placed over both sidtes. Patient to rest for additional 10 minutes and then ambulate. If groin site remains without any bleeding, ok to go home. D/w patient about groin site care, not to lift more than 10lbs for a week, watch for bleeding and hold manual pressure at site for 20-30 minutes if bleeding occurs, Ok to bathe but not immerse in water for 7 -1 0 days. To resume her usual medications and FU with DR Puja Collins, [place] [facility] NoteHNO ID: [id number] Author: NICOLE ALLEN MD Service: Electrophysiology Author Type: Physician Type: Progress Notes Filed: 05/16/2025 14:43 Note Text: [facility] Electrophysiology (EP) EP Attending Ms. Rubio presents for scheduled procedure: atrial fibrillation catheter ablation. HANDP reviewed, patient seen and examined pre-procedure. No substantial changes unless otherwise indicated. She reports no substantial changes since last evaluation. She wishes to proceed, all questions answered. Huddle completed with patient and caregiver teams. The HANDP is located in Epic encounter dated 05/10/2025 Pre Surgical Testing. See also Dr. Allen's office notes dated 11/18/2024. Extensive discussion with Anesthesiology team regarding her FH of malignant hyperthermia. We will do the procedure with MAC rather than GA, although we will be prepared to be able to convert to GA if necessary. I had a detailed discussion with Ms. Rubio regarding my evaluation and recommendations. After our discussion, Ms. Rubio expressed her understanding and I answered all her questions to her apparent satisfaction. She agrees to proceed as outlined. INFORMED CONSENT The risks, benefits and anticipated outcomes of the procedure, the risks and benefits of the alternatives to the procedure and the roles and tasks of the personnel to be involved were discussed with the patient. Consent for the procedure and agreement to proceed has been obtained. I verify that I personally obtained the consent. Nicole Allen MD May 16, 2025 2:36 [facility]08-11-2025 NoteHNO ID: [id number] Author: MEGHA MURRAY RN Service: ? Author Type: Registered Nurse Type: Nursing Progress Note Filed: 05/16/2025 12:20 Note Text: 1219 patient admitted to POD, pre procedure teaching at bedside, review of medications with patient.[facility]07-10-2025 Telephone encounter Note* Telephone Encounter - Rukhsana Lombardi RN - 04/14/2025 2:51 PM EDT Pt's name has been added to [place] procedure board. Rukhsana Lombardi RN [facility]07-10-2025 Miscellaneous Notes* Telephone Encounter - Rukhsana Lombardi RN - 04/14/2025 2:51 PM EDT Pt's name has been added to [place] procedure board. Rukhsana Lombardi RN * Telephone Encounter - Syeda Carrasco - 04/14/2025 2:43 PM EDT Patient is scheduled for a PFA on 05/[address] Allen. The hospital will call the day before between 2-5pm with your arrival time. You should not eat or drink after midnight the day before the procedure. You will need a cattle driver when released from the hospital and you will stay overnight for observation. You should continue to take medications as prescribed the morning of the procedure with just a sip of water unless otherwise instructed. PAT to call and schedule H&P/EKG Spoke with Cris Rubio on April 14, 2025. Informed of instructions as stated above. Patient verbalized understanding. Syeda Carrasco [facility] Telephone encounter Note * Telephone Encounter - Rajkhang Syeda - 04/14/2025 2:43 PM EDT Patient is scheduled for a PFA on 05/[address] Allen. The hospital will call the day before between 2-5pm with your arrival time. You should not eat or drink after midnight the day before the procedure. You will need a cattle driver when released from the hospital and you will stay overnight for observation. You should continue to take medications as prescribed the morning of the procedure with just a sip of water unless otherwise instructed. PAT to call and schedule H&P/EKG Spoke with Cris Rubio on April 14, 2025. Informed of instructions as stated above. Patient verbalized understanding. Syeda Carrasco [facility]03-12-2025 Procedure note [facility] Pulmonary Services/Neurology [address] [place] [address] MR#: [id number] Acct: [id number] Name: MARIA ELENACRIS Rep #:[id number] : 1955 69 From: Mehnaz Thomson MD Referring Dr: Wesly Hidalgo MD Status : REG CLI Location: [facility] Date: 12/15/24 Sex: F C NCS and/or EMG Patient Report Ordering Doctor: Wesly Hidalgo Chi DATE OF SERVICE: 12/15/24 Xiomy presents for electrodiagnostic testing of the upper limbs. She reports numbness and tingling in both hands. Electrodiagnostic findings: Median motor nerve demonstrates normal distal latency, amplitude and conduction velocity bilaterally. Normal ulnar motor response bilaterally, including conduction across the elbow. Normal median and ulnar F?waves. Prolonged median sensory latency at the wrist bilaterally. Normal ulnar and radial sensory responses. Needle EMG testing was performed in the upper limbs. 1+ fibrillations noted in the left pronator teres. All other muscles tested, including cervical paraspinals, showed no evidence of denervation with normal motor unit action potentials. Electrodiagnostic impression: This is an abnormal study in the upper limbs next 1. Electrodiagnostic findings suggestive of bilateral median mononeuropathy. This consistent with amild bilateral carpal tunnel syndrome. 2. No electrodiagnostic evidence is noted for cervical radiculopathy. Multi Select Codes Neurology Neurology Interp Codes: 14403-42 Musc test done w/n test comp (interp) (2) and 70635-63 Nrv cndj test /> studies (interp) 12/15/24 1459 D> Date _ Mehnaz Thomson MD CC: Dr. Mehnaz Thomson MD; Dr. Wesly Hidalgo MD ~ Date Dictated: 12/15/24 1448 Date Transcribed: 12/15/241447 [employer] Reservoir Keeper: AA Signed [facility]02-13-2025 History of Present illness Narrative* Nicole Allen MD - 11/18/2024 3:20 PM EST PRIMARY CARE PHYSICIAN: Wesly Hidalgo MD [address] [address] Patient Care Team: Wesly Hidalgo Chi as PCP - General (Gerontology) Danyell Ware PA-C as Physician Bankruptcy Law Specialist (Cardiology) Quinton Barton MD as Specialty Biological Plant Operator (Cardiology) Nicole Allen MD as Specialty Biological Plant Operator (Cardiology) CHIEF COMPLAINT: Follow-up for arrhythmia HISTORY OF PRESENT ILLNESS: Ms. Rubio is a 69 year old female who presents today for a cardiovascular medicine follow-up visit. History copied from previous notes, edited as needed: Summary of previous notes: Ms. Rubio has a history of arrhythmia, first evaluated in [facility] in April 2024. In about 2008, before moving to [place] from [place], she was experiencing palpitations, heart racing. She was frequently using her inhaler for asthma. She was seen by a mig tig welder, had testing including stress testing. She reports the tests were okay, was not told that she had any arrhythmia. She moved to [place] in 2009. She was "sick with flu" in August 2022, was hospitalized. She was receiving "breathing treatment", possibly albuterol, and she had arrhythmia. She states she was told it was atrial fibrillation. She was evaluated by Dr. Barton, [facility]. She was treated with Eliquis. She was already on atenolol prior to that episode for hypertension. She has had episodes periodically with "heart racing" and"skipping beats." She had COVID November 2023, had one dose of Paxlovid, and developed severe palpitations and tachycardia. She was told she had "tachycardia and atrial fibrillation." She had anotherepisode of atrial fibrillation a couple months ago (2023). Typically episodes occur at nighttime. No obvious triggers or exacerbating factors. She does not drink alcohol. She drinks occasional soda but otherwise not much caffeine. She has not been tested for sleep apnea. Her , who has sleep a pnea, states she only snores occasionally and does not have apnea at nighttime that he has noticed.In summary, Ms. Rubio has symptomatic paroxysmal atrial fibrillation. I had a detailed discussion with Ms. Rubio and her regarding atrial fibrillation and its management. I reviewed the cornerstones or pillars of management including stroke prevention, ventricular response rate control, atrial rhythm control and patient modifiable risk factors and lifestyle changes relevant to atrial fibrillation. A rhythm control treatment strategy appears to be appropriate due to bothersome symptoms. Discussed options in detail, including antiarrhythmic drug therapy and catheter ablation. Antiarrhyth alanis drug options would be potentially limited by the findings of an echocardiogram, so I encouragedher to get the echocardiogram completed that was ordered by [facility]. Discussed options regarding better ventricular rate control. Catheter ablation might be reasonable option, but she hasstrong family history of malignant hypertension from anesthesia and was evidently told by someone in the past to assume that she has this condition as well. She was evidently tested but results inconclusive. We might need to consider having her see a specialist in this regard, at minimum have pre-procedure evaluation by Anesthesiology team. Catheter ablation is typically performed with the use of general anesthesia, but could be performed with moderate sedation, but this would be less desirable. PLAN AND RECOMMENDATIONS: 1) Continue with current plan of care from EP standpoint for now. 2) Consider either increase beta-wendy or add diltiazem. 3) Have the echocardiogram completed as scheduled (Rubin) -- have report sent to me when study is completed. 4) Consider flecainide if echocardiogram does not show contraindication -- this would be short term option and potentially terminal makeup operator option if effective and well tolerated. 5) Consider catheter ablation -- pulsed field ablation (PFA) would be probably best as would offer chance for shorter procedure, as she might need to have the procedure performed with moderate sedation rather than GA due to family history of malignant hypertension. If she opts for catheter ablation I would need her to be seen by the Anesthesiology team in advance of the procedure to determine whether she should have any particular testing for malignant hypertension and also develop a strategy for how she should be managed during the procedure. Interim History Dr. Allen 11/18/2024: Ms. Rubio presents for follow-up evaluation for arrhythmia, history of symptomatic atrial fibrillation. She is companied by her . She continues to experience bothersome episodes of arrhythmia. She provided a log of atrial fibrillation episodes, becoming more frequent and more prolonged. All of the episodes lasted more than 2 hours. One episode in July 2024, one in August 2024, three episodes in September 2024, one episode in October 2024, andone episode thus far in November 2024. She did not try the antiarrhythmic drug flecainide, did not want to risk side effects after reading about the drug online. She states she underwent cardiac testing recently. Echocardiogram 03/2024 was unremarkable. A recent cardiac stress test last month was normal. She would like to proceed with catheter ablation as we discussed at the previous visit last year. She is hoping to avoid general anesthesia, asked if she could have "non-triggering" anesthesia. I have confirmed and edited as necessary, the PFSH and ROS obtained by others. PAST MEDICAL HISTORY Diagnosis Date Allergic rhinitis Anticoagulant long-term use Asthma At risk for stroke Back pain cervical, lumbar DDD COVID Essential hypertension Family history of malignant hyperthermia strong family history (oldest brother in [place], other two brothers have it) Fractured coccyx (HCC) GERD (gastroesophageal reflux disease) Hypoxia Mixed hyperlipidemia Osteopenia Paroxysmal atrial fibrillation (HCC) Spinal stenosis PAST SURGICAL HISTORY Procedure Laterality Date ARTHROSCOPY KNEE DIAGNOSTIC W/WO SYNOVIAL BX SPX 1977 Arthroscopy, knee right ARTHROSCOPY KNEE DIAGNOSTIC W/WO SYNOVIAL BX SPX 2002 Arthroscopy, knee right DILATION & CURETTAGE DX&/THER NONOBSTETRIC Dilation & curettage x 2 PAST SURGICAL HISTORY OF ORIF left ankle PAST SURGICAL HISTORY OF plantar fascia PAST SURGICAL HISTORY OF stripping, closure leg veins PAST SURGICAL HISTORY OF cyst taken on second toe right foot PAST SURGICAL HISTORY OF lumbar disc IDET SOCIAL HISTORY Social History Tobacco Use Smoking status: Former Current packs/day: 0.00 Types: Cigarettes Quit date: 1990 Years since quittin.1 Smokeless tobacco: Never Substance Use Topics Alcohol use: No Drug use: No FAMILY HISTORY Problem Relation Age of Onset Diabetes Mother Hypertension Mother Tremor Mother Lung Cancer Father other (varicose veins) Father Malig Hyperthermia Brother tested positive for MH Malig Hyperthermia Brother 18 Kidney failure Brother Malig Hyperthermia Brother tested positive for MH Drug abuse Brother Diabetes Brother Lung Cancer Brother 37 other (other) Brother never tested for MH ALLERGIES: ALLERGIES Allergen Reactions Amitriptyline Intolerance Weight Gain and Buzzing In Ears Ampicillin Rash Bactrim [Sulfametho* Rash Biaxin [Clarithromy* GI Upset Inhaled Anesthetics* Other: See Comments Family history of malignant hyperthermia; she states her testing for this was inconclusive, she wastold to assume she has it or high risk for having it Niaspan [Niacin] Mental Status Change MEDICATIONS: colchicine 0.6 mg tablet Take 0.6 mg by mouth once daily. melatonin 10 mg tab Take 10 mg by mouth daily at bedtime. OTC NUTRITIONAL SUPPLEMENT Take 400 mg by mouth daily at bedtime. ELIQUIS 5 mg tab(s) Take 5 mg by mouth two times a day. Valsartan-hydroCHLOROthiazide 320-12.5 mg per tablet OTC NUTRITIONAL SUPPLEMENT Vitamin C OTC NUTRITIONAL SUPPLEMENT Zinc OTC NUTRITIONAL SUPPLEMENT Vitamin E atenolol 50 mg ORAL tablet Take 1 tablet by mouth twice daily. (Patient taking differently: Take 50mg by mouth once daily.) Calcium-Cholecalciferol, D3, (CALCIUM 600 WITH VITAMIN D3) 600 mg(1,500mg) -400 unit ORAL Cap Take by mouth three times daily. Pt take twice daily Cholecalciferol, Vitamin D3, 1,000 unit ORAL Tab Take 1 tablet by mouth twice daily. albuterol 2.5 mg/0.5 mL INHALATION nebulizer solution Use 0.5 mL via nebulizer every 6 hours as needed. furosemide (LASIX) 20 mg ORAL tablet Take 1 tablet by mouth once daily. potassium chloride 10 mEq ORAL tablet Take 1 tablet by mouth once daily. albuterol (VENTOLIN) 90 mcg/Actuation INHALATION Aero 2 puffs every 4 hours Review of Systems Constitutional: Positive for malaise/fatigue. Negative for chills and fever. Respiratory: Positive for shortness of breath. Negative for cough, hemoptysis and sputum production. Cardiovascular: Positive for palpitations. Negative for chest pain, orthopnea, claudication, leg swelling and PND. Gastrointestinal: Negative for abdominal pain, blood in stool, melena, nausea and vomiting. Genitourinary: Negative for dysuria, flank pain and hematuria. Musculoskeletal: Negative for falls. Skin: Negative for rash. Neurological: Negative for focal weakness, seizures and loss of consciousness. PHYSICAL EXAMINATION: BP 144/79 Pulse 75 Wt 183 lb (83.0kg) SpO2 98% Physical Exam Vitals reviewed. Constitutional: General: She is not in acute distress. Appearance: Normal appearance. HENT: Head: Normocephalic and atraumatic. Cardiovascular: Rate and Rhythm: Normal rate and regular rhythm. Heart sounds: Normal heart sounds, S1 normal and S2 normal. No murmur heard. No friction rub. Pulmonary: Effort: Pulmonary effort is normal. No respiratory distress. Breath sounds: Normal breath sounds. No wheezing, rhonchi or rales. Musculoskeletal: Cervical back: Neck supple. Right lower leg: No edema. Left lower leg: No edema. Skin: General: Skin is warm and dry. Neurological: General: No focal deficit present. Mental Status: She is alert and oriented to person, place, and time. Psychiatric: Mood and Affect: Mood normal. Behavior: Behavior normal. Thought Content: Thought content normal. CARDIOVASCULAR MEDICINE TESTING: Electrocardiogram: Sinus rhythm 63 bpm; normal conduction intervals (WA 174 ms, QRS 80 ms); QTc 423ms I have personally reviewed the Electrocardiogram. I spent a total of 45 minutes on the date of the service which included preparing to see the patient, [id number] patient care, completing clinical documentation, obtaining and/or reviewing separately obtained history, performing a medically appropriate examination, counseling and educating the pat ient/family/caregiver, ordering medications, tests, or procedures, communicating with other HCPs (not separately reported), independently interpreting results (not separately reported), communicatingresults to the patient/family/caregiver, and care coordination (not separately reported). 1. Paroxysmal atrial fibrillation (HCC) - ICD9: 427.31, ICD10: I48.0 (primary diagnosis) 2. At risk for stroke - ICD9: V15.89, ICD10: Z91.89 3. Anticoagulant long-term use - ICD9: V58.61, ICD10: Z79.01 4. Family history of malignant hyperthermia - ICD9: V19.8, ICD10: Z84.89 CHADS2-Vasc Score Breakdown 3 Total Score 1 Female 1 Age 65-74 years old 1 History of hypertension IMPRESSION: Ms. Rubio has symptomatic paroxysmal atrial fibrillation. We have discussed the treatment options. She prefers catheter ablation. This is very reasonable option. I had a detailed discussion with Ms. Rubio regarding my evaluation and recommendations. After our discussion, Ms. Rubio expressed her understanding and I answered all her questions to her apparent satisfaction. She agrees to proceed as outlined. I will communicate with Anesthesiology team about thestrong family history of complications from anesthesia (apparently malignant hyperthermia). INFORMED CONSENT The risks, benefits and anticipated outcomes of the procedure, the risks and benefits of the alternatives to the procedure and the roles and tasks of the personnel to be involved were discussed with the patient. Consent for the procedure and agreement to proceed has been obtained. I verify that I personally obtained the consent. PLAN AND RECOMMENDATIONS: 1) Proceed with scheduling of atrial fibrillation catheter ablation. The procedure is presently scheduled out several months. No medications that need to be held for the procedure. My office will be contacting Ms. Rubio to schedule the procedure. 2) I will alert the Anesthesiology team ahead of time to the potential issue of family history of malignant hyperthermia. Preferable to be able to do the procedure with GA, but if necessary the procedure can be done with moderate sedation. The procedure will be performed without interruption of theoral anticoagulation therapy, in this case Eliquis. 3) In the meantime, trying flecainide antiarrhythmic drug would be a low risk strategy. She is veryhesitant to try this antiarrhythmic drug. Nicole Allen MD 11/18/2024 Medical Decision Making: Problems: Moderate: 1+ chronic illnesses with change Data: Unique source(s) for external note(s) reviewed: 1 Unique test result(s) reviewed: 3+ Unique test(s) ordered: 1 Risk: Moderate: Moderate risk from testing/treatment, Drug management and Decision on minor surgery w/ risk factors Medical Decision Making Level: 4 - Moderate [facility] in [facility] NoteHNO ID: [id number] Author: NICOLE ALLEN MD Service: ? Author Type: Physician Type: Progress Notes Filed: 11/19/2024 12:45 Note Text: PRIMARY CARE PHYSICIAN: Wesly Hidalgo MD [address] [address] Patient Care Team: Wesly Hidalgo Chi as PCP - General (Gerontology) Danyell Ware PA-C as Physician Bankruptcy Law Specialist (Cardiology) Quinton Barton MD as Specialty Biological Plant Operator (Cardiology) Nicole Allen MD as Specialty Biological Plant Operator (Cardiology) CHIEF COMPLAINT: Follow-up for arrhythmia HISTORY OF PRESENT ILLNESS: Ms. Rubio is a 69 year old female who presents today for a cardiovascular medicine follow-up visit. History copied from previous notes, edited as needed: Summary of previous notes: Ms. Rubio has a history of arrhythmia, first evaluated in [facility] in April 2024. In about 2008, before moving to [place] from [place], she was experiencing palpitations, heart racing. She was frequently using her inhaler for asthma. She was seen by a mig tig welder, had testing including stress testing. She reports the tests were okay, was not told that she had any arrhythmia. She moved to [place] in 2009. She was "sick with flu" in August 2022, was hospitalized. She was receiving "breathing treatment", possibly albuterol, and she had arrhythmia. She states she was told it was atrial fibrillation. She was evaluated by Dr. Barton, [facility]. She was treated with Eliquis. She was already on atenolol prior to that episode for hypertension. She has had episodes periodically with "heart racing" and "skipping beats." She had COVID November 2023, had one dose of Paxlovid, and developed severe palpitations and tachycardia. She was told she had "tachycardia and atrial fibrillation." She had another episode of atrial fibrillation a couple months ago (2023). Typically episodes occur at nighttime. No obvious triggers or exacerbating factors. She does not drink alcohol. She drinks occasional soda but otherwise not much caffeine. She has not been tested for sleep apnea. Her , who has sleep apnea, states she only snores occasionally and does not have apnea at nighttime that he has noticed. In summary, Ms. Rubio has symptomatic paroxysmal atrial fibrillation. I had a detailed discussion with Ms. Rubio and her regarding atrial fibrillation and its management. I reviewed the cornerstones or pillars of management including stroke prevention, ventricular response rate control, atrial rhythm control and patient modifiable risk factors and lifestyle changes relevant to atrial fibrillation. A rhythm control treatment strategy appears to be appropriate due to bothersome symptoms. Discussed options in detail, including antiarrhythmic drug therapy and catheter ablation. Antiarrhythmic drug options would be potentially limited by the findings of an echocardiogram, so I encouraged her to get the echocardiogram completed that was ordered by [facility]. Discussed options regarding better ventricular rate control. Catheter ablation might be reasonable option, but she has strong family history of malignant hypertension from anesthesia and was evidently told by someone in the past to assume that she has this condition as well. She was evidently tested but results inconclusive. We might need to consider having her see a specialist in this regard, at minimum have pre-procedure evaluation by Anesthesiology team. Catheter ablation is typically performed with the use of general anesthesia, but could be performed with moderate sedation, but this would be less desirable. PLAN AND RECOMMENDATIONS: 1) Continue with current plan of care from EP standpoint for now. 2) Consider either increase beta-wendy or add diltiazem. 3) Have the echocardiogram completed as scheduled (Rubin) -- have report sent to me when study is completed. 4) Consider flecainide if echocardiogram does not show contraindication -- this would be short term option and potentially correction option if effective and well tolerated. 5) Consider catheter ablation -- pulsed field ablation (PFA) would be probably best as would offer chance for shorter procedure, as she might need to have the procedure performed with moderate sedation rather than GA due to family history of malignant hypertension. If she opts for catheter ablation I would need her to be seen by the Anesthesiology team in advance of the procedure to determine whether she should have any particular testing for malignant hypertension and also develop a strategy for how she should be managed during the procedure. Interim History Dr. Allen 11/18/2024: Ms. Rubio presents for follow-up evaluation for arrhythmia, history of symptomatic atrial fibrillation. She is companied by her . She continues to experience bothersome episodes of arrhythmia. She provided a log of atrial fibrilla (more content not included)... [facility]01-02-2025 Evaluation note* Diagnosis Onset Date Resolution Status Admit Date PAF (paroxysmal atrial fibrillation) acute October 07 11:06am Essential hypertension chronic [facility] 2024 11:06am [facility] Work Phone: [phone]) 490-148401-02-2025 Evaluation note* Diagnosis Onset Date Resolution Status Admit Date PAF (paroxysmal atrial fibrillation) acute October 07 11:06am Essential hypertension chronic [facility] 2024 11:06am Seborrheic keratosis acute [facility] 2024 10:29am [facility] Work Phone: 1(415) 980-436507-25-2024 Telephone encounter Note* Telephone Encounter - Licha Vickers LPN - 04/29/2024 4:57 PM EDT Left message for to call [facility] for update and recommendations. [facility] phone number provided. Licha Vickers LPN [facility]07-25-2024 Miscellaneous Notes* Telephone Encounter - Licha Vickers LPN - 04/29/2024 4:57 PM EDT Left message for to call [facility] for update and recommendations. [facility] phone number provided. Licha Vickers LPN * Telephone Encounter - Nicole Allen MD - 04/29/2024 4:19 PM EDT [facility] General Electrophysiology (EP) Please let Ms. Rubio know that [facility] a [facility] We can consider the flecainide antiarrhythmic drug that we discussed at the recent office visit. If she would like to try that, we can send a prescription or she can discuss with her local mig tig welder. Nicole Allen MD April 29, 2024 4:21 PM [facility] Telephone encounter Note * Telephone Encounter - Nicole Allen MD - 04/29/2024 4:19 PM EDT [facility] General Electrophysiology (EP) Please let Ms. Rubio know that [facility] a [facility] We can consider the flecainide antiarrhythmic drug that we discussed at the recent office visit. If she would like to try that, we can send a prescription or she can discuss with her local mig tig welder. Nicole Allen MD April 29, 2024 4:21 PM [facility]07-01-2024 History of Present illness Narrative* Nicole Allen MD - 04/05/2024 2:20 PM EDT PRIMARY CARE PHYSICIAN: Wesly Hidalgo MD [address] [place] [address] REFERRING PHYSICIAN: [facility] [address] [facility] [id number] Patient Care Team: Wesly Hidalgo Chi as PCP - General (Gerontology) Group, [facility] as Specialty Biological Plant Operator (Cardiology) Danyell Webb PA-C as Physician Bankruptcy Law Specialist (Cardiology) Quinton Barton MD as Specialty Biological Plant Operator (Cardiology) CHIEF COMPLAINT: Evaluation of arrhythmia HISTORY OF PRESENT ILLNESS: Ms. Rubio is a 69 year old female who presents today for evaluation of arrhythmia. A few years ago,about 15 years ago, before moving to [place] from [place], she was using inhaler for asthma every 4hours. She was having palpitations, heart racing. She was seen by mig tig welder, had testing including stress testing. She states tests were ok, was not told that she had any arrhythmia. [place]. She was "sick with flu" in August 2022, was hospitalized. She was receiving "breathing treatment", possibly albuterol, and she had arrhythmia. She states she was told it was atrial fibrillation. She was evaluated by Dr. Barton, [facility]. She was treated with Eliquis and has been on that medication since then. She was already on atenolol prior to that episode for hypertension.She has had episodes periodically with "heart racing" and "skipping beats." She had COVID this November, had one dose of Paxlovid, and developed severe palpitations and tachycardia. She was told she h ad "tachycardia and atrial fibrillation." She had another episode of atrial fibrillation a couple months ago. Typically episodes occur at nighttime. No obvious triggers or exacerbating factors. She does not drink alcohol. She drinks occasional soda but otherwise not much caffeine. She has not been tested for sleep apnea. Her , who has sleep apnea, states she only snores occasionally and does not have apnea at nighttime that he has noticed. She is scheduled for echocardiogram sometime soon, last one was 2021. I have confirmed and edited as necessary, the PFSH and ROS obtained by others. PAST MEDICAL HISTORY Diagnosis Date Allergic rhinitis Anticoagulant long-term use Asthma At risk for stroke Back pain cervical, lumbar DDD COVID Essential hypertension Family history of malignant hyperthermia strong family history (oldest brother in [place], other two brothers have it) Fractured coccyx (HCC) GERD (gastroesophageal reflux disease) Hypoxia Mixed hyperlipidemia Osteopenia Paroxysmal atrial fibrillation (HCC) Spinal stenosis PAST SURGICAL HISTORY Procedure Laterality Date ARTHROSCOPY KNEE DIAGNOSTIC W/WO SYNOVIAL BX SPX 1977 Arthroscopy, knee right ARTHROSCOPY KNEE DIAGNOSTIC W/WO SYNOVIAL BX SPX 2001 Arthroscopy, knee right DILATION & CURETTAGE DX&/THER NONOBSTETRIC Dilation & curettage x 2 PAST SURGICAL HISTORY OF ORIF left ankle PAST SURGICAL HISTORY OF plantar fascia PAST SURGICAL HISTORY OF stripping, closure leg veins PAST SURGICAL HISTORY OF cyst taken on second toe right foot PAST SURGICAL HISTORY OF lumbar disc IDET SOCIAL HISTORY Social History Tobacco Use Smoking status: Former Types: Cigarettes Quit date: 1990 Years since quittin.5 Smokeless tobacco: Never Substance Use Topics Alcohol use: No Drug use: No FAMILY HISTORY Problem Relation Age of Onset Diabetes Mother Hypertension Mother Tremor Mother Lung Cancer Father other (varicose veins) Father Malig Hyperthermia Brother tested positive for MH Malig Hyperthermia Brother 18 Kidney failure Brother Malig Hyperthermia Brother tested positive for MH Drug abuse Brother Diabetes Brother Lung Cancer Brother 37 other (other) Brother never tested for MH ALLERGIES: ALLERGIES Allergen Reactions Amitriptyline Intolerance Weight Gain and Buzzing In Ears Ampicillin Rash Bactrim [Sulfametho* Rash Biaxin [Clarithromy* GI Upset Inhaled Anesthetics* Other: See Comments Family history of malignant hyperthermia; she states her testing for this was inconclusive, she wastold to assume she has it or high risk for having it Niaspan [Niacin] Mental Status Change MEDICATIONS: OTC NUTRITIONAL SUPPLEMENT Take 400 mg by mouth daily at bedtime. ELIQUIS 5 mg tab(s) Take 5 mg by mouth two times a day. Valsartan-hydroCHLOROthiazide 320-12.5 mg per tablet OTC NUTRITIONAL SUPPLEMENT Vitamin C OTC NUTRITIONAL SUPPLEMENT Zinc OTC NUTRITIONAL SUPPLEMENT Vitamin E atenolol 50 mg ORAL tablet Take 1 tablet by mouth twice daily. (Patient taking differently: Take 50mg by mouth once daily.) Calcium-Cholecalciferol, D3, (CALCIUM 600 WITH VITAMIN D3) 600 mg(1,500mg) -400 unit ORAL Cap Take by mouth three times daily. Pt take twice daily Cholecalciferol, Vitamin D3, 1,000 unit ORAL Tab Take 1 tablet by mouth twice daily. albuterol 2.5 mg/0.5 mL INHALATION nebulizer solution Use 0.5 mL via nebulizer every 6 hours as needed. furosemide (LASIX) 20 mg ORAL tablet Take 1 tablet by mouth once daily. (Patient taking differently: Take 20 mg by mouth once daily as needed (edema).) potassium chloride 10 mEq ORAL tablet Take 1 tablet by mouth once daily. (Patient taking differently: Take 10 mEq by mouth once daily as needed (with diuretic).) albuterol (VENTOLIN) 90 mcg/Actuation INHALATION Aero 2 puffs every 4 hours REVIEW OF SYSTEMS: Review of Systems Constitutional: Negative for chills, fever and weight loss. Respiratory: Negative for cough, hemoptysis, sputum production and shortness of breath. Cardiovascular: Positive for palpitations. Negative for chest pain, orthopnea, claudication, leg swelling and PND. Gastrointestinal: Negative for abdominal pain, blood in stool, melena, nausea and vomiting. Genitourinary: Negative for dysuria, flank pain and hematuria. Musculoskeletal: Negative for falls. Skin: Negative for rash. Neurological: Negative for focal weakness, seizures and loss of consciousness. PHYSICAL EXAMINATION: BP 144/80 Pulse 73 Wt 179 lb 9.6 oz (81.5kg) SpO2 96% Physical Exam Vitals reviewed. Constitutional: General: She is not in acute distress. Appearance: Normal appearance. HENT: Head: Normocephalic and atraumatic. Cardiovascular: Rate and Rhythm: Normal rate and regular rhythm. Heart sounds: Normal heart sounds, S1 normal and S2 normal. No murmur heard. No friction rub. Pulmonary: Effort: Pulmonary effort is normal. No respiratory distress. Breath sounds: Normal breath sounds. No wheezing, rhonchi or rales. Musculoskeletal: Cervical back: Neck supple. Right lower leg: No edema. Left lower leg: No edema. Skin: General: Skin is warm and dry. Neurological: General: No focal deficit present. Mental Status: She is alert and oriented to person, place, and time. Psychiatric: Mood and Affect: Mood normal. Behavior: Behavior normal. Thought Content: Thought content normal. CARDIOVASCULAR MEDICINE TESTING: Electrocardiogram: Sinus rhythm 64 bpm; normal conduction intervals (WA 168 ms, QRS 80 ms); QTc 437ms I have personally reviewed the Electrocardiogram. 1. Paroxysmal atrial fibrillation (HCC) - ICD9: 427.31, ICD10: I48.0 (primary diagnosis) 2. At risk for stroke - ICD9: V15.89, ICD10: Z91.89 3. Anticoagulant long-term use - ICD9: V58.61, ICD10: Z79.01 CHADS2-Vasc Score Breakdown 3 Total Score 1 Female 1 Age 65-74 years old 1 History of hypertension IMPRESSION: Ms. Rubio has symptomatic paroxysmal atrial fibrillation. I had a detailed discussion with Ms. Rubio and her regarding atrial fibrillation and its management. I reviewed the cornerstones or pillars of management including stroke prevention, ventricular response rate control, atrial rhythm control and patient modifiable risk factors and lifestyle changes relevant to atrial fibrillation. A rhythm control treatment strategy appears to be appropriate due to bothersome symptoms. Discussed options in detail, including antiarrhythmic drug therapy and catheter ablation. Antiarrhythmic drug options would be potentially limited by the findings of an echocardiogram, so I encouraged her to get the echocardiogram completed that was ordered by [facility]. Discussed options regarding better ventricular rate control. Catheter ablation might be reasonable option, but she has strong family history of malignant hypertension from anesthesia and was evidently told by someone in the past to assume that she has this condition as well. She was evidently tested but results inconclusive --- I wonder if there is more definitive testing available now. We might need to consider having her seea specialist in this regard. At minimum have pre-procedure evaluation by Anesthesiology team. Catheter ablation is typically performed with the use of general anesthesia, but could be performed with moderate sedation, but this would be less desirable. I had a detailed discussion with Ms. Rubio regarding my evaluation and recommendations. After our discussion, Ms. Rubio expressed her understanding and I answered all her questions to her apparent satisfaction. PLAN AND RECOMMENDATIONS: 1) Continue with current plan of care from EP standpoint for now. 2) Consider either increase beta-wendy or add diltiazem 3) Have the echocardiogram completed as scheduled (Rubin) -- have report sent to me when study iscompleted. 4) Consider flecainide if echocardiogram does not show contraindication -- this would be short termoption and potentially terminal makeup operator option if effective and well tolerated. 5) Consider catheter ablation -- pulsed field ablation (PFA) would be probably best as would offer chance for shorter procedure, as she might need to have the procedure performed with moderate sedation rather than GA due to family history of malignant hypertension. If she opts for catheter ablationI would need her to be seen by the Anesthesiology team in advance of the procedure to determine whet her she should have any particular testing for malignant hypertension and also develop a strategy for how she should be managed during the procedure. Follow up with [facility]. Follow up with me will be determined after plan of care formulated after echocardiogram is completed. Nicole Allen MD 04/05/2024 Medical Decision Making: Problems: Moderate: New problem with uncertain prognosis Data: Unique source(s) for external note(s) reviewed: 2 Unique test result(s) reviewed: 3+ Unique test(s) ordered: 1 Risk: Moderate: Moderate risk from testing/treatment, Drug management and Decision on minor surgery w/ risk factors Medical Decision Making Level: 4 - Moderate [facility] Evaluation note* Diagnosis Onset Date Resolution Status Sinus tachycardia resolved Atrial fibrillation with rap id ventricular response August 30, 2022 acute Essential hypertension [facility] Work Phone: 1(460) 899-163611-25-2022 Evaluation note* Diagnosis Onset Date Resolution Status Sinus tachycardia resolved Atrial fibrillation with rap id ventricular response August 30, 2022 acute Essential hypertension chron ic Atrial fibrillation with rap id ventricular response August 30, 2022 acute Essential hypertension [facility] Work Phone: [phone]) 720-249611-25-2022 Evaluation note* Diagnosis Onset Date Resolution Status Atrial fibrillation with rap id ventricular response August 30, 2022 acute Essential hypertension chron ic Atrial fibrillation with rap id ventricular response August 30, 2022 acute Essential hypertension [facility] Work Phone: 1(297) 434-588511-25-2022 Evaluation note* Diagnosis Onset Date Resolution Status Atrial fibrillation with rap id ventricular response August 30, 2022 acute Essential hypertension [facility] Work Phone: Discharge summary Author Maik Harris [facility] June 09, 2023 10:47am Note Date/Time June 09, 2023 10:47am [facility] Medical Records Department [address] [place] [id number] Emergency Department Summary 06/09/23 MR#: [id number] Acct: [id number] Name: CRIS RUBIO Rep #:[id number] : 1955 68 From: Maik Harris DO PCP: Dr. Wesly Hidalgo MD Status:REG E R Location: ED HPI History of Present Illness Chief Complaint: Lower Extremity Injury Narrative Narrative: 68-year-old female presenting with pain over the medial aspect of the proximal first metatarsal. Its been there for couple of days. She describes as worsening and aching pain. Patient is in pain management and does not take hydrocodone for pain. She states he has a history of gout but is concerned thatthe cat she has was scratching her feet the other day and she is feels like thismay be an infection from a scratch. She has not had any systemic signs or symptoms. No history of trauma. [facility] Medical History Asthma Atrial fibrillation with rapid ventricular response (08/30/22) Bronchospasm, acute Depression Essential hypertension GERD (gastroesophageal reflux disease) Hemorrhoid history of superficial venous thrombosis Hyperlipidemia Hypoxia Influenza with pneumonia Malignant hyperthermia Osteoarthritis Osteopenia Rosacea Spinal stenosis Status post L4-L5 laminectomy Home Medications potassium chloride 10 mEq tablet,extended release 10 meq PO DAILY PRN LEG [id number]/28/14 [History Last Taken 08/25/22] tizanidine 4 mg tablet 4 mg PO QHS SPASMS 10/02/17 [History Last Taken 08/29/22] vitamin E 268 mg (400 unit) capsule 400 unit PO DAILY SUPPLEMENT 10/20/19 [History Last Taken 08/29/22] duloxetine 30 mg capsule,delayed release 30 mg PO DAILY ANIETY/DEPRESSION 11/22/20 [History Last Taken 08/29/22] ascorbic acid (vitamin C) 1,000 mg tablet 1,000 mg PO DAILY SUPPLEMENT 12/15/20 [History Last Taken 08/29/22] lznqoeaq-royn-ecgu 8 mg-folic 400 mcg-K 50 mcg-lutein 300 mcg tablet (Centrum Silver Women) 1 ea PO DAILY HEALTH MAINTENANCE 12/15/20 [History Last Taken 08/29/22] zinc 50 mg tablet 50 mg PO DAILY SUPPLEMENT 12/15/20 [History Last Taken 08/29/22] hydrocodone-acetaminophen 5-325mg 5mg-325mg 1 tab PO BID PRN Pain 07/07/22 [History Last Taken 08/29/22] albuterol sulfate 2.5 mg/3 mL (0.083 %) solution for nebulization 2.5 mg inhalation Q4H PRN Shortness Of Breath 08/30/22 [History Last Taken Unknown] albuterol sulfate 90 mcg/actuation aerosol inhaler 2 inh inhalation UD PRN Shortness Of Breath 08/30/22 [History Last Taken 08/29/22] magnesium oxide 400 mg PO QHS SUPPLEMENT 08/30/22 [History Last Taken 08/29/22] atenolol 50 mg tablet 50 mg PO DAILY 30 days #90 tabs 09/05/22 [Rx Last Taken Unknown] buprenorphine 5 mcg/hour weekly transdermal patch 1 patch transdermal QWEEK 09/05/22 [History Last Taken Unknown] calcium carbonate 600 mg calcium (1,500 mg) tablet 600 mg PO BID 09/05/22 [History Last Taken Unknown] cholecalciferol (vitamin D3) 25 mcg (1,000 unit) tablet 25 mcg PO DAILY 09/05/22[History Last Taken Unknown] famotidine 20 mg tablet 40 mg PO DAILY 09/05/22 [History Last Taken Unknown] valsartan 320 mg-hydrochlorothiazide 12.5 mg tablet 1 tab PO DAILY BLOOD PRESSURE #90 tabs 09/05/22 [Rx Last Taken Unknown] apixaban 5 mg tablet (Eliquis) 5 mg PO BID #60 tabs 11/14/22 [Rx Last Taken Unknown] furosemide 20 mg tablet 20 mg PO DAILY PRN 12/05/22 [History Last Taken Unknown] clindamycin HCl 300 mg capsule (Cleocin HCl) 300 mg PO Q6H #28 CAPSULES 02/07/23[Rx Last Taken Unknown] clindamycin HCl 150 mg capsule 450 mg (3 x 150 mg) PO TID 7 days #63 caps 06/09/23 [Rx Last Taken Unknown] colchicine (gout) 0.6 mg capsule 0.6 mg PO DAILY #1 cap 06/09/23 [Rx Last Taken Unknown] Allergy/AdvReac Type Severity Reaction Status Date / Time ampicillin Allergy Intermediate Rash Verified 06/09/23 09:55 sulfamethoxazole Allergy Intermediate BLOTCHES/ Verified 06/09/23 09:55 [From Bactrim] HIVES trimethoprim [From Bactrim] Allergy Intermediate BLOTCHES/ Verified 06/09/23 09:55 HIVES niacin AdvReac Intermediate REDDNESS/ Verified 06/09/23 09:55 [From Niaspan PASSED OUT Extended-Release] amitriptyline AdvReac Mild EARS RING Verified 06/09/23 09:55 clarithromycin [From Biaxin] AdvReac Mild Upset Verified 06/09/23 09:55 Stomach Family History Brother Malignant hyperthermia due to anesthesia Brother Malignant hyperthermia due to anesthesia Brother Malignant hyperthermia due to anesthesia Diabetes Hypertension Cancer lung Asthma Mother Diabetes Hypertension Father Cancer lung Aunt Colon cancer Surgical History H/O kyphoplasty History of colonoscopy (~2006) History of fasciotomy History of right knee joint replacement History of total replacement of left ankle Status post laser ablation of incompetent vein Social History Smoking Status: Former smoker how long ago did patient quit smokin alcohol intake: never substance use type: does not use caffeine: Yes Type: carbonated beverages Number of servings: 1 ROS ROS ED Constitutional Constitutional ED: Denies chills, fever(s) or sweats Eyes Eyes: Denies blurry vision or change in vision ENT ENT ED: Denies ear pain or sore throat Cardiovascular Cardiovascular: Denies chest pain, palpitations or racing heartbeat Respiratory/Chest Respiratory/Chest: Denies cough, dyspnea or sputum Gastrointestinal Gastrointestinal: Denies abdominal pain, constipation, diarrhea, nausea or vomiting Genitourinary Genitourinary ED: Denies dysuria, hematuria or urinary frequency Musculoskeletal Musculoskeletal: Denies arthralgias, myalgias or neck pain Integumentary Reports rash; Denies abscess or Abrasions Neurologic Neurologic: Denies headache(s), paresthesias or weakness Psychiatric Psychiatric: Denies anxiety, depression, suicidal ideation or suicidal thoughts Endocrine Endocrinology: Denies polydipsia or polyuria EXAM Physical Exam Const Vital Signs: 06/09/23 09:54 Temperature 97.5 F L Temperature Source Temporal Pulse Rate 73 Respiratory Rate 14 Blood Pressure 154/73 H Blood Pressure Mean 100 Pulse Ox 97 Oxygen Delivery Method Room Air Positive well nourished HEENT Reports moist mucous membranes Resp normal respiratory effort Cardio regular rate and regular rhythm Extremity Extremity Narrative: Tenderness to palpation over the first metatarsal medially. There is an area oferythema overlying this. There is no crepitus, deformity. Neurovascular intactbrisk cap refill to all 5 toes. Neuro oriented x3 and CN's II-XII intact bilaterally Sensorium / Orientation: alert Motor Exam: strength 5/5 throughout Psych mental status grossly normal MDM MDM MDM Narrative Medical decision making narrative: Patient presenting redness over the first metatarsal on the right foot. It is possible this could be gout however the patient is concerned that the cat at herhouse scratched it there was no bite. She has multiple allergies but she stateshas been on clindamycin before which we will provide for her today to make sure this is an infection. She was also given Colchicine first dose in the ER and a similar dose to take at home. Return precautions were discussed. Impression: 1. Cat scratch 2. Gout Lab Data Attestation: I reviewed the patient's lab results. Discharge Plan Triage Chief Complaint: Lower Extremity Injury ED Provider: Maik Harris Dx/Rx/DC Orders Instructions: ED Cellulitis, ED Gout Prescriptions: New clindamycin HCl 150 mg capsule 450 mg PO TID 7 Days Qty: 63 0RF colchicine (gout) 0.6 mg capsule 0.6 mg PO DAILY Qty: 1 0RF No Action duloxetine 30 mg capsule,delayed release(DR/EC) 30 mg PO DAILY famotidine 20 mg tablet 40 mg PO DAILY cholecalciferol (vitamin D3) 25 mcg (1,000 unit) tablet 25 mcg PO DAILY buprenorphine 5 mcg/hour patch weekly 1 patch transdermal QWEEK calcium carbonate 600 mg calcium (1,500 mg) tablet 600 mg PO BID atenolol 50 mg tablet 50 mg PO DAILY 30 Days Qty: 90 3RF valsartan-hydrochlorothiazide 320-12.5 mg tablet 1 tab PO DAILY Qty: 90 3RF furosemide 20 mg tablet 20 mg PO DAILY PRN potassium chloride 10 MEQ tablet extended release 10 meq PO DAILY PRN (Reason: LEG CRAMPS) tizanidine 4 MG tablet 4 mg PO QHS vitamin E 400 UNIT capsule 400 unit PO DAILY ascorbic acid (vitamin C) 1,000 MG tablet 1,000 mg PO DAILY zinc 50 MG tablet 50 mg PO DAILY Centrum Silver Women 1 EACH tablet 1 ea PO DAILY hydrocodone-acetaminophen 5-325 mg tablet 1 tab PO BID PRN (Reason: Pain) albuterol sulfate 90 mcg/actuation HFA aerosol inhaler 2 inh INHALATION UD PRN (Reason: Shortness Of Breath) magnesium oxide 400 mg magnesium Tablet 400 mg PO QHS albuterol sulfate 2.5 MG/3 ML solution for nebulization 2.5 mg inhalation Q4H PRN (Reason: Shortness Of Breath) clindamycin HCl [Cleocin HCl] 300 mg capsule 300 mg PO Q6H Qty: 28 0RF Eliquis 5 mg tablet 5 mg PO BID Qty: 60 11RF Primary Care Provider: Wesly Hidalgo Chi Referrals: Wesly Hidalgo Chi, MD [Primary Care Provider] - Disposition Disposition: Home, Self Care What to do if you have Problems For any increased pain, shortness of breath, bleeding, nausea or vomiting, chestpain, or any unexpected problems, contact your Primary Care Provider. Call [facility] ([phone]) or report to the closest Emergency Room. Call 911 if necessary. 06/09/23 1047 <Electronically signed by Maik Harris DO> Cosigner Signature (if applicable): CC: Dr. Wesly Hidalgo MD ~ Signed [facility] Work Phone: Evaluueioj noteNo assessment information available [facility] Work Phone: Evaluation note* Diagnosis Onset Date Resolution Status Bronchospasm, acute acute Hypoxia acute Influenza with pneumonia acu te Sinus tachycardia acute HTN (hypertension) chronic [facility] Work Phone: Evaluation note* Diagnosis Paroxysmal atrial fibrillation (HCC)- Primary Atrial fibrillation At risk for stroke Other specified personal history presenting hazards to health Anticoagulant long-term use Long-term (current) use of anticoagulants documented [facility] encounter [facility]* Diagnosis Paroxysmal atrial fibrillation (HCC)- Primary Atrial fibrillation At risk for stroke Other specified personal history presenting hazards to health Anticoagulant long-term use Long-term (current) use of anticoagulants Family history of malignant hyperthermia Family history of other condition documented in this encounter [facility]* Diagnosis Paroxysmal atrial fibrillation (HCC)- Primary Atrial fibrillation Essential hypertension Unspecified essential hypertension Mild persistent asthma without complication (HCC) Unspecified asthma Anticoagulant long-term use Long-term (current) use of anticoagulants Family history of malignant hyperthermia Family history of other condition Pre-op exam [Z01.818] Preoperative examination, unspecified Persistent atrial fibrillation (HCC)- Primary Atrial fibrillation Dyspnea, unspecified type documented in this encounter [facility] note* Diagnosis Onset Date Resolution Status Admit Date PAF (paroxysmal atrial fibrillation) acute June 23, 2025 3:37pm Essential hypertension chronic Se pt2024 3:37pm Bilateral carpal tunnel syndrome acute July 01, 2025 9:40am [facility] Work Phone: Hospital Discharge instructions Additional Instructions Please keep the area clean and dry. Return for any signs of infection. Take antibiotics until finished.[facility] Work Phone: Hospital Discharge instructionsAmbulatory Orders* Dermatology Location: None Selected [facility] Work Phone: Progress note Author Ran Dennison [facility] Services Note Date/Time July 01, 2025 10:15am [facility] [place] [address] OFFICE VISIT Date of Service: 07/01/25 MR#: [id number] Acct: [id number] Name: CRIS RUBIO Rep #: [id number] : 1955 Provider: Dr. Deon Dennison MD Age/Sex: 70/F [place] [facility] Status: Signed Intake Vital Signs 06/23/25 15:46 07/01/25 09:50 Height 5 ft 5 ft Weight: 175 lb 174 lb BMI 34.2 34.0 BP 133/74 H Blood Pressure Location Lt brachial Position Sitting Respiration 16 Pulse 66 Pulse Source Monitor Intake Visit Reasons: BL HANDS Chief Complaint: BL hands Accompanied by: Self Is patient in pain?: Yes (BL hands) Pain scale (1-10): 2 Allergies ampicillin Allergy (Intermediate, Verified 07/01/25 09:51) Rash sulfamethoxazole (From Bactrim) Allergy (Intermediate, Verified 07/01/25 09:51) BLOTCHES/ HIVES trimethoprim (From Bactrim) Allergy (Intermediate, Verified 07/01/25 09:51) BLOTCHES/ HIVES niacin (From Niaspan Extended-Release) Adverse Reaction (Intermediate, Verified 07/01/25 09:51) REDDNESS/ PASSED OUT amitriptyline Adverse Reaction (Mild, Verified 07/01/25 09:51) EARS RING clarithromycin (From Biaxin) Adverse Reaction (Mild, Verified 07/01/25 09:51) Upset Stomach nirmatrelvir (From Paxlovid) Adverse Reaction (Mild, Verified 07/01/25 09:51) tachycardia ritonavir (From Paxlovid) Adverse Reaction (Mild, Verified 07/01/25 09:51) tachycardia Medications ?Medication ?Instructions ?Recorded ?Confirmed ?Type potassium chloride 10 mEq 10 meq PO DAILY PRN LEG CRAM PS 11/02/13 07/01/25 History tablet,extended release vitamin E 268 mg (400 unit) capsule 400 unit PO DAILY SUPPLEMENT 10/20/19 07/01/25 History ascorbic acid (vitamin C) 1,000 mg 1,000 mg PO DAILY S UPPLEMENT 12/15/20 06/23/25 History tablet zinc 50 mg tablet 50 mg PO DAILY SUPPLEMENT 07/01/25 History albuterol sulfate 90 mcg/actuation 2 inh inhalation UD PRN Shortness 08/30/22 07/01/25 History aerosol inhaler Of Breath magnesium oxide 400 mg PO QHS SUPPLEMENT 07/01/25 History atenolol 50 mg tablet 50 mg PO DAILY 30 days #90 t abs 09/05/22 07/01/25 Rx calcium carbonate 600 mg PO BID 09/05/2207/01 History cholecalciferol (vitamin D3) 25 25 mcg PO DAILY 07/01/25 History mcg (1,000 unit) tablet valsartan 320 1 tab PO DAILY BLOOD PRESSUR E #90 09/05/22 07/01/25 Rx mg-hydrochlorothiazide 12.5 mg tabs tablet furosemide 20 mg tablet 20 mg PO DAILY PRN 12/05/22 07/01/25 History apixaban 5 mg tablet (Eliquis) 5 mg PO BID #60 tabs 07/01/25 Rx biotin 5,000 mcg sublingual tablet 5,000 mcg sublingua l QDAY 06/23/25 07/01/25 History febuxostat 40 mg tablet 40 mg PO DAILY Gout preventi on 06/23/25 07/01/25 History melatonin 10 mg capsule 10 mg PO HS PRN 06/23/25 History Have you fallen in the past year?: No PFSH Medical History Bilateral carpal tunnel syndrome PAF (paroxysmal atrial fibrillation) Spinal stenosis Hyperlipidemia Atrial fibrillation with rapid ventricular response (08/30/22) Essential hypertension Bronchospasm, acute Hypoxia Influenza with pneumonia Status post L4-L5 laminectomy Depression Asthma Malignant hyperthermia Osteoarthritis Hemorrhoid GERD (gastroesophageal reflux disease) history of superficial venous thrombosis Rosacea Osteopenia Surgical History History of cardiac radiofrequency ablation (05/16/25) H/O kyphoplasty History of colonoscopy (~2006) History of fasciotomy Status post laser ablation of incompetent vein History of right knee joint replacement History of total replacement of left ankle Family History Brother Malignant hyperthermia due to anesthesia Brother Malignant hyperthermia due to anesthesia Brother Malignant hyperthermia due to anesthesia Diabetes Hypertension Cancer lung Asthma Mother Diabetes Hypertension Father Cancer lung Aunt Colon cancer Social History Smoking Status: Former smoker how long ago did patient quit smokin alcohol intake: never substance use type: does not use caffeine: Yes Type: carbonated beverages Number of servings: 1 HPI BL HANDS Details: This documentation accurately reflects the service provided and the decisions made by me, Dr. Ran Dennison MD 07/01/25 0841. Part of today?s visit was documented by [ ], acting as scribe. CRIS RUBIO is a 70 year old F here today for bilat CTS. had a right side injection it helped for a bit. hard to open jars. had it since 1999 mild. 1.5 yrs getting worse. hurts in the volar wrist. numbness - no. tingling - in the morning, lasts 30 mins. pain into the index and middle. stretches it out. sometimes shakes it out. years ago did a night brace. RHD. Supplemental Info [facility] Pulmonary Services/Neurology [address] [place] [address] MR#: [id number] Acct: [id number] Name: CRIS RUBIO Rep #: [id number] : 1955 69 From: Mehnaz Thomson MD Referring Dr: Wesly Hidalgo MD Date: 12/15/24 NCS and/or EMG Patient Report Ordering Doctor: Wesly Hidalgo Chi DATE OF SERVICE: 12/15/24 Xiomy presents for electrodiagnostic testing of the upper limbs. She reports numbness and tingling in both hands. Electrodiagnostic findings: Median motor nerve demonstrates normal distal latency, amplitude and conduction velocity bilaterally. Normal ulnar motor response bilaterally, including conduction across the elbow. Normal median and ulnar F?waves. Prolonged median sensory latency at the wrist bilaterally. Normal ulnar and radial sensory responses. Needle EMG testing was performed in the upper limbs. 1+ fibrillations noted in the left pronator teres. All other muscles tested, including cervical paraspinals, showed no evidence of denervation with normal motor unit action potentials. Electrodiagnostic impression: This is an abnormal study in the upper limbs next 1. Electrodiagnostic findings suggestive of bilateral median mononeuropathy. This consistent with a mild bilateral carpal tunnel syndrome. 2. No electrodiagnostic evidence is noted for cervical radiculopathy. Coding Level of Care Code Off vis,new,level 4 Diagnoses Bilateral carpal tunnel syndrome G56.03 Assessment and Plan Assessment and Plan (1) Bilateral carpal tunnel syndrome: Status: Acute Plan: CRIS RUBIO is a 70 year old F here today for bilat CTS. Wants to start with night braces 6 weeks, then FU. Not really desiring surgery. Carpal Tunnel Syndrome (CTS) occurs when the median nerve, which runs through the wrist, becomes compressed. Treatment options vary based on the severity of the condition: Non-Surgical Treatments: Wrist Splinting: Wearing a splint at night to keep the wrist in a neutral position. Activity Modification: Avoiding repetitive wrist movements or adjusting work habits. Physical Therapy: Exercises to improve wrist and hand function. Medications: Anti-inflammatory drugs (NSAIDs) or corticosteroid injections to reduce swelling and pain. Surgical Treatment: Carpal Tunnel Release Surgery: A procedure where the ligament pressing on the median nerve is cut to relieve pressure. This is considered when non-surgical treatments are ineffective. Options are min-open or endoscopic. Clinical Quality Measures Falls Risk Screening/Assistive Devices Have you fallen in the past year?: No Ortho Exam General General: Yes no acute distress Neurologic: Yes alert and Yes oriented x3 Psychologic: Yes reasonable and appropriate Right Wrist/Hand Skin/Wound: Yes CDI, No Swelling, No Ecchymosis, Yes nail intact and Yes capillary refill normal Right Wrist: Yes ROM-Extension 0-60, ROM-Flexion 0-80, ROM-Pronation 0-80, ROM-Supination 0-90, Durken's Test, Tinel's, Phalen's and Thenar Atrophy; No Snuffbox tenderness, Palpable Nodule or Hypothenar Atrophy Motor: EPL: 5, FDP-2: 5, 1st Dorsal Interosseous: 5 and APB: 5 Sensation: Radial: I, Ulnar: I and Median: D Left Wrist/Hand Skin/Wound: Yes CDI, No Swelling, No Ecchymosis, Yes nail intact, Yes capillary refill normal and No erythema Left Wrist: Yes ROM-Extension 0-60, Yes ROM-Flexion 0-80, Yes ROM-Pronation 0- 80, Yes ROM-Supination 0-90, Yes Durken's Test, Yes Tinel's, Yes Phalen's and Yes Thenar Atrophy; No Hypothenar Atrophy Motor: EPL: 5, FDP-2: 5, 1st Dorsal Interosseous: 5 and APB: 5 Sensation: Radial: I, Ulnar: I and Median: D WRIST: pos scratch collapse test right side, neg left 07/01/25 1015 <Electronically signed by Ran cristina MD> Date _ Ran Dennison MD Cosigner Signature: Date (if applicable) CC: ~ [facility] Work Phone: Reason for referral (narrative)No reason for referral information availableWLutheran [facility] Work Phone: Chief Complaint and Reason for Visit Chief Complaint SCREENING Chief Complaint CHILLS WITHOUT FEVER Chief Complaint CHILLS WITHOUT FEVER lower back pain Chief Complaint CHILLS WITHOUT FEVER lower back pain SEPSIS/PNEUMONIA Reason for Visit Bronchospasm, acute Hypoxia Influenza with pneumonia Sinus tachycardia HTN (hypertension) Chief Complaint CHILLS WITHOUT FEVER lower back pain SEPSIS/PNEUMONIA SEPSIS/PNEUMONIA Reason for Visit Bronchospasm, acute Hypoxia Influenza with pneumonia Sinus tachycardia HTN (hypertension) Chief Complaint CHILLS WITHOUT FEVER lower back pain SEPSIS/PNEUMONIA SEPSIS/PNEUMONIA SEPSIS/PNEUMONIA A-fib RVR/ ER 08-30 pneumonia and sepsis Reason for Visit Sinus tachycardia Atrial fibrillation with rapid ventricular response Essential hypertension Chief Complaint SEPSIS/PNEUMONIA EKG SEPSIS/PNEUMONIA SEPSIS/PNEUMONIA A-fib RVR/ ER 08-30 pneumonia and sepsis 3 M FU Reason for Visit Sinus tachycardia Atrial fibrillation with rapid ventricular response Essential hypertension Atrial fibrillation with rapid ventricular response Essential hypertension Chief Complaint A-fib RVR/ ER 08-30 pneumonia and sepsis 3 M FU SCREENING Reason for Visit Atrial fibrillation with rapid ventricular response Essential hypertension Atrial fibrillation with rapid ventricular response Essential hypertension Chief Complaint 3 M FU SCREENING puncture wound Reason for Visit Atrial fibrillation with rapid ventricular response Essential hypertension Chief Complaint puncture wound THORACIC PAIN Chief Complaint THORACIC PAIN RIGHT FOOT Chief Complaint Admit Date 6 M FU October 07, 2024 11 :06am PAF, FLECAINIDE INITIATION October 22, 2024 6:29am PAF, FLECAINIDE INITIATION October 22, 2024 1:20pm BUE; BILAT UPPER EXT WEAKNESS December 1:02pm BUE; BILAT UPPER EXT WEAKNESS December 2:48pm Reason for Visit Admit Date PAF (paroxysmal atrial fibrillation) Oct 11:06am Essential hypertension October 07, 2024 11:06am Chief Complaint Admit Date 6 M FU October 07, 2024 11 :06am PAF, FLECAINIDE INITIATION October 22, 2024 6:29am PAF, FLECAINIDE INITIATION October 22, 2024 1:20pm BUE; BILAT UPPER EXT WEAKNESS December 1:02pm BUE; BILAT UPPER EXT WEAKNESS December 2:48pm SCREENING December 27, 2024 7:2 9am Chief Complaint Admit Date 6 M FU October 07, 2024 11 :06am PAF, FLECAINIDE INITIATION October 22, 2024 6:29am PAF, FLECAINIDE INITIATION October 22, 2024 1:20pm BUE; BILAT UPPER EXT WEAKNESS December 1:02pm BUE; BILAT UPPER EXT WEAKNESS December 2:48pm SCREENING December 27, 2024 7:2 9am LESION R FAITH December 31, 2024 10: 29am Reason for Visit Admit Date PAF (paroxysmal atrial fibrillation) Oct uary 2024 11:06am Essential hypertension October 07, 2024 11:06am Seborrheic keratosis December 31, 2024 10 :29am Chief Complaint Admit Date 1 Y FU June 23, 2025 3:37pm BL HANDS July 01, 2025 9:40am Reason for Visit Admit Date PAF (paroxysmal atrial fibrillation) Sep tember 2024 3:37pm Essential hypertension June 23, 2 025 3:37pm Bilateral carpal tunnel syndrome Septemb er 2024 9:40am Chief Complaint Admit Date 1 Y FU June 23, 2025 3:37pm BL HANDS July 01, 2025 9:40am R SIDE EAR PAIN July 09, 2025 11 :33am Family History No Family History Records Found Relationship Condition Age at Onset Recorded Date/T pradeep brother Malignant hyperthermia due to anesthesia Unknown Diabetes mellitus Unknown Hypertension Unknown Malignant neoplasm Unknown Asthma Unknown mother Diabetes mellitus Unknown father Malignant neoplasm Unknown aunt Malignant neoplasm of colon Unknown Advance Directives No Advanced Directives Records Found Advance Directive Response Recorded Date/ Time Advance Directives Yes April 11 11:12am Living Will Yes January 04, 2021 12:44pm Power of Club Manager No January 04 12:44pm Advance Directive Response Recorded Date/ Time Advance Directives Yes April 11 11:12am Living Will No July 07 1:36pm Power of Club Manager No July 07 1:36pm Advance Directive Response Recorded Date/ Time Advance Directives Yes April 11 10:12am Living Will No August 30 10:41am Power of Club Manager No August 30, 2022 10:41am Advance Directive Response Recorded Date/ Time Advance Directives Yes April 11 10:12am Living Will Yes August 30 1:55pm Power of Club Manager No August 30, 2022 1:55pm Advance Directive Response Recorded Date/ Time Advance Directives Yes April 11 11:12am Living Will Yes August 30, 022 2:55pm Power of Club Manager No August 30, 2022 2:55pm Advance Directive Response Recorded Date/ Time Advance Directives Yes April 11 11:12am Living Will No February 07, 2023 7: 31pm Power of Club Manager No February 07, 2023 7:31pm Advance Directive Response Recorded Date/ Time Name of Medical Power of Club Manager June 09, 2023 10:14am Advance Directives Yes April 11 5 11:12am Living Will Yes June 09, 023 10:14am Power of Club Manager Yes June 09, 2023 10:14am Advance Directive Response Recorded Date/ Time Advance Directives Yes April 11 5 10:12am Living Will Yes June 09, 023 9:14am Power of Club Manager Yes June 09, 2023 9:14am Advance Directive Response Recorded Date/ Time Advance Directives Yes April 11 5 11:12am Living Will Yes June 09, 023 10:14am Power of Club Manager Yes June 09, 2023 10:14am Advance Directive Response Recorded Date/ Time Living Will Yes June 09, 10:14am Power of Club Manager Yes June 09, 2023 10:14am Advance Directives Yes April 11 5 11:12am Advance Directive Response Recorded Date/ Time Living Will Yes June 09 10:14am Do you have a Healthcare Power of Club Manager? 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[employer] ADV Summary Purpose Additional Source Comments Goals (unrecognized section and content) Goals may be documented in a n alternate sectionGoals may be documented in an alternate sectionGoals may be documented in an alternate sectionGoals may be documented in an alternate sectionGoals may be documented in an alternate sectionGoals may be documented in an alternate sectionGoals may be documented in an alternate sectionGoals may be documented in an alternate sectionGoals may be documented in an alternate sectionGoals may be documented in an alternate sectionGoals may be documented in an alternate sectionGoals may be documented in an alternate sectionGoals may be documented in an alternate sectionGoals may be documented in an alternate sectionGoals may be documented in an alternate sectionGoals may be documented in an alternate sectionGoals may be documented in an alternate sectionGoals may be documented in an alternate sectionGoals may be documented in an alternate sectionGoals may be documented in an alternate section Care Teams (unrecognized sec tion and content) Team Status: Active Member Role Status Dates Dr. Wesly Hidalgo MD Family Provider Active Dr. Wesly Hidalgo MD Primary Care Provider Active Team Status: Active Member Role Status Dates Dr. Wesly Hidalgo MD Primary Care Provider Active Dr. Alexander Harman MD Emergency Provider Active Dr. Radha Charlton MD Admit Provider, Attending Provider , Other Provider Active Team Status: Active Member Role Status Dates Dr. Wesly Hidalgo MD Primary Care Provider Active Dr. Quinton Barton MD Attending Provider Active Team Status: Inactive Member Role Status Dates Dr. Wesly Hidalgo MD Primary Care Provider, Referring Provider Active Dr. Quinton Barton MD Attending Provider Active Team Status: Inactive Member Role Status Dates Dr. Wesly Hidalgo MD Primary Care Provider, Referring Provider Active Danyell Ware PA, PA Attending Provider Active Team Status: Active Member Role Status Dates Dr. Wesly Hidalgo MD Primary Care Provider Active Dr. Quinton Barton MD Attending Provider Active Dr. Radha Charlton MD Referring Provider Active Team Status: Inactive Member Role Status Dates Dr. Wesly Hidalgo MD Primary Care Provider Active Dr. Alexander Harman MD Emergency Provider Active Dr. Radha Charlton MD Admit Provider, Attending Provider Active Team Status: Inactive Member Role Status Dates Dr. Wesly Hidalgo MD Primary Care Provider, Attending Provider Active Team Status: Inactive Member Role Status Dates Dr. Wesly Hidalgo MD Primary Care Provider Active Dr. Fay Becerra MD Attending Provider Active Team Status: Inactive Member Role Status Dates Dr. Wesly Hidalgo MD Primary Care Provi sejal, Attending Provider, Referring Provider Active Team Status: Inactive Member Role Status Dates Dr. Wesly Hidalgo MD Primary Care Provider Active Dr. Reilly Mcdonald MD Emergency Provider Active Team Status: Inactive Member Role Status Dates Dr. Wesly Hidalgo MD Primary Care Provider Active Dr. Reilly Mcdonald MD Attending Provider, Emergency Provider Active Team Status: Inactive Member Role Status Dates Dr. Wesly Hidalgo MD Primary Care Provider Active Dr. Fay Becerra MD Attending Provider, Referring Pr ovider Active Team Status: Active Member Role Status Dates Dr. Wesly Hidalgo MD Primary Care Provider, Attending Provider Active Team Status: Inactive Member Role Status Dates Dr. Wesly Hidalgo MD Primary Care Provider Active Dr. Maik Harris DO Emergency Provider Active Team Status: Inactive Member Role Status Dates Dr. Wesly Hidalgo MD Primary Care Provider Active Dr. Maik Harris DO Attending Provider, Emergency Provider Active [employer] Transactions Attorney Relationship Specialty Start Date End Date Wesly Hidalgo Chi [address] [place] [address] PCP - General Gerontology 04/04/24 Group, [facility] [address] [place] [address] Specialty Biological Plant Operator Cardiology 04/04/24 Danyell Webb PA-C [address] [place] [address] Physician Bankruptcy Law Specialist Cardiology 04/04/24 Quinton Barton MD [address] [place] [address] Specialty Biological Plant Operator Cardiology 04/05/24 [employer] Transactions Attorney Relationship Specialty Start Date End Date Wesly Hidalgo Chi [address] [place] [address] PCP - General Gerontology 04/04/24 Group, [facility] [address] [place] [address] Specialty Biological Plant Operator Cardiology 04/04/24 Danyell Webb PA-C [address] [place] [address] Physician Bankruptcy Law Specialist Cardiology 04/04/24 Quinton Barton MD [address] [place] [address] Specialty Biological Plant Operator Cardiology 04/05/24 [employer] Transactions Attorney Relationship Specialty Start Date End Date Wesly Hidalgo Chi [address] [place], [place] [id number] PCP - General Gerontology 04/04/24 Danyell Ware PA-C [address] [place], [place] [id number] Physician Bankruptcy Law Specialist Cardiology 04/04/24 Quinton Barton MD [address] [place] [address] Specialty Biological Plant Operator Cardiology 04/05/24 Nicole Allen MD [address] [place] [address] Specialty Biological Plant Operator Cardiology 11/17/24 Team Status: Active Member Role Status Dates Dr. Wesly Hidalgo MD Primary Care Provider Active Team Status: Inactive Member Role Status Dates Dr. Wesly Hidalgo MD Primary Care Provider Active Start: September 27, 2024 End: September 27, 2024 Dr. Wesly Hidalgo MD Attending Provider Active Start: September 27, 2024 End: September 27, 2024 Dr. Wesly Hidalgo MD Referring Provider Active Start: September 27, 2024 End: September 27, 2024 Team Status: Inactive Member Role Status Dates Dr. Wesly Hidalgo MD Primary Care Provider Active Start: October 07, 2024 End: October 07, 2024 Dr. Wesly Hidalgo MD Referring Provider Active Start: October 07, 2024 End: October 07, 2024 Juan Miguel Ziegler IT SECURITY ARCHITECT, IT SECURITY ARCHITECT-C Attending Provider Active S tart: October 07, 2024 End: October 07, 2024 Team Status: Inactive Member Role Status Dates Dr. Wesly Hidalgo MD Primary Care Provider Active Start: October 18, 2024 End: October 18, 2024 Dr. Wesly Hidalgo MD Attending Provider Active Start: October 18, 2024 End: October 18, 2024 Team Status: Inactive Member Role Status Dates Dr. Wesly Hidalgo MD Primary Care Provider Active Start: October 22, 2024 End: October 22, 2024 Juan Miguel Ziegler IT SECURITY ARCHITECT, IT SECURITY ARCHITECT-C Attending Provider Active S tart: October 22, 2024 End: October 22, 2024 Juan Miguel Ziegler IT SECURITY ARCHITECT, IT SECURITY ARCHITECT-C Referring Provider Active S tart: October 22, 2024 End: October 22, 2024 Team Status: Active Member Role Status Dates Dr. Wesly Hidalgo MD Primary Care Provider Active Start: October 22, 2024 Juan Miguel Ziegler IT SECURITY ARCHITECT, IT SECURITY ARCHITECT-C Referring Provider Active S tart: October 22, 2024 Juan Miguel Ziegler IT SECURITY ARCHITECT, IT SECURITY ARCHITECT-C Other Provider Active Start : October 22, 2024 Dr. Quinton Barton MD Attending Provider Active S tart: October 22, 2024 Team Status: Inactive Member Role Status Dates Dr. Wesly Hidalgo MD Primary Care Provider Active Start: October 27, 2024 End: October 27, 2024 Dr. Wesly Hidalgo MD Attending Provider Active Start: October 27, 2024 End: October 27, 2024 Dr. Wesly Hidalgo MD Referring Provider Active Start: October 27, 2024 End: October 27, 2024 Team Status: Inactive Member Role Status Dates Dr. Wesly Hidalgo MD Primary Care Provider Active Start: December 08, 2024 End: December 08, 2024 Dr. Wesly Hidalgo MD Attending Provider Active Start: December 08, 2024 End: December 08, 2024 Team Status: Active Member Role Status Dates Dr. Wesly Hidalgo MD Primary Care Provider Active Start: December 15, 2024 Dr. Wesly Hidalgo MD Attending Provider Active Start: December 15, 2024 Dr. Wesly Hidalgo MD Referring Provider Active Start: December 15, 2024 Team Status: Active Member Role Status Dates Dr. Wesly Hidalgo MD Primary Care Provider Active Start: December 15, 2024 Dr. Wesly Hidalgo MD Referring Provider Active Start: December 15, 2024 Dr. Wesly Hidalgo MD Other Provider Active Star t: December 15, 2024 Dr. Mehnaz Thomson MD Attending Provider Active S tart: December 15, 2024 Team Status: Inactive Member Role Status Dates Dr. Wesly Hidalgo MD Primary Care Provider Active Start: December 15, 2024 End: December 15, 2024 Dr. Wesly Hidalgo MD Attending Provider Active Start: December 15, 2024 End: December 15, 2024 Dr. Wesly Hidalgo MD Referring Provider Active Start: December 15, 2024 End: December 15, 2024 Team Status: Active Member Role Status Dates Dr. Wesly Hidalgo MD Primary Care Provider Active Start: December 20, 2024 Dr. Wesly Hidalgo MD Attending Provider Active Start: December 20, 2024 Team Status: Inactive Member Role Status Dates Dr. Wesly Hidalgo MD Primary Care Provider Active Start: December 20, 2024 End: December 20, 2024 Dr. Wesly Hidalgo MD Attending Provider Active Start: December 20, 2024 End: December 20, 2024 Team Status: Active Member Role Status Dates Dr. Wesly Hidalgo MD Primary Care Provider Active Start: December 27, 2024 Dr. Wesly Hidalgo MD Attending Provider Active Start: December 27, 2024 Dr. Wesly Hidalgo MD Referring Provider Active Start: December 27, 2024 Team Status: Inactive Member Role Status Dates Dr. Wesly Hidalgo MD Primary Care Provider Active Start: December 27, 2024 End: December 27, 2024 Dr. Wesly Hidalgo MD Attending Provider Active Start: December 27, 2024 End: December 27, 2024 Dr. Wesly Hidalgo MD Referring Provider Active Start: December 27, 2024 End: December 27, 2024 Team Status: Inactive Member Role Status Dates Dr. Wesly Hidalgo MD Primary Care Provider Active Start: December 31, 2024 End: December 31, 2024 Dr. Wesly Hidalgo MD Referring Provider Active Start: December 31, 2024 End: December 31, 2024 Dr. Nicole Knapp MD Attending Provider Active Start: December 31, 2024 End: December 31, 2024 [employer] Attorney Relationship Specialty Start Date End Date Wesly Hidalgo [facility] [address] [address] PCP - General Gerontology 04/04/24 Danyell Ware PA-C [address] [place] [address] Physician Bankruptcy Law Specialist Cardiology 04/04/24 Quinton Barton MD [address] [place] [address] Specialty Biological Plant Operator Cardiology 04/05/24 Nicole Allen MD [address] [place] [phone] Specialty Biological Plant Operator Cardiology 11/17/24 [employer] Trans[employer] Attorney Relationship Specialty Start Date End Date Wesly Hidalgo Chi [address] [place] [address] PCP - General Gerontology 04/04/24 Danyell Ware PA-C [address] [address] Physician Bankruptcy Law Specialist Cardiology 04/04/24 Quinton Barton MD [address] [place] [address] Specialty Biological Plant Operator Cardiology 04/05/24 Nicole Allen MD [address] [place] [phone] Specialty Biological Plant Operator Cardiology 11/17/24 Team Status: Active Member Role/Relationship Status Dates Dr. Wesly Hidalgo MD Primary care physician Active Team Status: Inactive Member Role/Relationship Status Dates Dr. Wesly Hidalgo MD Primary care physician Active Start: June 22, 2025 End: June 22, 2025 Dr. Wesly Hidalgo MD Attending physician Active Start: June 22, 2025 End: June 22, 2025 Team Status: Inactive Member Role/Relationship Status Dates Dr. Wesly Hidalgo MD Primary care physician Active Start: June 23, 2025 End: June 23, 2025 Dr. Wesly Hidalgo MD Referring Provider Active Start: June 23, 2025 End: June 23, 2025 Dr. Quinton Barton MD Attending physician Active Start: June 23, 2025 End: June 23, 2025 Team Status: Inactive Member Role/Relationship Status Dates Dr. Wesly Hidalgo MD Primary care physician Active Start: July 01, 2025 End: July 01, 2025 Dr. Wesly Hidalgo MD Referring Provider Active Start: July 01, 2025 End: July 01, 2025 Ran Dennison MD Attending physician Active S tart: July 01, 2025 End: July 01, 2025 Team Status: Inactive Member Role/Relationship Status Dates Dr. Wesly Hidalgo MD Primary care physician Active Start: July 09, 2025 End: July 09, 2025 Dr. Wesly Hidalgo MD Referring Provider Active Start: July 09, 2025 End: July 09, 2025 SIM Santana Attending physician Active Start: July 09, 2025 End: July 09, 2025 Source Comments (unrecognize d section and content) In the event this informatio n is protected by the Federal Confidentiality of Alcohol and Drug Abuse Patient Records regulations: The Federal rules restrict any use of the information to criminally investigate or prosecute any alcohol or drug abuse patient.[facility] the event this information is protected by the Federal Confidentiality of Alcohol and Drug Abuse Patient Records regulations: The Federal rules restrict any use of the information to criminally investigate or prosecute any alcohol or drug abuse patient.[facility] the event this information is protected by the Federal Confidentiality of Alcohol and Drug Abuse Patient Records regulations: The Federal rules restrict any use of the information to criminally investigate or prosecute any alcohol or drug abuse patient.[facility] the event this information is protected by the Federal Confidentiality of Alcohol and Drug Abuse Patient Records regulations: The Federal rules restrict any use of the information to criminally investigate or prosecute any alcohol or drug abuse patient.[facility] the event this information is protected by the Federal Confidentiality of Alcohol and Drug Abuse Patient Records regulations: The Federal rules restrict any use of the information to criminally investigate or prosecute any alcohol or drug abuse patient.[facility] Reason for Visit (unrecogniz ed section and content) Reason Comments CARD New Patient Consult Reason Comments Treatment Planning Reason Comments Cardiology Follow Up - Generic ReDiscuss Ablation Reason Comments Preparations For Procedures Reason Comments Orders INFORMATION SOURCE (unrecogn ized section and content) DATE CREATED AUTHOR 08/09/2025 [facility] DATE CREATED AUTHOR AUTHOR'S CLARA WHITNEY 08/17/2025 [facility] FOR RECORDS PERTAINING TO PATIENTS WHO ARE OR HAVE BEEN ENROLLED IN A CHEMICAL DEPENDENCY/SUBSTANCEABUSE PROGRAM, SOME INFORMATION MAY BE OMITTED. This clinical summary was aggregated from multiple sources. Caution should be exercised in using it in the provision of clinical care. This summary normalizes information from multiple sources, and as a consequence, information in this document may materially change the coding, format and clinical context of patient data. In addition, data may be omitted in some cases. CLINICAL DECISIONS SHOULD BE BASED ON THE PRIMARY CLINICAL RECORDS. [facility] [employer] [facility]. provides no warranty or guarantee of the accuracy or completeness of information in this document.
== END | disposition home or self-care (01) ==
LOC: OPBD 08:51
PROVIDERS: PCP Family Medicine Geriatric Medicine; Referring Provider Family Medicine Geriatric Medicine; Visit Provider Family Medicine Geriatric Medicine
DX: Z13.820 Encounter for screening for osteoporosis (principal); Z78.0 Asymptomatic menopausal state
CPT/HCPCS: 77080